=== PATIENT | female | born 1940 | race Caucasian/White ===

== ENCOUNTER 2016-03-03 12:25 | Emergency (ER) | payer MEDICARE, OTHER ==
--- NOTE | 2016-03-03 13:40 | ER Document Report ---
ED General - General Mode of Arrival: Medic Information source: Patient, Relative - TRAVEL OUTSIDE OF THE U.S. IN LAST 30 DAYS: No - HPI Onset: Other - see narrative Onset/Duration: Persistent Quality of pain: Achy Recently seen / treated by doctor: Yes - General Stated Complaint: GEN PAIN Notes: Patient is a 75-year-old female that presents to the emergency department today with complaints of pain over her tailbone. Patient has had a complicated medical history over the last few months, including having spinal surgery over for a meningioma removal at [facility]. Patient was in the hospital and [place] [facility] facilities for an extended period of time, she recently returned home approximately 1 week ago. According to the at bedside, the patient has been complaining of pain and feeling uncomfortable with her mattress/wheelchair for quite some time. states the patient is wheelchair/bed bound. Patient states that she went to her primary care physician 's office today for medication refills and for concerns about her tailbone pain and she was sent here. Patient states her physician never evaluated her today, he just sent her here. and patient both deny any recent fall or trauma. (VÍCTOR RODRIGUEZ) - Related Data Allergies/Adverse Reactions: No Known Allergies Allergy (Verified 11/15/13 14:00) Past Medical History - General Information source: Patient, [facility] Records - Social History Smoking Status: Former Smoker Cigarette use (# per day): No Frequency of alcohol use: None Drug Abuse: None Lives with: Spouse/Significant other Family History: None - Past Medical History Cardiac Medical History: Reports: Hx Hypertension - meds x 3 years Pulmonary Medical History: Renal/ Medical History: Reports: Hx Kidney Stones - ESWL x 7 ([id number]), Hx Ovarian Cysts Musculoskeltal Medical History: Reports Hx Arthritis Past Surgical History: Reports: Hx Appendectomy - incidental with CARRIE BSO, Hx Hysterectomy, Hx Tonsillectomy - as child, Other - Meningioma removal - Immunizations Hx Diphtheria, Pertussis, Tetanus Vaccination: No Hx Pneumococcal Vaccination: 09/06/13 Review of Systems - Review of Systems Constitutional: No symptoms reported EENT: No symptoms reported Cardiovascular: No symptoms reported Respiratory: No symptoms reported Gastrointestinal: No symptoms reported Genitourinary: No symptoms reported Female Genitourinary: No symptoms reported Musculoskeletal: See HPI, Other - "tailbone" pain, left knee pain Skin: No symptoms reported Hematologic/Lymphatic: No symptoms reported Neurological/Psychological: No symptoms reported -: Yes All other systems reviewed and negative Physical Exam - General General appearance: Alert - HEENT Head: Normocephalic, Atraumatic Eyes: Normal Conjunctiva: Normal Extraocular movements intact: Yes - Respiratory Respiratory status: No respiratory distress Chest status: Nontender Breath sounds: Normal - Cardiovascular Rhythm: Regular Heart sounds: Normal auscultation Murmur: No - Abdominal Inspection: Obese Distension: No distension Bowel sounds: Normal Tenderness: Nontender - Extremities General upper extremity: Normal inspection, Nontender, Normal ROM. No: Edema General lower extremity: Normal inspection, Nontender, Normal ROM. No: Edema - Neurological Neuro grossly intact: Yes Cognition: Normal Speech: Normal - Psychological Associated symptoms: Normal affect, Normal mood - Skin Skin Temperature: Warm Skin Moisture: Dry Skin Color: Normal - Vital signs Vitals: Temp Pulse Resp BP Pulse Ox 97.5 F 108 H 20 122/74 98 03/03/16 14:00 03/03/16 14:00 03/03/16 14:00 03/03/16 14:00 03/03/16 14:00 (LIVIA STEPHEN) - Skin Notes: No skin breakdown in sacral area, abscess, skin infection, ecchymosis, contusion , or sign of skin infection. (VÍCTOR RODRIGUEZ) Course - Re-evaluation Re-evalutation: 03/03/16 17:44 I personally performed the services described in the documentation, reviewed and edited the documentation which was dictated to my scribe in my presence, and it accurately records my words and actions. Patient seen and evaluated at the bedside with scribe in . states he is here patient states she is here for pain in her tailbone. 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 She has been seen and evaluated due The tumor removed he says she is now bedbound and wheelchair-bound. The wheelchair is a new thing for her. She was receiving her care and her medications from [facility] due to was told to see her primary care physician. He went to see a primary care physician today and she said she was crying with tailbone pain and the primary care physician did not see or evaluate her just told the nurse to send her to the emergency department. Patient and family said they any refills on her medications including probiotics but the states doctor was unwilling to do that and said it have that evaluated in the emergency department patient is in her regular state of health with the exception of complaining of tailbone pain. She has been laying on her back more than usual they said the mattress is not good and she's also been in a wheelchair which is new for her. He says he has a hospital bed at home but is not set up yet. He is here now requesting multiple things which included if her hospital bed physical therapy occupational therapy and resolve all her medications. I involved showcase maker the patient is no acute neurological deficits she is awake and alert no chest pain no shortness breath abdomen is soft left-sided paralysis on logroll she has tenderness over the coccyx region but there is not any skin breakdown whatsoever the skin is warm dry there is no cellulitis necrosis or crepitus no midline cervical thoracic or lumbar tenderness and the rest of her exam is essentially stable. X- ray of the coccyx is negative. systems analysis manager involved spoke with the primary care physician's nurse. She extensively worked with the at the bedside including giving him a program which they call for coronary insurance have a primary care physician come to their house patient has been continues to express wants and needs for numerous things including occupational therapy a different bed explained to him that that is not something we can order or have control over. We have given them all the resources to contact at home we have also notified the primary care physician that they need to see the patient in follow-up in 1-2 days. And discussed reasons for ED return sooner (LIVIA STEPHEN) - Vital Signs Vital signs: Temp Pulse Resp BP Pulse Ox 97.4 F 106 H 20 129/71 H 96 03/03/16 16:09 03/03/16 16:09 03/03/16 14:00 03/03/16 16:09 03/03/16 16:09 (LIVIA STEPHEN) Discharge - Discharge Clinical Impression: Coccyx pain Condition: Stable Disposition: HOME, SELF-CARE Additional Instructions: Low Back Pain/ tailbone pain Three out of every four people will have an episode of disabling back pain during their lifetime. Most commonly the pain is due to straining of the muscles and ligaments in the low back. Usual treatment includes: (1) Rest on a firm surface. Avoid lying on your stomach. (2) Ice pack the painful area. After a few days, gentle heat may be used intermittently to relax the area, or ice packs can be continued. (3) Medication may be needed -- muscle relaxers and antiinflammatory medicines are commonly used. (4) As the back improves, exercises are prescribed to strengthen the back and abdominal muscles. Your doctor will advise you on the proper care for your back at each stage in your recovery. You may be better in a few days -- or healing may take several weeks. If new symptoms of a "herniated disc" (radiation of pain, numbness, or tingling down the back of the leg or weakness in the leg) occur, you should be re-examined. Further testing may be necessary. Referrals: ELMA FERNÁNDEZ MD [Primary Care Provider] - Follow up tomorrow (in 1-2 days return to er sooner for increasing worsening or new symptoms) Scribe Documentation - Scribe Written by Bo:: Bo Bocanegra, 03/03/16 [id number] acting as scribe for :: Sabino
[2016-03-03 18:57] VITALS: BP 135/57
== END 2016-03-03 18:40 | disposition home or self-care (01) ==
LOC: ER 12:25
DX: M53.3 Sacrococcygeal disorders, not elsewhere classified (principal); M25.561 Pain in right knee; I10 Essential (primary) hypertension; G83.14 Monoplegia of lower limb affecting left nondominant side; Z99.3 Dependence on wheelchair; Z87.891 Personal history of nicotine dependence; Z98.890 Other specified postprocedural states
CPT/HCPCS: 72110; 99283

== ENCOUNTER 2016-03-21 14:37 | Emergency (ER) | payer MEDICARE ==
--- NOTE | 2016-03-21 15:37 | ER Document Report ---
ED General - General Chief Complaint: Constipation Stated Complaint: CONSTIPATION Mode of Arrival: Medic Information source: Patient, Relative - Notes: Patient presents to the emergency department with reports of constipation. Patient reports last bowel movement 3 days ago. She reports she is taking multiple stool softeners and suppository and this morning her gave her a fleets enema. She reports she started having liquid brown stool. She also presents with hard stool in a bag. She reports some abdominal pain and nausea. Denies fever vomiting. Reports history of some constipation. Also reports history of high blood pressure diabetes. reports patient immediately had a meningioma drained at [place]. He reports patient was taking metronidazole since then to help drain the meningioma. He reports is not draining anymore and is flat so he quit giving it to her 6 days ago because he read that it causes constipation. Patient has a hardy in. She reports shes had it ever since she went to [place]. She also reports shes been bed bound since before December. reports they can no longer go see their primary care provider. Apparently health and social care teacher is making arrangements for the primary care provider to come see them. TRAVEL OUTSIDE OF THE [place] IN LAST 30 DAYS: No - HPI Onset: Other - 3 days Onset/Duration: Persistent - Related Data Allergies/Adverse Reactions: No Known Allergies Allergy (Verified 11/15/13 14:00) Past Medical History - General Information source: Patient, Relative - - Social History Smoking Status: Unknown if Ever Smoked Cigarette use (# per day): No Frequency of alcohol use: None Drug Abuse: None Lives with: Family Family History: None - Past Medical History Cardiac Medical History: Reports: Hx Hypertension - meds x 3 years Denies: Hx Atrial Fibrillation, Hx Congestive Heart Failure, Hx Coronary Artery Disease, Hx Heart Attack, Hx Hypercholesterolemia, Hx Peripheral Vascular Disease, Hx Heart Murmur Pulmonary Medical History: Denies: Hx Asthma, Hx COPD, Hx Pneumonia Neurological Medical History: Denies: Hx Cerebrovascular Accident, Hx Seizures Endocrine Medical History: Denies: Hx Graves' Disease, Hx Hyperthyroidism, Hx Hypothyroidism Renal/ Medical History: Reports: Hx Kidney Stones - ESWL x 7 ([id number]), Hx Ovarian Cysts, Other - prolapsed bladder- hardy. Denies: Hx End Stage Renal Disease, Hx Peritoneal Dialysis, Hx Pelvic Inflammatory Disease Malignancy Medical History: Denies: Hx Breast Cancer, Hx Cervical Cancer, Hx Ovarian Cancer GI Medical History: Denies: Hx Crohn's Disease, Hx Gastroesophageal Reflux Disease, Hx Hiatal Hernia, Hx Irritable Bowel, Hx Liver Failure, Hx Ulcer Musculoskeltal Medical History: Reports Hx Arthritis, Denies Hx Fibromyalgia, Denies Hx Multiple Sclerosis, Denies Hx Muscular Dystrophy Psychiatric Medical History: Denies: Hx Dementia Traumatic Medical History: Denies: Hx Fractures Past Surgical History: Reports: Hx Appendectomy - incidental with CARRIE BSO, Hx Hysterectomy, Hx Tonsillectomy - as child, Other - Meningioma removal. Denies: Hx Bowel Surgery, Hx Section, Hx Cholecystectomy, Hx Colostomy, Hx Coronary Artery Bypass Graft, Hx Gastric Bypass Surgery, Hx Herniorrhaphy, Hx Mastectomy, Hx Pacemaker, Hx Tubal Ligation - Immunizations Hx Diphtheria, Pertussis, Tetanus Vaccination: No Hx Pneumococcal Vaccination: 09/06/13 Review of Systems - Review of Systems Notes: Review HPI for review of systems., All other systems negative Physical Exam - Vital signs Vitals: Temp Pulse Resp BP Pulse Ox 97.4 F 88 18 127/72 H 100 03/21/16 14:37 03/21/16 14:37 03/21/16 14:37 03/21/16 14:37 03/21/16 14:37 - Notes Notes: PHYSICAL EXAMINATION: GENERAL: nontoxic looking HEAD: Atraumatic, normocephalic. EYES: Pupils equal round , extraocular movements intact, sclera anicteric, conjunctiva are normal. ENT: nares patent, Moist mucous membranes. NECK: Normal range of motion, supple without lymphadenopathy LUNGS: CTAB and equal. No wheezes rales or rhonchi. HEART: tachy ABDOMEN: Soft, obese no tenderness with palpation. No guarding, no rebound EXTREMITIES: Normal range of motion, no pitting edema. No cyanosis. NEUROLOGICAL: Cranial nerves grossly intact. Normal sensory/motor PSYCH: Normal mood, normal affect. SKIN: Warm, Dry, normal turgor, no rashes or lesions noted or open sores noted Course - Re-evaluation Re-evalutation: 03/21/16 16:43 I have consulted the attending provider dr shea per [facility] guidelines Attempted to disimpact no stool obtained. 03/21/16 18:17 Enema completed large brown stool obtained. Patient instructed on UTI antibiotics. Patient was taking Macrobid until one week ago. Patient will be placed on Septra. She was instructed on Septra signs and symptoms of allergic reaction. She was also instructed on Tylenol avoid narcotics. Patient reports her home health nurse will be out on this week. She reports she has 5 people that come see her every week. Patient reports she is too weak to sit up. She reports she has been able to sit up since December. She reports she's been bedbound since that time. They are asking for from the transport back home. 03/21/16 18:25 Transport requested the community outreach coordinator. - Vital Signs Vital signs: Temp Pulse Resp BP Pulse Ox 97.4 F 88 18 127/72 H 100 03/21/16 14:37 03/21/16 14:37 03/21/16 14:37 03/21/16 14:37 03/21/16 14:37 - Laboratory Result Diagrams: 03/21/16 15:41 03/21/16 15:41 Laboratory results interpreted by me: 03/21/16 03/21/16 03/21/16 15:41 15:41 15:41 WBC 10.8 H RDW 16.3 H Potassium 3.1 L Chloride 108 H BUN 23 H Total Protein 6.1 L Albumin 2.9 L Urine Protein 30 H Urine Blood LARGE H Urine Nitrite POSITIVE H Ur Leukocyte Esterase LARGE H - Diagnostic Test Radiology reviewed: Image reviewed, Reports reviewed Discharge - Discharge Clinical Impression: Elevated blood pressure reading Constipation Qualifiers: Constipation type: unspecified constipation type Qualified Code(s): K59.00 - Constipation, unspecified UTI (urinary tract infection) Qualifiers: Urinary tract infection type: catheter-associated UTI Indwelling urinary catheter type: indwelling urethral catheter Encounter type: initial encounter Qualified Code(s): T83.511A - Infection and inflammatory reaction due to indwelling urethral catheter, initial encounter Condition: Stable Disposition: HOME, SELF-CARE Instructions: Urinary Tract Infection ([facility]), Trimethoprim-Sulfa ([facility]), Constipation ([facility]), Stool Softener ([facility]) Additional Instructions: *You have been evaluated for abdominal pain, constipation, urinary tract infection *Take medication as prescribed *Follow up with your primary care provider within one week *Return to ED for worsening condition, changes, needs *Return to ED if not better in 24 hours Prescriptions: Sulfamethoxazole/Trimethoprim [Bactrim Ds Tablet] 1 each PO BID #10 tablet Forms: Return to Work, Elevated Blood Pressure
[2016-03-21 16:15] LABS: ABSOLUTE BASOPHILS # (AUTO) 0.1 10^3/uL (0.0-0.2); ABSOLUTE EOSINOPHILS # (AUTO) 0.3 10^3/uL (0.0-0.6); ABSOLUTE LYMPHOCYTES (AUTO) 2.6 10^3/uL (0.5-4.7); ABSOLUTE MONOCYTES (AUTO) 1.1 10^3/uL (0.1-1.4); ABSOLUTE NEUT (AUTO) 6.7 10^3/uL (1.7-8.2); BASOPHILS % (AUTO) 0.9 % (0-2); EOSINOPHILS % (AUTO) 2.4 % (0-6); HEMATOCRIT 39.5 % (36.0-47.0); HEMOGLOBIN 13.1 g/dL (12.0-15.5); HGB HCT DIFFERENCE -0.2; LYMPHOCYTES % (AUTO) 24.4 % (13-45); MEAN CORPUSCULAR HGB CONC 33.1 g/dL (32.0-36.0); MEAN CORPUSCULAR VOLUME 85 fl (80-97); MONOCYTES % (AUTO) 10.2 % (3-13); RED BLOOD COUNT 4.67 10^6/uL (3.72-5.28); RED CELL DISTRIBUTION WIDTH 16.3 % (11.5-14.0); SEGMENTED NEUTROPHILS % (AUTO) 62.1 % (42-78); WHITE BLOOD COUNT 10.8 10^3/uL (4.0-10.5)
[2016-03-21 16:36] LABS: APPEARANCE,URINE CLOUDY; BILIRUBIN,URINE NEGATIVE (NEGATIVE); GLUCOSE, URINE NEGATIVE (NEGATIVE); KETONES,URINE NEGATIVE (NEGATIVE); LEUKOCYTE ESTERASE,URINE LARGE (NEGATIVE); NITRITE,URINE POSITIVE (NEGATIVE); PROTEIN,URINE 30 mg/dL (NEGATIVE); URINE SPECIFIC GRAVITY 1.019; UROBILINOGEN,URINE NEGATIVE mg/dL (<2.0)
[2016-03-21] MEDS ORDERED: MINERAL OIL ENEMA 133 ML PR ONE (16:37)
[2016-03-21 16:41] LABS: ALANINE AMINOTRANSFERASE 44 U/L (9-52); ALBUMIN 2.9 g/dL (3.5-5.0); ALKALINE PHOSPHATASE 83 U/L (38-126); ANION GAP 10 (5-19); ASPARTATE AMINO TRANSFERASE 29 U/L (14-36); BILIRUBIN,TOTAL 0.4 mg/dL (0.2-1.3); BLOOD UREA NITROGEN 23 mg/dL (7-20); CALCIUM 10.1 mg/dL (8.4-10.2); CARBON DIOXIDE 26 mmol/L (22-30); CHLORIDE 108 mmol/L (98-107); CREATININE RESULT 0.89 mg/dL (0.52-1.25); GLUCOSE 103 mg/dL (75-110); POTASSIUM 3.1 mmol/L (3.6-5.0); SODIUM 143.8 mmol/L (137-145); TOTAL PROTEIN 6.1 g/dL (6.3-8.2)
[2016-03-21] MEDS ORDERED: ACETAMINOPHEN 325 MG TABLET PO ONE (18:15)
[2016-03-21] MEDS ORDERED: SULFAMETHOXAZOLE/TRIMETHOPRIM 800-160 MG TABLET PO ONE (18:15)
[2016-03-21 19:24] VITALS: BP 138/87
== END 2016-03-21 19:25 | disposition home or self-care (01) ==
LOC: ER 14:37
DX: R03.0 Elevated blood-pressure reading, without diagnosis of hypertension (principal); K59.00 Constipation, unspecified; T83.511A Infection and inflammatory reaction due to indwelling urethral catheter, initial encounter; N39.0 Urinary tract infection, site not specified; E66.9 Obesity, unspecified; Z87.442 Personal history of urinary calculi; Z90.710 Acquired absence of both cervix and uterus
CPT/HCPCS: 99284; 36415; 87086; 85025; 87088; 80053; 81001; 87186; 74000; J3490; A9270

== ENCOUNTER 2016-03-30 17:17 | Inpatient (IN) | payer MEDICARE, OTHER ==
[2016-03-30] MEDS ORDERED: LIDOCAINE 2% VISCOUS SOLN 20 ML UDCUP PO ONE (17:26)
[2016-03-30] MEDS ORDERED: MAG HYDROX/AL HYDROX/SIMETH SUSP 30 ML UDCUP PO ONE (17:26)
[2016-03-30] MEDS ORDERED: METOCLOPRAMIDE HCL ORAL SOLN 10 MG/10 ML UDCUP PO ONE (17:26)
[2016-03-30] MEDS ORDERED: ASPIRIN 81 MG TABLET, CHEWABLE PO ONE (17:28)
--- NOTE | 2016-03-30 17:46 | ER Document Report ---
ED Medical Screen (RME) - General Chief Complaint: Epigastric Pain Stated Complaint: ABDOMINAL PAIN/CONGESTION Mode of Arrival: Medic Information source: Patient Notes: 75 y/o F presents to ED c/o epigastric/substernal burning type pain since yesterday. Denies fever or sob. I have greeted and performed a rapid initial assessment of this patient. A comprehensive ED assessment and evaluation of the patient, analysis of test results and completion of the medical decision making process will be conducted by additional ED providers. TRAVEL OUTSIDE OF THE [place] IN LAST 30 DAYS: No - Related Data Allergies/Adverse Reactions: No Known Allergies Allergy (Verified 03/30/16 17:28) Past Medical History - Social History Chew tobacco use (# tins/day): No Frequency of alcohol use: None Drug Abuse: None - Past Medical History Cardiac Medical History: Reports: Hx Hypertension - meds x 3 years Denies: Hx Atrial Fibrillation, Hx Congestive Heart Failure, Hx Coronary Artery Disease, Hx Heart Attack, Hx Hypercholesterolemia, Hx Peripheral Vascular Disease, Hx Heart Murmur Pulmonary Medical History: Denies: Hx Asthma, Hx COPD, Hx Pneumonia Neurological Medical History: Denies: Hx Cerebrovascular Accident, Hx Seizures Endocrine Medical History: Denies: Hx Graves' Disease, Hx Hyperthyroidism, Hx Hypothyroidism Renal/ Medical History: Reports: Hx Kidney Stones - ESWL x 7 ([phone]), Hx Ovarian Cysts. Denies: Hx End Stage Renal Disease, Hx Peritoneal Dialysis, Hx Pelvic Inflammatory Disease Malignancy Medical History: Denies: Hx Breast Cancer, Hx Cervical Cancer, Hx Ovarian Cancer GI Medical History: Denies: Hx Crohn's Disease, Hx Gastroesophageal Reflux Disease, Hx Hiatal Hernia, Hx Irritable Bowel, Hx Liver Failure, Hx Ulcer Musculoskeltal Medical History: Reports Hx Arthritis, Denies Hx Fibromyalgia, Denies Hx Multiple Sclerosis, Denies Hx Muscular Dystrophy Psychiatric Medical History: Denies: Hx Dementia Traumatic Medical History: Denies: Hx Fractures Past Surgical History: Reports: Hx Appendectomy - incidental with CARRIE BSO, Hx Hysterectomy, Hx Tonsillectomy - as child, Other - Meningioma removal. Denies: Hx Bowel Surgery, Hx Section, Hx Cholecystectomy, Hx Colostomy, Hx Coronary Artery Bypass Graft, Hx Gastric Bypass Surgery, Hx Herniorrhaphy, Hx Mastectomy, Hx Pacemaker, Hx Tubal Ligation - Immunizations Hx Diphtheria, Pertussis, Tetanus Vaccination: No Physical Exam - General General appearance: Appears well, Alert In distress: None - Respiratory Respiratory status: No respiratory distress Breath sounds: Normal
[2016-03-30 18:25] LABS: ABSOLUTE BASOPHILS # (AUTO) 0.2 10^3/uL (0.0-0.2); ABSOLUTE EOSINOPHILS # (AUTO) 0.4 10^3/uL (0.0-0.6); ABSOLUTE LYMPHOCYTES (AUTO) 5.4 10^3/uL (0.5-4.7); ABSOLUTE MONOCYTES (AUTO) 1.8 10^3/uL (0.1-1.4); ABSOLUTE NEUT (AUTO) 7.8 10^3/uL (1.7-8.2); BASOPHILS % (AUTO) 1.2 % (0-2); EOSINOPHILS % (AUTO) 2.4 % (0-6); HEMATOCRIT 40.7 % (36.0-47.0); HGB HCT DIFFERENCE -1.7; LYMPHOCYTES % (AUTO) 34.5 % (13-45); MEAN CORPUSCULAR HEMOGLOBIN 27.1 pg (27.0-33.4); MEAN CORPUSCULAR HGB CONC 31.9 g/dL (32.0-36.0); MEAN CORPUSCULAR VOLUME 85 fl (80-97); MONOCYTES % (AUTO) 11.5 % (3-13); RED BLOOD COUNT 4.79 10^6/uL (3.72-5.28); RED CELL DISTRIBUTION WIDTH 15.6 % (11.5-14.0); SEGMENTED NEUTROPHILS % (AUTO) 50.4 % (42-78); WHITE BLOOD COUNT 15.5 10^3/uL (4.0-10.5)
[2016-03-30 18:44] LABS: ALANINE AMINOTRANSFERASE 109 U/L (9-52); ALBUMIN 3.5 g/dL (3.5-5.0); ALKALINE PHOSPHATASE 80 U/L (38-126); ANION GAP 14 (5-19); ASPARTATE AMINO TRANSFERASE 91 U/L (14-36); BILIRUBIN,TOTAL 0.6 mg/dL (0.2-1.3); BLOOD UREA NITROGEN 15 mg/dL (7-20); CALCIUM 10.7 mg/dL (8.4-10.2); CARBON DIOXIDE 18 mmol/L (22-30); CHLORIDE 106 mmol/L (98-107); CREATINE KINASE 23 U/L (30-135); CREATININE RESULT 0.91 mg/dL (0.52-1.25); GLUCOSE 189 mg/dL (75-110); LIPASE 530.8 U/L (23-300); POTASSIUM 3.8 mmol/L (3.6-5.0); TOTAL PROTEIN 6.5 g/dL (6.3-8.2)
[2016-03-30 18:59] LABS: CREATINE KINASE MB 0.94 ng/mL (<4.55)
[2016-03-30 19:01] LABS: TROPONIN I 0.047 ng/mL
[2016-03-30] MEDS ORDERED: NORMAL SALINE 1000 ML 1,000 ML IV ONE (20:04)
--- NOTE | 2016-03-30 20:08 | EKG REPORT ---
SEVERITY:- ABNORMAL ECG - SINUS RHYTHM LAD, CONSIDER LEFT ANTERIOR FASCICULAR BLOCK : Confirmed by: Rob Mistry 30-Mar-2016 20:07:03
--- NOTE | 2016-03-30 20:08 | ER Document Report ---
ED General - General Chief Complaint: Epigastric Pain Stated Complaint: ABDOMINAL PAIN/CONGESTION Mode of Arrival: Medic Notes: Patient is a 75-year-old female with a history of hypertension and hyperlipidemia, chronic urinary incontinence secondary to uterine prolapse who presents with 2 days of epigastric abdominal pain radiating into her chest. Pain is described as a pressure, burning sensation. Nothing improves or worsens the pain. Denies a history of similar symptoms in the past. She has not seen her primary care doctor regarding today's concerns. States that she is also having leakage of urine around her catheter and that there is a significant burning associated with that urine leakage. She is not had any vomiting, diaphoresis, shortness of breath, hemoptysis. She denies any prior history of pulmonary embolus or DVT. No use of estrogen. TRAVEL OUTSIDE OF THE [place] IN LAST 30 DAYS: No - Related Data Allergies/Adverse Reactions: No Known Allergies Allergy (Verified 03/30/16 17:28) Past Medical History - General Information source: Patient - Social History Smoking Status: Never Smoker Chew tobacco use (# tins/day): No Frequency of alcohol use: None Drug Abuse: None Lives with: Family Family History: Reviewed & Not Pertinent Patient has suicidal ideation: No Patient has homicidal ideation: No - Past Medical History Cardiac Medical History: Reports: Hx Hypertension - meds x 3 years Denies: Hx Atrial Fibrillation, Hx Congestive Heart Failure, Hx Coronary Artery Disease, Hx Heart Attack, Hx Hypercholesterolemia, Hx Peripheral Vascular Disease, Hx Heart Murmur Pulmonary Medical History: Denies: Hx Asthma, Hx COPD, Hx Pneumonia Neurological Medical History: Denies: Hx Cerebrovascular Accident, Hx Seizures Endocrine Medical History: Denies: Hx Graves' Disease, Hx Hyperthyroidism, Hx Hypothyroidism Renal/ Medical History: Reports: Hx Kidney Stones - ESWL x 7 [phone]), Hx Ovarian Cysts. Denies: Hx End Stage Renal Disease, Hx Peritoneal Dialysis, Hx Pelvic Inflammatory Disease Malignancy Medical History: Denies: Hx Breast Cancer, Hx Cervical Cancer, Hx Ovarian Cancer GI Medical History: Denies: Hx Crohn's Disease, Hx Gastroesophageal Reflux Disease, Hx Hiatal Hernia, Hx Irritable Bowel, Hx Liver Failure, Hx Ulcer Musculoskeltal Medical History: Reports Hx Arthritis, Denies Hx Fibromyalgia, Denies Hx Multiple Sclerosis, Denies Hx Muscular Dystrophy Psychiatric Medical History: Denies: Hx Dementia Traumatic Medical History: Denies: Hx Fractures Past Surgical History: Reports: Hx Appendectomy - incidental with CARRIE BSO, Hx Hysterectomy, Hx Tonsillectomy - as child, Other - Meningioma removal. Denies: Hx Bowel Surgery, Hx Section, Hx Cholecystectomy, Hx Colostomy, Hx Coronary Artery Bypass Graft, Hx Gastric Bypass Surgery, Hx Herniorrhaphy, Hx Mastectomy, Hx Pacemaker, Hx Tubal Ligation - Immunizations Hx Diphtheria, Pertussis, Tetanus Vaccination: No Hx Pneumococcal Vaccination: 09/06/13 Review of Systems - Review of Systems Notes: Constitutional: Negative for fever. HENT: Negative for sore throat. Eyes: Negative for visual changes. Cardiovascular: Positive for chest pain. Respiratory: Negative for shortness of breath. Gastrointestinal: Negative for abdominal pain, vomiting or diarrhea. Genitourinary: Positive for suprapubic discomfort Musculoskeletal: Negative for back pain. Skin: Negative for rash. Neurological: Negative for headaches, weakness or numbness. 10 point ROS negative except as marked above and in HPI. Physical Exam - Vital signs Vitals: Temp Pulse Resp BP Pulse Ox 97.4 F 115 H 20 87/59 L 98 03/30/16 17:34 03/30/16 17:34 03/30/16 17:34 03/30/16 17:34 03/30/16 17:34 Interpretation: Hypotensive, Tachycardic Notes: PHYSICAL EXAMINATION: GENERAL: Anxious, appears to be in pain but no significant distress HEAD: Atraumatic, normocephalic. EYES: Pupils equal round and reactive to light, extraocular movements intact, sclera anicteric, conjunctiva are normal. ENT: nares patent, oropharynx clear without exudates. Moderately dry mucous membranes. NECK: Normal range of motion, supple without lymphadenopathy LUNGS: Breath sounds clear to auscultation bilaterally and equal. No wheezes rales or rhonchi. HEART: Regular rate and rhythm without murmurs ABDOMEN: Soft, nontender, normoactive bowel sounds. No guarding, no rebound. No masses appreciated. EXTREMITIES: Normal range of motion, no pitting or edema. No cyanosis. NEUROLOGICAL: No focal neurological deficits. Moves all extremities spontaneously and on command. PSYCH: anxious SKIN: Warm, Dry, normal turgor, no rashes or lesions noted. Course - Re-evaluation Re-evalutation: 02/20/17 20:05 Patient presents with epigastric abdominal pain radiating to the chest concerning for possible gastritis versus pericarditis versus possible ACS. Primary concern is for cardiac etiology given patient's moderately elevated troponin as well as EKG changes showing T-wave inversions in V2 through 4 and T- wave flattening in the lateral leads which was not present on EKG from 2015. Patient is pain-free at the time of my assessment. Denies any chest pain, shortness of breath, or pleuritic pain to suggest acute pulmonary embolus. Patient's initial vitals from EMS were within normal limits but her triage vitals showed hypotension. A recycling of his blood pressure at the time of my assessment shows a blood pressure at 102 on 76. I suspect the first reading may have been an incorrect reading although will continue to monitor the patient closely and provide a small fluid bolus. She will require admission. 2300-urinalysis shows findings consistent with pyelonephritis in the serum was collected after a clean catheterization and placement of new Lou. Her second troponin has down trended. Her pain is improved. She has been started on ceftriaxone and admitted to the hospitalist Dr. Elder. - Vital Signs Vital signs: Temp Pulse Resp BP Pulse Ox 97.4 F 94 20 135/71 H 99 03/30/16 17:34 03/30/16 22:00 03/31/16 01:00 03/31/16 00:01 03/31/16 01:00 - Laboratory Result Diagrams: 03/30/16 18:06 03/30/16 18:06 Laboratory results interpreted by me: 03/30/16 03/30/16 03/30/16 18:06 18:06 22:00 WBC 15.5 H MCHC 31.9 L RDW 15.6 H Plt Count 458 H Absolute Lymphocytes 5.4 H Absolute Monocytes 1.8 H Carbon Dioxide 18 L Glucose 189 H Calcium 10.7 H AST 91 H ALT 109 H Creatine Kinase 23 L Lipase 530.8 H Urine Protein 100 H Urine Ketones TRACE H Urine Blood LARGE H Ur Leukocyte Esterase SMALL H - Diagnostic Test Radiology reviewed: Image reviewed, Reports reviewed Radiology results interpreted by me: 03/30/16 20:07 Chest x-ray: No acute infiltrate - EKG Interpretation by Me Additional EKG results interpreted by me: 03/30/16 20:07 Sinus rhythm. Rate 92. Patient has T-wave inversions in V2 through 4. T-wave flattening in V5 and 6. This is changed from an EKG in 2014. QTC is 466. Discharge - Discharge Clinical Impression: Pyelonephritis Chest pain Qualifiers: Chest pain type: unspecified Qualified Code(s): R07.9 - Chest pain, unspecified Condition: Fair Disposition: ADMITTED INPATIENT Admitting Provider: Hospitalist Unit Admitted: Telemetry
[2016-03-30 22:49] LABS: APPEARANCE,URINE CLOUDY; BILIRUBIN,URINE NEGATIVE (NEGATIVE); GLUCOSE, URINE NEGATIVE (NEGATIVE); KETONES,URINE TRACE mg/dL (NEGATIVE); LEUKOCYTE ESTERASE,URINE SMALL (NEGATIVE); NITRITE,URINE NEGATIVE (NEGATIVE); PROTEIN,URINE 100 mg/dL (NEGATIVE); URINE SPECIFIC GRAVITY 1.021; UROBILINOGEN,URINE NEGATIVE mg/dL (<2.0)
[2016-03-30] MEDS ORDERED: CEFTRIAXONE 1 GM/D5W RTU 50 ML IV ONE (23:04)
[2016-03-30] MEDS ORDERED: ACETAMINOPHEN 325 MG TABLET PO PRN (23:14)
[2016-03-30] MEDS ORDERED: IPRATROPIUM/ALBUTEROL 0.5-2.5 MG/3 ML AMPUL NEB PRN (23:14)
[2016-03-30] MEDS ORDERED: LACTULOSE SYRUP 20 GM/30 ML UDCUP PO ONE (23:14)
[2016-03-30] MEDS ORDERED: NORMAL SALINE 1000 ML 1,000 ML IV SCH (23:15)
[2016-03-30] MEDS ORDERED: INSULIN LISPRO 100 UNIT/ML 3 ML VIAL SUBCUT PRN (23:17)
[2016-03-30] MEDS ORDERED: DEXTROSE 40% GEL 15 GM TUBE PO PRN ×2 (23:17)
[2016-03-30] MEDS ORDERED: DEXTROSE 50%-WATER 25 GM/50 ML DISP.SYRIN IV PRN ×2 (23:17)
[2016-03-30] MEDS ORDERED: GLUCAGON,HUMAN RECOMB 1 MG INJ IM PRN (23:17)
[2016-03-31] MEDS: LEVOFLOXACIN 750 MG/D5W RTU 750 MG/150 ML RTUPB IV SCH ×3 (03:00→21:12)
[2016-03-31] MEDS ORDERED: INFLUENZA ADLT QUAD (36MOS+) 2016-17 VAC 0.5 ML SYR IM PRN (04:09)
--- NOTE | 2016-03-31 04:29 | PDOC H&P ---
History of Present Illness Admission Date/PCP: 03/30/16 23:14 Patient complains of: Abdominal pain History of Present Illness: YI TAN is a 75 year old female with a past medical history of diabetes, hypertension, dyslipidemia morbid obesity, uterine prolapse, recurrent urinary tract infection and gait disorder following surgery for meningioma. She been her usual state of health until approximately 2 days ago noting leakage around her Lou site and abdominal pain prompting her to call EMS who initially refused transport to hospital until patient complained of chest pain. In the emergency room she's found to have leukocytosis, back pain and pyuria suggestive of pyelonephritis, ultrasound negative for hydronephrosis or obstruction. Patient denying chest pain shortness of breath but complains of nausea with constipation. She started on empiric antibiotics referred to the hospitalist for admission Past Medical History Cardiac Medical History: Reports: Hypertension - meds x 3 years Denies: Atrial Fibrillation, Congestive Heart Failure, Coronary Artery Disease, Myocardial Infarction, Hyperlipidema, Peripheral Vascular Disease, Heart Murmur Pulmonary Medical History: Denies: Asthma, Chronic Obstructive Pulmonary Disease (COPD), Pneumonia Neurological Medical History: Denies: Seizures Endocrine Medical History: Denies: Hyperthyroidism, Hypothyroidism Renal/ Medical History: Denies: End Stage Renal Disease Malignancy Medical History: Denies: Breast Cancer, Cervical Cancer, Ovarian Cancer GI Medical History: Denies: Crohn's Disease, Gastroesophageal Reflux Disease, Hiatal Hernia Musculoskeltal Medical History: Reports: Arthritis Denies: Fibromyalgia Psychiatric Medical History: Denies: Dementia Hematology: Denies: Anemia Past Surgical History Past Surgical History: Reports: Appendectomy - incidental with CARRIE BSO, Hysterectomy, Tonsillectomy - as child, Other - Meningioma removal Denies: Amputation, Section, Cholecystectomy, Colostomy, Coronary Artery Bypass Graft, Gastric Bypass Surgery, Herniorrhaphy, Mastectomy, Pacemaker, Tubal Ligation Social History Information Source: Patient Lives with: Family Smoking Status: Never Smoker Frequency of Alcohol Use: None Hx Recreational Drug Use: No Drugs: None Hx Prescription Drug Abuse: No - Advance Directive Resuscitation Status: Full Code Family History Family History: DM, Hypertension Parental Family History Reviewed: Yes Children Family History Reviewed: Yes Sibling(s) Family History Reviewed.: Yes Medication/Allergy Home Medications: Glipizide [Glocotrol 5 Mg Tablet] 5 mg PO QAM 08/23/13 Losartan Potassium [Cozaar 50 mg Tablet] 50 mg PO QAM 08/23/13 Naproxen Sodium [Aleve] 220 mg PO PRN 11/16/13 Eldorado-3/Dha/Epa/Tuna Oil [Kids Eldorado-3 With Dha Gummies] 1 each PO DAILY Oxycodone HCl/Acetaminophen [Percocet 5-325 mg Tablet] 1 - 2 tab PO ASDIR PRN # 15 tablet 08/04/15 Prednisone [Deltasone 10 mg Tablet] 10 mg PO ASDIR PRN #21 tablet 08/04/15 Walker [Folding Walker] 1 each MC ASDIR PRN #1 each 08/04/15 Nitrofurantoin/Nitrofuran Mac [Macrobid 100 mg Capsule] 100 mg PO BID #20 capsule 10/15/15 Sulfamethoxazole/Trimethoprim [Bactrim Ds Tablet] 1 each PO BID #10 tablet 03/21 Allergies/Adverse Reactions: No Known Allergies Allergy (Verified 03/30/16 17:28) Review of Systems Constitutional: PRESENT: as per HPI, anorexia, chills, fatigue, fever(s). ABSENT: headache(s), night sweats, weakness Eyes: ABSENT: visual disturbances Ears: ABSENT: hearing changes Cardiovascular: ABSENT: chest pain, dyspnea on exertion, edema, orthropnea, palpitations Respiratory: ABSENT: cough, hemoptysis Gastrointestinal: PRESENT: abdominal pain, bloating, constipation, heartburn, nausea. ABSENT: coffee ground emesis, diarrhea, vomiting Genitourinary: PRESENT: as per HPI. ABSENT: dysuria, hematuria Musculoskeletal: ABSENT: joint swelling Integumentary: ABSENT: rash, wounds Neurological: ABSENT: abnormal gait, abnormal speech, confusion, dizziness, focal weakness, syncope Psychiatric: ABSENT: anxiety, depression, homidical ideation, suicidal ideation Endocrine: ABSENT: cold intolerance, heat intolerance, polydipsia, polyuria Hematologic/Lymphatic: ABSENT: easy bleeding, easy bruising Physical Exam Vital Signs: Temp Pulse Resp BP Pulse Ox 97.4 F 92 20 135/71 H 99 03/30/16 17:34 03/31/16 03:13 03/31/16 01:00 03/31/16 00:01 03/31/16 01:00 General appearance: PRESENT: no acute distress, cooperative, obese Head exam: PRESENT: atraumatic, normocephalic Eye exam: PRESENT: conjunctiva pink, EOMI, PERRLA. ABSENT: scleral icterus Ear exam: PRESENT: normal external ear exam Mouth exam: PRESENT: moist, tongue midline Teeth exam: ABSENT: dental tenderness Neck exam: ABSENT: carotid bruit, JVD, lymphadenopathy, thyromegaly Respiratory exam: PRESENT: clear to auscultation patria. ABSENT: rales, rhonchi, wheezes Cardiovascular exam: PRESENT: RRR. ABSENT: diastolic murmur, rubs, systolic murmur Pulses: PRESENT: normal dorsalis pedis pul Vascular exam: PRESENT: normal capillary refill GI/Abdominal exam: PRESENT: hypoactive bowel sounds, normal bowel sounds, soft. ABSENT: ascites, distended, guarding, mass, organolmegaly, rebound, tenderness Rectal exam: PRESENT: deferred Extremities exam: PRESENT: +1 edema Neurological exam: PRESENT: alert, awake, oriented to person, oriented to place , oriented to time, oriented to situation, CN II-XII grossly intact. ABSENT: motor sensory deficit Psychiatric exam: PRESENT: appropriate affect, normal mood. ABSENT: homicidal ideation, suicidal ideation Skin exam: PRESENT: dry, intact, warm. ABSENT: cyanosis, rash Results Impressions: Renal Ultrasound 03/30/16 00:00 IMPRESSION: NORMAL RENAL ULTRASOUND. Chest X-Ray 03/30/16 17:28 IMPRESSION: NO ACUTE RADIOGRAPHIC FINDING IN THE CHEST. NO SIGNIFICANT CHANGE FROM PRIOR STUDY. Assessment & Plan - Diagnosis (1) Atypical chest pain Is this a current diagnosis for this admission?: YesPlan: After further evaluation patient's pain is abdominal that said it is also reproducible and likely secondary to constipation, I will obtain serial cardiac enzymes given her history of diabetes, symptomatic management and lactulose with reevaluation (2) Diabetes 1.5, managed as type 2 Is this a current diagnosis for this admission?: YesPlan: Evaluate A1c, initiate sliding scale insulin (3) Pyelonephritis Is this a current diagnosis for this admission?: YesPlan: No evidence of hydro-nephrosis on ultrasound the patient is just completed a 5 day course of ciprofloxacin evaluation of recent microbiology revealed E faecalis and Pseudomonas in the urine greater than 100,000 colony count. Repeat urine culture pending CBC and IV Levaquin - Time Time Spent: 50 to 70 Minutes
[2016-03-31] MEDS: HEPARIN SOD (PORCINE) 5,000 UNIT/ML 1 ML SYRINGE SUBCUT SCH ×3 (06:08→21:10)
[2016-03-31 06:40] LABS: ABSOLUTE BASOPHILS # (AUTO) 0.1 10^3/uL (0.0-0.2); ABSOLUTE EOSINOPHILS # (AUTO) 0.1 10^3/uL (0.0-0.6); ABSOLUTE LYMPHOCYTES (AUTO) 2.6 10^3/uL (0.5-4.7); ABSOLUTE MONOCYTES (AUTO) 1.2 10^3/uL (0.1-1.4); ABSOLUTE NEUT (AUTO) 7.1 10^3/uL (1.7-8.2); BASOPHILS % (AUTO) 0.6 % (0-2); EOSINOPHILS % (AUTO) 1.1 % (0-6); HEMATOCRIT 33.5 % (36.0-47.0); HGB HCT DIFFERENCE -0.5; LYMPHOCYTES % (AUTO) 23.7 % (13-45); MEAN CORPUSCULAR HEMOGLOBIN 27.6 pg (27.0-33.4); MEAN CORPUSCULAR HGB CONC 32.7 g/dL (32.0-36.0); MEAN CORPUSCULAR VOLUME 85 fl (80-97); MONOCYTES % (AUTO) 10.7 % (3-13); RED BLOOD COUNT 3.96 10^6/uL (3.72-5.28); RED CELL DISTRIBUTION WIDTH 15.8 % (11.5-14.0); SEGMENTED NEUTROPHILS % (AUTO) 63.9 % (42-78); WHITE BLOOD COUNT 11.1 10^3/uL (4.0-10.5)
[2016-03-31 07:02] LABS: ANION GAP 10 (5-19); BLOOD UREA NITROGEN 15 mg/dL (7-20); CALCIUM 9.5 mg/dL (8.4-10.2); CARBON DIOXIDE 20 mmol/L (22-30); CHLORIDE 109 mmol/L (98-107); CREATINE KINASE 23 U/L (30-135); CREATININE RESULT 0.87 mg/dL (0.52-1.25); GLUCOSE 89 mg/dL (75-110); POTASSIUM 3.4 mmol/L (3.6-5.0); SODIUM 138.6 mmol/L (137-145)
[2016-03-31 07:27] LABS: CREATINE KINASE MB 1.07 ng/mL (<4.55); TROPONIN I 0.048 ng/mL
[2016-03-31] MEDS ORDERED: GLIPIZIDE 5 MG TABLET PO SCH (08:00)
[2016-03-31] MEDS ORDERED: LOSARTAN POTASSIUM 50 MG TABLET PO SCH (08:00)
[2016-03-31] MEDS: DOCUSATE SODIUM 100 MG CAPSULE PO SCH ×2 (10:11→17:08)
[2016-03-31] MEDS ORDERED: KETOROLAC TROMETHAMINE INJ/PF 30 MG/1 ML SDV IV PRN ×2 (10:29→11:24)
[2016-03-31] MEDS: KETOROLAC TROMETHAMINE INJ/PF 30 MG/1 ML SDV IV PRN ×2 (11:52→19:49)
--- NOTE | 2016-03-31 16:38 | PDOC PROGRESS REPORT ---
Subjective Progress Note for:: 03/31/16 Subjective:: The patient was seen earlier today on rounds. Most of my visit consumed time with help and the patient with the phone, positioning, repositioning, fixing the patient's garments, repositioning the telemetry box ordering lunch. I explained to the patient that I was there to evaluate and assess the patient however she persisted with wanting to get comfortable before proceeding with an encounter. The patient states she's much improved in comparison to admission. The patient denies any nausea vomiting diarrhea shortness breath dizziness chest pain fevers chills. Physical Exam Vital Signs: Temp Pulse Resp BP Pulse Ox 97.1 F 94 24 H 124/66 100 03/31/16 15:19 03/31/16 15:19 03/31/16 15:19 03/31/16 15:19 03/31/16 15:19 Intake & Output 03/29/16 03/30/16 03/31/16 23:59 23:59 23:59 Intake Total 560 Output Total 450 Balance 110 Weight 91.9 kg General appearance: PRESENT: cooperative, disheveled, obese, well-developed Head exam: PRESENT: atraumatic, normocephalic Eye exam: PRESENT: conjunctiva pink, EOMI, PERRLA. ABSENT: scleral icterus Ear exam: PRESENT: normal external ear exam Mouth exam: PRESENT: moist, tongue midline Neck exam: ABSENT: carotid bruit, JVD, lymphadenopathy, thyromegaly Respiratory exam: PRESENT: clear to auscultation patria. ABSENT: rales, rhonchi, wheezes Cardiovascular exam: PRESENT: RRR. ABSENT: diastolic murmur, rubs, systolic murmur Pulses: PRESENT: normal dorsalis pedis pul Vascular exam: PRESENT: normal capillary refill GI/Abdominal exam: PRESENT: normal bowel sounds, soft. ABSENT: distended, guarding, mass, organolmegaly, rebound, tenderness Rectal exam: PRESENT: deferred Extremities exam: PRESENT: full ROM. ABSENT: calf tenderness, clubbing, pedal edema Neurological exam: PRESENT: alert, awake, oriented to person, oriented to place , oriented to time, oriented to situation, CN II-XII grossly intact. ABSENT: motor sensory deficit Psychiatric exam: PRESENT: normal mood, unusual affect. ABSENT: homicidal ideation, suicidal ideation Skin exam: PRESENT: dry, intact, warm. ABSENT: cyanosis, rash Results Laboratory Results: 03/31/16 06:01 03/31/16 06:01 03/31/16 03/31/16 06:01 06:01 WBC 11.1 H RBC 3.96 Hgb 11.0 L Hct 33.5 L MCV 85 MCH 27.6 MCHC 32.7 RDW 15.8 H Plt Count 337 Seg Neutrophils % 63.9 Lymphocytes % 23.7 Monocytes % 10.7 Eosinophils % 1.1 Basophils % 0.6 Absolute Neutrophils 7.1 Absolute Lymphocytes 2.6 Absolute Monocytes 1.2 Absolute Eosinophils 0.1 Absolute Basophils 0.1 Sodium 138.6 Potassium 3.4 L Chloride 109 H Carbon Dioxide 20 L Anion Gap 10 BUN 15 Creatinine 0.87 Est GFR ( Amer) > 60 Est GFR (Non-Af Amer) > 60 Glucose 89 Calcium 9.5 03/31/16 03/31/16 06:01 06:01 Creatine Kinase 23 L CK-MB (CK-2) 1.07 Troponin I 0.048 Impressions: Renal Ultrasound 03/30/16 00:00 IMPRESSION: NORMAL RENAL ULTRASOUND. Chest X-Ray 03/30/16 17:28 IMPRESSION: NO ACUTE RADIOGRAPHIC FINDING IN THE CHEST. NO SIGNIFICANT CHANGE FROM PRIOR STUDY. Assessment & Plan - Diagnosis (1) Urinary tract infection associated with indwelling urethral catheter Qualifiers: Encounter type: initial encounter Qualified Code(s): T83.511A - Infection and inflammatory reaction due to indwelling urethral catheter, initial encounter; N39.0 - Urinary tract infection, site not specified Is this a current diagnosis for this admission?: YesPlan: Will continue broad-spectrum antibiotic coverage given the patient's persistent and recurring UTIs and await culture and sensitivity. (2) Atypical chest pain Is this a current diagnosis for this admission?: YesPlan: The patient has had resolution in symptoms. (3) Hypertension Qualifiers: Hypertension type: essential hypertension Qualified Code(s): I10 - Essential (primary) hypertension Is this a current diagnosis for this admission?: YesPlan: Will continue home medications. (4) Diabetes mellitus type 2 in obese Is this a current diagnosis for this admission?: YesPlan: The patient's A1c is in excellent range at 5.5 this is mainly diet controlled. - Time Time Spent with patient: 35 or more minutes Medications reviewed and adjusted accordingly: Yes Anticipated discharge: Home Within: within 48 hours
[2016-03-31] MEDS: ACETAZOLAMIDE 250 MG TABLET PO SCH (21:10)
[2016-03-31] MEDS: ONDANSETRON HCL INJ/PF 4 MG/2 ML SDV IV PRN (21:12)
[2016-04-01] MEDS: KETOROLAC TROMETHAMINE INJ/PF 30 MG/1 ML SDV IV PRN ×3 (06:06→18:37)
[2016-04-01] MEDS: HEPARIN SOD (PORCINE) 5,000 UNIT/ML 1 ML SYRINGE SUBCUT SCH ×3 (06:06→22:59)
[2016-04-01 06:08] LABS: ABSOLUTE BASOPHILS # (AUTO) 0.1 10^3/uL (0.0-0.2); ABSOLUTE EOSINOPHILS # (AUTO) 0.2 10^3/uL (0.0-0.6); ABSOLUTE LYMPHOCYTES (AUTO) 1.9 10^3/uL (0.5-4.7); ABSOLUTE MONOCYTES (AUTO) 1.1 10^3/uL (0.1-1.4); ABSOLUTE NEUT (AUTO) 5.9 10^3/uL (1.7-8.2); HEMATOCRIT 34.1 % (36.0-47.0); HEMOGLOBIN 11.3 g/dL (12.0-15.5); HGB HCT DIFFERENCE -0.2; MEAN CORPUSCULAR HEMOGLOBIN 28.1 pg (27.0-33.4); MEAN CORPUSCULAR HGB CONC 33.2 g/dL (32.0-36.0); MEAN CORPUSCULAR VOLUME 85 fl (80-97); MONOCYTES % (AUTO) 11.6 % (3-13); RED BLOOD COUNT 4.03 10^6/uL (3.72-5.28); RED CELL DISTRIBUTION WIDTH 15.6 % (11.5-14.0); SEGMENTED NEUTROPHILS % (AUTO) 64.4 % (42-78); WHITE BLOOD COUNT 9.2 10^3/uL (4.0-10.5)
[2016-04-01] MEDS: ONDANSETRON HCL INJ/PF 4 MG/2 ML SDV IV PRN (06:25)
[2016-04-01 06:27] LABS: ANION GAP 9 (5-19); BLOOD UREA NITROGEN 13 mg/dL (7-20); CALCIUM 9.1 mg/dL (8.4-10.2); CARBON DIOXIDE 20 mmol/L (22-30); CHLORIDE 110 mmol/L (98-107); CREATININE RESULT 0.93 mg/dL (0.52-1.25); GLUCOSE 80 mg/dL (75-110); POTASSIUM 3.6 mmol/L (3.6-5.0); SODIUM 138.9 mmol/L (137-145)
[2016-04-01] MEDS ORDERED: (PENDING PHARMACY ID) (Losartan/Hydrochlorothiazide [Hyzaar 100-25 Tablet] 1 EACH) PO SCH (10:00)
[2016-04-01] MEDS: LOSARTAN POTASSIUM 50 MG TABLET PO SCH (10:24)
[2016-04-01] MEDS: DOCUSATE SODIUM 100 MG CAPSULE PO SCH ×2 (10:25→17:11)
[2016-04-01] MEDS: HYDROCHLOROTHIAZIDE 25 MG TABLET PO SCH (10:25)
[2016-04-01] MEDS: GLIPIZIDE XL 5 MG TAB.ER.24 PO SCH (10:25)
[2016-04-01] MEDS: ACETAZOLAMIDE 250 MG TABLET PO SCH ×2 (10:25→22:59)
--- NOTE | 2016-04-01 15:40 | PDOC PROGRESS REPORT ---
Subjective Progress Note for:: 04/01/16 Subjective:: The patient was seen earlier today on rounds. Most of my visit consumed time with help and the patient with the phone, positioning, repositioning, fixing the patient's garments, repositioning the telemetry box ordering lunch. The patient states she's having pain in her lower abdomen. But when I asked the patient to further elaborate upon the pain she took the opportunity to tell a story about [facility]. The patient denies any nausea vomiting diarrhea shortness breath dizziness chest pain fevers chills. Physical Exam Vital Signs: Temp Pulse Resp BP Pulse Ox 98.0 F 88 20 113/62 100 04/01/16 11:42 04/01/16 11:42 04/01/16 11:42 04/01/16 11:42 04/01/16 11:42 Intake & Output 03/30/16 03/31/16 04/01/16 23:59 23:59 23:59 Intake Total 2300 895 Output Total 750 870 Balance 1550 25 Weight 91.9 kg 92.3 kg General appearance: PRESENT: cooperative, disheveled, obese, well-developed Head exam: PRESENT: atraumatic, normocephalic Eye exam: PRESENT: conjunctiva pink, EOMI, PERRLA. ABSENT: scleral icterus Ear exam: PRESENT: normal external ear exam Mouth exam: PRESENT: moist, tongue midline Neck exam: ABSENT: carotid bruit, JVD, lymphadenopathy, thyromegaly Respiratory exam: PRESENT: clear to auscultation patria. ABSENT: rales, rhonchi, wheezes Cardiovascular exam: PRESENT: RRR. ABSENT: diastolic murmur, rubs, systolic murmur Pulses: PRESENT: normal dorsalis pedis pul Vascular exam: PRESENT: normal capillary refill GI/Abdominal exam: PRESENT: normal bowel sounds, soft. ABSENT: distended, guarding, mass, organolmegaly, rebound, tenderness Rectal exam: PRESENT: deferred Extremities exam: PRESENT: full ROM. ABSENT: calf tenderness, clubbing, pedal edema Neurological exam: PRESENT: alert, awake, oriented to person, oriented to place , oriented to time, oriented to situation, CN II-XII grossly intact. ABSENT: motor sensory deficit Psychiatric exam: PRESENT: normal mood, unusual affect. ABSENT: homicidal ideation, suicidal ideation Skin exam: PRESENT: dry, intact, warm. ABSENT: cyanosis, rash Results Laboratory Results: 04/01/16 05:31 04/01/16 05:31 04/01/16 04/01/16 05:31 05:31 WBC 9.2 RBC 4.03 Hgb 11.3 L Hct 34.1 L MCV 85 MCH 28.1 MCHC 33.2 RDW 15.6 H Plt Count 341 Seg Neutrophils % 64.4 Lymphocytes % 21.0 Monocytes % 11.6 Eosinophils % 2.0 Basophils % 1.0 Absolute Neutrophils 5.9 Absolute Lymphocytes 1.9 Absolute Monocytes 1.1 Absolute Eosinophils 0.2 Absolute Basophils 0.1 Sodium 138.9 Potassium 3.6 Chloride 110 H Carbon Dioxide 20 L Anion Gap 9 BUN 13 Creatinine 0.93 Est GFR ( Amer) > 60 Est GFR (Non-Af Amer) 59 L Glucose 80 Calcium 9.1 03/31/16 03/31/16 06:01 06:01 Creatine Kinase 23 L CK-MB (CK-2) 1.07 Troponin I 0.048 Impressions: Renal Ultrasound 03/30/16 00:00 IMPRESSION: NORMAL RENAL ULTRASOUND. Chest X-Ray 03/30/16 17:28 IMPRESSION: NO ACUTE RADIOGRAPHIC FINDING IN THE CHEST. NO SIGNIFICANT CHANGE FROM PRIOR STUDY. Assessment & Plan - Diagnosis (1) Urinary tract infection associated with indwelling urethral catheter Qualifiers: Encounter type: initial encounter Qualified Code(s): T83.511A - Infection and inflammatory reaction due to indwelling urethral catheter, initial encounter; N39.0 - Urinary tract infection, site not specified Is this a current diagnosis for this admission?: YesPlan: Continue current antibiotic therapy awaiting for culture finalization. (2) Hypertension Qualifiers: Hypertension type: essential hypertension Qualified Code(s): I10 - Essential (primary) hypertension Is this a current diagnosis for this admission?: YesPlan: Will continue home medications. (3) Diabetes mellitus type 2 in obese Is this a current diagnosis for this admission?: YesPlan: The patient's A1c is in excellent range at 5.5 this is mainly diet controlled. (4) Atypical chest pain Is this a current diagnosis for this admission?: YesPlan: The patient has had resolution in symptoms. (5) Physical deconditioning Is this a current diagnosis for this admission?: YesPlan: Will consult therapies ramp. - Time Time Spent with patient: 25-34 minutes Medications reviewed and adjusted accordingly: Yes Disposition: The patient is a full code. Pending patient's symptomatology and diagnostic findings will reevaluate in the a.m.
[2016-04-01] MEDS ORDERED: LEVOFLOXACIN 750 MG/D5W RTU 750 MG/150 ML RTUPB IV SCH (22:00)
[2016-04-01] MEDS: LACTOBACILLUS ACIDOPHILUS 250 MG TAB PO SCH (22:57)
[2016-04-02] MEDS: KETOROLAC TROMETHAMINE INJ/PF 30 MG/1 ML SDV IV PRN ×2 (01:37→09:48)
[2016-04-02 05:54] LABS: ABSOLUTE BASOPHILS # (AUTO) 0.1 10^3/uL (0.0-0.2); ABSOLUTE EOSINOPHILS # (AUTO) 0.3 10^3/uL (0.0-0.6); ABSOLUTE LYMPHOCYTES (AUTO) 2.2 10^3/uL (0.5-4.7); ABSOLUTE NEUT (AUTO) 6.1 10^3/uL (1.7-8.2); BASOPHILS % (AUTO) 0.8 % (0-2); EOSINOPHILS % (AUTO) 2.9 % (0-6); HEMATOCRIT 31.9 % (36.0-47.0); HEMOGLOBIN 10.7 g/dL (12.0-15.5); HGB HCT DIFFERENCE 0.2; LYMPHOCYTES % (AUTO) 22.6 % (13-45); MEAN CORPUSCULAR HEMOGLOBIN 28.5 pg (27.0-33.4); MEAN CORPUSCULAR HGB CONC 33.5 g/dL (32.0-36.0); MEAN CORPUSCULAR VOLUME 85 fl (80-97); MONOCYTES % (AUTO) 10.8 % (3-13); RED BLOOD COUNT 3.75 10^6/uL (3.72-5.28); SEGMENTED NEUTROPHILS % (AUTO) 62.9 % (42-78); WHITE BLOOD COUNT 9.7 10^3/uL (4.0-10.5)
[2016-04-02 06:12] LABS: ANION GAP 10 (5-19); BLOOD UREA NITROGEN 13 mg/dL (7-20); CALCIUM 9.1 mg/dL (8.4-10.2); CARBON DIOXIDE 19 mmol/L (22-30); CHLORIDE 110 mmol/L (98-107); CREATININE RESULT 1.15 mg/dL (0.52-1.25); GLUCOSE 80 mg/dL (75-110); POTASSIUM 3.3 mmol/L (3.6-5.0); SODIUM 138.9 mmol/L (137-145)
[2016-04-02] MEDS: HEPARIN SOD (PORCINE) 5,000 UNIT/ML 1 ML SYRINGE SUBCUT SCH ×2 (06:51→14:33)
[2016-04-02] MEDS: LACTOBACILLUS ACIDOPHILUS 250 MG TAB PO SCH (09:47)
[2016-04-02] MEDS: ACETAZOLAMIDE 250 MG TABLET PO SCH (09:47)
[2016-04-02] MEDS: DOCUSATE SODIUM 100 MG CAPSULE PO SCH ×2 (09:48→17:05)
[2016-04-02] MEDS: LOSARTAN POTASSIUM 50 MG TABLET PO SCH (09:48)
[2016-04-02] MEDS: GLIPIZIDE XL 5 MG TAB.ER.24 PO SCH (09:48)
[2016-04-02] MEDS: HYDROCHLOROTHIAZIDE 25 MG TABLET PO SCH (09:48)
[2016-04-02] MEDS ORDERED: POTASSIUM CHLORIDE 10 MEQ TABLET.SA PO SCH (10:00)
[2016-04-02 20:55] VITALS: BP 121/72
--- NOTE | 2016-04-03 12:39 | PDOC DISCHARGE SUMMARY ---
General - Admit/Disc Date/PCP Admission Date/Primary Care Provider: 03/30/16 23:14 Dr. Victoria Discharge Date: 04/02/16 - Discharge Diagnosis (1) Urinary tract infection associated with indwelling urethral catheter Is this a current diagnosis for this admission?: Yes (2) Hypertension Is this a current diagnosis for this admission?: Yes (3) Diabetes mellitus type 2 in obese Is this a current diagnosis for this admission?: Yes (4) Physical deconditioning Is this a current diagnosis for this admission?: Yes - Additional Information Resuscitation Status: Full Code Discharge Diet: As Tolerated, Regular Discharge Activity: Activity As Tolerated, Balance Activity w/Rest Home Medications: Acetazolamide [Diamox 250 mg Tab] 250 mg PO Q12 03/31/16 Glipizide [Glipizide Xl] 5 mg PO DAILY 03/31/16 Losartan/Hydrochlorothiazide [Hyzaar 100-25 Tablet] 1 each PO DAILY 03/31/16 Bifidobacterium Infantis [Align 4 mg Capsule] 1 cap PO DAILY PRN #1 bottle 04/02 Levofloxacin [Levaquin 500 mg Tablet] 500 mg PO DAILY #2 tablet 04/02/16 History of Present Illness Patient complains of: Abdominal pain History of Present Illness: YI TAN is a 75 year old female with a past medical history of diabetes, hypertension, dyslipidemia morbid obesity, uterine prolapse, recurrent urinary tract infection and gait disorder following surgery for meningioma. She been her usual state of health until approximately 2 days ago noting leakage around her Lou site and abdominal pain prompting her to call EMS who initially refused transport to hospital until patient complained of chest pain. In the emergency room she's found to have leukocytosis, back pain and pyuria suggestive of pyelonephritis, ultrasound negative for hydronephrosis or obstruction. Patient denying chest pain shortness of breath but complains of nausea with constipation. She started on empiric antibiotics referred to the hospitalist for admission Hospital Course Hospital Course: The patient was admitted to continuous telemetry. Urine analysis and culture was obtained. Culture revealed no growth but given the patient's symptoms she still received antibiotic coverage. The patient's Lou was exchanged. The patient's symptoms completely resolved. Physical Exam Vital Signs: Temp Pulse Resp BP Pulse Ox 97.8 F 90 20 137/63 H 100 04/02/16 12:30 04/02/16 14:00 04/02/16 12:30 04/02/16 12:30 04/02/16 12:30 Intake & Output 03/31/16 04/01/16 04/02/16 23:59 23:59 23:59 Intake Total 2300 1305 950 Output Total 750 1120 200 Balance 1550 185 750 Weight 91.9 kg 92.3 kg 99.9 kg General appearance: PRESENT: cooperative, disheveled, obese, well-developed Head exam: PRESENT: atraumatic, normocephalic Eye exam: PRESENT: conjunctiva pink, EOMI, PERRLA. ABSENT: scleral icterus Ear exam: PRESENT: normal external ear exam Mouth exam: PRESENT: moist, tongue midline Neck exam: ABSENT: carotid bruit, JVD, lymphadenopathy, thyromegaly Respiratory exam: PRESENT: clear to auscultation patria. ABSENT: rales, rhonchi, wheezes Cardiovascular exam: PRESENT: RRR. ABSENT: diastolic murmur, rubs, systolic murmur Pulses: PRESENT: normal dorsalis pedis pul Vascular exam: PRESENT: normal capillary refill GI/Abdominal exam: PRESENT: normal bowel sounds, soft. ABSENT: distended, guarding, mass, organolmegaly, rebound, tenderness Rectal exam: PRESENT: deferred Extremities exam: PRESENT: full ROM. ABSENT: calf tenderness, clubbing, pedal edema Neurological exam: PRESENT: alert, awake, oriented to person, oriented to place , oriented to time, oriented to situation, CN II-XII grossly intact. ABSENT: motor sensory deficit Psychiatric exam: PRESENT: normal mood, unusual affect. ABSENT: homicidal ideation, suicidal ideation Skin exam: PRESENT: dry, intact, warm. ABSENT: cyanosis, rash Results Laboratory Results: Labs- Last Values WBC 9.7 10^3/uL (4.0-10.5) 04/02/16 05:08 RBC 3.75 10^6/uL (3.72-5.28) 04/02/16 05:08 Hgb 10.7 g/dL (12.0-15.5) L 04/02/16 05:08 Hct 31.9 % (36.0-47.0) L 04/02/16 05:08 MCV 85 fl (80-97) 04/02/16 05:08 MCH 28.5 pg (27.0-33.4) 04/02/16 05:08 MCHC 33.5 g/dL (32.0-36.0) 04/02/16 05:08 RDW 16.0 % (11.5-14.0) H 04/02/16 05:08 Plt Count 333 10^3/uL (150-450) 04/02/16 05:08 Seg Neutrophils % 62.9 % (42-78) 04/02/16 05:08 Lymphocytes % 22.6 % (13-45) 04/02/16 05:08 Monocytes % 10.8 % (3-13) 04/02/16 05:08 Eosinophils % 2.9 % (0-6) 04/02/16 05:08 Basophils % 0.8 % (0-2) 04/02/16 05:08 Absolute Neutrophils 6.1 10^3/uL (1.7-8.2) 04/02/16 05:08 Absolute Lymphocytes 2.2 10^3/uL (0.5-4.7) 04/02/16 05:08 Absolute Monocytes 1.0 10^3/uL (0.1-1.4) 04/02/16 05:08 Absolute Eosinophils 0.3 10^3/uL (0.0-0.6) 04/02/16 05:08 Absolute Basophils 0.1 10^3/uL (0.0-0.2) 04/02/16 05:08 Sodium 138.9 mmol/L (137-145) 04/02/16 05:08 Potassium 3.3 mmol/L (3.6-5.0) L 04/02/16 05:08 Chloride 110 mmol/L (98-107) H 04/02/16 05:08 Carbon Dioxide 19 mmol/L (22-30) L 04/02/16 05:08 Anion Gap 10 (5-19) 04/02/16 05:08 BUN 13 mg/dL (7-20) 04/02/16 05:08 Creatinine 1.15 mg/dL (0.52-1.25) 04/02/16 05:08 Est GFR ( Amer) 56 (>60) L 04/02/16 05:08 Est GFR (Non-Af Amer) 46 (>60) L 04/02/16 05:08 Glucose 80 mg/dL (75-110) 04/02/16 05:08 POC Glucose 80 mg/dL (70-110) 03/31/16 16:22 Hemoglobin A1c % 5.5 % (4.7-6.0) 03/31/16 06:01 Calcium 9.1 mg/dL (8.4-10.2) 04/02/16 05:08 Total Bilirubin 0.6 mg/dL (0.2-1.3) 03/30/16 18:06 Direct Bilirubin 0.0 mg/dL (0.0-0.3) 03/30/16 18:06 AST 91 U/L (14-36) H 03/30/16 18:06 ALT 109 U/L (9-52) H 03/30/16 18:06 Alkaline Phosphatase 80 U/L (38-126) 03/30/16 18:06 Creatine Kinase 23 U/L (30-135) L 03/31/16 06:01 CK-MB (CK-2) 1.07 ng/mL (<4.55) 03/31/16 06:01 Troponin I 0.048 ng/mL 03/31/16 06:01 Total Protein 6.5 g/dL (6.3-8.2) 03/30/16 18:06 Albumin 3.5 g/dL (3.5-5.0) 03/30/16 18:06 Lipase 530.8 U/L (23-300) H 03/30/16 18:06 Urine Color YELLOW 03/30/16 22:00 Urine Appearance CLOUDY 03/30/16 22:00 Urine pH 5.0 (5.0-9.0) 03/30/16 22:00 Ur Specific [place] 1.021 03/30/16 22:00 Urine Protein 100 mg/dL (NEGATIVE) H 03/30/16 22:00 Urine Glucose (UA) NEGATIVE mg/dL (NEGATIVE) 03/30/16 22:00 Urine Ketones TRACE mg/dL (NEGATIVE) H 03/30/16 22:00 Urine Blood LARGE (NEGATIVE) H 03/30/16 22:00 Urine Nitrite NEGATIVE (NEGATIVE) 03/30/16 22:00 Urine Bilirubin NEGATIVE (NEGATIVE) 03/30/16 22:00 Urine Urobilinogen NEGATIVE mg/dL (<2.0) 03/30/16 22:00 Ur Leukocyte Esterase SMALL (NEGATIVE) H 03/30/16 22:00 Urine WBC (Auto) 94 /HPF 03/30/16 22:00 Urine RBC (Auto) 85 /HPF 03/30/16 22:00 U Hyaline Cast (Auto) 3 /LPF 03/30/16 22:00 Urine WBC Clumps MANY /HPF 03/30/16 22:00 Squamous Epi Cells Auto 1 /HPF 03/30/16 22:00 Urine Mucus (Auto) FEW /LPF 03/30/16 22:00 Urine Ascorbic Acid NEGATIVE (NEGATIVE) 03/30/16 22:00 Impressions: Renal Ultrasound 03/30/16 00:00 IMPRESSION: NORMAL RENAL ULTRASOUND. Chest X-Ray 03/30/16 17:28 IMPRESSION: NO ACUTE RADIOGRAPHIC FINDING IN THE CHEST. NO SIGNIFICANT CHANGE FROM PRIOR STUDY. Qualifiers PATEINT BEING DISCHARGED WITH ANY OF THE FOLLOWING DIAGNOSIS?: No
[2016-04-03] MEDS ORDERED: LEVOFLOXACIN 750 MG TABLET PO SCH (22:00)
== END 2016-04-02 20:35 | disposition home health service (06) | DRG 699 ==
LOC: ER 17:17 → EH 23:14 → 4N 03-31 03:09
PROVIDERS: ADMIT Internal Medicine; ATTEND Internal Medicine
DX: T83.511A Infection and inflammatory reaction due to indwelling urethral catheter, initial encounter (principal); Z68.41 Body mass index [BMI] 40.0-44.9, adult; N39.0 Urinary tract infection, site not specified; Y84.6 Urinary catheterization as the cause of abnormal reaction of the patient, or of later complication, without mention of misadventure at the time of the procedure; E11.9 Type 2 diabetes mellitus without complications; I10 Essential (primary) hypertension; E78.5 Hyperlipidemia, unspecified; R07.89 Other chest pain; E66.01 Morbid (severe) obesity due to excess calories; R26.9 Unspecified abnormalities of gait and mobility; R32 Unspecified urinary incontinence; K59.00 Constipation, unspecified; Z90.49 Acquired absence of other specified parts of digestive tract; Z87.440 Personal history of urinary (tract) infections; Z90.710 Acquired absence of both cervix and uterus; Z83.3 Family history of diabetes mellitus; Z82.49 Family history of ischemic heart disease and other diseases of the circulatory system; N81.4 Uterovaginal prolapse, unspecified
CPT/HCPCS: 36415; 71010; 76770; 80048; 80053; 81001; 82550; 82553; 82962; 83036; 83690; 84484; 85025; 87040; 87086; 93005; 93010; 96360; 99285; G8978-GP; G8979-GP; J0696; J1644; J1885; J1956; J2405; J3490; J7030

== ENCOUNTER 2016-04-10 15:14 | Emergency (ER) | payer MEDICARE, OTHER ==
--- NOTE | 2016-04-10 15:28 | ER Document Report ---
ED GI/ - General Chief Complaint: Urinary Retention Stated Complaint: URINARY PROBLEM Notes: The patient is a 75-year-old female, past medical history urinary retention from prolapse, presents with 15 hours of no urine from her Lou. She said that she was noticing sediment in her Lou prior to the retention started. She said a 14-gauge Lou was placed about 2 weeks ago and that 14-gauges usually become clogged. She denies abdominal pain, fevers, flank pain, nausea, vomiting, diarrhea, constipation or back pain. TRAVEL OUTSIDE OF THE [place] IN LAST 30 DAYS: No - Related Data Allergies/Adverse Reactions: No Known Allergies Allergy (Verified 03/30/16 17:28) Past Medical History - General Information source: Patient - Social History Smoking Status: Unknown if Ever Smoked Family History: DM, Hypertension - Past Medical History Cardiac Medical History: Reports: Hx Hypertension - meds x 3 years Denies: Hx Atrial Fibrillation, Hx Congestive Heart Failure, Hx Coronary Artery Disease, Hx Heart Attack, Hx Hypercholesterolemia, Hx Peripheral Vascular Disease, Hx Heart Murmur Pulmonary Medical History: Denies: Hx Asthma, Hx COPD, Hx Pneumonia Neurological Medical History: Denies: Hx Cerebrovascular Accident, Hx Seizures Endocrine Medical History: Denies: Hx Graves' Disease, Hx Hyperthyroidism, Hx Hypothyroidism Renal/ Medical History: Reports: Hx Kidney Stones - ESWL x 7 ([id number]), Hx Ovarian Cysts. Denies: Hx End Stage Renal Disease, Hx Peritoneal Dialysis, Hx Pelvic Inflammatory Disease Malignancy Medical History: Denies: Hx Breast Cancer, Hx Cervical Cancer, Hx Ovarian Cancer GI Medical History: Denies: Hx Crohn's Disease, Hx Gastroesophageal Reflux Disease, Hx Hiatal Hernia, Hx Irritable Bowel, Hx Liver Failure, Hx Ulcer Musculoskeltal Medical History: Reports Hx Arthritis, Denies Hx Fibromyalgia, Denies Hx Multiple Sclerosis, Denies Hx Muscular Dystrophy Psychiatric Medical History: Denies: Hx Dementia Traumatic Medical History: Denies: Hx Fractures Past Surgical History: Reports: Hx Appendectomy - incidental with CARRIE BSO, Hx Hysterectomy, Hx Tonsillectomy - as child, Other - Meningioma removal. Denies: Hx Bowel Surgery, Hx Section, Hx Cholecystectomy, Hx Colostomy, Hx Coronary Artery Bypass Graft, Hx Gastric Bypass Surgery, Hx Herniorrhaphy, Hx Mastectomy, Hx Pacemaker, Hx Tubal Ligation - Immunizations Hx Diphtheria, Pertussis, Tetanus Vaccination: No Hx Pneumococcal Vaccination: 09/06/13 Review of Systems - Review of Systems Notes: REVIEW OF SYSTEMS: CONSTITUTIONAL: -fevers, -chills EENT: -eye pain, -difficulty swallowing, -nasal congestion CARDIOVASCULAR:-chest pain, -syncope. RESPIRATORY: -cough, -SOB GASTROINTESTINAL: -abdominal pain, - nausea, -vomiting, -diarrhea GENITOURINARY: +urinary retention, -dysuria, -hematuria MUSCULOSKELETAL: -back pain, -neck pain SKIN: -rash or skin lesions. HEMATOLOGIC: -easy bruising or bleeding. LYMPHATIC: -swollen, enlarged glands. NEUROLOGICAL: -altered mental status or loss of consciousness, -headache, - neurologic symptoms PSYCHIATRIC: -anxiety, -depression. ALL OTHER SYSTEMS REVIEWED AND NEGATIVE. Physical Exam - Notes Notes: PHYSICAL EXAMINATION: GENERAL: Well-appearing, well-nourished and in no acute distress. HEAD: Atraumatic, normocephalic. EYES: Pupils equal round and reactive to light, extraocular movements intact, sclera anicteric, conjunctiva are normal. ENT: nares patent, oropharynx clear without exudates. Moist mucous membranes. NECK: Normal range of motion, supple without lymphadenopathy LUNGS: Breath sounds clear to auscultation bilaterally and equal. No wheezes rales or rhonchi. HEART: Regular rate and rhythm without murmurs ABDOMEN: Soft, nontender, normoactive bowel sounds. No guarding, no rebound. No masses appreciated. Lou in place without urine in bag. EXTREMITIES: Normal range of motion, no pitting or edema. No cyanosis. NEUROLOGICAL: Cranial nerves grossly intact. Normal speech, normal gait. Normal sensory, motor, and reflex exams. PSYCH: Normal mood, normal affect. SKIN: Warm, Dry, normal turgor, no rashes or lesions noted. Course - Re-evaluation Re-evalutation: Offered to irrigate Lou, but patient is requesting change to a larger Lou. Will place a 16-gauge Lou and have her follow-up with Urology. No signs of cystitis or pyelonephritis at this time. Discharge - Discharge Clinical Impression: Lou catheter problem Qualifiers: Encounter type: initial encounter Qualified Code(s): T83.9XXA - Unspecified complication of genitourinary prosthetic device, implant and graft, initial encounter Condition: Good Disposition: HOME, SELF-CARE Additional Instructions: Lou Catheter Care Tube Position: Keep the catheter connected to the drainage tubing at all times. Avoid pulling on the catheter. Keep the drainage tube taped to the mid- thigh, on top of your leg (not underneath it). Be sure there are no kinks or loops in the tube. Keep the drainage bag below the bladder. When in bed, the drainage bag should hang below the abdomen but should not lie on the floor. The drainage bag has hooks at the top so it can be hung on a chair or bed. Daily Cleaning: Wash your hands with soap and water before and after caring for your catheter. Twice a day, clean yourself where the catheter goes into the urethra. Use a warm, soapy wash cloth to clean around the urethral opening and the first few inches of the catheter. Females should wash from front to back to decrease the risk of infection from fecal material. After washing with soap, rinse the area with water. Do not put powder around the catheter. Apply ointment only if instructed by your doctor or nurse. Follow up if you develop fever or chills, flank or abdominal pain, blood in the urine, or if urine is not draining into the catheter. Referrals: INES MACKAY MD [[facility]] - Follow up as needed
[2016-04-10 17:52] VITALS: BP 129/74
== END 2016-04-10 17:53 | disposition home or self-care (01) ==
LOC: ER 15:14
DX: T83.9XXA Unspecified complication of genitourinary prosthetic device, implant and graft, initial encounter (principal); R33.9 Retention of urine, unspecified
CPT/HCPCS: 51702; 99284

== ENCOUNTER 2016-09-02 08:55 | Day surgery (SDC) | payer MEDICARE, OTHER ==
--- NOTE | 2016-09-01 12:43 | HISTORY AND PHYSICAL E ---
History and Physical NAME: YI TAN : 1940 AGE: 76Y ADMITTED: 09/02/2016 ROOM: CHIEF COMPLAINT: Rectal bleeding, hemorrhoid. Patient for flexible sig. HISTORY: The patient presents with rectal bleeding, constipation, hemorrhoids. Patient presented regarding flexible sig. I saw the patient in 2013, when she did have a flexible sig showing multiple polyps of rectum, hemorrhoids, and skin tags. She did have biopsies and the polyps were hyperplastic benign polyps. The patient did have a flexible sig. The patient did have complete colonoscopy in 2006; diverticulosis of sigmoid and descending colon, rectosigmoid polyps, hyperplastic polyps. CT scan shows a cystic stricture in the left upper quadrant. The patient did have diffuse mild enlargement of left adrenal, cystic structure in the left upper quadrant. PHYSICAL EXAMINATION: GENERAL: Pleasant, alert, oriented, in no acute distress. The patient is 73. She did have a flexible sig in the past showing hemorrhoids. CONCLUSION: Rectal bleeding, hemorrhoids. PLAN: Flexible sig, scheduled for 09/02/2016. DICTATING PHYSICIAN: MAREK CLANCY M.D. [id number] PHY#: [id number] ID: [id number] JOB#: [id number] ACCT: [id number] cc:MAREK CLANCY M.D. >
--- NOTE | 2016-09-01 12:44 | HISTORY AND PHYSICAL E ---
History and Physical NAME: YI TAN : 1940 AGE: 76Y ADMITTED: 09/02/2016 ROOM: CHIEF COMPLAINT: Rectal bleeding, history of polyps. Patient admitted for flexible sig. Colonoscopy in 2004 shows sigmoid diverticulosis, rectal polyps, severe diverticulosis. At this time patient is for flexible sig. PHYSICAL EXAMINATION: VITAL SIGNS: Blood pressure 120/80, pulse 80, respirations 18, temp 98. HEENT: Normal. ABDOMEN: Soft. HISTORY: Patient has rectal bleeding and rectal pain. She did have skin tags, multiple polyps in the rectoanal verge and sigmoid diverticulosis. Multiple polyps in the rectum and the anus. Plan is for colonoscopy/flexible sig. The flexible colon on 11/16/2013 had hyperplastic polyps, negative for cancer. Now she is for flexible sig. MEDICATIONS: 1. Norvasc. 2. Oxycodone. 3. Losartan. 4. Aleve. 5. MiraLax. 6. Percocet. CONCLUSIONS: Flexible sig. PLAN: Flexible sig. on 09/02/2016. DICTATING PHYSICIAN: MAREK CLANCY M.D. [id number] PHY#: [id number] ID: [id number] JOB#: [id number] ACCT: [id number] cc:MAREK CLANCY M.D. >
[2016-09-02] MEDS ORDERED: LIDOCAINE 2% JELLY 30 ML TUBE ONE (09:44)
[2016-09-02] MEDS ORDERED: ONDANSETRON HCL INJ/PF 4 MG/2 ML SDV ONE (09:44)
[2016-09-02] MEDS ORDERED: GLYCOPYRROLATE INJ 0.4 MG/2 ML VIAL ONE (09:45)
[2016-09-02] MEDS ORDERED: MIDAZOLAM 2 MG/2 ML INJ ONE ×2 (09:45)
[2016-09-02] MEDS ORDERED: NALOXONE HCL INJ/PF 0.4 MG/1 ML SDV ONE (09:45)
[2016-09-02] MEDS ORDERED: FENTANYL CITRATE INJ/PF 100 MCG/2 ML AMPUL ONE (09:46)
[2016-09-02] MEDS ORDERED: GLUCAGON,HUMAN RECOMB 1 MG INJ ONE (09:46)
[2016-09-02] MEDS ORDERED: FLUMAZENIL INJ 0.5 MG/5 ML VIAL IV ONE (09:46)
[2016-09-02] MEDS ORDERED: EPINEPHRINE INJ 1 MG/10 ML DISP.SYRIN ONE (09:46)
--- NOTE | 2016-09-02 11:18 | OPERATIVE REPORT E ---
Operative Report NAME: YI TAN : 1940 AGE: 76Y DATE OF SURGERY: 09/02/2106 ROOM: PREOPERATIVE DIAGNOSIS: Rectal bleeding. POSTOPERATIVE DIAGNOSES: 1. External hemorrhoids most likely the cause of the bleeding. 2. Sigmoid and descending colon diverticulosis. PROCEDURE: Flexible sig. SURGEON: MAREK CLANCY M.D. ANESTHESIA: Versed 2 and fentanyl 50. TISSUE REMOVED OR ALTERED: None. PROCEDURE: Rectal exam: External hemorrhoids. Rectum: Diminutive polyps. Sigmoid diverticulosis. Descending colon diverticulosis. Tissue removed or altered none. Patient tolerated the procedure well. The rectal bleeding most likely external hemorrhoids. PLAN: CBC and iron. DICTATING PHYSICIAN: MAREK CLANCY M.D. [id number] PHY#: [id number] ID: [id number] JOB#: [id number] ACCT: [id number] cc:MAREK CLANCY M.D. >
--- NOTE | 2016-09-02 11:23 | DISCHARGE SUMMARY E ---
Discharge Summary NAME: YI TAN : 1940 AGE: 76Y ADMITTED: 09/02/2016 DISCHARGED: 09/02/2016 PROCEDURE: Flexible sig. FINAL DIAGNOSES: 1. External hemorrhoids. 2. Diminutive rectal polyps. 3. Sigmoid diverticulosis. HISTORY: This 76-year-old female with rectal bleeding. Flexible sig shows no active bleeding, external hemorrhoids, diminutive polyps in rectum, sigmoid and descending colon diverticulosis. DISCHARGE PLAN: 1. Awaiting lab studies. 2. Consideration for surgical consult for hemorrhoid surgery. The patient did have hemorrhoid surgery before. 3. Stool softeners. 4. Follow-up office visit in the next few days. DICTATING PHYSICIAN: MAREK CLANCY M.D. [id number] [id number] PHY#: [id number] ID: [id number] JOB#: [id number] ACCT: [id number] cc:MAREK CLANCY M.D. >
[2016-09-02 11:40] LABS: ABSOLUTE BASOPHILS # (AUTO) 0.1 10^3/uL (0.0-0.2); ABSOLUTE EOSINOPHILS # (AUTO) 0.1 10^3/uL (0.0-0.6); ABSOLUTE LYMPHOCYTES (AUTO) 1.5 10^3/uL (0.5-4.7); ABSOLUTE MONOCYTES (AUTO) 0.7 10^3/uL (0.1-1.4); ABSOLUTE NEUT (AUTO) 5.3 10^3/uL (1.7-8.2); BASOPHILS % (AUTO) 0.7 % (0-2); EOSINOPHILS % (AUTO) 1.3 % (0-6); HEMOGLOBIN 13.3 g/dL (12.0-15.5); HGB HCT DIFFERENCE -0.1; LYMPHOCYTES % (AUTO) 20.2 % (13-45); MEAN CORPUSCULAR HEMOGLOBIN 28.4 pg (27.0-33.4); MEAN CORPUSCULAR HGB CONC 33.3 g/dL (32.0-36.0); MEAN CORPUSCULAR VOLUME 85 fl (80-97); MONOCYTES % (AUTO) 8.6 % (3-13); RED BLOOD COUNT 4.68 10^6/uL (3.72-5.28); RED CELL DISTRIBUTION WIDTH 12.9 % (11.5-14.0); SEGMENTED NEUTROPHILS % (AUTO) 69.2 % (42-78); WHITE BLOOD COUNT 7.6 10^3/uL (4.0-10.5)
[2016-09-02 11:43] LABS: IRON 60.3 ug/dL (37-170)
[2016-09-02 12:05] VITALS: BP 143/77
[2016-09-02 12:19] LABS: FERRITIN 62.3 ng/mL (11.1-264.0)
== END 2016-09-02 13:45 | disposition home or self-care (01) ==
LOC: END 08:55
PROVIDERS: ATTEND Specialist
PROC: 0DJD8ZZ Inspection of Lower Intestinal Tract, Via Natural or Artificial Opening Endoscopic (ICD-10-PCS; principal; 2016-09-02 10:00)
DX: K57.30 Diverticulosis of large intestine without perforation or abscess without bleeding (principal); K64.4 Residual hemorrhoidal skin tags; K59.00 Constipation, unspecified; D50.9 Iron deficiency anemia, unspecified; Z79.899 Other long term (current) drug therapy
CPT/HCPCS: 45330; 36415; 82962; 82607; 82728; 83540; 85025; J2250; J3010; J1610; J2405; J0171; J2310; J3490

== ENCOUNTER → 2016-09-28 | Outpatient (CLI) | payer MEDICARE, OTHER ==
[2016-09-28 10:32] LABS: ABSOLUTE BASOPHILS # (AUTO) 0.1 10^3/uL (0.0-0.2); ABSOLUTE EOSINOPHILS # (AUTO) 0.2 10^3/uL (0.0-0.6); ABSOLUTE LYMPHOCYTES (AUTO) 1.8 10^3/uL (0.5-4.7); ABSOLUTE MONOCYTES (AUTO) 0.8 10^3/uL (0.1-1.4); EOSINOPHILS % (AUTO) 1.4 % (0-6); HEMATOCRIT 43.4 % (36.0-47.0); HEMOGLOBIN 14.5 g/dL (12.0-15.5); HGB HCT DIFFERENCE 0.1; LYMPHOCYTES % (AUTO) 16.5 % (13-45); MEAN CORPUSCULAR HEMOGLOBIN 28.7 pg (27.0-33.4); MEAN CORPUSCULAR HGB CONC 33.4 g/dL (32.0-36.0); MEAN CORPUSCULAR VOLUME 86 fl (80-97); MONOCYTES % (AUTO) 7.2 % (3-13); RED BLOOD COUNT 5.05 10^6/uL (3.72-5.28); RED CELL DISTRIBUTION WIDTH 13.8 % (11.5-14.0); SEGMENTED NEUTROPHILS % (AUTO) 73.9 % (42-78); WHITE BLOOD COUNT 10.8 10^3/uL (4.0-10.5)
[2016-09-28 10:47] LABS: APPEARANCE,URINE CLOUDY; BILIRUBIN,URINE NEGATIVE (NEGATIVE); GLUCOSE, URINE NEGATIVE (NEGATIVE); KETONES,URINE NEGATIVE (NEGATIVE); LEUKOCYTE ESTERASE,URINE MODERATE (NEGATIVE); NITRITE,URINE POSITIVE (NEGATIVE); PROTEIN,URINE NEGATIVE (NEGATIVE); URINE SPECIFIC GRAVITY 1.016; UROBILINOGEN,URINE NEGATIVE mg/dL (<2.0)
--- NOTE | 2016-09-28 10:57 | RADIOLOGY REPORT (SQ) ---
EXAM DESCRIPTION: CHEST PA/LATERAL COMPLETED DATE/TIME: 09/28/2016 10:19 am REASON FOR STUDY: PRE-OP COMPARISON: None. TECHNIQUE: Frontal and lateral radiographic views of the chest acquired. NUMBER OF VIEWS: Two view. LIMITATIONS: None. FINDINGS: LUNGS AND PLEURA: No opacities, masses or pneumothorax. No pleural effusion. MEDIASTINUM AND HILAR STRUCTURES: No masses or contour abnormalities. HEART AND VASCULAR STRUCTURES: Heart normal size. No evidence for failure. BONES: No acute findings. HARDWARE: None in the chest. OTHER: No other significant finding. IMPRESSION: NO SIGNIFICANT RADIOGRAPHIC FINDING IN THE CHEST. TECHNICAL DOCUMENTATION: JOB ID: [id number] [employer] [facility] [place]- All Rights Reserved
--- NOTE | 2016-09-28 20:14 | EKG REPORT ---
SEVERITY:- ABNORMAL ECG - SINUS RHYTHM VENTRICULAR PREMATURE COMPLEX LAD, CONSIDER LEFT ANTERIOR FASCICULAR BLOCK : Confirmed by: Rob Mistry 28-Sep-2016 20:12:34
[2016-09-30 10:25] LABS: ANION GAP 9 (5-19); BLOOD UREA NITROGEN 27 mg/dL (7-20); CALCIUM 10.2 mg/dL (8.4-10.2); CARBON DIOXIDE 26 mmol/L (22-30); CHLORIDE 105 mmol/L (98-107); CREATININE RESULT 0.89 mg/dL (0.52-1.25); GLUCOSE 144 mg/dL (75-110); POTASSIUM 4.3 mmol/L (3.6-5.0); SODIUM 140.3 mmol/L (137-145)
== END ==
LOC: OD 09:12
PROVIDERS: ATTEND Orthopaedic Surgery
DX: Z01.818 Encounter for other preprocedural examination (principal)
CPT/HCPCS: 36415; 71020; 80048; 81001; 83036; 85025; 93005; 93010

== ENCOUNTER 2016-10-26 06:00 | Inpatient (IN) | payer MEDICARE, OTHER ==
[~2016-10-26 06:00] MED LIST: BUPIVACAINE INJ/PF LIPOSOME/PF 266 MG/20 ML SDV INJ PRN; CEFAZOLIN INJ 1 GM VIAL IV PRN; IBUPROFEN 800 MG in NORMAL SALINE 250 ML IV PRN; LACTATED RINGERS 1000 ML IV PRN; LANSOPRAZOLE 15 MG TAB.RAP.DR PO PRN; OXYCODONE HCL SR 10 MG TABLET PO PRN; VANCOMYCIN HCL 1,000 MG in DEXTROSE 5%-WATER 250 ML IV PRN
[2016-10-26] MEDS ORDERED: THROMBIN (BOVINE) TOPICAL 20000 UNIT VIAL ONE (07:29)
[2016-10-26] MEDS ORDERED: BUPIVACAINE INJ/PF LIPOSOME/PF 266 MG/20 ML SDV ONE (07:29)
[2016-10-26] MEDS ORDERED: THROMBIN (BOVINE) 5000 UNIT EPITAXIS KIT ONE (07:29)
[2016-10-26 08:52] LABS: APPEARANCE,URINE CLEAR; BILIRUBIN,URINE NEGATIVE (NEGATIVE); GLUCOSE, URINE NEGATIVE (NEGATIVE); KETONES,URINE NEGATIVE (NEGATIVE); LEUKOCYTE ESTERASE,URINE TRACE (NEGATIVE); NITRITE,URINE NEGATIVE (NEGATIVE); PROTEIN,URINE NEGATIVE (NEGATIVE); URINE SPECIFIC GRAVITY 1.016; UROBILINOGEN,URINE NEGATIVE mg/dL (<2.0)
[2016-10-26] MEDS ORDERED: FENTANYL CITRATE INJ/PF 100 MCG/2 ML AMPUL ONE (09:36)
[2016-10-26 09:37] LABS: POTASSIUM 4.2 mmol/L (3.6-5.0)
[2016-10-26] MEDS ORDERED: MIDAZOLAM 2 MG/2 ML INJ ONE (09:37)
[2016-10-26] MEDS ORDERED: TRANEXAMIC ACID INJ/PF 1,000 MG/10 ML SDV IV ONE (09:37)
[2016-10-26] MEDS ORDERED: PROPOFOL INJ 200 MG/20 ML VIAL IV ONE (09:37)
[2016-10-26] MEDS ORDERED: FENTANYL CITRATE INJ/PF 100 MCG/2 ML AMPUL IV PRN ×3 (10:43)
[2016-10-26] MEDS ORDERED: OXYCODONE-ACETAMINOPHEN 5-325 MG TABLET PO PRN ×2 (10:43)
[2016-10-26] MEDS ORDERED: DIPHENHYDRAMINE HCL 50 MG/ML VIAL IV PRN ×2 (10:43→11:34)
[2016-10-26] MEDS ORDERED: MORPHINE SULFATE 10 MG/ML INJ IV PRN ×3 (10:43→11:34)
[2016-10-26] MEDS ORDERED: PROMETHAZINE HCL INJ 25 MG/1 ML VIAL IV PRN ×2 (10:43)
[2016-10-26] MEDS ORDERED: MEPERIDINE HCL/PF INJ 25 MG/1 ML DISP.SYRIN IV PRN (10:43)
--- NOTE | 2016-10-26 11:10 | Operative Report ---
Operative Report DATE OF SURGERY: 10/26/16 PREOPERATIVE DIAGNOSIS: Left knee arthritis OPERATION: Left knee arthroplasty SURGEON: NOMI FRANKLIN [employer] SUPERVISOR: KHADRA VERA ANESTHESIA: Spinal TISSUE REMOVED OR ALTERED: Bone to pathology ESTIMATED BLOOD LOSS: 100 PROCEDURE: Implants used: Femur: Zita triathlon #5 PS femur Tibia: #5 tibia Tibial liner: 13 mm PS insert Patella: 32 mm oval patella Procedure with the patient supine on the operating table the left the limb is prepped and draped in a sterile fashion. The limb was elevated for exsanguination and the tourniquet inflated to 280 torr. A standard midline median parapatellar approach the knee is taken. Access is gained to the femoral canal through the intercondylar notch. Intramedullary alignment instrumentation used to resect 10 mm of distal femur in 5 of valgus. Sizing guide indicated a size 5 femur. Appropriate cutting jig is then used to fashion anterior posterior and chamfer cuts. A trial reduction femurs performed and this is judged to be adequate. Attention was next turned to the tibia. Using an extra medullary alignment system 11 millimeters was resected off the lateral tibial plateau. This is sized to a size 5 tibia. A trial reduction was now performed with a 5 femur and a 5 tibia using a 13 millimeters spacer. It is full extension and central patellofemoral tracking. The articular surface the patella was next resected using an oscillating saw. All trial implants were removed. Polymethylmethacrylate is mixed and used to cement the above implants in place. On adequate curing the cement excess cement was removed the tourniquet was deflated hemostasis obtained the wound is then closed in layers using interrupted Vicryl followed by alvarez. A sterile compressive dressing was applied and the patient returned to recovery room in satisfactory condition.
[2016-10-26] MEDS ORDERED: ONDANSETRON HCL INJ/PF 4 MG/2 ML SDV ONE ×2 (11:32→12:57)
[2016-10-26] MEDS ORDERED: MAG HYDROX/AL HYDROX/SIMETH SUSP 30 ML UDCUP PO PRN ×2 (11:34→12:30)
[2016-10-26] MEDS ORDERED: MORPHINE SULFATE 10 MG/ML INJ IM PRN (11:34)
[2016-10-26] MEDS ORDERED: ONDANSETRON HCL INJ/PF 4 MG/2 ML SDV IV PRN ×2 (11:34→12:30)
[2016-10-26] MEDS ORDERED: ONDANSETRON 4 MG TAB.RAPDIS PO PRN ×2 (11:34→12:30)
[2016-10-26] MEDS ORDERED: ACETAMINOPHEN 325 MG TABLET PO PRN (11:34)
[2016-10-26] MEDS ORDERED: PROMETHAZINE HCL INJ 25 MG/1 ML VIAL ONE (11:56)
[2016-10-26] MEDS ORDERED: GLUCAGON,HUMAN RECOMB 1 MG INJ IM PRN (12:14)
[2016-10-26] MEDS ORDERED: DEXTROSE 40% GEL 15 GM TUBE X 2 PO PRN (12:14)
[2016-10-26] MEDS ORDERED: DEXTROSE 50%-WATER SYRINGE 25 GM/50 ML DOSE IV PRN (12:14)
[2016-10-26] MEDS ORDERED: DEXTROSE 40% GEL 15 GM TUBE PO PRN (12:14)
[2016-10-26] MEDS ORDERED: DEXTROSE 50%-WATER SYRINGE 12.5 GM/25 ML DOSE IV PRN (12:14)
[2016-10-26] MEDS ORDERED: GLYCOPYRROLATE INJ 0.4 MG/2 ML VIAL ONE (12:57)
[2016-10-26] MEDS ORDERED: DEXAMETHASONE SOD PHOSPHATE INJ 4 MG/1 ML VIAL ONE (12:57)
--- NOTE | 2016-10-26 13:05 | RADIOLOGY REPORT (SQ) ---
EXAM DESCRIPTION: KNEE LEFT 2 VIEWS COMPLETED DATE/TIME: 10/26/2016 12:40 pm REASON FOR STUDY: Post OP -Long Cassette in PACU M17.12 UNILATERAL PRIMARY OSTEOARTHRITIS, LEFT KNE E COMPARISON: None. NUMBER OF VIEWS: Two views. TECHNIQUE: AP and lateral radiographic images acquired of the left knee. LIMITATIONS: None. FINDINGS: IMAGES DEMONSTRATE A LEFT KNEE ARTHROPLASTY GOOD POSITION. IMPRESSION: LEFT KNEE ARTHROPLASTY. TECHNICAL DOCUMENTATION: JOB ID: [id number] [employer]- All Rights Reserved
[2016-10-26] MEDS ORDERED: TRANEXAMIC ACID INJ/PF 1,000 MG/10 ML SDV IV PRN (13:30)
[2016-10-26] MEDS: MORPHINE SULFATE 10 MG/ML INJ IV PRN ×3 (15:27→19:43)
[2016-10-26] MEDS: INSULIN LISPRO 100 UNIT/ML 3 ML VIAL SUBCUT PRN (16:55)
[2016-10-26] MEDS ORDERED: ACETAMINOPHEN 100 ML IV ONE (17:35)
[2016-10-26] MEDS: IBUPROFEN 800 MG in NORMAL SALINE 250 ML IV SCH ×2 (17:41→21:41)
[2016-10-26] MEDS: PREGABALIN 75 MG CAPSULE PO SCH (17:43)
[2016-10-26] MEDS: OXYCODONE HCL IR 5 MG TABLET PO PRN (19:43)
[2016-10-26] MEDS: OXYCODONE HCL SR 10 MG TABLET PO SCH (21:48)
[2016-10-26] MEDS: RIVAROXABAN 10 MG TABLET PO SCH (21:48)
[2016-10-26] MEDS ORDERED: VANCOMYCIN HCL 1,000 MG in DEXTROSE 5%-WATER 250 ML IV ONE (23:35)
[2016-10-27 05:28] LABS: ANION GAP 7 (5-19); BLOOD UREA NITROGEN 39 mg/dL (7-20); CALCIUM 9.6 mg/dL (8.4-10.2); CARBON DIOXIDE 29 mmol/L (22-30); CHLORIDE 102 mmol/L (98-107); CREATININE RESULT 1.33 mg/dL (0.52-1.25); GLUCOSE 148 mg/dL (75-110); HEMATOCRIT 37.9 % (36.0-47.0); HEMOGLOBIN 12.8 g/dL (12.0-15.5); HGB HCT DIFFERENCE 0.5; MEAN CORPUSCULAR HEMOGLOBIN 28.7 pg (27.0-33.4); MEAN CORPUSCULAR HGB CONC 33.8 g/dL (32.0-36.0); MEAN CORPUSCULAR VOLUME 85 fl (80-97); RED BLOOD COUNT 4.45 10^6/uL (3.72-5.28); RED CELL DISTRIBUTION WIDTH 13.5 % (11.5-14.0); SODIUM 137.9 mmol/L (137-145); WHITE BLOOD COUNT 14.5 10^3/uL (4.0-10.5)
[2016-10-27 05:40] LABS: POTASSIUM 5.6 mmol/L (3.6-5.0)
[2016-10-27] MEDS: LANSOPRAZOLE 30 MG TAB.RAP.DR PO SCH (06:22)
[2016-10-27] MEDS: OXYCODONE HCL IR 5 MG TABLET PO PRN (06:22)
--- NOTE | 2016-10-27 06:43 | PDOC PROGRESS REPORT ---
Subjective Progress Note for:: 10/27/16 Subjective:: 67-year-old white female one day status post total left knee arthroplasty. Patient is lying in bed comfortably with postop compression dressing in place on left lower extremity. Patient reports that she is comfortable yet is experiencing some constipation and desires something to help relieve it. Patient was advised to talk to nursing staff as there are constipation aids on order. Patient is also interested in being discharged to a longterm facility in a few days time. Physical Exam Vital Signs: Temp Pulse Resp BP Pulse Ox 36.7 C 94 20 125/73 98 10/27/16 03:26 10/27/16 03:26 10/27/16 03:26 10/27/16 03:26 10/27/16 03:26 Intake & Output 10/25/16 10/26/16 10/27/16 06:59 06:59 06:59 Intake Total 3640 Output Total 2240 Balance 1400 General appearance: PRESENT: no acute distress, well-developed, well-nourished Head exam: PRESENT: atraumatic, normocephalic Pulses: PRESENT: normal dorsalis pedis pul, +2 pedal pulses bilateral Vascular exam: PRESENT: normal capillary refill Additional comments: Left lower extremity is in postoperative compression dressing, there is brisk capillary refill, and appropriate range of passive and active motion. Her sensory and motor function are intact. She has not worked with physical therapy as of yet but we will work towards independent ambulation and increased strength and range of motion today with physical therapy. Musculoskeletal exam: PRESENT: tenderness - About the knee on the left lower extremity. Neurological exam: PRESENT: alert, awake, oriented to person, oriented to place , oriented to time, oriented to situation, CN II-XII grossly intact. ABSENT: motor sensory deficit Psychiatric exam: PRESENT: appropriate affect, normal mood. ABSENT: homicidal ideation, suicidal ideation Skin exam: PRESENT: dry, intact, warm. ABSENT: cyanosis, rash Results Laboratory Results: 10/27/16 04:43 10/27/16 04:43 10/26/16 10/26/16 10/27/16 07:19 08:30 04:43 WBC 14.5 H RBC 4.45 Hgb 12.8 Hct 37.9 MCV 85 MCH 28.7 MCHC 33.8 RDW 13.5 Plt Count 307 Sodium Potassium 4.2 Chloride Carbon Dioxide Anion Gap BUN Creatinine Est GFR ( Amer) Est GFR (Non-Af Amer) Glucose 170 H Calcium Urine Color YELLOW Urine Appearance CLEAR Urine pH 5.0 Ur Specific [place] 1.016 Urine Protein NEGATIVE Urine Glucose (UA) NEGATIVE Urine Ketones NEGATIVE Urine Blood NEGATIVE Urine Nitrite NEGATIVE Ur Leukocyte Esterase TRACE H Urine WBC (Auto) 9 Urine RBC (Auto) 1 10/27/16 04:43 WBC RBC Hgb Hct MCV MCH MCHC RDW Plt Count Sodium 137.9 Potassium 5.6 H D Chloride 102 Carbon Dioxide 29 Anion Gap 7 BUN 39 H Creatinine 1.33 H Est GFR ( Amer) 47 L Est GFR (Non-Af Amer) 39 L Glucose 148 H Calcium 9.6 Urine Color Urine Appearance Urine pH Ur Specific [place] Urine Protein Urine Glucose (UA) Urine Ketones Urine Blood Urine Nitrite Ur Leukocyte Esterase Urine WBC (Auto) Urine RBC (Auto) Impressions: Knee X-Ray 10/26/16 11:39 IMPRESSION: LEFT KNEE ARTHROPLASTY. Assessment & Plan - Diagnosis (1) Arthritis of left knee Is this a current diagnosis for this admission?: Yes - Plan Summary Plan Summary: 76-year-old white female one day status post total left knee arthroplasty. Patient is doing well in terms of pain control yet she noted that she was constipated. She has not yet been seen by physical therapy but we will work towards independent ambulation and increase strength and range of motion today with these services. Upon discharge patient desires to be sent to a rehab facility for a few days and then return home. This will likely occur on postop day 3. She will then return 2 weeks postoperatively to [facility] for surgery for follow-up and staple removal.
[2016-10-27] MEDS: OXYCODONE HCL SR 10 MG TABLET PO SCH ×2 (09:12→21:49)
[2016-10-27] MEDS: LOSARTAN POTASSIUM 50 MG TABLET PO SCH (09:15)
[2016-10-27] MEDS: HYDROCHLOROTHIAZIDE 25 MG TABLET PO SCH (09:15)
[2016-10-27] MEDS: IBUPROFEN 800 MG in NORMAL SALINE 250 ML IV SCH (09:15)
[2016-10-27] MEDS: PREGABALIN 75 MG CAPSULE PO SCH ×2 (09:15→17:02)
[2016-10-27] MEDS ORDERED: (PENDING PHARMACY ID) (Losartan/Hydrochlorothiazide [Hyzaar 100-25 Tablet] 1 EACH) PO SCH (10:00)
[2016-10-27] MEDS: INSULIN LISPRO 100 UNIT/ML 3 ML VIAL SUBCUT PRN ×2 (11:27→16:38)
[2016-10-27] MEDS: RIVAROXABAN 10 MG TABLET PO SCH (21:33)
[2016-10-28] MEDS: LANSOPRAZOLE 30 MG TAB.RAP.DR PO SCH (03:37)
[2016-10-28 05:13] LABS: HEMATOCRIT 36.8 % (36.0-47.0); HEMOGLOBIN 12.3 g/dL (12.0-15.5); HGB HCT DIFFERENCE 0.1; MEAN CORPUSCULAR HEMOGLOBIN 28.9 pg (27.0-33.4); MEAN CORPUSCULAR HGB CONC 33.4 g/dL (32.0-36.0); MEAN CORPUSCULAR VOLUME 87 fl (80-97); RED BLOOD COUNT 4.26 10^6/uL (3.72-5.28); RED CELL DISTRIBUTION WIDTH 13.6 % (11.5-14.0); WHITE BLOOD COUNT 15.3 10^3/uL (4.0-10.5)
--- NOTE | 2016-10-28 07:11 | PDOC PROGRESS REPORT ---
Subjective Progress Note for:: 10/28/16 Subjective:: 76-year-old white female 2 days status post total left knee arthroplasty. Patient sitting upright in bed this morning and reports that she is comfortable yet has some discomfort in her catheter. Per patient and nursing staff the catheter is clogged with some sedimentation and they are requesting a saline flush. Patient's postoperative compression dressing is in place clean dry and intact and she continues to make progress with physical therapy. Physical Exam Vital Signs: Temp Pulse Resp BP Pulse Ox 36.7 C 108 H 20 117/54 L 95 10/28/16 00:10 10/28/16 00:10 10/28/16 00:10 10/28/16 00:10 10/28/16 00:10 Intake & Output 10/27/16 10/28/16 10/29/16 06:59 06:59 06:59 Intake Total 3690 370 Output Total 2740 05862 Balance 950 -34682 Weight 120.4 kg General appearance: PRESENT: no acute distress, well-developed, well-nourished Head exam: PRESENT: atraumatic, normocephalic Pulses: PRESENT: normal dorsalis pedis pul, +2 pedal pulses bilateral Vascular exam: PRESENT: normal capillary refill Additional comments: Urinary catheter in place. Nursing staff was authorized to flush urinary catheter with normal saline to clear sedimentation blockage. Additional comments: Left lower extremity is in postoperative compression dressing which is clean dry and intact. There is brisk capillary refill of the left lower extremity, and passive and active range of motion are appropriate for this stage in healing process. Patient has made slow progress with physical therapy and we will work towards independent ambulation today. Her sensory and motor functions are intact. Her postoperative compression dressing was removed and her OpSite dressing was changed and placed over the left knee. Additional comments: Patient has made slow progress with physical therapy with some lateral sidesteps. Patient will work towards independent ambulation with physical therapy today. She will also work towards increasing strength and range of motion of the left lower extremity. Neurological exam: PRESENT: alert, awake, oriented to person, oriented to place , oriented to time, oriented to situation, CN II-XII grossly intact. ABSENT: motor sensory deficit Psychiatric exam: PRESENT: appropriate affect, normal mood. ABSENT: homicidal ideation, suicidal ideation Skin exam: PRESENT: intact, warm. ABSENT: cyanosis, rash Additional comments: Skin on patient's face appeared moist with sweat. Upon questioning of patient' s comfort she reports that she does not feel warm or feverish. Results Laboratory Results: 10/28/16 04:38 10/27/16 04:43 10/28/16 04:38 WBC 15.3 H RBC 4.26 Hgb 12.3 Hct 36.8 MCV 87 MCH 28.9 MCHC 33.4 RDW 13.6 Plt Count 316 Impressions: Knee X-Ray 10/26/16 11:39 IMPRESSION: LEFT KNEE ARTHROPLASTY. Assessment & Plan - Diagnosis (1) Arthritis of left knee Is this a current diagnosis for this admission?: Yes - Plan Summary Plan Summary: 76-year-old white female 2 days status post total left knee arthroplasty whose pain is well controlled. Her only issues as far have been sedimentation in her urinary catheter this morning which was flushed with saline by nursing staff. She is making slow progress with physical therapy but we will work towards independent ambulation today. She will likely be discharged to a residential facility on postop day 3 and then will follow up with [facility] for surgery 2 weeks postoperatively for staple removal.
[2016-10-28] MEDS: LOSARTAN POTASSIUM 50 MG TABLET PO SCH (11:58)
[2016-10-28] MEDS: PREGABALIN 75 MG CAPSULE PO SCH ×2 (12:02→17:59)
[2016-10-28] MEDS: HYDROCHLOROTHIAZIDE 25 MG TABLET PO SCH (12:02)
[2016-10-28] MEDS: OXYCODONE HCL IR 5 MG TABLET PO PRN ×2 (13:24→21:19)
[2016-10-28] MEDS: RIVAROXABAN 10 MG TABLET PO SCH (21:19)
[2016-10-28] MEDS: OXYCODONE HCL SR 10 MG TABLET PO SCH (21:19)
[2016-10-29] MEDS: LANSOPRAZOLE 30 MG TAB.RAP.DR PO SCH (04:26)
[2016-10-29 06:38] LABS: HEMATOCRIT 32.6 % (36.0-47.0); HGB HCT DIFFERENCE 0.4; MEAN CORPUSCULAR HEMOGLOBIN 28.8 pg (27.0-33.4); MEAN CORPUSCULAR HGB CONC 33.7 g/dL (32.0-36.0); MEAN CORPUSCULAR VOLUME 86 fl (80-97); RED BLOOD COUNT 3.81 10^6/uL (3.72-5.28); RED CELL DISTRIBUTION WIDTH 13.8 % (11.5-14.0); WHITE BLOOD COUNT 13.7 10^3/uL (4.0-10.5)
--- NOTE | 2016-10-29 06:56 | PDOC DISCHARGE SUMMARY ---
General - Admit/Disc Date/PCP Admission Date/Primary Care Provider: 10/26/16 06:00 RONEN GARRIDO MD Discharge Date: 10/29/16 - Discharge Diagnosis (1) Arthritis of left knee Is this a current diagnosis for this admission?: Yes - Additional Information Resuscitation Status: Full Code Discharge Diet: As Tolerated, Regular Discharge Activity: Activity As Tolerated, No Driving, No tub bath, Walk Frequently Home Medications: Glipizide [Glipizide Xl] 5 mg PO DAILY 03/31/16 Losartan/Hydrochlorothiazide [Hyzaar 100-25 Tablet] 1 tab PO DAILY 03/31/16 History of Present Illness History of Present Illness: YI TAN is a 76 year old female with left knee arthritis admitted for total left knee arthroplasty. Hospital Course Hospital Course: 76-year-old white female admitted through the OR who underwent a total left knee arthroplasty. She returned to the floor and was seen by physical therapy and made progress towards independent ambulation and weightbearing as tolerated. She continues to make progress towards ambulation and will be discharged to a custodial facility with assistance of nursing, physical therapy, wheeled walker, bedside commode. Physical Exam Vital Signs: Temp Pulse Resp BP Pulse Ox 36.6 C 102 H 16 105/48 L 100 10/29/16 00:00 10/29/16 00:00 10/29/16 00:00 10/29/16 00:00 10/29/16 00:00 Intake & Output 10/27/16 10/28/16 10/29/16 06:59 06:59 06:59 Intake Total 3690 590 990 Output Total 2740 600 450 Balance 950 -10 540 Weight 120.4 kg General appearance: PRESENT: no acute distress, well-developed, well-nourished Head exam: PRESENT: atraumatic, normocephalic Pulses: PRESENT: normal dorsalis pedis pul, +2 pedal pulses bilateral Vascular exam: PRESENT: normal capillary refill Gentrourinary exam: PRESENT: indwelling catheter Additional comments: Urinary catheter in place with output of 250 overnight. Extremities exam: PRESENT: tenderness Additional comments: Left lower extremity is in full extension with OpSite wound dressing in place. The dressing is clean dry and intact. There is brisk capillary refill and patient is still exhibiting limited passive and active range of motion but is working with physical therapy to increase range of motion. She is still apparently tender to palpation about the left knee and her sensory motor function is intact. Musculoskeletal exam: PRESENT: ambulatory Additional comments: Patient continues to make progress with physical therapy but has not yet ambulated independently aside from sidesteps bilaterally. She will continue with physical therapy observation at the custodial facility. Neurological exam: PRESENT: alert, awake, oriented to person, oriented to place , oriented to time, oriented to situation, CN II-XII grossly intact. ABSENT: motor sensory deficit Psychiatric exam: PRESENT: appropriate affect, normal mood. ABSENT: homicidal ideation, suicidal ideation Skin exam: PRESENT: dry, intact, warm. ABSENT: cyanosis, rash Results Laboratory Results: 10/29/16 05:45 10/27/16 04:43 10/29/16 05:45 WBC 13.7 H RBC 3.81 Hgb 11.0 L Hct 32.6 L MCV 86 MCH 28.8 MCHC 33.7 RDW 13.8 Plt Count 274 Impressions: Knee X-Ray 10/26/16 11:39 IMPRESSION: LEFT KNEE ARTHROPLASTY. Plan Discharge Plan: 76-year-old white female 3 days status post total left knee arthroplasty. Patient's pain was well-controlled throughout her inpatient stay and she continues to make progress with physical therapy towards independent ambulation however has had slow progress up to this point. She has not yet ambulated independently aside from a few side steps however she will continue with physical therapy observation at the custodial facility to which she will be discharged. She will be discharged today to a custodial facility with assistance of nursing, bedside commode, wheeled walker in physical therapy. She will follow-up with [facility] for surgery 2 weeks postoperatively for staple removal and reevaluation by Dr. Read.
[2016-10-29] MEDS ORDERED: BISACODYL 10 MG SUPP.RECT PR ONE (11:30)
[2016-10-29] MEDS: PREGABALIN 75 MG CAPSULE PO SCH ×2 (12:15→18:50)
[2016-10-29] MEDS: HYDROCHLOROTHIAZIDE 25 MG TABLET PO SCH (12:15)
[2016-10-29] MEDS: LOSARTAN POTASSIUM 50 MG TABLET PO SCH (12:15)
[2016-10-29] MEDS: OXYCODONE HCL SR 10 MG TABLET PO SCH ×2 (12:26→22:32)
[2016-10-29] MEDS: OXYCODONE HCL IR 5 MG TABLET PO PRN (15:21)
[2016-10-29] MEDS: LACTOBACILLUS ACIDOPHILUS 250 MG TAB PO SCH (18:49)
[2016-10-29] MEDS: RIVAROXABAN 10 MG TABLET PO SCH (22:33)
[2016-10-30] MEDS: LANSOPRAZOLE 30 MG TAB.RAP.DR PO SCH (06:23)
--- NOTE | 2016-10-30 07:02 | PDOC PROGRESS REPORT ---
Subjective Progress Note for:: 10/30/16 Subjective:: Patient has no new complaints. Patient reports that she was not able to be transferred to the alf facility yesterday as planned because her did not agree with the plan. Physical Exam Vital Signs: Temp Pulse Resp BP Pulse Ox 36.6 C 86 16 113/56 L 91 L 10/30/16 06:23 10/30/16 06:23 10/30/16 00:00 10/30/16 06:23 10/30/16 06:23 Intake & Output 10/28/16 10/29/16 10/30/16 06:59 06:59 06:59 Intake Total 590 990 330 Output Total 600 450 800 Balance -10 540 -470 Physical Exam: No new changes on physical exam. Results Laboratory Results: 10/29/16 05:45 10/27/16 04:43 Impressions: Knee X-Ray 10/26/16 11:39 IMPRESSION: LEFT KNEE ARTHROPLASTY. Assessment & Plan - Diagnosis (1) Arthritis of left knee Is this a current diagnosis for this admission?: Yes - Plan Summary Plan Summary: 76-year-old white female 4 days status post total left knee arthroplasty whose pain is well managed and is making very slow progress with physical therapy. The original plan was to discharge her to a alf facility yesterday however her had concerns with this plan and did not agree. Patient will continue to work with physical therapy today and work towards independent ambulation and we will plan for discharge to her alf facility today. There is other opinion that she will may group progress with the physical therapy and nursing staff at this facility towards independent ambulation and surgical wound healing. She will follow up with [facility] for surgery [address] Read for staple removal.
[2016-10-30] MEDS: LOSARTAN POTASSIUM 50 MG TABLET PO SCH (10:28)
[2016-10-30] MEDS: HYDROCHLOROTHIAZIDE 25 MG TABLET PO SCH (10:29)
[2016-10-30] MEDS: OXYCODONE HCL SR 10 MG TABLET PO SCH (10:29)
[2016-10-30] MEDS: LACTOBACILLUS ACIDOPHILUS 250 MG TAB PO SCH (10:45)
[2016-10-30] MEDS: PREGABALIN 75 MG CAPSULE PO SCH (10:45)
[2016-10-30 14:13] VITALS: BP 101/61
== END 2016-10-30 15:48 | DRG 470 ==
LOC: INOR 06:00 → 4S 13:17
PROVIDERS: ADMIT Orthopaedic Surgery; ATTEND Orthopaedic Surgery
PROC: 0SRD0J9 Replacement of Left Knee Joint with Synthetic Substitute, Cemented, Open Approach (ICD-10-PCS; principal; 2016-10-26 10:00)
DX: M17.12 Unilateral primary osteoarthritis, left knee (principal); I10 Essential (primary) hypertension; E11.9 Type 2 diabetes mellitus without complications; Z90.710 Acquired absence of both cervix and uterus; Z90.49 Acquired absence of other specified parts of digestive tract; Z79.84 Long term (current) use of oral hypoglycemic drugs; Z87.891 Personal history of nicotine dependence; K59.00 Constipation, unspecified
CPT/HCPCS: 01402; 36415; 80048; 81001; 82947; 82962; 84132; 85027; 88305; 88311; 94799; C9290; G8978-GP; G8979-GP; J0131; J0690; J1100; J1741; J1815; J2250; J2270; J2405; J2550; J2704; J3010; J3370; J3490; J7050; J7060

== ENCOUNTER → 2016-11-25 | Outpatient (CLI) | payer MEDICARE, OTHER ==
[2016-11-25 15:14] LABS: ABSOLUTE BASOPHILS # (AUTO) 0.1 10^3/uL (0.0-0.2); ABSOLUTE EOSINOPHILS # (AUTO) 0.2 10^3/uL (0.0-0.6); ABSOLUTE LYMPHOCYTES (AUTO) 1.8 10^3/uL (0.5-4.7); ABSOLUTE MONOCYTES (AUTO) 0.8 10^3/uL (0.1-1.4); ABSOLUTE NEUT (AUTO) 6.8 10^3/uL (1.7-8.2); EOSINOPHILS % (AUTO) 1.7 % (0-6); HEMATOCRIT 39.4 % (36.0-47.0); HEMOGLOBIN 13.5 g/dL (12.0-15.5); HGB HCT DIFFERENCE 1.1; LYMPHOCYTES % (AUTO) 18.4 % (13-45); MEAN CORPUSCULAR HEMOGLOBIN 28.9 pg (27.0-33.4); MEAN CORPUSCULAR HGB CONC 34.4 g/dL (32.0-36.0); MEAN CORPUSCULAR VOLUME 84 fl (80-97); MONOCYTES % (AUTO) 7.9 % (3-13); RED BLOOD COUNT 4.69 10^6/uL (3.72-5.28); RED CELL DISTRIBUTION WIDTH 13.4 % (11.5-14.0); WHITE BLOOD COUNT 9.5 10^3/uL (4.0-10.5)
[2016-11-25 15:29] LABS: ALANINE AMINOTRANSFERASE 44 U/L (9-52); ALBUMIN 4.1 g/dL (3.5-5.0); ALKALINE PHOSPHATASE 154 U/L (38-126); AMYLASE 101 U/L (30-110); ANION GAP 13 (5-19); ASPARTATE AMINO TRANSFERASE 28 U/L (14-36); BILIRUBIN,DIRECT 0.4 mg/dL (0.0-0.4); BILIRUBIN,TOTAL 0.4 mg/dL (0.2-1.3); BLOOD UREA NITROGEN 27 mg/dL (7-20); CALCIUM 10.1 mg/dL (8.4-10.2); CARBON DIOXIDE 27 mmol/L (22-30); CHLORIDE 103 mmol/L (98-107); CREATININE RESULT 1.26 mg/dL (0.52-1.25); GLUCOSE 134 mg/dL (75-110); LIPASE 226.4 U/L (23-300); POTASSIUM 4.4 mmol/L (3.6-5.0); SODIUM 143.2 mmol/L (137-145); TOTAL PROTEIN 7.5 g/dL (6.3-8.2)
--- NOTE | 2016-11-25 16:23 | RADIOLOGY REPORT (SQ) ---
EXAM DESCRIPTION: KUB COMPLETED DATE/TIME: 11/25/2016 4:08 pm REASON FOR STUDY: UNSPECIFIED ABDOMINAL PAIN COMPARISON: None. NUMBER OF VIEWS: One view. TECHNIQUE: Supine radiographic image of the abdomen acquired. LIMITATIONS: None. FINDINGS: BOWEL GAS PATTERN: Large amount a gas in the expected location of the gastroduodenal junct ion/proximal duodenum. Gastric fundus is not distended. CALCIFICATIONS: No suspicious calcifications. SOFT TISSUES: No gross mass or suggestion of organomegaly. HARDWARE: Clips left upper quadrant. BONES: No bone lesions or fracture. OTHER: No other significant finding. IMPRESSION: Ileus versus early proximal small bowel obstruction.
[2016-11-25 16:53] LABS: APPEARANCE,URINE SLIGHTLY-CLOUDY; BILIRUBIN,URINE NEGATIVE (NEGATIVE); GLUCOSE, URINE NEGATIVE (NEGATIVE); KETONES,URINE NEGATIVE (NEGATIVE); LEUKOCYTE ESTERASE,URINE MODERATE (NEGATIVE); NITRITE,URINE POSITIVE (NEGATIVE); PROTEIN,URINE 30 mg/dL (NEGATIVE); URINE SPECIFIC GRAVITY 1.023; UROBILINOGEN,URINE NEGATIVE mg/dL (<2.0)
== END ==
LOC: OD 13:59
PROVIDERS: ATTEND Specialist
DX: R10.9 Unspecified abdominal pain (principal)
CPT/HCPCS: 36415; 74000; 80053; 81001; 82150; 83690; 85025; 87086; 87088; 87186

== ENCOUNTER → 2016-12-07 | Outpatient (CLI) | payer MEDICARE, OTHER ==
--- NOTE | 2016-12-07 14:55 | RADIOLOGY REPORT (SQ) ---
EXAM DESCRIPTION: U/S ABDOMEN LIMITED W/O DOP COMPLETED DATE/TIME: 12/07/2016 11:48 am REASON FOR STUDY: ABD PAIN (R10.9) R10.9 UNSPECIFIED ABDOMINAL PAIN COMPARISON: None. TECHNIQUE: Dynamic and static grayscale images acquired of the abdomen and recorded on PACS. Additio nal selected color Doppler and spectral images recorded. LIMITATIONS: None. FINDINGS: PANCREAS: No masses. Visualized pancreatic duct normal caliber. LIVER: No masses. Echotexture normal. LIVER VASCULATURE: Normal directional flow of the main portal vein and hepatic veins. GALLBLADDER: No stones. Normal wall thickness. No pericholecystic fluid. ULTRASOUND-DETECTED OLMEDO'S SIGN: Negative. INTRAHEPATIC DUCTS AND COMMON DUCT: CBD and intrahepatic ducts normal caliber. No filling defects. INFERIOR VENA CAVA: Normal flow. AORTA: No aneurysm. RIGHT KIDNEY: Normal size. Normal echogenicity. No solid or suspicious masses. No hydronephrosis. No calcifications. PERITONEAL AND RIGHT PLEURAL SPACE: Small right pleural effusion. OTHER: No other significant findings. IMPRESSION: No acute findings in the right upper quadrant. TECHNICAL DOCUMENTATION: JOB ID: [id number] [employer]- All Rights Reserved
== END ==
LOC: RAD 10:52
PROVIDERS: ATTEND Specialist
DX: R10.9 Unspecified abdominal pain (principal)
CPT/HCPCS: 76705

== ENCOUNTER → 2016-12-21 | Outpatient (CLI) | payer MEDICARE, OTHER | LOC: RAD 08:58 | PROVIDERS: ATTEND Specialist | DX: R10.9 Unspecified abdominal pain (principal) | CPT/HCPCS: 74249 ==

== ENCOUNTER → 2017-09-03 | Outpatient (CLI) | payer MEDICARE, OTHER ==
--- NOTE | 2017-09-06 12:29 | RADIOLOGY REPORT (SQ) ---
EXAM DESCRIPTION: CT SOFT TISSUE NECK WITH COMPLETED DATE/TIME: 09/03/2017 1:09 pm REASON FOR STUDY: NECK FULLNESS (R22.1) R22.1 LOCALIZED SWELLING, MASS AND LUMP, NECK COMPARISON: None. TECHNIQUE: Post IV contrasted scanning from skull base through lung apices with review of bone, soft tissue and lung windows. Reconstructed coronal and sagittal MPR images reviewed. All images stored on PACS. All CT scanners at this facility use dose modulation, iterative reconstruction, and/or weight based d osing when appropriate to reduce radiation dose to as low as reasonably achievable (ALARA). [facility]: Dose Right [facility]: CareDose [facility]: Dose Right [facility]: Teradose 4D [facility]: [employer] CONTRAST TYPE AND DOSE: contrast/concentration: Isovue 370.00 mg/ml; Total Contrast Delivered: 75.0 ml; Total Saline Delivered: 55.0 ml RENAL FUNCTION: Creatinine 1.1. RADIATION DOSE: . LIMITATIONS: None. FINDINGS: SKULL BASE: Intact. MAJOR SALIVARY GLANDS: No solid or cystic masses. No inflammatory changes. LYMPHADENOPATHY: No adenopathy. MUCOSAL MASSES OR ASYMMETRY: Fairly symmetric bilateral enlargement of the pharyngeal tonsils. Homog eneous appearance with no focal lesion or unusual enhancement. Several calcifications in the left to nsil. No other mucosal masses or asymmetry. LARYNX/CORDS: No abnormal findings. VASCULAR STRUCTURES: The major vessels are patent. LUNG APICES: Clear. BONES: Intact. Degenerative changes in the lower cervical spine. THYROID: Normal size. No masses. PARANASAL SINUSES: Clear. OTHER: No other significant finding. IMPRESSION: NONSPECIFIC HOMOGENEOUS SYMMETRIC BILATERAL ENLARGEMENT OF THE PHARYNGEAL TONSILS. NO F OCAL LESIONS OR UNUSUAL ENHANCEMENT. NO OTHER SIGNIFICANT FINDING IN THE SOFT TISSUES OF THE NECK. TECHNICAL DOCUMENTATION: JOB ID: [id number] Quality ID # [id number]: Final reports with documentation of one or more dose reduction techniques (e.g., Au tomated exposure control, adjustment of the mA and/or kV according to patient size, use of iterative reconstruction technique) 2010 [employer]- All Rights Reserved Reading location - IP/workstation name: [email or web address]
== END ==
LOC: RAD 12:24
PROVIDERS: ATTEND Otolaryngology
DX: R22.1 Localized swelling, mass and lump, neck (principal)
CPT/HCPCS: 70491; 82565

== ENCOUNTER → 2018-02-07 | Outpatient (CLI) | payer MEDICARE, OTHER ==
--- NOTE | 2018-02-07 13:00 | RADIOLOGY REPORT (SQ) ---
EXAM DESCRIPTION: CT CHEST WITHOUT COMPLETED DATE/TIME: 02/07/2018 12:40 pm REASON FOR STUDY: R10.2 PELVIC AND PERINEAL PAIN R06.02 SHORTNESS OF BREATH D89.0 POLYCLONAL R06.02 SHORTNESS OF BREATH D89.0 POLYCLONAL HYPERGAMMAGLOBULINEMIA R10.2 PELVIC AND PERINEAL PAIN COMPARISON: None. TECHNIQUE: CT scan performed of the chest without intravenous contrast. Images reviewed with lung, soft tissue and bone windows. Reconstructed coronal and sagittal MPR images reviewed. All images st ored on PACS. All CT scanners at this facility use dose modulation, iterative reconstruction, and/or weight based d osing when appropriate to reduce radiation dose to as low as reasonably achievable (ALARA). [facility]: Dose Right [facility]: CareDose [facility]: Dose Right [facility]: Teradose 4D [facility]: [employer] RADIATION DOSE: mGy. LIMITATIONS: No technical limitations. FINDINGS: LUNGS AND PLEURA: No masses, infiltrates, or pneumothorax. No pleural effusions or pleura l calcifications. HILAR AND MEDIASTINAL STRUCTURES: No identified masses or abnormal nodes. No obvious aneurysm. HEART AND VASCULAR STRUCTURES: No aneurysm. No pericardial effusion. UPPER ABDOMEN: See separate report of the CT of the abdomen. THYROID AND OTHER SOFT TISSUES: No masses. No adenopathy. BONES: No significant finding. HARDWARE: None in the chest. OTHER: No other significant findings. IMPRESSION: NO SIGNIFICANT FINDING ON NON-CONTRASTED CHEST CT. TECHNICAL DOCUMENTATION: JOB ID: [id number] Quality ID # [id number]: Final reports with documentation of one or more dose reduction techniques (e.g., Au tomated exposure control, adjustment of the mA and/or kV according to patient size, use of iterative reconstruction technique) 2010 [employer]- All Rights Reserved Reading location - IP/workstation name: [email or web address]
--- NOTE | 2018-02-07 13:26 | RADIOLOGY REPORT (SQ) ---
EXAM DESCRIPTION: CT ABD/PELVIS ORAL ONLY COMPLETED DATE/TIME: 02/07/2018 12:40 pm REASON FOR STUDY: R10.2 PELVIC AND PERINEAL PAIN R06.02 SHORTNESS OF BREATH D89.0 POLYCLONAL R06.02 SHORTNESS OF BREATH D89.0 POLYCLONAL HYPERGAMMAGLOBULINEMIA R10.2 PELVIC AND PERINEAL PAIN COMPARISON: 07/12/2015. TECHNIQUE: CT scan of the abdomen and pelvis performed with oral contrast and no intravenous contras t. Images reviewed with lung, soft tissue, and bone windows. Reconstructed coronal and sagittal MPR i mages reviewed. All images stored on PACS. All CT scanners at this facility use dose modulation, iterative reconstruction, and/or weight based d osing when appropriate to reduce radiation dose to as low as reasonably achievable (ALARA). [facility]: Dose Right [facility]: CareDose [facility]: Dose Right [facility]: Teradose 4D [facility]: [employer] RADIATION DOSE: CT Rad equipment meets quality standard of care and radiation dose reduction techniq ues were employed. CTDIvol: 22.5 - 30.9 mGy. DLP: 4053 mGy-cm.mGy. LIMITATIONS: None. FINDINGS: LOWER CHEST: No significant findings. No nodules or infiltrates. NON-CONTRASTED LIVER, SPLEEN, ADRENALS: Evaluation limited by lack of IV contrast. Stable low-attenu ation nodules in the left adrenal gland. No other identified significant masses. PANCREAS: No masses. No peripancreatic inflammatory changes. GALLBLADDER: No identified stones by CT criteria. No inflammatory changes to suggest cholecystitis. RIGHT KIDNEY AND URETER: No solid masses. No significant calcification. No hydronephrosis or hydroure ter. LEFT KIDNEY AND URETER: No solid masses. No significant calcification. No hydronephrosis or hydrouret er. AORTA AND RETROPERITONEUM: No aneurysm. No retroperitoneal masses or adenopathy. BOWEL AND PERITONEAL CAVITY: No obvious masses or inflammatory changes. No free fluid. APPENDIX: Not visualized. PELVIS, BLADDER, AND ABDOMINAL WALL: No abnormal pelvic masses. There is an abdominal wall hernia lo cated just to the right of the umbilicus. The cecum is located adjacent to this hernia and there is a small focal segment of bowel versus the appendix within the hernia itself. Bladder unremarkable. BONES: No significant findings. OTHER: No other significant finding. IMPRESSION: 1. SMALL ABDOMINAL HERNIA LOCATED JUST TO THE RIGHT OF THE UMBILICUS. THE CECUM IS ADJACENT TO THE H ERNIA. THERE IS A SMALL CONTRAST FILLED SEGMENT OF BOWEL WHICH PROTRUDES THROUGH THE HERNIA INTO THE ABDOMINAL WALL. THIS MAY BE A SMALL SEGMENT OF BOWEL OR POSSIBLY THE APPENDIX. 2. STABLE LOW-ATTENUATION NODULES IN THE LEFT ADRENAL GLAND. 3. NO OTHER SIGNIFICANT OR ACUTE ABDOMINAL PROCESS. TECHNICAL DOCUMENTATION: JOB ID: [id number] Quality ID # [id number]: Final reports with documentation of one or more dose reduction techniques (e.g., Au tomated exposure control, adjustment of the mA and/or kV according to patient size, use of iterative reconstruction technique) 2010 [employer]- All Rights Reserved Reading location - IP/workstation name: [email or web address]
== END ==
LOC: RAD 13:38
PROVIDERS: ATTEND Internal Medicine Hematology & Oncology
DX: R10.2 Pelvic and perineal pain (principal); R06.02 Shortness of breath; E89.0 Postprocedural hypothyroidism; Z87.891 Personal history of nicotine dependence; K46.9 Unspecified abdominal hernia without obstruction or gangrene
CPT/HCPCS: 71250; 74176

== ENCOUNTER 2019-01-08 11:45 | Emergency (ER) | payer MEDICARE ==
--- NOTE | 2019-01-08 12:14 | ER Document Report ---
ED General - General Chief Complaint: Abdominal Pain Stated Complaint: POSSIBLE INGESTION OF GLASS Time Seen by Provider: 01/08/19 12:09 Primary Care Provider: ARIEL FINE MD [Primary Care Provider] - Follow up as needed Notes: 78 year old female arrives with with question of glass ingestion. She reports a herbalife shake recently - this am - and her noted the pitcher they used has a piece of glass missing he found. She has no symptoms at this time. She has a baseline h/o htn and dm and diverticulosis. Last pcp visit was 2 weeks. Nothing abnormal noted at that time. TRAVEL OUTSIDE OF THE [place] IN LAST 30 DAYS: No - HPI Onset: This morning - Related Data Allergies/Adverse Reactions: No Known Allergies Allergy (Verified 10/09/16 10:59) Past Medical History - Social History Smoking Status: Unknown if Ever Smoked Family History: DM, Hypertension - Past Medical History Cardiac Medical History: Reports: Hx Hypertension Denies: Hx Atrial Fibrillation, Hx Congestive Heart Failure, Hx Coronary Artery Disease, Hx Heart Attack, Hx Hypercholesterolemia, Hx Peripheral Vascular Disease, Hx Heart Murmur Pulmonary Medical History: Denies: Hx Asthma, Hx Bronchitis, Hx COPD, Hx Pneumonia Neurological Medical History: Denies: Hx Cerebrovascular Accident, Hx Seizures, Hx Parkinson's Disease Endocrine Medical History: Denies: Hx Graves' Disease, Hx Hyperthyroidism, Hx Hypothyroidism Renal/ Medical History: Reports: Hx Kidney Stones - ESWL x 7 ([id number]), Hx Ovarian Cysts. Denies: Hx End Stage Renal Disease, Hx Peritoneal Dialysis, Hx Pelvic Inflammatory Disease Malignancy Medical History: Denies: Hx Breast Cancer, Hx Cervical Cancer, Hx Ovarian Cancer GI Medical History: Denies: Hx Crohn's Disease, Hx Gastroesophageal Reflux Disease, Hx Hiatal Hernia, Hx Irritable Bowel, Hx Liver Failure, Hx Pancreatitis, Hx Ulcer Musculoskeletal Medical History: Reports Hx Arthritis, Denies Hx Fibromyalgia, Denies Hx Multiple Sclerosis, Denies Hx Muscular Dystrophy, Denies Hx Systemic Lupus Erythematosus Psychiatric Medical History: Denies: Hx Dementia Traumatic Medical History: Denies: Hx Fractures Past Surgical History: Reports: Hx Appendectomy - incidental with CARRIE BSO, Hx Hysterectomy, Hx Tonsillectomy - as child, Other - Meningioma removal. Denies: Hx Bowel Surgery, Hx Section, Hx Cholecystectomy, Hx Colostomy, Hx Coronary Artery Bypass Graft, Hx Gastric Bypass Surgery, Hx Herniorrhaphy, Hx Mastectomy, Hx Pacemaker, Hx Tubal Ligation - Immunizations Hx Diphtheria, Pertussis, Tetanus Vaccination: No Hx Pneumococcal Vaccination: 09/06/13 Review of Systems - Review of Systems Constitutional: No symptoms reported EENT: No symptoms reported Cardiovascular: No symptoms reported Respiratory: No symptoms reported Gastrointestinal: No symptoms reported Genitourinary: No symptoms reported Female Genitourinary: No symptoms reported Musculoskeletal: No symptoms reported Skin: No symptoms reported Hematologic/Lymphatic: No symptoms reported Neurological/Psychological: No symptoms reported Physical Exam - Vital signs Vitals: Temp Pulse Resp BP Pulse Ox 97.9 F 102 H 20 166/96 H 94 01/08/19 11:53 01/08/19 11:53 01/08/19 11:53 01/08/19 11:53 01/08/19 11:53 Interpretation: Normal - General General appearance: Appears well, Alert - HEENT Head: Normocephalic, Atraumatic Eyes: Normal Pupils: PERRL - Respiratory Respiratory status: No respiratory distress Chest status: Nontender Breath sounds: Normal Chest palpation: Normal - Cardiovascular Rhythm: Regular Heart sounds: Normal auscultation Murmur: No - Abdominal Inspection: Normal Distension: No distension Bowel sounds: Normal Tenderness: Nontender Organomegaly: No organomegaly - Back Back: Normal, Nontender - Extremities General upper extremity: Normal inspection, Nontender, Normal color, Normal ROM, Normal temperature General lower extremity: Normal inspection, Nontender, Normal color, Normal ROM, Normal temperature, Normal weight bearing. No: Andrea's sign - Neurological Neuro grossly intact: Yes Cognition: Normal Orientation: AAOx4 [place] Coma Scale Eye Opening: Spontaneous [place] Coma Scale Verbal: Oriented Bianca Coma Scale Motor: Obeys Commands Bianca Coma Scale Total: 15 Speech: Normal Motor strength normal: LUE, RUE, LLE, RLE Sensory: Normal - Psychological Associated symptoms: Normal affect, Normal mood - Skin Skin Temperature: Warm Skin Moisture: Dry Skin Color: Normal Course - Re-evaluation Re-evalutation: 01/08/19 13:52 MDM 78 year old female is concerned she may have glass shards inside her. No symptoms. I have discussed with her she may consume regular diet and may follow up here should any problems occur otherwise see her primary doctor. I have discussed with [facility] and Dr. Bustos has graciously accepted the pt in transfer to [facility]. I have discussed with the family and pt and they expressed understanding. - Vital Signs Vital signs: Temp Pulse Resp BP Pulse Ox 97.8 F 94 16 164/97 H 94 01/08/19 14:33 01/08/19 14:33 01/08/19 14:33 01/08/19 14:33 01/08/19 14:33 - Diagnostic Test Radiology reviewed: Reports reviewed Discharge - Discharge Clinical Impression: Anxiety about health Condition: Good Disposition: HOME, SELF-CARE Instructions: Abdominal Pain ([facility]) Additional Instructions: See your doctor in follow up. Rest. Take your medicine as directed. Please return here for any problems or any concerns. Referrals: ARIEL FINE MD [Primary Care Provider] - Follow up as needed
[2019-01-08 12:44] LABS: APPEARANCE,URINE CLEAR; BILIRUBIN,URINE NEGATIVE (NEGATIVE); COLOR,URINE YELLOW; GLUCOSE, URINE NEGATIVE (NEGATIVE); KETONES,URINE NEGATIVE (NEGATIVE); LEUKOCYTE ESTERASE,URINE NEGATIVE (NEGATIVE); NITRITE,URINE NEGATIVE (NEGATIVE); PROTEIN,URINE NEGATIVE (NEGATIVE); URINE SPECIFIC GRAVITY 1.015; UROBILINOGEN,URINE NEGATIVE mg/dL (<2.0)
--- NOTE | 2019-01-08 13:16 | RADIOLOGY REPORT (SQ) ---
EXAM DESCRIPTION: ACUTE ABDOMEN SERIES COMPLETED DATE/TIME: 01/08/2019 12:58 pm REASON FOR STUDY: ? glass ingestion COMPARISON: Abdominal films 03/21/2016, 02/11/2012 CT abdomen pelvis 02/07/2018 NUMBER OF VIEWS: Three views. TECHNIQUE: Frontal chest, supine abdomen and upright abdomen radiographic images acquired. LIMITATIONS: Large patient, portable technique FINDINGS: CHEST: Minimal left basilar scarring or atelectasis. Lungs are otherwise clear. No pleur al effusion or pneumothorax. Stable borderline cardiomegaly. FREE AIR: None. No abnormal gas collections. BOWEL GAS PATTERN: Nonobstructive pattern. No dilated loops or air fluid levels. CALCIFICATIONS: No suspicious calcifications. HARDWARE: Left upper quadrant surgical clips SOFT TISSUES: No gross mass or suggestion of organomegaly. BONES: Bulky facet arthropathy lower lumbar spine. SI joint arthropathy OTHER: No other significant finding. IMPRESSION: NO RADIOGRAPHIC EVIDENCE FOR ACUTE ABDOMINAL DISEASE. TECHNICAL DOCUMENTATION: JOB ID: [id number] [employer]- All Rights Reserved Reading location - IP/workstation name: [email or web address]
[2019-01-08 14:34] VITALS: BP 164/97
== END 2019-01-08 14:37 | disposition home or self-care (01) ==
LOC: ER 11:45
DX: F41.9 Anxiety disorder, unspecified (principal); I10 Essential (primary) hypertension
CPT/HCPCS: 74022; 81001; 99284

== ENCOUNTER → 2019-10-02 | Outpatient (CLI) | payer MEDICARE ==
--- NOTE | 2019-10-02 13:32 | RADIOLOGY REPORT (SQ) ---
EXAM DESCRIPTION: CT HEAD WITHOUT IMAGES COMPLETED DATE/TIME: 10/02/2019 1:20 pm REASON FOR STUDY: R51 HEADACHE D33.0 BENIGN NEOPLASM OF BRAIN, SUPRATENTORIAL R51 HEADACHE D33.0 B ENIGN NEOPLASM OF BRAIN, SUPRATENTORIAL COMPARISON: 09/03/2017 CT neck TECHNIQUE: Axial images acquired through the brain without intravenous contrast. Images reviewed wi th bone, brain and subdural windows. Additional sagittal and coronal reconstructions were generated. Images stored on PACS. All CT scanners at this facility use dose modulation, iterative reconstruction, and/or weight based d osing when appropriate to reduce radiation dose to as low as reasonably achievable (ALARA). [facility]: Dose Right [facility]: CareDose [facility]: Dose Right [facility]: Teradose 4D [facility]: Smart indeni RADIATION DOSE: CT Rad equipment meets quality standard of care and radiation dose reduction techniq ues were employed. CTDIvol: 53.2 mGy. DLP: 991 mGy-cm. mGy. LIMITATIONS: None. FINDINGS: VENTRICLES: Normal size and contour. CEREBRUM: No masses. No hemorrhage. No midline shift. No evidence for acute infarction. Normal gra y/white matter differentiation. No areas of low density in the white matter. CEREBELLUM: Postsurgical changes from left temporal occipital craniotomy. Unchanged CSF attenuation cystic area within the left lateral cerebellar hemisphere, likely surgically related. No other diana s identified. No hemorrhage. EXTRAAXIAL SPACES: CSF attenuation cystic area within the left lateral cerebellar hemisphere, likely postsurgical related. Otherwise unremarkable extra-axial spaces. No hemorrhage. ORBITS AND GLOBE: No intra- or extraconal masses. Normal contour of globe without masses. CALVARIUM: No fracture. PARANASAL SINUSES: No fluid or mucosal thickening. SOFT TISSUES: No mass or hematoma. OTHER: No other significant finding. IMPRESSION: 1. No evidence of acute intracranial process. 2. Postsurgical changes from prior left occipital craniotomy with unchanged encephalomalacia and cys tic area within the left lateral cerebellar hemisphere, likely postsurgical related. EVIDENCE OF ACUTE STROKE: NO. COMMENT: Quality ID # 436: Final reports with documentation of one or more dose reduction techniques (e.g., Automated exposure control, adjustment of the mA and/or kV according to patient size, use of iterative reconstruction technique) TECHNICAL DOCUMENTATION: JOB ID: [id number] 2010 [employer]- All Rights Reserved Reading location - IP/workstation name: [email or web address]
== END ==
LOC: RAD 13:03
PROVIDERS: ATTEND Internal Medicine Hematology & Oncology
DX: R51 Headache (principal); D33.0 Benign neoplasm of brain, supratentorial
CPT/HCPCS: 70450

== ENCOUNTER 2019-10-09 14:56 | Inpatient (IN) | payer MEDICARE ==
[2019-10-09 15:38] LABS: HEMATOCRIT 44.8 % (36.0-47.0); HEMOGLOBIN 14.6 g/dL (12.0-15.5); MEAN CORPUSCULAR HGB CONC 32.7 g/dL (32.0-36.0); MEAN CORPUSCULAR VOLUME 82 fl (80-97); PLATELET COUNT 449 10^3/uL (150-450); RED BLOOD COUNT 5.43 10^6/uL (3.72-5.28); RED CELL DISTRIBUTION WIDTH 15.8 % (11.5-14.0); WHITE BLOOD COUNT 22.5 10^3/uL (4.0-10.5)
[2019-10-09 15:45] LABS: ALBUMIN 3.6 g/dL (3.5-5.0); ALKALINE PHOSPHATASE 120 U/L (38-126); ANION GAP 17 (5-19); ASPARTATE AMINO TRANSFERASE 40 U/L (14-36); BILIRUBIN,DIRECT 0.7 mg/dL (0.0-0.4); BILIRUBIN,TOTAL 1.1 mg/dL (0.2-1.3); BLOOD UREA NITROGEN 14 mg/dL (7-20); CALCIUM 9.3 mg/dL (8.4-10.2); CARBON DIOXIDE 26 mmol/L (22-30); CHLORIDE 96 mmol/L (98-107); GLUCOSE 221 mg/dL (75-110); POTASSIUM 3.3 mmol/L (3.6-5.0); TOTAL PROTEIN 7.7 g/dL (6.3-8.2)
[2019-10-09 15:47] LABS: ALCOHOL < 10 mg/dL (NONE DETECTED)
[2019-10-09 15:56] LABS: ABSOLUTE LYMPHOCYTES# (MANUAL) 3.6 10^3/uL (0.5-4.7); ABSOLUTE MONOCYTES # (MANUAL) 1.4 10^3/uL (0.1-1.4); BAND NEUTROPHILS % (MANUAL) 1 % (3-5); BASOPHILS % (MANUAL) 0 % (0-2); EOSINOPHILS % (MANUAL) 0 % (0-6); LYMPHOCYTES % (MANUAL) 16 % (13-45); MONOCYTES % (MANUAL) 6 % (3-13); SEGMENTED NEUTROPHILS % (MAN) 77 % (42-78); TOTAL CELLS COUNTED 100
[2019-10-09 15:58] LABS: ANISOCYTOSIS 1+; PLATELET COMMENT ADEQUATE
[2019-10-09 16:00] LABS: POIKILOCYTOSIS 1+; TARGET CELLS 1+
--- NOTE | 2019-10-09 16:07 | RADIOLOGY REPORT (SQ) ---
EXAM DESCRIPTION: CT HEAD WITHOUT IMAGES COMPLETED DATE/TIME: 10/09/2019 3:50 pm REASON FOR STUDY: ams COMPARISON: 10/02/2019 TECHNIQUE: Axial images acquired through the brain without intravenous contrast. Images reviewed wi th bone, brain and subdural windows. Additional sagittal and coronal reconstructions were generated. Images stored on PACS. All CT scanners at this facility use dose modulation, iterative reconstruction, and/or weight based d osing when appropriate to reduce radiation dose to as low as reasonably achievable (ALARA). [facility]: Dose Right [facility]: CareDose [facility]: Dose Right [facility]: Teradose 4D [facility]: Smart Technologies RADIATION DOSE: CT Rad equipment meets quality standard of care and radiation dose reduction techniq ues were employed. CTDIvol: 20.5 mGy. DLP: 442 mGy-cm.mGy. LIMITATIONS: None. FINDINGS: VENTRICLES: Age appropriate. CEREBRUM: No masses. No hemorrhage. No midline shift. Areas of low density in the white matter mos t likely due to chronic micro-vascular ischemic change. No evidence for acute infarction. CEREBELLUM: Postsurgical changes from the left occipital craniotomy with unchanged encephalomalacia h ypoattenuation within the left lateral cerebellar hemisphere. EXTRAAXIAL SPACES: Age-related involutional change. No fluid collections. No masses. ORBITS AND GLOBE: No intra- or extraconal masses. Normal contour of globe without masses. CALVARIUM: No acute fracture. Postsurgical changes from the left occipital craniotomy. PARANASAL SINUSES: No fluid or mucosal thickening. SOFT TISSUES: Unchanged fullness of the bilateral parapharyngeal tonsils with multiple scattered calc ifications on the left. Findings similar from prior exams. OTHER: No other significant finding. IMPRESSION: 1. No evidence of acute intracranial process. 2. Stable chronic changes from prior left occipital craniotomy with encephalomalacia within the left lateral cerebellar hemisphere. 3. Unchanged fullness of the bilateral parapharyngeal tonsils with multiple scattered calcifications on the left. Consider direct visualization for further characterization. EVIDENCE OF ACUTE STROKE: NO. TECHNICAL DOCUMENTATION: JOB ID: [id number] Quality ID # [id number]: Final reports with documentation of one or more dose reduction techniques (e.g., Au tomated exposure control, adjustment of the mA and/or kV according to patient size, use of iterative reconstruction technique) 2010 [employer]- All Rights Reserved Reading location - IP/workstation name: [email or web address]
--- NOTE | 2019-10-09 16:21 | RADIOLOGY REPORT (SQ) ---
EXAM DESCRIPTION: CT ABD/PELVIS NO ORAL OR IV IMAGES COMPLETED DATE/TIME: 10/09/2019 3:50 pm REASON FOR STUDY: rlq pain COMPARISON: 02/07/2018 TECHNIQUE: CT scan of the abdomen and pelvis performed without intravenous or oral contrast. Images reviewed with lung, soft tissue, and bone windows. Reconstructed coronal and sagittal MPR images revi ewed. All images stored on PACS. All CT scanners at this facility use dose modulation, iterative reconstruction, and/or weight based d osing when appropriate to reduce radiation dose to as low as reasonably achievable (ALARA). [facility]: Dose Right [facility]: CareDose [facility]: Dose Right [facility]: Teradose 4D [facility]: Smart [employer] RADIATION DOSE: CT Rad equipment meets quality standard of care and radiation dose reduction techniq ues were employed. CTDIvol: 14.4 mGy. DLP: 759 mGy-cm.mGy. LIMITATIONS: None. FINDINGS: LOWER CHEST: No significant findings. No nodules or infiltrates. NON-CONTRASTED LIVER, SPLEEN, ADRENALS: Evaluation limited by lack of IV contrast. Unchanged low-den sity 2.8 x 2.0 cm left adrenal adenoma. No other identified significant masses. PANCREAS: No masses. No peripancreatic inflammatory changes. GALLBLADDER: No identified stones by CT criteria. No inflammatory changes to suggest cholecystitis. RIGHT KIDNEY AND URETER: No suspicious masses. Assessment limited by lack of IV contrast. No signif icant calcifications. No hydronephrosis or hydroureter. LEFT KIDNEY AND URETER: No suspicious masses. Assessment limited by lack of IV contrast. No signifi cant calcifications. No hydronephrosis or hydroureter. AORTA AND RETROPERITONEUM: Scattered aortoiliac atherosclerosis without aneurysm. No retroperitoneal masses or adenopathy. BOWEL AND PERITONEAL CAVITY: No focal bowel wall thickening. No evidence of intestinal obstruction. Scattered colonic diverticula. Unchanged small umbilical and right paraumbilical hernia. The cecum is adjacent to the right periumbilical hernia. No evidence of bowel within the hernia sac. APPENDIX: Not identified. PELVIS, BLADDER, AND ABDOMINAL WALL:Decompressed urinary bladder. No pelvic free fluid, adenopathy o r mass. Hernia as above. BONES: No acute bony abnormality. Lower lumbar spondylosis and facet arthropathy. OTHER: Obesity. IMPRESSION: 1. No evidence of acute intra-abdominal/pelvic process. 2. Stable umbilical right paraumbilical fat containing hernia. 3. Stable left adrenal adenoma. 4. Diverticulosis. COMMENT: Quality ID # 436: Final reports with documentation of one or more dose reduction techniques (e.g., Automated exposure control, adjustment of the mA and/or kV according to patient size, use of iterative reconstruction technique) TECHNICAL DOCUMENTATION: JOB ID: [id number] 2010 [employer]- All Rights Reserved Reading location - IP/workstation name: [email or web address]
[2019-10-09] MEDS ORDERED: NORMAL SALINE 1000 ML 1,000 ML IV ONE (17:39)
[2019-10-09] MEDS: MAGNESIUM SULFATE/D5W 1 GM/100 ML RTUPB IV SCH ×2 (17:47→18:09)
[2019-10-09] MEDS ORDERED: ACETAMINOPHEN 650 MG SUPP.RECT PR PRN (17:48)
--- NOTE | 2019-10-09 17:52 | ER Document Report ---
ED General - General Chief Complaint: Seizure Stated Complaint: SEIZURE Time Seen by Provider: 10/09/19 15:16 Primary Care Provider: ARIEL FINE MD [Primary Care Provider] - Follow up as needed Mode of Arrival: Medic Information source: Patient, Emergency Med Personnel TRAVEL OUTSIDE OF THE [place] IN LAST 30 DAYS: No - HPI Notes: Patient is brought from gastroenterology office secondary to a syncopal episode with possible seizure-like activity. Patient has chronic abdominal pain and had recently had an endoscopy by the skein straightener. She was at the office today as a follow-up appointment to discuss the findings. states that the findings did not show any acute pathology. However while patient was waiting at the office she became unresponsive for 20 to 30 seconds and had some drooling. He states that her eyes rolled back but she did not have any shaking of the limbs. She then had another episode for EMS that was very similar. No previous history of seizure-like activity. No recent vomiting or diarrhea however patient has had a significantly decreased appetite and oral intake for 1 to 2 weeks per . He states patient will not eat and complains that she is chronically nauseous. Patient denies having abdominal pain however states she complains of abdominal pain at home quite often. Patient's ability to give a history is somewhat suspect that she seems to wax and wane in her orientation and clarity. - Related Data Allergies/Adverse Reactions: No Known Allergies Allergy (Verified 10/09/16 10:59) Past Medical History - General Information source: Patient, Relative - Social History Smoking Status: Former Smoker Frequency of alcohol use: None Drug Abuse: None Family History: Reviewed & Not Pertinent, DM, Hypertension Patient has homicidal ideation: No - Past Medical History Cardiac Medical History: Reports: Hx Hypertension Denies: Hx Atrial Fibrillation, Hx Congestive Heart Failure, Hx Coronary Artery Disease, Hx Heart Attack, Hx Hypercholesterolemia, Hx Peripheral Vascular Disease, Hx Heart Murmur Pulmonary Medical History: Denies: Hx Asthma, Hx Bronchitis, Hx COPD, Hx Pneumonia Neurological Medical History: Denies: Hx Cerebrovascular Accident, Hx Seizures, Hx Parkinson's Disease Endocrine Medical History: Denies: Hx Graves' Disease, Hx Hyperthyroidism, Hx Hypothyroidism Renal/ Medical History: Reports: Hx Kidney Stones - ESWL x 7 ([phone]), Hx Ovarian Cysts. Denies: Hx End Stage Renal Disease, Hx Peritoneal Dialysis, Hx Pelvic Inflammatory Disease Malignancy Medical History: Denies: Hx Breast Cancer, Hx Cervical Cancer, Hx Ovarian Cancer GI Medical History: Denies: Hx Crohn's Disease, Hx Gastroesophageal Reflux Disease, Hx Hiatal Hernia, Hx Irritable Bowel, Hx Liver Failure, Hx Pancreatitis, Hx Ulcer Musculoskeletal Medical History: Reports Hx Arthritis, Denies Hx Fibromyalgia, Denies Hx Multiple Sclerosis, Denies Hx Muscular Dystrophy, Denies Hx Systemic Lupus Erythematosus Psychiatric Medical History: Denies: Hx Dementia Traumatic Medical History: Denies: Hx Fractures Past Surgical History: Reports: Hx Appendectomy - incidental with CARRIE BSO, Hx Hysterectomy, Hx Tonsillectomy - as child, Other - Meningioma removal. Denies: Hx Bowel Surgery, Hx Section, Hx Cholecystectomy, Hx Colostomy, Hx Coronary Artery Bypass Graft, Hx Gastric Bypass Surgery, Hx Herniorrhaphy, Hx Mastectomy, Hx Pacemaker, Hx Tubal Ligation - Immunizations Hx Diphtheria, Pertussis, Tetanus Vaccination: No Hx Pneumococcal Vaccination: 09/06/13 Review of Systems - Review of Systems Constitutional: Weakness. denies: Chills, Fever Cardiovascular: denies: Chest pain, Palpitations Respiratory: denies: Cough, Short of breath -: Yes All other systems reviewed and negative Physical Exam - Vital signs Vitals: Pulse Ox 90 L 10/09/19 15:02 Interpretation: Normal - General General appearance: Alert In distress: None - HEENT Head: Normocephalic, Atraumatic Eyes: Normal Pupils: PERRL - Respiratory Respiratory status: No respiratory distress Chest status: Nontender Breath sounds: Decreased air movement Chest palpation: Normal - Cardiovascular Rhythm: Regular Heart sounds: Normal auscultation Murmur: No - Abdominal Inspection: Morbidly Obese Distension: No distension Bowel sounds: Normal Tenderness: Tender - Mild bilateral lower quadrant without rebound or guarding - Back Back: Normal, Nontender - Extremities General upper extremity: Normal inspection, Nontender, Normal color, Normal temperature General lower extremity: Nontender, Edema - 2+ bilaterally, Normal temperature. No: Andrea's sign - Neurological Neuro grossly intact: Yes Cognition: Normal Orientation: AAOx4 [place] Coma Scale Eye Opening: Spontaneous [place] Coma Scale Verbal: Oriented [place] Coma Scale Motor: Obeys Commands Bianca Coma Scale Total: 15 Speech: Expressive aphasia - Patient would wax and wane in the room from speaking clearly and coherently to having intermittent expressive aphasia where she could not find the appropriate words and would often talk with a "word salad". Sensory: Normal - Psychological Associated symptoms: Normal affect, Normal mood - Skin Skin Temperature: Warm Skin Moisture: Dry Skin Color: Normal Course - Re-evaluation Re-evalutation: 10/09/19 17:51 Patient presents with history of some syncopal-like episodes. She has unremarkable CT of the head. Although she is intermittently here having some expressive aphasia. No other focal deficits appreciated. Exact cause of why she is having intermittent expressive aphasia is unclear. Patient also has history per of persistent nausea abdominal pain with decreased appetite. This is portrayed in the labs as patient's creatinine is elevated and her magnesium is very low. This will be treated with IV magnesium and fluids. CT of the abdomen shows no acute process. Patient also has an increased elevated white blood cell count but is not febrile here. At this time a urine and chest x-ray are pending as possible source of infection and these will be treated with antibiotics if necessary. I have discussed the case with the hospitalist to admit the patient will also follow-up on urinalysis and chest x-ray. - Vital Signs Vital signs: Temp Pulse Resp BP Pulse Ox 98.7 F 85 18 163/116 H 96 10/09/19 15:19 10/09/19 15:19 10/09/19 15:19 10/09/19 17:31 10/09/19 17:31 - Laboratory Result Diagrams: 10/09/19 15:08 10/09/19 15:08 Laboratory results interpreted by me: 10/09/19 10/09/19 15:08 15:08 WBC 22.5 H RBC 5.43 H RDW 15.8 H Band Neutrophils % 1 L Abs Neuts (Manual) 17.6 H Potassium 3.3 L Chloride 96 L Creatinine 1.84 H Est GFR ( Amer) 32 L Est GFR (MDRD) Non-Af 26 L Glucose 221 H Magnesium 0.9 L* Direct Bilirubin 0.7 H AST 40 H ALT 37 H - Diagnostic Test Radiology reviewed: Image reviewed, Reports reviewed - EKG Interpretation by Me EKG shows normal: Sinus rhythm Rate: Normal - 83 Rhythm: NSR [place]/QRS: RBBB Discharge - Discharge Clinical Impression: Expressive aphasia, Acute renal injury, Dehydration, Hypomagnesemia, Hyperglycemia, Physical deconditioning Syncope Qualifiers: Syncope type: unspecified Qualified Code(s): R55 - Syncope and collapse Hypertension Qualifiers: Hypertension type: unspecified Qualified Code(s): I10 - Essential (primary) hypertension Disposition: ADMITTED INPATIENT Admitting Provider: Urvashi (Hospitalist) Unit Admitted: IMCU Referrals: ARIEL FINE MD [Primary Care Provider] - Follow up as needed
[2019-10-09 17:54] LABS: AMORPHOUS SEDIMENT,URINE TRACE /HPF; APPEARANCE,URINE CLOUDY; BILIRUBIN,URINE SMALL (NEGATIVE); COLOR,URINE AMBER; GLUCOSE, URINE 50 mg/dL (NEGATIVE); KETONES,URINE 20 mg/dL (NEGATIVE); LEUKOCYTE ESTERASE,URINE TRACE (NEGATIVE); NITRITE,URINE NEGATIVE (NEGATIVE); PROTEIN,URINE 100 mg/dL (NEGATIVE); URINE SPECIFIC GRAVITY 1.017
[2019-10-09] MEDS ORDERED: DEXTROSE 40% GEL 15 GM TUBE PO PRN ×2 (17:55)
[2019-10-09] MEDS ORDERED: GLUCAGON,HUMAN RECOMB 1 MG INJ IM PRN (17:55)
[2019-10-09] MEDS ORDERED: DEXTROSE 50%-WATER 25 GM/50 ML DISP.SYRIN IV PRN ×2 (17:55)
[2019-10-09] MEDS ORDERED: LORAZEPAM INJ 2 MG/1 ML VIAL IV PRN (17:57)
--- NOTE | 2019-10-09 18:18 | EKG REPORT ---
SEVERITY:- ABNORMAL ECG - SINUS RHYTHM INCOMPLETE RBBB AND LAFB CONSIDER RIGHT VENTRICULAR HYPERTROPHY LEFT VENTRICULAR HYPERTROPHY : Confirmed by: Stephen Potts MD 09-Oct-2019 18:17:31
--- NOTE | 2019-10-09 18:20 | RADIOLOGY REPORT (SQ) ---
EXAM DESCRIPTION: 8 chest radiograph, single view IMAGES COMPLETED DATE/TIME: 10/09/2019 4:57 pm REASON FOR STUDY: ams COMPARISON: 09/28/2016 EXAM PARAMETERS: NUMBER OF VIEWS: One view. TECHNIQUE: Single frontal radiographic view of the chest acquired. RADIATION DOSE: NA LIMITATIONS: None. FINDINGS: LUNGS AND PLEURA: No opacities, masses or pneumothorax. No pleural effusion. MEDIASTINUM AND HILAR STRUCTURES: No masses. Contour normal. HEART AND VASCULAR STRUCTURES: Heart normal in size. Normal vasculature. BONES: No acute findings. HARDWARE: None in the chest. OTHER: No other significant finding. IMPRESSION: NO ACUTE RADIOGRAPHIC FINDING IN THE CHEST. TECHNICAL DOCUMENTATION: JOB ID: [id number] 2010 [employer] All Rights Reserved Reading location - IP/workstation name: [email or web address]
--- NOTE | 2019-10-09 18:28 | PDOC H&P ---
History of Present Illness Admission Date/PCP: ARIEL FINE MD Patient complains of: Came with nausea and poor appetite for the last 5 weeks. History of Present Illness: YI TAN is a 79 year old female with history of hypertension, diabetes mellitus, obesity came to the emergency room with complaints of nausea and poor appetite for the last 5 weeks. Went to see her metabolic specialist while she was in the office complaining of severe nausea and passed out. She was brought to the emergency room for further evaluation. Work-up in the ER shows CT head is negative for acute pathology CT abdomen pelvis is negative for acute pathology but in the CBC WC BC count is 22,500. Also potassium is 3.3 magnesium is 0.9. Urine analysis urine testing is pending. Also found to have LETICIA. Medical consult was called for admission. Past Medical History Cardiac Medical History: Reports: Hypertension Denies: Atrial Fibrillation, Congestive Heart Failure, Coronary Artery Disease, Myocardial Infarction, Hyperlipidema, Peripheral Vascular Disease, Heart Murmur Pulmonary Medical History: Denies: Asthma, Bronchitis, Chronic Obstructive Pulmonary Disease (COPD), Pneumonia Neurological Medical History: Denies: Seizures Endocrine Medical History: Denies: Hyperthyroidism, Hypothyroidism Renal/ Medical History: Denies: End Stage Renal Disease Malignancy Medical History: Denies: Breast Cancer, Cervical Cancer, Ovarian Cancer GI Medical History: Denies: Crohn's Disease, Gastroesophageal Reflux Disease, Hiatal Hernia Musculoskeltal Medical History: Reports: Arthritis Denies: Fibromyalgia Psychiatric Medical History: Denies: Dementia Hematology: Denies: Anemia Past Surgical History Past Surgical History: Reports: Appendectomy - incidental with CARRIE BSO, Hysterectomy, Tonsillectomy - as child, Other - Meningioma removal Denies: Amputation, Section, Cholecystectomy, Colostomy, Coronary Artery Bypass Graft, Gastric Bypass Surgery, Herniorrhaphy, Mastectomy, Pacemaker, Tubal Ligation Social History Smoking Status: Former Smoker Frequency of Alcohol Use: None Hx Recreational Drug Use: No Drugs: None Hx Prescription Drug Abuse: No - Advance Directive Resuscitation Status: Full Code Family History Family History: Reviewed & Not Pertinent, DM, Hypertension Parental Family History Reviewed: Yes - Hypertension and diabetes. Children Family History Reviewed: Yes Sibling(s) Family History Reviewed.: Yes Medication/Allergy Home Medications: Glipizide [Glipizide Xl] 5 mg PO DAILY 03/31/16 Losartan/Hydrochlorothiazide [Hyzaar 100-25 Tablet] 1 tab PO DAILY 03/31/16 Meclizine HCl [Antivert 25 mg Tablet] 25 mg PO TID PRN #30 tablet 09/22/19 Metoclopramide HCl [Reglan 10 mg Tablet] 10 mg PO QID PRN #40 tablet 09/22/19 Allergies/Adverse Reactions: No Known Allergies Allergy (Verified 10/09/16 10:59) Review of Systems Constitutional: PRESENT: headache(s), night sweats, weakness. ABSENT: fever(s) Eyes: ABSENT: visual disturbances Ears: ABSENT: hearing changes Nose, Mouth, and Throat: ABSENT: mouth pain Cardiovascular: ABSENT: dyspnea on exertion, edema, orthropnea, palpitations Respiratory: ABSENT: dyspnea, hemoptysis Gastrointestinal: PRESENT: nausea, other - Complaining of poor appetite unable to eat or drink for 5 weeks. Integumentary: ABSENT: rash, wounds Neurological: ABSENT: abnormal gait, abnormal speech, confusion, dizziness, focal weakness, syncope Psychiatric: ABSENT: anxiety, depression, homidical ideation, suicidal ideation Physical Exam Vital Signs: Temp Pulse Resp BP Pulse Ox 98.7 F 85 18 163/116 H 96 10/09/19 15:19 10/09/19 15:19 10/09/19 15:19 10/09/19 17:31 10/09/19 17:31 Intake & Output 10/08/19 10/09/19 10/10/19 06:59 06:59 06:59 Intake Total 100 Balance 100 Weight 117.027 kg General appearance: PRESENT: no acute distress, morbidly obese Head exam: PRESENT: atraumatic Eye exam: PRESENT: conjunctiva pink, PERRLA Ear exam: PRESENT: normal external ear exam Mouth exam: PRESENT: neck supple Teeth exam: PRESENT: poor dentation Neck exam: ABSENT: carotid bruit, JVD, lymphadenopathy, thyromegaly Respiratory exam: PRESENT: decreased breath sounds Cardiovascular exam: PRESENT: RRR. ABSENT: diastolic murmur, rubs, systolic murmur GI/Abdominal exam: PRESENT: normal bowel sounds, soft. ABSENT: distended, guarding, mass, organolmegaly, rebound, tenderness Rectal exam: PRESENT: deferred Extremities exam: PRESENT: full ROM. ABSENT: calf tenderness, clubbing, pedal edema Neurological exam: PRESENT: alert, awake, oriented to person, oriented to place, oriented to time, oriented to situation, CN II-XII grossly intact. ABSENT: motor sensory deficit Psychiatric exam: PRESENT: appropriate affect, normal mood. ABSENT: homicidal ideation, suicidal ideation Results Laboratory Results: 10/09/19 15:08 10/09/19 15:08 10/09/19 10/09/19 10/09/19 15:08 15:08 17:30 WBC 22.5 H RBC 5.43 H Hgb 14.6 Hct 44.8 MCV 82 MCH 27.0 MCHC 32.7 RDW 15.8 H Plt Count 449 Seg Neutrophils % Not Reportable Sodium 139.4 Potassium 3.3 L Chloride 96 L Carbon Dioxide 26 Anion Gap 17 BUN 14 Creatinine 1.84 H Est GFR ( Amer) 32 L Glucose 221 H Calcium 9.3 Magnesium 0.9 L* Total Bilirubin 1.1 AST 40 H Alkaline Phosphatase 120 Total Protein 7.7 Albumin 3.6 Urine Color ANDRE Urine Appearance CLOUDY Urine pH 5.0 Ur Specific [place] 1.017 Urine Protein 100 H Urine Glucose (UA) 50 H Urine Ketones 20 H Urine Blood SMALL H Urine Nitrite NEGATIVE Ur Leukocyte Esterase TRACE H Urine WBC (Auto) 15 Urine RBC (Auto) 12 Impressions: Head CT 10/09/19 15:26 IMPRESSION: 1. No evidence of acute intracranial process. 2. Stable chronic changes from prior left occipital craniotomy with encephalomalacia within the left lateral cerebellar hemisphere. 3. Unchanged fullness of the bilateral parapharyngeal tonsils with multiple scattered calcifications on the left. Consider direct visualization for further characterization. EVIDENCE OF ACUTE STROKE: NO. Abdomen/Pelvis CT 10/09/19 15:27 IMPRESSION: 1. No evidence of acute intra-abdominal/pelvic process. 2. Stable umbilical right paraumbilical fat containing hernia. 3. Stable left adrenal adenoma. 4. Diverticulosis. Assessment and Plan - Diagnosis (1) Syncope Qualifiers: Syncope type: unspecified Qualified Code(s): R55 - Syncope and collapse Is this a current diagnosis for this admission?: Yes Plan: 10/09/2019-patient is going to be admitted to [facility] for syncope versus altered mental status. At the time of my examination alert awake oriented. CT head is negative. Plan is to do the carotid Doppler and MRI of the brain without contrast. Fall , aspiration, seizure precautions are requested. GI prophylaxis DVT prophylaxis initiated. (2) Hypertension Qualifiers: Hypertension type: unspecified Qualified Code(s): I10 - Essential (primary) hypertension Is this a current diagnosis for this admission?: No Plan: 10/09/2019-patient has history of chronic essential hypertension blood pressure in the emergency room is 163/116. To start her on IV hydralazine 10 mg every 4 hours as needed for systolic blood pressure more than 170. (3) Hypomagnesemia Is this a current diagnosis for this admission?: Yes Plan: 10/09/2019-serum magnesium is 0.9 in the emergency room to give 1 g of IV magnesium. Patient already received 1 g of IV magnesium in the ER. (4) Hypokalemia Is this a current diagnosis for this admission?: Yes Plan: 10/09/2019-serum potassium is 3.3 to give 40 mEq of IV potassium and to repeat the labs tomorrow. (5) LETICIA (acute kidney injury) Is this a current diagnosis for this admission?: Yes Plan: 10/09/2019-serum creatinine is 1.84 acute on chronic kidney injury most likely secondary to poor oral intake. Started on IV fluids. To recheck the labs tomorrow. Urine analysis is pending at this time. (6) Obesity (BMI 30.0-34.9) Is this a current diagnosis for this admission?: No Plan: 10/09/2019-patient BMI is more than 44 most likely secondary to high calorie intake diet exercise weight loss lifestyle modifications discussed with the patient. (7) Diabetes Qualifiers: Diabetes mellitus type: type 2 Is this a current diagnosis for this admission?: No Plan: 10/09/2019-patient has history of type 2 diabetes mellitus on glipizide at home. Plan is to continue with insulin sliding scale before meals and at bedtime. To check for hemoglobin A1c. To hold glipizide at this time. (8) Nausea Is this a current diagnosis for this admission?: Yes Plan: 10/09/2019-patient admitted with severe nausea poor appetite for the last 5 weeks. Patient has a EGD done 2 weeks ago indicating mild gastritis. Started on IV Zofran 4 mg every 6 as needed. GI prophylaxis initiated. - Time Anticipated Discharge Disposition: Home, Self Care Anticipated Discharge Timeframe: within 72 hours
[2019-10-09 18:35] LABS: URINE AMPHETAMINES SCREEN NEGATIVE; URINE BARBITURATES SCREEN NEGATIVE; URINE BENZODIAZEPINES SCREEN NEGATIVE; URINE COCAINE SCREEN NEGATIVE; URINE MARIJUANA (THC) SCREEN NEGATIVE; URINE METHADONE SCREEN NEGATIVE; URINE PHENCYCLIDINE SCREEN NEGATIVE
[2019-10-09] MEDS: CEFEPIME 1 GM/D5W RTU 1 GM/50 ML RTUPB IV SCH (18:59)
[2019-10-09] MEDS: POTASSI CL 20 MEQ/50 ML RIDER 20 MEQ/50 ML RTUPB IV SCH ×2 (18:59→22:12)
[2019-10-09] MEDS ORDERED: MAGNESIUM CITRATE 296 ML BOTTLE PO ONE (19:00)
--- NOTE | 2019-10-09 21:21 | RADIOLOGY REPORT (SQ) ---
EXAM DESCRIPTION: MR BRAIN WITHOUT IV CONTRAST COMPLETED DATE/TME: 10/09/2019 00:00 CLINICAL HISTORY: 79 years, Female, altered mental status. Headache, reported focal seizure COMPARISON: Head CT from earlier today TECHNIQUE: Noncontrast multiplanar multiecho MR imaging of the brain was performed. Images stored on PACS. LIMITATIONS: None. FINDINGS: There is no diffusion restriction. There is encephalomalacia again identified within the inferior left cerebellar hemisphere deep to a left occipital craniotomy. There is mild increased T2/FLAIR signal within the deep white matter, likely on the basis of chronic small vessel ischemic disease. There is no major vascular supratentorial infarct identified. There is no hydrocephalus. There is no abnormal mass effect. Midline structures are within normal limits. Left supraclinoid ICA and M1 segment of flow voids are asymmetrically increased in signal, which could be due to volume averaging or significant stenosis. Additional evaluation with angiography should be considered. The orbits and paranasal sinuses are grossly unremarkable. IMPRESSION: 1. No acute intracranial abnormality. Postoperative changes and encephalomalacia are identified about the left cerebellum. Presumed chronic small vessel ischemic changes are also noted within the supratentorial white matter. 2. Asymmetric appearance about the flow voids within the left ICA and M1 segments, with significant stenosis not excluded. Additional evaluation with angiography would be of benefit. copyright 2011 [employer]- All Rights Reserved
[2019-10-09] MEDS: NORMAL SALINE 1000 ML 1,000 ML IV PRN (21:25)
[2019-10-09] MEDS: HEPARIN SOD (PORCINE) 5,000 UNIT/ML 1 ML VIAL SUBCUT SCH (22:15)
[2019-10-09] MEDS: INSULIN LISPRO 100 UNIT/ML 3 ML VIAL SUBCUT SCH (22:15)
[2019-10-10] MEDS: HEPARIN SOD (PORCINE) 5,000 UNIT/ML 1 ML VIAL SUBCUT SCH ×3 (05:53→21:44)
[2019-10-10] MEDS: PANTOPRAZOLE SODIUM 40 MG TABLET.DR PO SCH ×2 (05:53→17:08)
[2019-10-10] MEDS: ONDANSETRON HCL INJ/PF 4 MG/2 ML SDV IV PRN (05:54)
[2019-10-10] MEDS: CEFEPIME 1 GM/D5W RTU 1 GM/50 ML RTUPB IV SCH ×2 (05:54→17:08)
[2019-10-10] MEDS: NORMAL SALINE 1000 ML 1,000 ML IV PRN ×2 (05:59→13:59)
[2019-10-10 06:45] LABS: ABSOLUTE LYMPHOCYTES (AUTO) 1.7 10^3/uL (0.5-4.7); ABSOLUTE MONOCYTES (AUTO) 1.6 10^3/uL (0.1-1.4); BASOPHILS % (AUTO) 0.3 % (0-2); EOSINOPHILS % (AUTO) 0.1 % (0-6); HEMATOCRIT 39.1 % (36.0-47.0); HEMOGLOBIN 12.9 g/dL (12.0-15.5); LYMPHOCYTES % (AUTO) 10.3 % (13-45); MEAN CORPUSCULAR HEMOGLOBIN 26.8 pg (27.0-33.4); MEAN CORPUSCULAR HGB CONC 32.9 g/dL (32.0-36.0); MEAN CORPUSCULAR VOLUME 81 fl (80-97); MONOCYTES % (AUTO) 10.1 % (3-13); PLATELET COUNT 345 10^3/uL (150-450); RED BLOOD COUNT 4.81 10^6/uL (3.72-5.28); RED CELL DISTRIBUTION WIDTH 15.7 % (11.5-14.0); SEGMENTED NEUTROPHILS % (AUTO) 79.2 % (42-78); TOTAL CELLS COUNTED % (AUTO) 100 %; WHITE BLOOD COUNT 16.4 10^3/uL (4.0-10.5)
[2019-10-10 06:49] LABS: INTERNATIONAL RATION (INR) 1.02; PROTHROMBIN TIME 13.6 SEC (11.4-15.4)
[2019-10-10 07:05] LABS: ALBUMIN 2.9 g/dL (3.5-5.0); ALKALINE PHOSPHATASE 94 U/L (38-126); ANION GAP 11 (5-19); ASPARTATE AMINO TRANSFERASE 35 U/L (14-36); BILIRUBIN,DIRECT 0.6 mg/dL (0.0-0.4); BILIRUBIN,TOTAL 0.7 mg/dL (0.2-1.3); BLOOD UREA NITROGEN 16 mg/dL (7-20); CALCIUM 8.4 mg/dL (8.4-10.2); CARBON DIOXIDE 23 mmol/L (22-30); CHLORIDE 106 mmol/L (98-107); CHOLESTEROL 146.11 mg/dL (0-200); GLUCOSE 135 mg/dL (75-110); POTASSIUM 3.6 mmol/L (3.6-5.0); TOTAL PROTEIN 6.7 g/dL (6.3-8.2); TRIGLYCERIDES 116 mg/dL (<150)
[2019-10-10 07:15] LABS: DIRECT LDL 73 mg/dL (<100)
[2019-10-10] MEDS: INSULIN LISPRO 100 UNIT/ML 3 ML VIAL SUBCUT SCH ×4 (08:08→23:01)
--- NOTE | 2019-10-10 08:21 | RADIOLOGY REPORT (SQ) ---
EXAM DESCRIPTION: CAROTID DOPPLER IMAGES COMPLETED DATE/TIME: 10/09/2019 7:55 pm REASON FOR STUDY: r/o stroke COMPARISON: None. TECHNIQUE: Grayscale ultrasound, Doppler velocity and spectra, and color Doppler images acquired of the extra-cranial carotid and vertebral arteries. Images stored on PACS. LIMITATIONS: None. FINDINGS: RIGHT CAROTID CCA Velocities: Within normal limits. ICA Velocities Peak systolic 0.82 m/s. End diastolic 0.12 m/s. Proximal ICA/CCA peak systolic ratio 0.9. Plaque in the proximal internal carotid artery. LEFT CAROTID CCA Velocities: Within normal limits. ICA Velocities Peak systolic 2.77 m/s. End diastolic 0.47 m/s. Proximal ICA/CCA peak systolic ratio 4.7. Plaque in the proximal internal carotid artery. VERTEBRAL ARTERIES: Not adequately visualized. SUBCLAVIAN ARTERIES: No finding. OTHER: No other significant finding. IMPRESSION: BILATERAL PLAQUE. GREATER THAN 70% STENOSIS OF THE LEFT INTERNAL CAROTID ARTERY. COMMENT: Quality ID #[id number]: Velocity criteria are extrapolated from the diameter data as defined by t he Society of Radiologists in Ultrasound Consensus Conference. Radiology 2003: 229; 340-346. TECHNICAL DOCUMENTATION: JOB ID: [id number] 2010 [employer]- All Rights Reserved Reading location - IP/workstation name: [email or web address]
[2019-10-10] MEDS ORDERED: MORPHINE SULFATE 10 MG/ML INJ IV ONE (09:30)
[2019-10-10] MEDS ORDERED: METOCLOPRAMIDE HCL 10 MG TABLET PO PRN (09:52)
[2019-10-10] MEDS ORDERED: KETOROLAC TROMETHAMINE INJ/PF 30 MG/1 ML SDV IV ONE (09:54)
--- NOTE | 2019-10-10 10:09 | PDOC PROGRESS REPORT ---
Subjective Progress Note for:: 10/10/19 Subjective:: Patient appears to be in quite a significant amount of pain. She continues to moan out while. She does point out that her right thumb is the focus of her pain. She has had gout in the past and feels that this is the same presentation. Last time it was in her hallux. She does report that her nausea and vomiting has subsided. Reason For Visit: ALTERED MENTAL STATUS Physical Exam Vital Signs: Temp Pulse Resp BP Pulse Ox 98.5 F 89 16 197/86 H 95 10/10/19 07:53 10/10/19 07:53 10/10/19 07:53 10/10/19 07:53 10/10/19 07:53 Intake & Output 10/09/19 10/10/19 10/11/19 06:59 06:59 06:59 Intake Total 2560 50 Output Total 25 Balance 2535 50 Weight 117.6 kg General appearance: PRESENT: cooperative, mild distress - Mild to moderate distress, morbidly obese, well-developed, well-nourished Head exam: PRESENT: atraumatic, normocephalic Ear exam: PRESENT: normal external ear exam. ABSENT: bleeding, drainage Mouth exam: PRESENT: moist, tongue midline Respiratory exam: PRESENT: clear to auscultation patria, symmetrical, unlabored. ABSENT: rales, rhonchi, tachypnea, wheezes Cardiovascular exam: PRESENT: RRR, +S1, +S2. ABSENT: bradycardia, diastolic murmur, irregular rhythm, systolic murmur, tachycardia GI/Abdominal exam: PRESENT: hypoactive bowel sounds, soft, other - Protuberant abdomen. ABSENT: guarding, tenderness Rectal exam: PRESENT: deferred Gentrourinary exam: PRESENT: indwelling catheter Extremities exam: PRESENT: pedal edema Neurological exam: PRESENT: alert, awake, oriented to person, oriented to place, oriented to time, oriented to situation, CN II-XII grossly intact. ABSENT: altered Psychiatric exam: PRESENT: appropriate affect - Affect reflects her current pain. ABSENT: agitated, anxious Focused psych exam: ABSENT: delusional, paranoid, restlessness Skin exam: PRESENT: erythema - Mild erythema at the right thumb carpal metacarpal joint. This is very tender. Results Laboratory Results: 10/10/19 06:19 10/10/19 06:19 10/09/19 10/09/19 10/09/19 15:08 15:08 17:30 WBC 22.5 H RBC 5.43 H Hgb 14.6 Hct 44.8 MCV 82 MCH 27.0 MCHC 32.7 RDW 15.8 H Plt Count 449 Seg Neutrophils % Not Reportable Sodium 139.4 Potassium 3.3 L Chloride 96 L Carbon Dioxide 26 Anion Gap 17 BUN 14 Creatinine 1.84 H Est GFR ( Amer) 32 L Glucose 221 H Lactic Acid Calcium 9.3 Magnesium 0.9 L* Total Bilirubin 1.1 AST 40 H Alkaline Phosphatase 120 Ammonia Total Protein 7.7 Albumin 3.6 Triglycerides Cholesterol LDL Cholesterol Direct VLDL Cholesterol HDL Cholesterol TSH Urine Color ANDRE Urine Appearance CLOUDY Urine pH 5.0 Ur Specific [place] 1.017 Urine Protein 100 H Urine Glucose (UA) 50 H Urine Ketones 20 H Urine Blood SMALL H Urine Nitrite NEGATIVE Ur Leukocyte Esterase TRACE H Urine WBC (Auto) 15 Urine RBC (Auto) 12 10/09/19 10/10/19 10/10/19 18:22 06:19 06:19 WBC 16.4 H RBC 4.81 Hgb 12.9 Hct 39.1 MCV 81 MCH 26.8 L MCHC 32.9 RDW 15.7 H Plt Count 345 Seg Neutrophils % 79.2 H Sodium 140.3 Potassium 3.6 Chloride 106 Carbon Dioxide 23 Anion Gap 11 BUN 16 Creatinine 1.85 H Est GFR ( Amer) 32 L Glucose 135 H Lactic Acid 0.8 Calcium 8.4 Magnesium 1.6 Total Bilirubin 0.7 AST 35 Alkaline Phosphatase 94 Ammonia Total Protein 6.7 Albumin 2.9 L Triglycerides 116 Cholesterol 146.11 LDL Cholesterol Direct 73 VLDL Cholesterol 23.0 HDL Cholesterol 48 TSH Urine Color Urine Appearance Urine pH Ur Specific [place] Urine Protein Urine Glucose (UA) Urine Ketones Urine Blood Urine Nitrite Ur Leukocyte Esterase Urine WBC (Auto) Urine RBC (Auto) 10/10/19 10/10/19 06:19 06:19 WBC RBC Hgb Hct MCV MCH MCHC RDW Plt Count Seg Neutrophils % Sodium Potassium Chloride Carbon Dioxide Anion Gap BUN Creatinine Est GFR ( Amer) Glucose Lactic Acid Calcium Magnesium Total Bilirubin AST Alkaline Phosphatase Ammonia < 8.7 L Total Protein Albumin Triglycerides Cholesterol LDL Cholesterol Direct VLDL Cholesterol HDL Cholesterol TSH 1.71 Urine Color Urine Appearance Urine pH Ur Specific [place] Urine Protein Urine Glucose (UA) Urine Ketones Urine Blood Urine Nitrite Ur Leukocyte Esterase Urine WBC (Auto) Urine RBC (Auto) 10/09/19 10/09/19 10/09/19 15:08 15:08 18:51 Creatine Kinase 33 CK-MB (CK-2) 0.95 Troponin I 0.029 NT-Pro-B Natriuret Pep 10/10/19 06:19 Creatine Kinase CK-MB (CK-2) Troponin I NT-Pro-B Natriuret Pep 2620 H Impressions: Carotid Doppler Study 10/09/19 00:00 IMPRESSION: BILATERAL PLAQUE. GREATER THAN 70% STENOSIS OF THE LEFT INTERNAL CAROTID ARTERY. Head MRI 10/09/19 00:00 IMPRESSION: 1. No acute intracranial abnormality. Postoperative changes and encephalomalacia are identified about the left cerebellum. Presumed chronic small vessel ischemic changes are also noted within the supratentorial white matter. 2. Asymmetric appearance about the flow voids within the left ICA and M1 segments, with significant stenosis not excluded. Additional evaluation with angiography would be of benefit. copyright 2010 [employer]- All Rights Reserved Head CT 10/09/19 15:26 IMPRESSION: 1. No evidence of acute intracranial process. 2. Stable chronic changes from prior left occipital craniotomy with encephalomalacia within the left lateral cerebellar hemisphere. 3. Unchanged fullness of the bilateral parapharyngeal tonsils with multiple scattered calcifications on the left. Consider direct visualization for further characterization. EVIDENCE OF ACUTE STROKE: NO. Abdomen/Pelvis CT 10/09/19 15:27 IMPRESSION: 1. No evidence of acute intra-abdominal/pelvic process. 2. Stable umbilical right paraumbilical fat containing hernia. 3. Stable left adrenal adenoma. 4. Diverticulosis. Chest X-Ray 10/09/19 17:45 IMPRESSION: NO ACUTE RADIOGRAPHIC FINDING IN THE CHEST. Assessment and Plan - Diagnosis (1) Syncope Qualifiers: Syncope type: unspecified Qualified Code(s): R55 - Syncope and collapse Is this a current diagnosis for this admission?: Yes Plan: The patient has been in sinus rhythm by telemetry. Blood pressure has actually been elevated. She does have encephalomalacia a left occipital craniotomy removed a meningioma. This is in the left inferior cerebellum. Etiology of syncope is unknown however there is a greater than 70% stenosis in the left internal carotid and possible filling voids in the cerebral circulation. This could be a potential etiology for her syncope. We will continue to monitor on telemetry. (2) Carotid artery stenosis Qualifiers: Laterality: left Qualified Code(s): I65.22 - Occlusion and stenosis of left carotid artery Is this a current diagnosis for this admission?: Yes Plan: Greater than 70% stenosis. MRI suggest possible filling voids in the left cerebral circulation. Unfortunately MRA is not possible with her current renal function. I did initiate aspirin therapy as well as 40 mg of atorvastatin at this time. She will need to see a vascular surgeon as an outpatient. 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 She now complains of gout in the right metacarpal phalangeal joint and the right thumb. I will start colchicine. Will monitor closely. I have asked for a uric acid level as well. (4) Hyperglycemia due to type 2 diabetes mellitus Qualifiers: Diabetes mellitus group home insulin use: without group home use Qualified Code(s): E11.65 - Type 2 diabetes mellitus with hyperglycemia Is this a current diagnosis for this admission?: Yes Plan: Hemoglobin A1c was elevated at 7.0. May need to initiate oral medication. (5) Acute renal injury Is this a current diagnosis for this admission?: Yes Plan: GFR was 54 in September 21. It is now 26. The patient is getting IV fluids. Will monitor closely. Etiology of acute kidney injury unknown at this time. (6) Hypertension Qualifiers: Hypertension type: unspecified Qualified Code(s): I10 - Essential (primary) hypertension Is this a current diagnosis for this admission?: No Plan: The patient has been in a positive fluid balance. Blood pressures have been high and there is no record of antihypertensive medication on her medicine reconciliation. I am going to initiate furosemide 20 mg daily as well as losar coates 50 mg daily. For this evening I will give her 25 g of losartan. She has PRN hydralazine available if needed for elevated systolic blood pressure. (7) Hypokalemia Is this a current diagnosis for this admission?: Yes Plan: Serum potassium was 3.3 initially. It is currently 3.6. Will initiate oral potassium chloride supplement and monitor potassium levels. (8) Hypomagnesemia Is this a current diagnosis for this admission?: Yes Plan: Magnesium was 0.9 on admission. Currently 1.6. We will start magnesium oxide 40 mg twice daily and continue to monitor magnesium levels. (9) Morbid obesity with BMI of 40.0-44.9, adult Is this a current diagnosis for this admission?: Yes Plan: Most feasible approach would be aggressive diet management. The patient would not be able to reasonably exercise at her current weight. (10) Gastritis Qualifiers: Chronicity: unspecified Gastritis bleeding: without bleeding Is this a current diagnosis for this admission?: Yes Plan: Recent EGD revealed mild gastritis. Continue pantoprazole 40 mg twice daily. - Time Time Spent with patient: 15-24 minutes Medications reviewed and adjusted accordingly: Yes Anticipated Discharge Disposition: Home with Home Health Anticipated Discharge Timeframe: within 72 hours
[2019-10-10] MEDS: POTASSIUM CHLORIDE 10 MEQ TABLET.ER PO SCH (10:16)
[2019-10-10] MEDS: COLCHICINE 0.6 MG TABLET PO SCH ×2 (10:16→21:43)
[2019-10-10] MEDS: MAGNESIUM OXIDE 400 MG TABLET PO SCH ×2 (10:16→17:08)
[2019-10-10] MEDS ORDERED: LOSARTAN POTASSIUM 25 MG TABLET PO ONE (20:30)
[2019-10-10] MEDS: ASPIRIN 81 MG TABLET, ENT COATED PO SCH (21:43)
[2019-10-10] MEDS: ATORVASTATIN CALCIUM 40 MG TABLET PO SCH (21:43)
[2019-10-11] MEDS: CEFEPIME 1 GM/D5W RTU 1 GM/50 ML RTUPB IV SCH ×2 (06:03→17:16)
[2019-10-11] MEDS: HEPARIN SOD (PORCINE) 5,000 UNIT/ML 1 ML VIAL SUBCUT SCH ×3 (06:04→22:11)
[2019-10-11] MEDS: PANTOPRAZOLE SODIUM 40 MG TABLET.DR PO SCH ×2 (06:04→17:16)
[2019-10-11 06:10] LABS: ABSOLUTE BASOPHILS # (AUTO) 0.1 10^3/uL (0.0-0.2); ABSOLUTE EOSINOPHILS # (AUTO) 0.1 10^3/uL (0.0-0.6); ABSOLUTE LYMPHOCYTES (AUTO) 1.5 10^3/uL (0.5-4.7); ABSOLUTE MONOCYTES (AUTO) 1.1 10^3/uL (0.1-1.4); ABSOLUTE NEUT (AUTO) 6.3 10^3/uL (1.7-8.2); BASOPHILS % (AUTO) 0.8 % (0-2); EOSINOPHILS % (AUTO) 1.3 % (0-6); HEMOGLOBIN 12.4 g/dL (12.0-15.5); LYMPHOCYTES % (AUTO) 16.7 % (13-45); MEAN CORPUSCULAR HEMOGLOBIN 26.9 pg (27.0-33.4); MEAN CORPUSCULAR HGB CONC 32.6 g/dL (32.0-36.0); MEAN CORPUSCULAR VOLUME 83 fl (80-97); MONOCYTES % (AUTO) 11.9 % (3-13); PLATELET COUNT 338 10^3/uL (150-450); RED BLOOD COUNT 4.61 10^6/uL (3.72-5.28); RED CELL DISTRIBUTION WIDTH 16.1 % (11.5-14.0); SEGMENTED NEUTROPHILS % (AUTO) 69.3 % (42-78); TOTAL CELLS COUNTED % (AUTO) 100 %; WHITE BLOOD COUNT 9.1 10^3/uL (4.0-10.5)
[2019-10-11 06:42] LABS: ALBUMIN 2.7 g/dL (3.5-5.0); ANION GAP 9 (5-19); BLOOD UREA NITROGEN 18 mg/dL (7-20); CALCIUM 8.1 mg/dL (8.4-10.2); CARBON DIOXIDE 23 mmol/L (22-30); CHLORIDE 108 mmol/L (98-107); GLUCOSE 116 mg/dL (75-110); PHOSPHORUS 3.5 mg/dL (2.5-4.5); POTASSIUM 3.7 mmol/L (3.6-5.0)
[2019-10-11] MEDS: INSULIN LISPRO 100 UNIT/ML 3 ML VIAL SUBCUT SCH ×4 (10:33→22:12)
[2019-10-11] MEDS: POTASSIUM CHLORIDE 10 MEQ TABLET.ER PO SCH (10:35)
[2019-10-11] MEDS: COLCHICINE 0.6 MG TABLET PO SCH ×2 (10:36→22:12)
[2019-10-11] MEDS: LOSARTAN POTASSIUM 50 MG TABLET PO SCH (10:36)
[2019-10-11] MEDS: MAGNESIUM OXIDE 400 MG TABLET PO SCH (10:36)
[2019-10-11] MEDS: FUROSEMIDE 20 MG TABLET PO SCH (10:36)
[2019-10-11] MEDS ORDERED: PANTOPRAZOLE SODIUM 20 MG TABLET.DR PO SCH (11:00)
[2019-10-11] MEDS ORDERED: SIMETHICONE 80 MG TAB.CHEW PO PRN (17:36)
[2019-10-11] MEDS ORDERED: BISACODYL 10 MG SUPP.RECT PR ONE (17:39)
--- NOTE | 2019-10-11 17:39 | PDOC PROGRESS REPORT ---
Subjective Progress Note for:: 10/11/19 Subjective:: Multiple complaints. She states she is having increased burping. She states that it is very difficult to eat and food feels like it sticking. She states that even trying to swallow her pills is difficult. She reports that she really has not had much to eat in 6 weeks. She also complains of constipation. Reason For Visit: ALTERED MENTAL STATUS Physical Exam Vital Signs: Temp Pulse Resp BP Pulse Ox 97.5 F 85 20 148/89 H 99 10/11/19 15:59 10/11/19 15:59 10/11/19 15:59 10/11/19 15:59 10/11/19 15:59 Intake & Output 10/10/19 10/11/19 10/12/19 06:59 06:59 06:59 Intake Total 2560 1471 Output Total 25 450 Balance 2535 1021 Weight 117.6 kg 121 kg General appearance: PRESENT: cooperative, mild distress, morbidly obese, well- developed Head exam: PRESENT: atraumatic, normocephalic Ear exam: PRESENT: normal external ear exam. ABSENT: bleeding, drainage Respiratory exam: PRESENT: clear to auscultation patria - Anteriorly, symmetrical, unlabored. ABSENT: rales, rhonchi, tachypnea, wheezes Cardiovascular exam: PRESENT: RRR, +S1, +S2. ABSENT: bradycardia, diastolic murmur, irregular rhythm, systolic murmur, tachycardia GI/Abdominal exam: PRESENT: hypoactive bowel sounds, soft, other - Pendulous abdomen. ABSENT: tenderness Rectal exam: PRESENT: deferred Extremities exam: PRESENT: pedal edema Neurological exam: PRESENT: alert, awake, oriented to person, oriented to place, oriented to situation, CN II-XII grossly intact Psychiatric exam: PRESENT: appropriate affect. ABSENT: agitated, anxious Focused psych exam: ABSENT: delusional, paranoid, restlessness Results Laboratory Results: 10/11/19 05:14 10/11/19 05:14 10/11/19 10/11/19 05:14 05:14 WBC 9.1 RBC 4.61 Hgb 12.4 Hct 38.0 MCV 83 MCH 26.9 L MCHC 32.6 RDW 16.1 H Plt Count 338 Seg Neutrophils % 69.3 Sodium 140.3 Potassium 3.7 Chloride 108 H Carbon Dioxide 23 Anion Gap 9 BUN 18 Creatinine 1.77 H Est GFR ( Amer) 33 L Glucose 116 H Calcium 8.1 L Phosphorus 3.5 Magnesium 1.5 L Albumin 2.7 L 10/09/19 10/09/19 10/09/19 15:08 15:08 18:51 Creatine Kinase 33 CK-MB (CK-2) 0.95 Troponin I 0.029 NT-Pro-B Natriuret Pep 10/10/19 06:19 Creatine Kinase CK-MB (CK-2) Troponin I NT-Pro-B Natriuret Pep 2620 H Impressions: Carotid Doppler Study 10/09/19 00:00 IMPRESSION: BILATERAL PLAQUE. GREATER THAN 70% STENOSIS OF THE LEFT INTERNAL CAROTID ARTERY. Head MRI 10/09/19 00:00 IMPRESSION: 1. No acute intracranial abnormality. Postoperative changes and encephalomalacia are identified about the left cerebellum. Presumed chronic small vessel ischemic changes are also noted within the supratentorial white matter. 2. Asymmetric appearance about the flow voids within the left ICA and M1 segments, with significant stenosis not excluded. Additional evaluation with angiography would be of benefit. copyright 2011 [employer]- All Rights Reserved Head CT 10/09/19 15:26 IMPRESSION: 1. No evidence of acute intracranial process. 2. Stable chronic changes from prior left occipital craniotomy with encephalomalacia within the left lateral cerebellar hemisphere. 3. Unchanged fullness of the bilateral parapharyngeal tonsils with multiple scattered calcifications on the left. Consider direct visualization for further characterization. EVIDENCE OF ACUTE STROKE: NO. Abdomen/Pelvis CT 10/09/19 15:27 IMPRESSION: 1. No evidence of acute intra-abdominal/pelvic process. 2. Stable umbilical right paraumbilical fat containing hernia. 3. Stable left adrenal adenoma. 4. Diverticulosis. Chest X-Ray 10/09/19 17:45 IMPRESSION: NO ACUTE RADIOGRAPHIC FINDING IN THE CHEST. Assessment and Plan - Diagnosis (1) Dysphagia Qualifiers: Dysphagia type: esophageal phase Qualified Code(s): R13.10 - Dysphagia, unspecified Is this a current diagnosis for this admission?: Yes Plan: There is a narrowing the distal esophagus. Recent endoscopy did not suggest mass or a true stricture. I will change diet and as many medications as possible to a liquid form. The patient will need to follow-up with GI for further investigation. (2) Gastritis Qualifiers: Chronicity: unspecified Gastritis bleeding: without bleeding Is this a current diagnosis for this admission?: Yes Plan: Barium swallow shows narrowing at the distal esophagus. I discussed the case with surgery. Dr. Johnston was kind enough to research and find that the patient had an endoscopy with a local seeing eye dog teacher within the month. The report revealed gastritis with esophagitis. The patient will need to be referred back to GI for follow-up. For the time being I have changed her Protonix to IV and will consider sachets. I have changed her potassium chloride to powder. I have her scheduled for Maalox every 6 hours. I also change her diet to full liquids. (3) Carotid artery stenosis Qualifiers: Laterality: left Qualified Code(s): I65.22 - Occlusion and stenosis of left carotid artery Is this a current diagnosis for this admission?: Yes Plan: Continue aspirin and statin therapy. 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 Will likely change to allopurinol in the next few days. (5) Acute renal injury Is this a current diagnosis for this admission?: Yes Plan: Renal function was slowly improving. Recheck chemistries tomorrow (6) Hypertension Qualifiers: Hypertension type: unspecified Qualified Code(s): I10 - Essential (primary) hypertension Is this a current diagnosis for this admission?: No Plan: Patient has had difficulty swallowing her pills. I will change to IV medications for now. We will use scheduled IV enalapril and hydralazine as available if needed. (7) Hyperglycemia due to type 2 diabetes mellitus Qualifiers: Diabetes mellitus intermediate card tender insulin use: without intermediate card tender use Qualified Code(s): E11.65 - Type 2 diabetes mellitus with hyperglycemia Is this a current diagnosis for this admission?: Yes Plan: Accu-Cheks consistently under 200 and mostly under 150. Continue current regimen (8) Hypokalemia Is this a current diagnosis for this admission?: Yes Plan: Continue potassium supplement. Will change to powder to mix with liquid. (9) Hypomagnesemia Is this a current diagnosis for this admission?: Yes Plan: Recheck magnesium tomorrow. Magnesium was slightly low. Patient may not be taking her magnesium oxide due to the size of the tablet. (10) Morbid obesity with BMI of 40.0-44.9, adult Is this a current diagnosis for this admission?: Yes Plan: Most feasible approach would be aggressive diet management. The patient would not be able to reasonably exercise at her current weight. (11) Constipation Qualifiers: Constipation type: unspecified constipation type Qualified Code(s): K59.00 - Constipation, unspecified Is this a current diagnosis for this admission?: Yes Plan: The patient had a bowel movement today. She will remain with medications on an as-needed basis. (12) Syncope Qualifiers: Syncope type: unspecified Qualified Code(s): R55 - Syncope and collapse Is this a current diagnosis for this admission?: Yes Plan: No syncopal episodes. We did review the carotid stenosis. Her biggest complaint is dysphasia. - Time Time Spent with patient: 15-24 minutes Medications reviewed and adjusted accordingly: Yes Anticipated Discharge Disposition: Home with Home Health Anticipated Discharge Timeframe: within 72 hours
[2019-10-11] MEDS ORDERED: MAGNESIUM SULFATE/D5W 1 GM/100 ML RTUPB IV ONE (18:00)
[2019-10-11] MEDS: ONDANSETRON HCL INJ/PF 4 MG/2 ML SDV IV PRN (19:21)
[2019-10-11] MEDS: NORMAL SALINE 1000 ML 1,000 ML IV PRN (19:23)
[2019-10-11] MEDS: ATORVASTATIN CALCIUM 40 MG TABLET PO SCH (22:12)
[2019-10-11] MEDS: ASPIRIN 81 MG TABLET, ENT COATED PO SCH (22:12)
[2019-10-12] MEDS: CEFEPIME 1 GM/D5W RTU 1 GM/50 ML RTUPB IV SCH ×2 (05:34→18:50)
[2019-10-12] MEDS: NORMAL SALINE 1000 ML 1,000 ML IV PRN ×2 (05:35→19:48)
[2019-10-12] MEDS: PANTOPRAZOLE SODIUM 40 MG TABLET.DR PO SCH ×2 (06:17→18:49)
[2019-10-12] MEDS: HEPARIN SOD (PORCINE) 5,000 UNIT/ML 1 ML VIAL SUBCUT SCH ×3 (06:18→21:22)
[2019-10-12] MEDS: INSULIN LISPRO 100 UNIT/ML 3 ML VIAL SUBCUT SCH ×4 (08:39→21:22)
[2019-10-12] MEDS: ONDANSETRON HCL INJ/PF 4 MG/2 ML SDV IV PRN ×2 (08:41→18:50)
[2019-10-12] MEDS: HYDRALAZINE HCL INJ/PF 20 MG/1 ML SDV IV PRN ×2 (08:54→21:25)
[2019-10-12] MEDS ORDERED: METOPROLOL TARTRATE PF/INJ 5 MG/5 ML SDV IV ONE (11:45)
[2019-10-12] MEDS: GLYCERIN (ADULT) SUPP.RECT PR PRN (12:17)
[2019-10-12] MEDS: MAGNESIUM OXIDE 400 MG TABLET PO SCH ×3 (12:24→18:49)
[2019-10-12] MEDS: LOSARTAN POTASSIUM 50 MG TABLET PO SCH (12:24)
[2019-10-12] MEDS: POTASSIUM CHLORIDE 10 MEQ TABLET.ER PO SCH (12:24)
[2019-10-12] MEDS: COLCHICINE 0.6 MG TABLET PO SCH (12:24)
[2019-10-12] MEDS: FUROSEMIDE 20 MG TABLET PO SCH (12:24)
--- NOTE | 2019-10-12 13:04 | RADIOLOGY REPORT (SQ) ---
EXAM DESCRIPTION: BARIUM SWALLOW ESOPHAGUS IMAGES COMPLETED DATE/TIME: 10/12/2019 10:36 am REASON FOR STUDY: Food sticks when swallowing. COMPARISON: None. TECHNIQUE: Under fluoroscopic guidance, patient ingested thin barium. Fluoroscopic spot images and r outine radiographic images acquired and stored on PACS. 12 MM BARIUM TABLET GIVEN: Yes. Pill lodged in the distal esophagus just proximal to the GE junction throughout the procedure. LIMITATIONS: Patient was unable or unwilling to drink a large amount of barium FLUOROSCOPY TIME: 3.3 minutes of fluoroscopy was used. 16 images saved to PACS. FINDINGS: NEUROMUSCULAR COORDINATION OF SWALLOW: Laryngeal penetration. No aspiration. Mild cricop haryngeal hypertrophy. ESOPHAGEAL MOTILITY: Slow primary peristalsis. Stasis of barium within the esophagus. No esophageal spasm. ESOPHAGEAL MUCOSA: Normal mucosa without masses or ulceration. GASTRO-ESOPHAGEAL JUNCTION: Small sliding hiatal hernia. Mild reflux is seen. 12 mm barium tablet l odged just proximal to the GE junction throughout the procedure. Retention of the pill in the distal esophagus may be related to poor motility although distal esophageal stricture cannot be entirely ru led out due to the small amount of contrast ingested by the patient. NON-GI TRACT STRUCTURES: No significant finding. OTHER: No other significant finding. IMPRESSION: LIMITED BARIUM SWALLOW DUE TO PATIENT'S IMMOBILITY AND SMALL AMOUNT OF INGESTED BARIUM. FINDINGS DO INDICATE ESOPHAGEAL DYSMOTILITY WITH STASIS OF BARIUM WITHIN THE ESOPHAGUS. THERE IS A SMALL SLIDING HIATAL HERNIA WITH MILD GASTROESOPHAGEAL REFLUX. 12 MM BARIUM TABLET REMAINED AT THE G E JUNCTION THROUGHOUT THE PROCEDURE WHICH MAY INDICATE DISTAL ESOPHAGEAL NARROWING ALTHOUGH DUE TO TH E SMALL AMOUNT OF INGESTED BARIUM, THE RETENTION THE TABLET MAY BE RELATED TO ESOPHAGEAL MOTILITY. COMMENT: Recommend endoscopy for further evaluation Quality ID [id number]: Final reports for procedures using fluoroscopy that document radiation exposure rosana juliann, or exposure time and number of fluorographic images (if radiation exposure indices are not avail able) TECHNICAL DOCUMENTATION: JOB ID: [id number] 2010 [employer]- All Rights Reserved Reading location - IP/workstation name: [email or web address]
--- NOTE | 2019-10-12 15:02 | PDOC PROGRESS REPORT ---
Subjective Progress Note for:: 10/12/19 Subjective:: Still with difficulty swallowing. Very concerned about possible cancer. She did have an endoscopy within the month and there was no indication that there was malignancy. Reason For Visit: ALTERED MENTAL STATUS Physical Exam Vital Signs: Temp Pulse Resp BP Pulse Ox 97.6 F 77 20 151/73 H 93 10/12/19 11:02 10/12/19 14:00 10/12/19 11:02 10/12/19 13:34 10/12/19 11:02 Intake & Output 10/11/19 10/12/19 10/13/19 06:59 06:59 06:59 Intake Total 1471 1420 Output Total 450 1800 Balance 1021 -380 Weight 121 kg 120.2 kg General appearance: PRESENT: cooperative, mild distress - Mild to moderate distress, morbidly obese, well-developed Head exam: PRESENT: atraumatic, normocephalic Ear exam: PRESENT: normal external ear exam. ABSENT: bleeding, drainage Respiratory exam: PRESENT: clear to auscultation patria - Anteriorly, symmetrical, unlabored. ABSENT: rales, rhonchi, tachypnea, wheezes Cardiovascular exam: PRESENT: RRR, +S1, +S2 GI/Abdominal exam: PRESENT: soft. ABSENT: diminished bowel sounds, tenderness Rectal exam: PRESENT: deferred Extremities exam: PRESENT: pedal edema Musculoskeletal exam: ABSENT: deformity, dislocation Neurological exam: PRESENT: alert, awake, oriented to person, oriented to place, oriented to time, oriented to situation Psychiatric exam: PRESENT: anxious, other - Very tearful. Worried about cancer causing the narrowing of the esophagus.. ABSENT: agitated Focused psych exam: ABSENT: delusional, paranoid, restlessness Skin exam: PRESENT: dry, normal color, warm Results Laboratory Results: 10/11/19 05:14 10/11/19 05:14 10/10/19 10:22 Catheterized Urine Urine Culture - Final NO GROWTH 2 DAYS 10/09/19 10/09/19 10/09/19 15:08 15:08 18:51 Creatine Kinase 33 CK-MB (CK-2) 0.95 Troponin I 0.029 NT-Pro-B Natriuret Pep 10/10/19 06:19 Creatine Kinase CK-MB (CK-2) Troponin I NT-Pro-B Natriuret Pep 2620 H Impressions: Carotid Doppler Study 10/09/19 00:00 IMPRESSION: BILATERAL PLAQUE. GREATER THAN 70% STENOSIS OF THE LEFT INTERNAL CAROTID ARTERY. Head MRI 10/09/19 00:00 IMPRESSION: 1. No acute intracranial abnormality. Postoperative changes and encephalomalacia are identified about the left cerebellum. Presumed chronic small vessel ischemic changes are also noted within the supratentorial white matter. 2. Asymmetric appearance about the flow voids within the left ICA and M1 segments, with significant stenosis not excluded. Additional evaluation with angiography would be of benefit. copyright 2011 [employer]- All Rights Reserved Head CT 10/09/19 15:26 IMPRESSION: 1. No evidence of acute intracranial process. 2. Stable chronic changes from prior left occipital craniotomy with encephalomalacia within the left lateral cerebellar hemisphere. 3. Unchanged fullness of the bilateral parapharyngeal tonsils with multiple scattered calcifications on the left. Consider direct visualization for further characterization. EVIDENCE OF ACUTE STROKE: NO. Abdomen/Pelvis CT 10/09/19 15:27 IMPRESSION: 1. No evidence of acute intra-abdominal/pelvic process. 2. Stable umbilical right paraumbilical fat containing hernia. 3. Stable left adrenal adenoma. 4. Diverticulosis. Chest X-Ray 10/09/19 17:45 IMPRESSION: NO ACUTE RADIOGRAPHIC FINDING IN THE CHEST. Esophagus X-Ray 10/12/19 00:00 IMPRESSION: LIMITED BARIUM SWALLOW DUE TO PATIENT'S IMMOBILITY AND SMALL AMOUNT OF INGESTED BARIUM. FINDINGS DO INDICATE ESOPHAGEAL DYSMOTILITY WITH STASIS OF BARIUM WITHIN THE ESOPHAGUS. THERE IS A SMALL SLIDING HIATAL HERNIA WITH MILD GASTROESOPHAGEAL REFLUX. 12 MM BARIUM TABLET REMAINED AT THE GE JUNCTION THROUGHOUT THE PROCEDURE WHICH MAY INDICATE DISTAL ESOPHAGEAL NARROWING ALTHOUGH DUE TO THE SMALL AMOUNT OF INGESTED BARIUM, THE RETENTION THE TABLET MAY BE RELATED TO ESOPHAGEAL MOTILITY. Assessment and Plan - Diagnosis (1) Gastritis Qualifiers: Chronicity: unspecified Gastritis bleeding: without bleeding Is this a current diagnosis for this admission?: Yes Plan: Recent diascopy revealed gastritis with esophagitis. This is likely causing the narrowing at the distal esophagus. As noted before multiple changes to convert things to liquid if possible. The patient will need to follow-up with gastroenterology after discharge. (2) Dysphagia Qualifiers: Dysphagia type: esophageal phase Qualified Code(s): R13.10 - Dysphagia, unspecified Is this a current diagnosis for this admission?: Yes Plan: As noted above we will try and make as many things liquid as possible. I change it to a full liquid diet and asked her to drink Ensure 3 times a day. (3) Carotid artery stenosis Qualifiers: Laterality: left Qualified Code(s): I65.22 - Occlusion and stenosis of left carotid artery Is this a current diagnosis for this admission?: Yes Plan: Vascular surgery referral after discharge. Continue aspirin and statin therapy. 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 Decrease colchicine to once daily. (5) Hyperglycemia due to type 2 diabetes mellitus Qualifiers: Diabetes mellitus lobsterman insulin use: without lobsterman use Qualified Code(s): E11.65 - Type 2 diabetes mellitus with hyperglycemia Is this a current diagnosis for this admission?: Yes Plan: Good glucose control. Continue current treatment plan (6) Acute renal injury Is this a current diagnosis for this admission?: Yes Plan: Slowly improving. Continue to monitor. (7) Hypertension Qualifiers: Hypertension type: unspecified Qualified Code(s): I10 - Essential (primary) hypertension Is this a current diagnosis for this admission?: No Plan: Difficult to take medications. We will utilize IV medications for time being. (8) Hypokalemia Is this a current diagnosis for this admission?: Yes Plan: Potassium chloride changed to liquid. Repeat laboratory studies tomorrow. (9) Hypomagnesemia Is this a current diagnosis for this admission?: Yes Plan: Check magnesium tomorrow. Mag oxide pills are large. We may need to provide intravenous supplementation. (10) Constipation Qualifiers: Constipation type: unspecified constipation type Qualified Code(s): K59.00 - Constipation, unspecified Is this a current diagnosis for this admission?: Yes Plan: Continue as needed medications. (11) Syncope Qualifiers: Syncope type: unspecified Qualified Code(s): R55 - Syncope and collapse Is this a current diagnosis for this admission?: Yes Plan: No further episodes of syncope. (12) Morbid obesity with BMI of 40.0-44.9, adult Is this a current diagnosis for this admission?: Yes Plan: Most feasible approach would be aggressive diet management. The patient would not be able to reasonably exercise at her current weight. - Time Time Spent with patient: 15-24 minutes Medications reviewed and adjusted accordingly: Yes Anticipated Discharge Disposition: Home with Home Health Anticipated Discharge Timeframe: within 72 hours
[2019-10-12] MEDS: PANTOPRAZOLE SODIUM 40 MG VIAL IV SCH (21:21)
[2019-10-12] MEDS: MAG HYDROX/AL HYDROX/SIMETH SUSP 30 ML UDCUP PO SCH ×2 (21:21→21:35)
[2019-10-12] MEDS: ATORVASTATIN CALCIUM 40 MG TABLET PO SCH ×2 (21:22→21:32)
[2019-10-12] MEDS: ASPIRIN 81 MG TABLET, ENT COATED PO SCH ×2 (21:22→21:33)
[2019-10-13] MEDS: ENALAPRILAT DIHYDRATE INJ/PF 1.25 MG/1 ML SDV IV SCH ×4 (00:25→17:32)
[2019-10-13] MEDS: ONDANSETRON HCL INJ/PF 4 MG/2 ML SDV IV PRN (02:30)
[2019-10-13] MEDS: HYDRALAZINE HCL INJ/PF 20 MG/1 ML SDV IV PRN (03:30)
[2019-10-13] MEDS: HEPARIN SOD (PORCINE) 5,000 UNIT/ML 1 ML VIAL SUBCUT SCH ×3 (05:51→22:21)
[2019-10-13] MEDS: CEFEPIME 1 GM/D5W RTU 1 GM/50 ML RTUPB IV SCH ×2 (05:52→17:32)
[2019-10-13 08:13] LABS: HEMATOCRIT 38.3 % (36.0-47.0); HEMOGLOBIN 12.7 g/dL (12.0-15.5); MEAN CORPUSCULAR HGB CONC 33.3 g/dL (32.0-36.0); MEAN CORPUSCULAR VOLUME 81 fl (80-97); PLATELET COUNT 377 10^3/uL (150-450); RED BLOOD COUNT 4.71 10^6/uL (3.72-5.28); RED CELL DISTRIBUTION WIDTH 15.8 % (11.5-14.0); WHITE BLOOD COUNT 8.8 10^3/uL (4.0-10.5)
[2019-10-13] MEDS: INSULIN LISPRO 100 UNIT/ML 3 ML VIAL SUBCUT SCH ×4 (08:36→22:43)
[2019-10-13] MEDS: MAGNESIUM OXIDE 400 MG TABLET PO SCH ×3 (08:36→17:33)
[2019-10-13 08:44] LABS: ANION GAP 11 (5-19); BLOOD UREA NITROGEN 13 mg/dL (7-20); CALCIUM 8.2 mg/dL (8.4-10.2); CARBON DIOXIDE 25 mmol/L (22-30); CHLORIDE 104 mmol/L (98-107); GLUCOSE 117 mg/dL (75-110); POTASSIUM 3.5 mmol/L (3.6-5.0)
[2019-10-13] MEDS ORDERED: CLONIDINE 0.1 MG/24 HR PATCH.TDWK TD SCH (10:00)
--- NOTE | 2019-10-13 10:35 | PDOC PROGRESS REPORT ---
Subjective Progress Note for:: 10/13/19 Subjective:: Patient is very upset. Very tearful. She complains of nausea and reports that anything she eats or drinks comes right back up. She was very anxious and emotionally labile. Reason For Visit: ALTERED MENTAL STATUS Physical Exam Vital Signs: Temp Pulse Resp BP Pulse Ox 97.2 F 95 20 168/109 H 93 10/13/19 07:46 10/13/19 07:46 10/13/19 07:46 10/13/19 07:46 10/13/19 07:46 Intake & Output 10/12/19 10/13/19 10/14/19 06:59 06:59 06:59 Intake Total 1420 1230 Output Total 1800 2024 Balance -380 -795 Weight 120.2 kg 118 kg General appearance: PRESENT: cooperative, mild distress - Mild to moderate distress, morbidly obese Head exam: PRESENT: atraumatic, normocephalic Ear exam: PRESENT: normal external ear exam. ABSENT: bleeding, drainage Respiratory exam: PRESENT: decreased breath sounds - Due to body habitus, symmetrical, unlabored. ABSENT: rales, rhonchi, tachypnea, wheezes Cardiovascular exam: PRESENT: RRR, +S1, +S2. ABSENT: bradycardia, diastolic murmur, irregular rhythm, systolic murmur, tachycardia GI/Abdominal exam: PRESENT: soft, other - Pendulous abdomen. ABSENT: guarding, tenderness Rectal exam: PRESENT: deferred Extremities exam: PRESENT: pedal edema Neurological exam: PRESENT: alert, awake, oriented to person, oriented to place, oriented to time, oriented to situation Psychiatric exam: PRESENT: anxious, depressed, other - Emotionally labile Results Laboratory Results: 10/13/19 07:32 10/13/19 07:32 10/13/19 10/13/19 07:32 07:32 WBC 8.8 RBC 4.71 Hgb 12.7 Hct 38.3 MCV 81 MCH 27.0 MCHC 33.3 RDW 15.8 H Plt Count 377 Sodium 140.2 Potassium 3.5 L Chloride 104 Carbon Dioxide 25 Anion Gap 11 BUN 13 Creatinine 1.01 Est GFR ( Amer) > 60 Glucose 117 H Calcium 8.2 L Magnesium 1.2 L* 10/09/19 10/09/19 10/09/19 15:08 15:08 18:51 Creatine Kinase 33 CK-MB (CK-2) 0.95 Troponin I 0.029 NT-Pro-B Natriuret Pep 10/10/19 06:19 Creatine Kinase CK-MB (CK-2) Troponin I NT-Pro-B Natriuret Pep 2620 H Impressions: Carotid Doppler Study 10/09/19 00:00 IMPRESSION: BILATERAL PLAQUE. GREATER THAN 70% STENOSIS OF THE LEFT INTERNAL CAROTID ARTERY. Head MRI 10/09/19 00:00 IMPRESSION: 1. No acute intracranial abnormality. Postoperative changes and encephalomalacia are identified about the left cerebellum. Presumed chronic small vessel ischemic changes are also noted within the supratentorial white matter. 2. Asymmetric appearance about the flow voids within the left ICA and M1 segments, with significant stenosis not excluded. Additional evaluation with angiography would be of benefit. copyright 2010 [employer]- All Rights Reserved Head CT 10/09/19 15:26 IMPRESSION: 1. No evidence of acute intracranial process. 2. Stable chronic changes from prior left occipital craniotomy with encephalomalacia within the left lateral cerebellar hemisphere. 3. Unchanged fullness of the bilateral parapharyngeal tonsils with multiple sca ttered calcifications on the left. Consider direct visualization for further characterization. EVIDENCE OF ACUTE STROKE: NO. Abdomen/Pelvis CT 10/09/19 15:27 IMPRESSION: 1. No evidence of acute intra-abdominal/pelvic process. 2. Stable umbilical right paraumbilical fat containing hernia. 3. Stable left adrenal adenoma. 4. Diverticulosis. Chest X-Ray 10/09/19 17:45 IMPRESSION: NO ACUTE RADIOGRAPHIC FINDING IN THE CHEST. Esophagus X-Ray 10/12/19 00:00 IMPRESSION: LIMITED BARIUM SWALLOW DUE TO PATIENT'S IMMOBILITY AND SMALL AMOUNT OF INGESTED BARIUM. FINDINGS DO INDICATE ESOPHAGEAL DYSMOTILITY WITH STASIS OF BARIUM WITHIN THE ESOPHAGUS. THERE IS A SMALL SLIDING HIATAL HERNIA WITH MILD GASTROESOPHAGEAL REFLUX. 12 MM BARIUM TABLET REMAINED AT THE GE JUNCTION THROUGHOUT THE PROCEDURE WHICH MAY INDICATE DISTAL ESOPHAGEAL NARROWING ALTHOUGH DUE TO THE SMALL AMOUNT OF INGESTED BARIUM, THE RETENTION THE TABLET MAY BE RELATED TO ESOPHAGEAL MOTILITY. Assessment and Plan - Diagnosis (1) Gastritis Qualifiers: Chronicity: unspecified Gastritis bleeding: without bleeding Is this a current diagnosis for this admission?: Yes Plan: Try to maximize antacid therapy with proton pump inhibitors and scheduled doses of liquid antacids as patient is having difficulty with pills. (2) Dysphagia Qualifiers: Dysphagia type: esophageal phase Qualified Code(s): R13.10 - Dysphagia, unspecified Is this a current diagnosis for this admission?: Yes Plan: Distal narrowing of the esophagus noted. She does have a endoscopy within the month. Diagnosed with esophagitis. (3) Carotid artery stenosis Qualifiers: Laterality: left Qualified Code(s): I65.22 - Occlusion and stenosis of left carotid artery Is this a current diagnosis for this admission?: Yes Plan: Currently stable. 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 (5) Hyperglycemia due to type 2 diabetes mellitus Qualifiers: Diabetes mellitus detention insulin use: without terminal manager use Qualified Code(s): E11.65 - Type 2 diabetes mellitus with hyperglycemia Is this a current diagnosis for this admission?: Yes Plan: Accu-Cheks and sliding scale (6) Acute renal injury Is this a current diagnosis for this admission?: Yes Plan: Continue IV fluids. Monitor renal function. (7) Hypertension Qualifiers: Hypertension type: unspecified Qualified Code(s): I10 - Essential (primary) hypertension Is this a current diagnosis for this admission?: No Plan: Continue to monitor blood pressure. Adjust medications accordingly. (8) Hypokalemia Is this a current diagnosis for this admission?: Yes Plan: Continue potassium supplement. Using liquid to facilitate swallow (9) Hypomagnesemia Is this a current diagnosis for this admission?: Yes Plan: Magnesium level is normal. Continue to monitor. (10) Constipation Qualifiers: Constipation type: unspecified constipation type Qualified Code(s): K59.00 - Constipation, unspecified Is this a current diagnosis for this admission?: Yes Plan: Has had a bowel movement. We will try and encourage regular bowel movements (11) Syncope Qualifiers: Syncope type: unspecified Qualified Code(s): R55 - Syncope and collapse Is this a current diagnosis for this admission?: Yes Plan: No further syncopal episodes (12) Morbid obesity with BMI of 40.0-44.9, adult Is this a current diagnosis for this admission?: Yes Plan: Encourage diet and exercise (13) Depression with anxiety Is this a current diagnosis for this admission?: Yes Plan: Appreciate psychiatry input. BuSpar and Depakote liquid started - Time Time Spent with patient: 25-34 minutes Medications reviewed and adjusted accordingly: Yes Anticipated Discharge Disposition: [facility] Anticipated Discharge Timeframe: within 72 hours
[2019-10-13] MEDS ORDERED: FLUOXETINE HCL 20 MG/5 ML UDCUP PO SCH (11:00)
[2019-10-13] MEDS: PROMETHAZINE HCL INJ 25 MG/1 ML VIAL IV PRN ×2 (11:49→19:46)
[2019-10-13] MEDS: PANTOPRAZOLE SODIUM 40 MG VIAL IV SCH ×2 (11:51→22:22)
[2019-10-13] MEDS: COLCHICINE 0.6 MG TABLET PO SCH (11:57)
[2019-10-13] MEDS: MAG HYDROX/AL HYDROX/SIMETH SUSP 30 ML UDCUP PO SCH ×4 (11:57→22:46)
[2019-10-13] MEDS: POTASSIUM CHLORIDE 20 MEQ PACKET PO SCH (11:58)
[2019-10-13] MEDS: MAGNESIUM SULFATE/D5W 1 GM/100 ML RTUPB IV SCH ×3 (12:01→15:25)
[2019-10-13] MEDS: VALPROATE SODIUM SYRUP 250 MG/5 ML UDCUP PO SCH ×2 (14:04→22:26)
[2019-10-13] MEDS ORDERED: ESCITALOPRAM OXALATE 10 MG TABLET PO SCH (22:00)
[2019-10-13] MEDS: ASPIRIN 81 MG TABLET, ENT COATED PO SCH ×2 (22:25→22:47)
[2019-10-13] MEDS: ATORVASTATIN CALCIUM 40 MG TABLET PO SCH ×2 (22:25→22:48)
[2019-10-13] MEDS: BUSPIRONE HCL 10 MG TABLET PO SCH ×2 (22:25→22:45)
[2019-10-13] MEDS: NORMAL SALINE 1000 ML 1,000 ML IV PRN (22:47)
[2019-10-14] MEDS: ENALAPRILAT DIHYDRATE INJ/PF 1.25 MG/1 ML SDV IV SCH ×4 (00:30→17:02)
[2019-10-14] MEDS: PROMETHAZINE HCL INJ 25 MG/1 ML VIAL IV PRN ×5 (00:52→21:57)
[2019-10-14] MEDS: CEFEPIME 1 GM/D5W RTU 1 GM/50 ML RTUPB IV SCH ×2 (05:43→17:10)
[2019-10-14] MEDS: HEPARIN SOD (PORCINE) 5,000 UNIT/ML 1 ML VIAL SUBCUT SCH ×3 (05:43→21:57)
[2019-10-14] MEDS: FUROSEMIDE 20 MG TABLET PO SCH (05:44)
[2019-10-14 06:13] LABS: ANION GAP 8 (5-19); BLOOD UREA NITROGEN 11 mg/dL (7-20); CALCIUM 7.9 mg/dL (8.4-10.2); CARBON DIOXIDE 28 mmol/L (22-30); CHLORIDE 104 mmol/L (98-107); GLUCOSE 136 mg/dL (75-110)
[2019-10-14 06:15] LABS: POTASSIUM 2.8 mmol/L (3.6-5.0)
[2019-10-14] MEDS: POTASSIUM CHLORIDE 20 MEQ/50 ML RTU IV SCH ×4 (06:56→16:30)
[2019-10-14] MEDS: INSULIN LISPRO 100 UNIT/ML 3 ML VIAL SUBCUT SCH ×4 (08:11→21:58)
[2019-10-14] MEDS: HYDRALAZINE HCL INJ/PF 20 MG/1 ML SDV IV PRN ×2 (08:18→21:56)
[2019-10-14] MEDS: MAGNESIUM OXIDE 400 MG TABLET PO SCH ×3 (09:14→16:01)
[2019-10-14] MEDS: BUSPIRONE HCL 10 MG TABLET PO SCH ×2 (09:18→21:58)
[2019-10-14] MEDS: POTASSIUM CHLORIDE 20 MEQ PACKET PO SCH (09:19)
[2019-10-14] MEDS: VALPROATE SODIUM SYRUP 250 MG/5 ML UDCUP PO SCH ×2 (09:19→21:58)
[2019-10-14] MEDS: MAG HYDROX/AL HYDROX/SIMETH SUSP 30 ML UDCUP PO SCH ×5 (09:19→21:57)
[2019-10-14] MEDS: COLCHICINE 0.6 MG TABLET PO SCH (09:19)
[2019-10-14] MEDS: PANTOPRAZOLE SODIUM 40 MG VIAL IV SCH ×2 (09:19→21:56)
--- NOTE | 2019-10-14 12:41 | PDOC PROGRESS REPORT ---
Subjective Progress Note for:: 10/14/19 Subjective:: Patient actually looks the best that she is looks since admission. She is clearly in better spirits. Reason For Visit: ALTERED MENTAL STATUS Physical Exam Vital Signs: Temp Pulse Resp BP Pulse Ox 97.2 F 85 18 159/82 H 96 10/14/19 12:27 10/14/19 12:27 10/14/19 12:27 10/14/19 12:27 10/14/19 12:27 Intake & Output 10/13/19 10/14/19 10/15/19 06:59 06:59 06:59 Intake Total 1230 0 60 Output Total 2024 1400 Balance -795 650 60 Weight 118 kg 118 kg General appearance: PRESENT: no acute distress, morbidly obese Respiratory exam: PRESENT: clear to auscultation patria - Anteriorly, symmetrical, unlabored. ABSENT: rales, rhonchi, tachypnea, wheezes Cardiovascular exam: PRESENT: RRR, +S1, +S2. ABSENT: bradycardia, diastolic murmur, irregular rhythm, systolic murmur, tachycardia GI/Abdominal exam: PRESENT: normal bowel sounds, soft. ABSENT: tenderness Extremities exam: ABSENT: pedal edema, +1 edema Musculoskeletal exam: PRESENT: normal inspection. ABSENT: deformity, dislocat ion Neurological exam: PRESENT: alert, awake, oriented to person, oriented to place, oriented to time, oriented to situation. ABSENT: altered Psychiatric exam: PRESENT: other - Much more appropriate countenance. Certainly less anxious and slightly less depressed than yesterday. ABSENT: agitated, anxious Focused psych exam: ABSENT: delusional, paranoid, restlessness Results Laboratory Results: 10/13/19 07:32 10/14/19 05:33 10/14/19 05:33 Sodium 139.7 Potassium 2.8 L* Chloride 104 Carbon Dioxide 28 Anion Gap 8 BUN 11 Creatinine 0.86 Est GFR ( Amer) > 60 Glucose 136 H Calcium 7.9 L Magnesium 1.6 10/09/19 10/09/19 10/09/19 15:08 15:08 18:51 Creatine Kinase 33 CK-MB (CK-2) 0.95 Troponin I 0.029 NT-Pro-B Natriuret Pep 10/10/19 06:19 Creatine Kinase CK-MB (CK-2) Troponin I NT-Pro-B Natriuret Pep 2620 H Impressions: Carotid Doppler Study 10/09/19 00:00 IMPRESSION: BILATERAL PLAQUE. GREATER THAN 70% STENOSIS OF THE LEFT INTERNAL CAROTID ARTERY. Head MRI 10/09/19 00:00 IMPRESSION: 1. No acute intracranial abnormality. Postoperative changes and encephalomalacia are identified about the left cerebellum. Presumed chronic small vessel ischemic changes are also noted within the supratentorial white matter. 2. Asymmetric appearance about the flow voids within the left ICA and M1 segments, with significant stenosis not excluded. Additional evaluation with angiography would be of benefit. copyright 2011 [employer]- All Rights Reserved Head CT 10/09/19 15:26 IMPRESSION: 1. No evidence of acute intracranial process. 2. Stable chronic changes from prior left occipital craniotomy with encephalomalacia within the left lateral cerebellar hemisphere. 3. Unchanged fullness of the bilateral parapharyngeal tonsils with multiple scattered calcifications on the left. Consider direct visualization for further characterization. EVIDENCE OF ACUTE STROKE: NO. Chest X-Ray 10/09/19 17:45 IMPRESSION: NO ACUTE RADIOGRAPHIC FINDING IN THE CHEST. Esophagus X-Ray 10/12/19 00:00 IMPRESSION: LIMITED BARIUM SWALLOW DUE TO PATIENT'S IMMOBILITY AND SMALL AMOUNT OF INGESTED BARIUM. FINDINGS DO INDICATE ESOPHAGEAL DYSMOTILITY WITH STASIS OF BARIUM WITHIN THE ESOPHAGUS. THERE IS A SMALL SLIDING HIATAL HERNIA WITH MILD GASTROESOPHAGEAL REFLUX. 12 MM BARIUM TABLET REMAINED AT THE GE JUNCTION THROUGHOUT THE PROCEDURE WHICH MAY INDICATE DISTAL ESOPHAGEAL NARROWING ALTHOUGH DUE TO THE SMALL AMOUNT OF INGESTED BARIUM, THE RETENTION THE TABLET MAY BE RELATED TO ESOPHAGEAL MOTILITY. Assessment and Plan - Diagnosis (1) Depression with anxiety Is this a current diagnosis for this admission?: Yes Plan: Currently the patient's worst enemy is herself. She had extremely heightened anxiety and is severely depressed. Depakene and BuSpar were initiated. The patient states that she feels better today. It is likely the antianxiety effect of the BuSpar. Hopefully if she continues to avoid serious anxiety and depression she will be able to advance her diet as we treat the esophagitis/gastritis (2) Gastritis Qualifiers: Chronicity: unspecified Gastritis bleeding: without bleeding Is this a current diagnosis for this admission?: Yes Plan: The patient reports that she has not been getting the liquid antacid on a scheduled basis. I spoke to the nurse and we will institute this trial. (3) Dysphagia Qualifiers: Dysphagia type: esophageal phase Qualified Code(s): R13.10 - Dysphagia, unspecified Is this a current diagnosis for this admission?: Yes Plan: Continue current regimen. We discussed consideration of pured diet. (4) Carotid artery stenosis Qualifiers: Laterality: left Qualified Code(s): I65.22 - Occlusion and stenosis of left carotid artery Is this a current diagnosis for this admission?: Yes Plan: Currently stable. 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 (6) Hyperglycemia due to type 2 diabetes mellitus Qualifiers: Diabetes mellitus group home insulin use: without group home use Qualified Code(s): E11.65 - Type 2 diabetes mellitus with hyperglycemia Is this a current diagnosis for this admission?: Yes Plan: Accu-Cheks and sliding scale (7) Acute renal injury Is this a current diagnosis for this admission?: Yes Plan: Resolved (8) Hypertension Qualifiers: Hypertension type: unspecified Qualified Code(s): I10 - Essential (primary) hypertension Is this a current diagnosis for this admission?: No Plan: Reasonable blood pressure control. No changes at this time. (9) Hypokalemia Is this a current diagnosis for this admission?: Yes Plan: Potassium dropped below 3. The patient is not likely taking her potassium supplement. IV potassium administered this morning. I will increase the oral dose. It is a powder that is mixed in liquid. (10) Hypomagnesemia Is this a current diagnosis for this admission?: Yes Plan: Magnesium normal today. Recheck tomorrow (11) Constipation Qualifiers: Constipation type: unspecified constipation type Qualified Code(s): K59.00 - Constipation, unspecified Is this a current diagnosis for this admission?: Yes Plan: Resolved (12) Syncope Qualifiers: Syncope type: unspecified Qualified Code(s): R55 - Syncope and collapse Is this a current diagnosis for this admission?: Yes Plan: No further syncopal episodes (13) Morbid obesity with BMI of 40.0-44.9, adult Is this a current diagnosis for this admission?: Yes Plan: Encourage diet and exercise - Time Time Spent with patient: Less than 15 minutes Medications reviewed and adjusted accordingly: Yes Anticipated Discharge Disposition: Snf Facility Anticipated Discharge Timeframe: within 72 hours
[2019-10-14] MEDS: PANTOT AC/MIN OIL/PET HY-PHL OINT 50 GM TOP SCH (17:02)
[2019-10-14] MEDS: ASPIRIN 81 MG TABLET, ENT COATED PO SCH (21:58)
[2019-10-14] MEDS: ATORVASTATIN CALCIUM 40 MG TABLET PO SCH (21:59)
[2019-10-15] MEDS: ENALAPRILAT DIHYDRATE INJ/PF 1.25 MG/1 ML SDV IV SCH ×5 (00:29→23:53)
[2019-10-15] MEDS: PROMETHAZINE HCL INJ 25 MG/1 ML VIAL IV PRN ×2 (03:21→07:50)
[2019-10-15] MEDS: HYDRALAZINE HCL INJ/PF 20 MG/1 ML SDV IV PRN (04:03)
[2019-10-15] MEDS: HEPARIN SOD (PORCINE) 5,000 UNIT/ML 1 ML VIAL SUBCUT SCH ×3 (05:13→21:48)
[2019-10-15] MEDS: CEFEPIME 1 GM/D5W RTU 1 GM/50 ML RTUPB IV SCH ×2 (05:14→17:25)
[2019-10-15] MEDS: NORMAL SALINE 1000 ML 1,000 ML IV PRN (05:57)
[2019-10-15 06:01] LABS: ALBUMIN 2.8 g/dL (3.5-5.0); ALKALINE PHOSPHATASE 91 U/L (38-126); ANION GAP 7 (5-19); ASPARTATE AMINO TRANSFERASE 37 U/L (14-36); BILIRUBIN,DIRECT 0.4 mg/dL (0.0-0.4); BILIRUBIN,TOTAL 0.7 mg/dL (0.2-1.3); BLOOD UREA NITROGEN 8 mg/dL (7-20); CALCIUM 8.2 mg/dL (8.4-10.2); CARBON DIOXIDE 28 mmol/L (22-30); CHLORIDE 106 mmol/L (98-107); GLUCOSE 122 mg/dL (75-110); POTASSIUM 3.7 mmol/L (3.6-5.0); TOTAL PROTEIN 6.4 g/dL (6.3-8.2)
[2019-10-15 06:13] LABS: PREALBUMIN 12.9 mg/dL (17.6-36.0)
[2019-10-15] MEDS: MAGNESIUM OXIDE 400 MG TABLET PO SCH ×3 (08:08→17:04)
[2019-10-15] MEDS: INSULIN LISPRO 100 UNIT/ML 3 ML VIAL SUBCUT SCH ×4 (08:08→21:48)
[2019-10-15] MEDS: PANTOPRAZOLE SODIUM 40 MG VIAL IV SCH (10:03)
[2019-10-15] MEDS: MAGNESIUM SULFATE/D5W 1 GM/100 ML RTUPB IV SCH ×4 (10:06→13:36)
[2019-10-15] MEDS: BUSPIRONE HCL 10 MG TABLET PO SCH ×2 (10:12→21:36)
[2019-10-15] MEDS: COLCHICINE 0.6 MG TABLET PO SCH (10:12)
[2019-10-15] MEDS: MAG HYDROX/AL HYDROX/SIMETH SUSP 30 ML UDCUP PO SCH ×4 (10:13→21:47)
[2019-10-15] MEDS: PANTOT AC/MIN OIL/PET HY-PHL OINT 50 GM TOP SCH ×2 (10:13→17:04)
[2019-10-15] MEDS: POTASSIUM CHLORIDE 20 MEQ PACKET PO SCH ×3 (10:14→17:24)
[2019-10-15] MEDS: VALPROATE SODIUM SYRUP 250 MG/5 ML UDCUP PO SCH ×2 (10:16→21:47)
--- NOTE | 2019-10-15 10:50 | PDOC PROGRESS REPORT ---
Subjective Progress Note for:: 10/15/19 Subjective:: Patient feels more nauseated today. Still having difficulty swallowing. She does tend to slide down in the bed which is not a good position for reflux. Reason For Visit: ALTERED MENTAL STATUS Physical Exam Vital Signs: Temp Pulse Resp BP Pulse Ox 97.9 F 84 24 H 151/73 H 96 10/15/19 07:00 10/15/19 07:00 10/15/19 07:00 10/15/19 07:00 10/15/19 07:00 Intake & Output 10/14/19 10/15/19 10/16/19 06:59 06:59 06:59 Intake Total 2050 2994 60 Output Total 1400 1605 Balance 650 1389 60 Weight 118 kg 120.4 kg General appearance: PRESENT: cooperative, mild distress, morbidly obese, well- developed Head exam: PRESENT: atraumatic, normocephalic Ear exam: PRESENT: normal external ear exam. ABSENT: bleeding, drainage Mouth exam: PRESENT: moist, tongue midline Respiratory exam: PRESENT: clear to auscultation patria - Anteriorly, decreased breath sounds - Due to body habitus, symmetrical, unlabored. ABSENT: rales, rhonchi, tachypnea, wheezes Cardiovascular exam: PRESENT: RRR, +S1, +S2. ABSENT: bradycardia, diastolic murmur, irregular rhythm, systolic murmur, tachycardia GI/Abdominal exam: PRESENT: normal bowel sounds, soft, other - Pendulous abdomen. ABSENT: tenderness Rectal exam: PRESENT: deferred Gentrourinary exam: PRESENT: indwelling catheter Extremities exam: ABSENT: pedal edema Musculoskeletal exam: PRESENT: normal inspection Neurological exam: PRESENT: alert, awake, oriented to person, oriented to place, oriented to time, oriented to situation, CN II-XII grossly intact. ABSENT: altered Psychiatric exam: PRESENT: anxious, depressed. ABSENT: agitated Focused psych exam: ABSENT: delusional, paranoid, restlessness Skin exam: PRESENT: other - Very dry skin Results Laboratory Results: 10/13/19 07:32 10/15/19 05:02 10/15/19 05:02 Sodium 140.9 Potassium 3.7 Chloride 106 Carbon Dioxide 28 Anion Gap 7 BUN 8 Creatinine 0.76 Est GFR ( Amer) > 60 Glucose 122 H Calcium 8.2 L Magnesium 1.3 L Total Bilirubin 0.7 AST 37 H Alkaline Phosphatase 91 Total Protein 6.4 Albumin 2.8 L Prealbumin 12.9 L 10/09/19 18:22 Blood Blood Culture - Final NO GROWTH IN 5 DAYS 10/09/19 10/09/19 10/09/19 15:08 15:08 18:51 Creatine Kinase 33 CK-MB (CK-2) 0.95 Troponin I 0.029 NT-Pro-B Natriuret Pep 10/10/19 06:19 Creatine Kinase CK-MB (CK-2) Troponin I NT-Pro-B Natriuret Pep 2620 H Impressions: Carotid Doppler Study 10/09/19 00:00 IMPRESSION: BILATERAL PLAQUE. GREATER THAN 70% STENOSIS OF THE LEFT INTERNAL CAROTID ARTERY. Head MRI 10/09/19 00:00 IMPRESSION: 1. No acute intracranial abnormality. Postoperative changes and encephalomalacia are identified about the left cerebellum. Presumed chronic small vessel ischemic changes are also noted within the supratentorial white matter. 2. Asymmetric appearance about the flow voids within the left ICA and M1 segments, with significant stenosis not excluded. Additional evaluation with angiography would be of benefit. copyright 2011 [id number]- All Rights Reserved Head CT 10/09/19 15:26 IMPRESSION: 1. No evidence of acute intracranial process. 2. Stable chronic changes from prior left occipital craniotomy with encephalomalacia within the left lateral cerebellar hemisphere. 3. Unchanged fullness of the bilateral parapharyngeal tonsils with multiple scattered calcifications on the left. Consider direct visualization for further characterization. EVIDENCE OF ACUTE STROKE: NO. Chest X-Ray 10/09/19 17:45 IMPRESSION: NO ACUTE RADIOGRAPHIC FINDING IN THE CHEST. Esophagus X-Ray 10/12/19 00:00 IMPRESSION: LIMITED BARIUM SWALLOW DUE TO PATIENT'S IMMOBILITY AND SMALL AMOUNT OF INGESTED BARIUM. FINDINGS DO INDICATE ESOPHAGEAL DYSMOTILITY WITH STASIS OF BARIUM WITHIN THE ESOPHAGUS. THERE IS A SMALL SLIDING HIATAL HERNIA WITH MILD GASTROESOPHAGEAL REFLUX. 12 MM BARIUM TABLET REMAINED AT THE GE JUNCTION THROUGHOUT THE PROCEDURE WHICH MAY INDICATE DISTAL ESOPHAGEAL NARROWING ALTHOUGH DUE TO THE SMALL AMOUNT OF INGESTED BARIUM, THE RETENTION THE TABLET MAY BE RELATED TO ESOPHAGEAL MOTILITY. Assessment and Plan - Diagnosis (1) Esophagitis Is this a current diagnosis for this admission?: Yes Plan: Narrowing of the esophagus with abnormal swallow. Obtain CT of the abdomen. Will obtain CT of the chest and ask surgery to evaluate the patient. (2) Depression with anxiety Is this a current diagnosis for this admission?: Yes Plan: Continue BuSpar and Depakene (3) Gastritis Qualifiers: Chronicity: unspecified Gastritis bleeding: without bleeding Is this a current diagnosis for this admission?: Yes Plan: Continue maximum acid suppression (4) Dysphagia Qualifiers: Dysphagia type: esophageal phase Qualified Code(s): R13.10 - Dysphagia, unspecified Is this a current diagnosis for this admission?: Yes Plan: Continue to encourage liquids (5) Carotid artery stenosis Qualifiers: Laterality: left Qualified Code(s): I65.22 - Occlusion and stenosis of left carotid artery Is this a current diagnosis for this admission?: Yes Plan: Currently stable. 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 (7) Hyperglycemia due to type 2 diabetes mellitus Qualifiers: Diabetes mellitus rn long term care insulin use: without rn long term care use Qualified Code(s): E11.65 - Type 2 diabetes mellitus with hyperglycemia Is this a current diagnosis for this admission?: Yes Plan: Accu-Cheks and sliding scale (8) Acute renal injury Is this a current diagnosis for this admission?: Yes Plan: Resolved (9) Hypertension Qualifiers: Hypertension type: unspecified Qualified Code(s): I10 - Essential (primary) hypertension Is this a current diagnosis for this admission?: No Plan: Blood pressure still slightly higher than desired. Difficult to address as patient is not taking oral medications. Consider adjusting clonidine patch versus IV medications. (10) Hypokalemia Is this a current diagnosis for this admission?: Yes Plan: Potassium is normal. Continue to monitor. (11) Hypomagnesemia Is this a current diagnosis for this admission?: Yes Plan: Magnesium is low again. Supplement with IV magnesium. (12) Constipation Qualifiers: Constipation type: unspecified constipation type Qualified Code(s): K59.00 - Constipation, unspecified Is this a current diagnosis for this admission?: Yes Plan: Resolved. Continue to have stool softeners available. (13) Syncope Qualifiers: Syncope type: unspecified Qualified Code(s): R55 - Syncope and collapse Is this a current diagnosis for this admission?: Yes Plan: No further syncopal episodes (14) Morbid obesity with BMI of 40.0-44.9, adult Is this a current diagnosis for this admission?: Yes Plan: Encourage diet and exercise - Time Time Spent with patient: 15-24 minutes Medications reviewed and adjusted accordingly: Yes Anticipated Discharge Disposition: Unknown Anticipated Discharge Timeframe: Unknown
[2019-10-15] MEDS: ONDANSETRON HCL INJ/PF 4 MG/2 ML SDV IV PRN ×2 (11:57→19:02)
[2019-10-15] MEDS: METOCLOPRAMIDE HCL INJ/PF 10 MG/2 ML SDV IV SCH ×3 (12:00→21:48)
[2019-10-15] MEDS: GLYCERIN (ADULT) SUPP.RECT PR PRN (13:33)
[2019-10-15] MEDS: ASPIRIN 81 MG TABLET, ENT COATED PO SCH (21:36)
[2019-10-15] MEDS: ATORVASTATIN CALCIUM 40 MG TABLET PO SCH (21:37)
--- NOTE | 2019-10-16 01:20 | RADIOLOGY REPORT (SQ) ---
COMPARISON: None available CT CHEST WITH INTRAVENOUS CONTRAST: 10/16/2019 12:14 AM CDT HISTORY: 79-year old patient with concern for abnormality of the esophagus. TECHNIQUE: Postcontrast CT through the chest was performed. Sagittal and coronal reconstructed images were also obtained and examined. This exam was performed according to our departmental dose-optimization program, which includes automated exposure control, adjustment of the mA and/or KV according to the patient's size and/or use of iterative reconstruction technique. COMPARISON: Recent swallow study from 10/12/2019 FINDINGS: The heart size is normal in size. No pericardial effusion is seen. No significant mediastinal, supraclavicular, or axillary lymphadenopathy is seen. The thoracic aorta is within normal limits of size. The main pulmonary artery is at the upper limits of normal in size There is no evidence of a focal consolidative airspace opacity. The visualized esophagus is mildly patulous. No discrete pleural effusion is seen. There is no evidence of a pneumothorax. There is low-attenuation within the liver suggesting hepatic steatosis. There is elevation of the right hemidiaphragm. There is nodularity of the left adrenal gland again noted. This may represent an adenoma. The bones demonstrate no suspicious lytic or blastic lesion. Multilevel degenerative changes are seen within the thoracic spine. IMPRESSION: No acute consolidative airspace opacity is seen. No gross esophageal abnormality is seen. If there is persistent concern, endoscopy should be considered.
[2019-10-16] MEDS: ONDANSETRON HCL INJ/PF 4 MG/2 ML SDV IV PRN ×3 (01:22→13:58)
[2019-10-16 05:58] LABS: ABSOLUTE BASOPHILS # (AUTO) 0.1 10^3/uL (0.0-0.2); ABSOLUTE EOSINOPHILS # (AUTO) 0.2 10^3/uL (0.0-0.6); ABSOLUTE LYMPHOCYTES (AUTO) 1.9 10^3/uL (0.5-4.7); ABSOLUTE MONOCYTES (AUTO) 1.1 10^3/uL (0.1-1.4); ABSOLUTE NEUT (AUTO) 4.6 10^3/uL (1.7-8.2); BASOPHILS % (AUTO) 1.2 % (0-2); EOSINOPHILS % (AUTO) 2.5 % (0-6); HEMATOCRIT 37.6 % (36.0-47.0); HEMOGLOBIN 12.6 g/dL (12.0-15.5); LYMPHOCYTES % (AUTO) 24.7 % (13-45); MEAN CORPUSCULAR HEMOGLOBIN 27.3 pg (27.0-33.4); MEAN CORPUSCULAR HGB CONC 33.5 g/dL (32.0-36.0); MEAN CORPUSCULAR VOLUME 81 fl (80-97); MONOCYTES % (AUTO) 14.1 % (3-13); PLATELET COUNT 307 10^3/uL (150-450); RED BLOOD COUNT 4.62 10^6/uL (3.72-5.28); RED CELL DISTRIBUTION WIDTH 16.2 % (11.5-14.0); SEGMENTED NEUTROPHILS % (AUTO) 57.5 % (42-78); TOTAL CELLS COUNTED % (AUTO) 100 %; WHITE BLOOD COUNT 7.9 10^3/uL (4.0-10.5)
[2019-10-16] MEDS: CEFEPIME 1 GM/D5W RTU 1 GM/50 ML RTUPB IV SCH ×2 (06:13→17:27)
[2019-10-16] MEDS: ENALAPRILAT DIHYDRATE INJ/PF 1.25 MG/1 ML SDV IV SCH ×3 (06:14→17:26)
[2019-10-16] MEDS: HEPARIN SOD (PORCINE) 5,000 UNIT/ML 1 ML VIAL SUBCUT SCH ×3 (06:14→22:44)
[2019-10-16 06:16] LABS: ANION GAP 6 (5-19); BLOOD UREA NITROGEN 7 mg/dL (7-20); CALCIUM 8.1 mg/dL (8.4-10.2); CARBON DIOXIDE 29 mmol/L (22-30); CHLORIDE 105 mmol/L (98-107); GLUCOSE 107 mg/dL (75-110)
[2019-10-16] MEDS: NORMAL SALINE 1000 ML 1,000 ML IV PRN (06:17)
[2019-10-16] MEDS: MAGNESIUM OXIDE 400 MG TABLET PO SCH ×3 (07:59→17:30)
[2019-10-16] MEDS: METOCLOPRAMIDE HCL INJ/PF 10 MG/2 ML SDV IV SCH ×4 (08:04→22:45)
[2019-10-16] MEDS: INSULIN LISPRO 100 UNIT/ML 3 ML VIAL SUBCUT SCH ×4 (11:19→22:45)
[2019-10-16] MEDS: COLCHICINE 0.6 MG TABLET PO SCH (12:24)
[2019-10-16] MEDS: PANTOT AC/MIN OIL/PET HY-PHL OINT 50 GM TOP SCH ×2 (12:24→17:30)
[2019-10-16] MEDS: BUSPIRONE HCL 10 MG TABLET PO SCH ×2 (12:24→22:44)
[2019-10-16] MEDS: MAG HYDROX/AL HYDROX/SIMETH SUSP 30 ML UDCUP PO SCH ×4 (12:30→22:43)
[2019-10-16] MEDS: VALPROATE SODIUM SYRUP 250 MG/5 ML UDCUP PO SCH ×2 (12:30→22:44)
[2019-10-16] MEDS: POTASSIUM CHLORIDE 20 MEQ PACKET PO SCH ×3 (12:31→17:24)
--- NOTE | 2019-10-16 13:10 | PDOC PROGRESS REPORT ---
Subjective Progress Note for:: 10/16/19 Subjective:: Patient still uncomfortable swallowing anything. CT scan of the chest obtained. Reason For Visit: ALTERED MENTAL STATUS Physical Exam Vital Signs: Temp Pulse Resp BP Pulse Ox 97.7 F 81 21 H 154/74 H 96 10/16/19 11:59 10/16/19 11:59 10/16/19 11:59 10/16/19 11:59 10/16/19 11:59 Intake & Output 10/15/19 10/16/19 10/17/19 06:59 06:59 06:59 Intake Total 2994 1970 500 Output Total 1605 850 Balance 1389 1120 500 Weight 120.4 kg 120.8 kg General appearance: PRESENT: no acute distress, morbidly obese Head exam: PRESENT: atraumatic, normocephalic Ear exam: PRESENT: normal external ear exam. ABSENT: bleeding, drainage Mouth exam: PRESENT: moist, tongue midline Respiratory exam: PRESENT: clear to auscultation patria, symmetrical, unlabored. ABSENT: rales, rhonchi, tachypnea, wheezes Cardiovascular exam: PRESENT: RRR, +S1, +S2. ABSENT: bradycardia, irregular rhythm, systolic murmur, tachycardia GI/Abdominal exam: PRESENT: normal bowel sounds, soft. ABSENT: tenderness Neurological exam: PRESENT: alert, awake, oriented to person, oriented to place, oriented to time, oriented to situation, CN II-XII grossly intact Psychiatric exam: PRESENT: flat affect. ABSENT: agitated, anxious Focused psych exam: ABSENT: delusional, paranoid, restlessness Results Laboratory Results: 10/16/19 05:25 10/16/19 05:25 10/16/19 10/16/19 05:25 05:25 WBC 7.9 RBC 4.62 Hgb 12.6 Hct 37.6 MCV 81 MCH 27.3 MCHC 33.5 RDW 16.2 H Plt Count 307 Seg Neutrophils % 57.5 Sodium 139.6 Potassium 4.0 Chloride 105 Carbon Dioxide 29 Anion Gap 6 BUN 7 Creatinine 0.77 Est GFR ( Amer) > 60 Glucose 107 Calcium 8.1 L Magnesium 2.0 10/09/19 10/09/19 10/09/19 15:08 15:08 18:51 Creatine Kinase 33 CK-MB (CK-2) 0.95 Troponin I 0.029 NT-Pro-B Natriuret Pep 10/10/19 06:19 Creatine Kinase CK-MB (CK-2) Troponin I NT-Pro-B Natriuret Pep 2620 H Impressions: Carotid Doppler Study 10/09/19 00:00 IMPRESSION: BILATERAL PLAQUE. GREATER THAN 70% STENOSIS OF THE LEFT INTERNAL CAROTID ARTERY. Head MRI 10/09/19 00:00 IMPRESSION: 1. No acute intracranial abnormality. Postoperative changes and encephalomalacia are identified about the left cerebellum. Presumed chronic small vessel ischemic changes are also noted within the supratentorial white matter. 2. Asymmetric appearance about the flow voids within the left ICA and M1 segments, with significant stenosis not excluded. Additional evaluation with angiography would be of benefit. copyright 2011 [employer]- All Rights Reserved Head CT 10/09/19 15:26 IMPRESSION: 1. No evidence of acute intracranial process. 2. Stable chronic changes from prior left occipital craniotomy with encephalomalacia within the left lateral cerebellar hemisphere. 3. Unchanged fullness of the bilateral parapharyngeal tonsils with multiple scattered calcifications on the left. Consider direct visualization for further characterization. EVIDENCE OF ACUTE STROKE: NO. Chest X-Ray 10/09/19 17:45 IMPRESSION: NO ACUTE RADIOGRAPHIC FINDING IN THE CHEST. Esophagus X-Ray 10/12/19 00:00 IMPRESSION: LIMITED BARIUM SWALLOW DUE TO PATIENT'S IMMOBILITY AND SMALL AMOUNT OF INGESTED BARIUM. FINDINGS DO INDICATE ESOPHAGEAL DYSMOTILITY WITH STASIS OF BARIUM WITHIN THE ESOPHAGUS. THERE IS A SMALL SLIDING HIATAL HERNIA WITH MILD GASTROESOPHAGEAL REFLUX. 12 MM BARIUM TABLET REMAINED AT THE GE JUNCTION THROUGHOUT THE PROCEDURE WHICH MAY INDICATE DISTAL ESOPHAGEAL NARROWING ALTHOUGH DUE TO THE SMALL AMOUNT OF INGESTED BARIUM, THE RETENTION THE TABLET MAY BE RELATED TO ESOPHAGEAL MOTILITY. Chest CT 10/15/19 00:00 IMPRESSION: No acute consolidative airspace opacity is seen. No gross esophageal abnormality is seen. If there is persistent concern, endoscopy should be considered. Assessment and Plan - Diagnosis (1) Esophagitis Is this a current diagnosis for this admission?: Yes Plan: Continue max antacid therapy. May need repeat endoscopy (2) Depression with anxiety Is this a current diagnosis for this admission?: Yes Plan: continue depakene and buspar (3) Gastritis Qualifiers: Chronicity: unspecified Gastritis bleeding: without bleeding Is this a current diagnosis for this admission?: Yes Plan: as above (4) Dysphagia Qualifiers: Dysphagia type: esophageal phase Qualified Code(s): R13.10 - Dysphagia, unspecified Is this a current diagnosis for this admission?: Yes Plan: obtain CT chest. Possible esophageal spasm. Start trial of nifedipine (5) Carotid artery stenosis Qualifiers: Laterality: left Qualified Code(s): I65.22 - Occlusion and stenosis of left carotid artery Is this a current diagnosis for this admission?: Yes Plan: Currently stable. 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, right hand Is this a current diagnosis for this admission?: Yes Plan: consider d/c colchrys and start allopurinol (7) Hyperglycemia due to type 2 diabetes mellitus Qualifiers: Diabetes mellitus termite control servicer insulin use: without termite control servicer use Qualified Code(s): E11.65 - Type 2 diabetes mellitus with hyperglycemia Is this a current diagnosis for this admission?: Yes Plan: cont current regimen (8) Acute renal injury Is this a current diagnosis for this admission?: Yes Plan: resolved (9) Hypertension Qualifiers: Hypertension type: unspecified Qualified Code(s): I10 - Essential (primary) hypertension Is this a current diagnosis for this admission?: No Plan: better. Monitor with addition of nifedipine (10) Hypokalemia Is this a current diagnosis for this admission?: Yes Plan: patient may not tolerate po KCl. Consider IV (11) Hypomagnesemia Is this a current diagnosis for this admission?: Yes Plan: Magnesium is low again. Supplement with IV magnesium. (12) Constipation Qualifiers: Constipation type: unspecified constipation type Qualified Code(s): K59.00 - Constipation, unspecified Is this a current diagnosis for this admission?: Yes Plan: Resolved. Continue to have stool softeners available. (13) Syncope Qualifiers: Syncope type: unspecified Qualified Code(s): R55 - Syncope and collapse Is this a current diagnosis for this admission?: Yes Plan: No further syncopal episodes (14) Morbid obesity with BMI of 40.0-44.9, adult Is this a current diagnosis for this admission?: Yes Plan: Encourage diet and exercise - Time Time Spent with patient: 15-24 minutes Medications reviewed and adjusted accordingly: Yes Anticipated Discharge Disposition: Assisted Facility Anticipated Discharge Timeframe: within 72 hours
[2019-10-16] MEDS: NIFEDIPINE 10 MG CAPSULE PO SCH ×2 (17:25→17:31)
[2019-10-16] MEDS: ASPIRIN 81 MG TABLET, ENT COATED PO SCH (22:44)
[2019-10-16] MEDS: ATORVASTATIN CALCIUM 40 MG TABLET PO SCH (22:45)
[2019-10-17] MEDS: ENALAPRILAT DIHYDRATE INJ/PF 1.25 MG/1 ML SDV IV SCH ×4 (00:48→19:59)
[2019-10-17] MEDS: NIFEDIPINE 10 MG CAPSULE PO SCH ×4 (00:49→20:00)
[2019-10-17] MEDS: HEPARIN SOD (PORCINE) 5,000 UNIT/ML 1 ML VIAL SUBCUT SCH ×3 (06:45→23:07)
[2019-10-17] MEDS: NORMAL SALINE 1000 ML 1,000 ML IV PRN (07:52)
[2019-10-17] MEDS: INSULIN LISPRO 100 UNIT/ML 3 ML VIAL SUBCUT SCH ×4 (08:45→23:00)
[2019-10-17] MEDS: MAGNESIUM OXIDE 400 MG TABLET PO SCH ×3 (08:48→16:17)
[2019-10-17] MEDS: METOCLOPRAMIDE HCL INJ/PF 10 MG/2 ML SDV IV SCH ×4 (08:49→23:02)
[2019-10-17] MEDS: MAG HYDROX/AL HYDROX/SIMETH SUSP 30 ML UDCUP PO SCH ×4 (11:59→23:01)
[2019-10-17] MEDS: POTASSIUM CHLORIDE 20 MEQ PACKET PO SCH ×3 (12:00→20:00)
[2019-10-17] MEDS: VALPROATE SODIUM SYRUP 250 MG/5 ML UDCUP PO SCH ×2 (12:00→22:58)
[2019-10-17] MEDS: PANTOT AC/MIN OIL/PET HY-PHL OINT 50 GM TOP SCH ×2 (12:05→19:59)
[2019-10-17] MEDS: BUSPIRONE HCL 10 MG TABLET PO SCH ×2 (12:06→22:58)
[2019-10-17] MEDS: COLCHICINE 0.6 MG TABLET PO SCH (12:06)
--- NOTE | 2019-10-17 16:08 | PDOC PROGRESS REPORT ---
Subjective Progress Note for:: 10/17/19 Subjective:: Continues to state that she can not eat. Yesterday, per the EMR, she ate 100% of all 3 meals. Today, she has yet to take a bite of food. Reason For Visit: ALTERED MENTAL STATUS Physical Exam Vital Signs: Temp Pulse Resp BP Pulse Ox 97.7 F 98 16 142/68 H 95 10/17/19 11:36 10/17/19 11:36 10/17/19 11:36 10/17/19 11:36 10/17/19 11:36 Intake & Output 10/16/19 10/17/19 10/18/19 06:59 06:59 06:59 Intake Total 1970 3000 460 Output Total 850 1200 400 Balance 1120 1800 60 Weight 120.8 kg 122.4 kg General appearance: PRESENT: no acute distress Eye exam: ABSENT: scleral icterus Mouth exam: PRESENT: moist Neck exam: ABSENT: JVD Respiratory exam: PRESENT: clear to auscultation patria Cardiovascular exam: PRESENT: RRR GI/Abdominal exam: PRESENT: normal bowel sounds, soft. ABSENT: distended, firm, guarding, rebound, rigid, tenderness Neurological exam: PRESENT: alert, oriented to person, oriented to place, oriented to situation Psychiatric exam: PRESENT: flat affect Skin exam: PRESENT: dry Results Laboratory Results: 10/16/19 05:25 10/16/19 05:25 10/09/19 10/09/19 10/09/19 15:08 15:08 18:51 Creatine Kinase 33 CK-MB (CK-2) 0.95 Troponin I 0.029 NT-Pro-B Natriuret Pep 10/10/19 06:19 Creatine Kinase CK-MB (CK-2) Troponin I NT-Pro-B Natriuret Pep 2620 H Impressions: Carotid Doppler Study 10/09/19 00:00 IMPRESSION: BILATERAL PLAQUE. GREATER THAN 70% STENOSIS OF THE LEFT INTERNAL CAROTID ARTERY. Head MRI 10/09/19 00:00 IMPRESSION: 1. No acute intracranial abnormality. Postoperative changes and encephalomalacia are identified about the left cerebellum. Presumed chronic small vessel ischemic changes are also noted within the supratentorial white matter. 2. Asymmetric appearance about the flow voids within the left ICA and M1 segments, with significant stenosis not excluded. Additional evaluation with angiography would be of benefit. copyright 2011 [employer]- All Rights Reserved Head CT 10/09/19 15:26 IMPRESSION: 1. No evidence of acute intracranial process. 2. Stable chronic changes from prior left occipital craniotomy with encephalomalacia within the left lateral cerebellar hemisphere. 3. Unchanged fullness of the bilateral parapharyngeal tonsils with multiple scattered calcifications on the left. Consider direct visualization for further characterization. EVIDENCE OF ACUTE STROKE: NO. Chest X-Ray 10/09/19 17:45 IMPRESSION: NO ACUTE RADIOGRAPHIC FINDING IN THE CHEST. Esophagus X-Ray 10/12/19 00:00 IMPRESSION: LIMITED BARIUM SWALLOW DUE TO PATIENT'S IMMOBILITY AND SMALL AMOUNT OF INGESTED BARIUM. FINDINGS DO INDICATE ESOPHAGEAL DYSMOTILITY WITH STASIS OF BARIUM WITHIN THE ESOPHAGUS. THERE IS A SMALL SLIDING HIATAL HERNIA WITH MILD GASTROESOPHAGEAL REFLUX. 12 MM BARIUM TABLET REMAINED AT THE GE JUNCTION THROUGHOUT THE PROCEDURE WHICH MAY INDICATE DISTAL ESOPHAGEAL NARROWING ALTHOUGH DUE TO THE SMALL AMOUNT OF INGESTED BARIUM, THE RETENTION THE TABLET MAY BE RELATED TO ESOPHAGEAL MOTILITY. Chest CT 10/15/19 00:00 IMPRESSION: No acute consolidative airspace opacity is seen. No gross esophageal abnormality is seen. If there is persistent concern, endoscopy should be considered. Assessment and Plan - Plan Summary Summary: Dysphagia: unclear etiology, ongoing for months. No evidence of acute stroke on brain MRI this admission. - CT chest showed no obvious esophageal dilation or other etiologies - Possible esophageal spasm? Started trial of nifedipine. She will likely need some sort of esophageal mobility study as outpatient. - discussed with Dr. Nielson (Surgery) today, will plan for EGD on - calorie count to quantify oral intake >70% Occlusion and stenosis of left carotid artery - stable on aspirin and statin therapy - outpatient vascular surgery follow up Gout attack: acute, due to renal impairment, right hand - resolved with colchicine - start allopurinol as outpatient DM2 complicated by hyperglycemia - well controlled on current regimen Pre-Renal LETICIA Dehydration - resolved with IVF hydration essential Hypertension - controlled with addition of Nifedipine Hypokalemia - resolved with repletion Hypomagnesemia - resolved with IV repletion Constipation - Resolved with bowel regimen Syncope: resolved - due to dehydration and resulting orthostatic hypotension Morbid obesity with BMI of 40.0-44.9, adult - Encourage diet and exercise DVT ppx: heparin - Time Time Spent with patient: 35 or more minutes Anticipated Discharge Disposition: Home, Self Care Anticipated Discharge Timeframe: within 72 hours
[2019-10-17 18:17] LABS: HEMATOCRIT 39.4 % (36.0-47.0); HEMOGLOBIN 12.8 g/dL (12.0-15.5); MEAN CORPUSCULAR HEMOGLOBIN 27.3 pg (27.0-33.4); MEAN CORPUSCULAR HGB CONC 32.4 g/dL (32.0-36.0); MEAN CORPUSCULAR VOLUME 84 fl (80-97); PLATELET COUNT 125 10^3/uL (150-450); RED BLOOD COUNT 4.67 10^6/uL (3.72-5.28); RED CELL DISTRIBUTION WIDTH 16.4 % (11.5-14.0); WHITE BLOOD COUNT 7.8 10^3/uL (4.0-10.5)
[2019-10-17 18:33] LABS: ANION GAP 7 (5-19); BLOOD UREA NITROGEN 7 mg/dL (7-20); CALCIUM 8.4 mg/dL (8.4-10.2); CARBON DIOXIDE 26 mmol/L (22-30); CHLORIDE 105 mmol/L (98-107); GLUCOSE 112 mg/dL (75-110); POTASSIUM 4.8 mmol/L (3.6-5.0)
[2019-10-17] MEDS: ASPIRIN 81 MG TABLET, ENT COATED PO SCH (22:58)
[2019-10-17] MEDS: ATORVASTATIN CALCIUM 40 MG TABLET PO SCH (22:59)
[2019-10-18] MEDS: NIFEDIPINE 10 MG CAPSULE PO SCH ×4 (00:14→18:00)
[2019-10-18] MEDS: ENALAPRILAT DIHYDRATE INJ/PF 1.25 MG/1 ML SDV IV SCH ×4 (00:14→17:58)
[2019-10-18] MEDS: HEPARIN SOD (PORCINE) 5,000 UNIT/ML 1 ML VIAL SUBCUT SCH ×3 (05:46→23:07)
[2019-10-18] MEDS: NORMAL SALINE 1000 ML 1,000 ML IV PRN ×2 (05:48→18:05)
[2019-10-18] MEDS: METOCLOPRAMIDE HCL INJ/PF 10 MG/2 ML SDV IV SCH ×4 (07:50→23:01)
[2019-10-18] MEDS: BUSPIRONE HCL 10 MG TABLET PO SCH ×2 (10:28→23:06)
[2019-10-18] MEDS: MAGNESIUM OXIDE 400 MG TABLET PO SCH ×3 (10:28→17:59)
[2019-10-18] MEDS: VALPROATE SODIUM SYRUP 250 MG/5 ML UDCUP PO SCH ×2 (10:28→23:07)
[2019-10-18] MEDS: COLCHICINE 0.6 MG TABLET PO SCH (10:28)
[2019-10-18] MEDS: INSULIN LISPRO 100 UNIT/ML 3 ML VIAL SUBCUT SCH ×4 (10:28→23:08)
[2019-10-18] MEDS: MAG HYDROX/AL HYDROX/SIMETH SUSP 30 ML UDCUP PO SCH ×4 (10:29→23:01)
[2019-10-18] MEDS: POTASSIUM CHLORIDE 20 MEQ PACKET PO SCH ×3 (10:29→18:00)
[2019-10-18] MEDS: PANTOT AC/MIN OIL/PET HY-PHL OINT 50 GM TOP SCH ×2 (14:21→17:59)
[2019-10-18] MEDS: NYSTATIN TOPICAL POWDER 15 GM TP SCH (18:00)
[2019-10-18 18:04] LABS: HEMATOCRIT 39.2 % (36.0-47.0); HEMOGLOBIN 12.8 g/dL (12.0-15.5); MEAN CORPUSCULAR HEMOGLOBIN 26.7 pg (27.0-33.4); MEAN CORPUSCULAR HGB CONC 32.7 g/dL (32.0-36.0); MEAN CORPUSCULAR VOLUME 82 fl (80-97); RED BLOOD COUNT 4.81 10^6/uL (3.72-5.28); RED CELL DISTRIBUTION WIDTH 16.3 % (11.5-14.0); WHITE BLOOD COUNT 9.3 10^3/uL (4.0-10.5)
[2019-10-18 18:06] LABS: PLATELET COUNT 317 10^3/uL (150-450)
[2019-10-18 18:21] LABS: ANION GAP 8 (5-19); BLOOD UREA NITROGEN 7 mg/dL (7-20); CALCIUM 8.5 mg/dL (8.4-10.2); CARBON DIOXIDE 29 mmol/L (22-30); CHLORIDE 102 mmol/L (98-107); GLUCOSE 120 mg/dL (75-110); POTASSIUM 4.1 mmol/L (3.6-5.0)
--- NOTE | 2019-10-18 19:07 | PDOC PROGRESS REPORT ---
Subjective Progress Note for:: 10/18/19 Subjective:: She has no particular concerns today. Denies fevers/chills. Reason For Visit: ALTERED MENTAL STATUS Physical Exam Vital Signs: Temp Pulse Resp BP Pulse Ox 97.9 F 97 18 149/83 H 96 10/18/19 15:35 10/18/19 15:35 10/18/19 15:35 10/18/19 15:35 10/18/19 15:35 Intake & Output 10/17/19 10/18/19 10/19/19 06:59 06:59 06:59 Intake Total 3000 1956 968 Output Total 1200 1400 Balance 1800 556 968 Weight 122.4 kg 122 kg General appearance: PRESENT: no acute distress Head exam: PRESENT: atraumatic Eye exam: ABSENT: scleral icterus Mouth exam: PRESENT: moist Neck exam: ABSENT: JVD Respiratory exam: PRESENT: clear to auscultation patria, unlabored Cardiovascular exam: PRESENT: RRR GI/Abdominal exam: PRESENT: normal bowel sounds, soft. ABSENT: tenderness Neurological exam: PRESENT: alert, awake Psychiatric exam: PRESENT: flat affect Results Laboratory Results: 10/18/19 17:44 10/18/19 17:44 10/18/19 10/18/19 17:44 17:44 WBC 9.3 RBC 4.81 Hgb 12.8 Hct 39.2 MCV 82 MCH 26.7 L MCHC 32.7 RDW 16.3 H Plt Count 317 D Sodium 139.0 Potassium 4.1 Chloride 102 Carbon Dioxide 29 Anion Gap 8 BUN 7 Creatinine 0.66 Est GFR ( Amer) > 60 Glucose 120 H Calcium 8.5 Magnesium 1.5 L 10/09/19 16:12 Blood Blood Culture - Final Clostridium Sp.not Perfringens No Aerobic Organisms 10/09/19 10/09/19 10/09/19 15:08 15:08 18:51 Creatine Kinase 33 CK-MB (CK-2) 0.95 Troponin I 0.029 NT-Pro-B Natriuret Pep 10/10/19 06:19 Creatine Kinase CK-MB (CK-2) Troponin I NT-Pro-B Natriuret Pep 2620 H Impressions: Carotid Doppler Study 10/09/19 00:00 IMPRESSION: BILATERAL PLAQUE. GREATER THAN 70% STENOSIS OF THE LEFT INTERNAL CAROTID ARTERY. Head MRI 10/09/19 00:00 IMPRESSION: 1. No acute intracranial abnormality. Postoperative changes and encephalomalacia are identified about the left cerebellum. Presumed chronic small vessel ischemic changes are also noted within the supratentorial white matter. 2. Asymmetric appearance about the flow voids within the left ICA and M1 segments, with significant stenosis not excluded. Additional evaluation with angiography would be of benefit. copyright 2010 [employer]- All Rights Reserved Head CT 10/09/19 15:26 IMPRESSION: 1. No evidence of acute intracranial process. 2. Stable chronic changes from prior left occipital craniotomy with encephalomalacia within the left lateral cerebellar hemisphere. 3. Unchanged fullness of the bilateral parapharyngeal tonsils with multiple scattered calcifications on the left. Consider direct visualization for further characterization. EVIDENCE OF ACUTE STROKE: NO. Chest X-Ray 10/09/19 17:45 IMPRESSION: NO ACUTE RADIOGRAPHIC FINDING IN THE CHEST. Esophagus X-Ray 10/12/19 00:00 IMPRESSION: LIMITED BARIUM SWALLOW DUE TO PATIENT'S IMMOBILITY AND SMALL AMOUNT OF INGESTED BARIUM. FINDINGS DO INDICATE ESOPHAGEAL DYSMOTILITY WITH STASIS OF BARIUM WITHIN THE ESOPHAGUS. THERE IS A SMALL SLIDING HIATAL HERNIA WITH MILD GASTROESOPHAGEAL REFLUX. 12 MM BARIUM TABLET REMAINED AT THE GE JUNCTION THROUGHOUT THE PROCEDURE WHICH MAY INDICATE DISTAL ESOPHAGEAL NARROWING ALTHOUGH DUE TO THE SMALL AMOUNT OF INGESTED BARIUM, THE RETENTION THE TABLET MAY BE RELATED TO ESOPHAGEAL MOTILITY. Chest CT 10/15/19 00:00 IMPRESSION: No acute consolidative airspace opacity is seen. No gross esophageal abnormality is seen. If there is persistent concern, endoscopy should be considered. Assessment and Plan - Plan Summary Summary: Dysphagia: unclear etiology, ongoing for months. No evidence of acute stroke on brain MRI this admission. - CT chest showed no obvious esophageal dilation or other etiologies - Possible esophageal spasm? Started trial of nifedipine. She will likely need some sort of esophageal mobility study as outpatient. - discussed with Dr. Nielson (Surgery) today, will plan for EGD on (NPO after MN) 1/2 Positive BCx - most likely a contaminant, no need for antibiotic therapy, no evidence of infection during this admission >70% Occlusion and stenosis of left carotid artery - stable on aspirin and statin therapy - outpatient vascular surgery follow up Gout attack: acute, due to renal impairment, right hand - resolved with colchicine - start allopurinol as outpatient DM2 complicated by hyperglycemia - well controlled on current regimen Pre-Renal LETICIA Dehydration Hypokalemia Hypomagnesemia - resolved with IVF hydration and repletion essential Hypertension - controlled with addition of Nifedipine Constipation - Resolved with bowel regimen Syncope: resolved - due to dehydration and resulting orthostatic hypotension Morbid obesity with BMI of 40.0-44.9, adult - Encourage diet and exercise DVT ppx: heparin - Time Time Spent with patient: 25-34 minutes Anticipated Discharge Disposition: Home, Self Care Anticipated Discharge Timeframe: within 24 hours
[2019-10-18] MEDS ORDERED: MAGNESIUM SULFATE 4 GM/100 ML RTUPB IV ONE (20:00)
[2019-10-18] MEDS: ASPIRIN 81 MG TABLET, ENT COATED PO SCH (23:07)
[2019-10-18] MEDS: ATORVASTATIN CALCIUM 40 MG TABLET PO SCH (23:08)
[2019-10-19] MEDS: NIFEDIPINE 10 MG CAPSULE PO SCH ×4 (00:19→17:03)
[2019-10-19] MEDS: ENALAPRILAT DIHYDRATE INJ/PF 1.25 MG/1 ML SDV IV SCH ×3 (00:25→14:42)
[2019-10-19] MEDS: HEPARIN SOD (PORCINE) 5,000 UNIT/ML 1 ML VIAL SUBCUT SCH ×3 (05:47→22:44)
[2019-10-19] MEDS: HYDRALAZINE HCL INJ/PF 20 MG/1 ML SDV IV PRN (08:59)
[2019-10-19] MEDS: INSULIN LISPRO 100 UNIT/ML 3 ML VIAL SUBCUT SCH ×4 (09:06→22:44)
[2019-10-19] MEDS: PANTOT AC/MIN OIL/PET HY-PHL OINT 50 GM TOP SCH ×2 (09:07→17:03)
[2019-10-19] MEDS: COLCHICINE 0.6 MG TABLET PO SCH (09:07)
[2019-10-19] MEDS: MAG HYDROX/AL HYDROX/SIMETH SUSP 30 ML UDCUP PO SCH ×4 (09:09→22:46)
[2019-10-19] MEDS: NYSTATIN TOPICAL POWDER 15 GM TP SCH ×2 (09:17→18:29)
[2019-10-19] MEDS: METOCLOPRAMIDE HCL INJ/PF 10 MG/2 ML SDV IV SCH ×2 (09:18→14:34)
[2019-10-19] MEDS: MAGNESIUM OXIDE 400 MG TABLET PO SCH ×3 (09:20→17:02)
[2019-10-19] MEDS: BUSPIRONE HCL 10 MG TABLET PO SCH ×3 (09:22→22:39)
[2019-10-19] MEDS: VALPROATE SODIUM SYRUP 250 MG/5 ML UDCUP PO SCH ×3 (09:23→22:44)
[2019-10-19] MEDS: POTASSIUM CHLORIDE 20 MEQ PACKET PO SCH ×3 (09:23→17:04)
[2019-10-19] MEDS ORDERED: LIDOCAINE 2% INJ-PF (20 MG/ML) 10 ML AMPUL ONE (11:50)
[2019-10-19] MEDS ORDERED: PROPOFOL INJ 200 MG/20 ML VIAL IV ONE (11:51)
[2019-10-19] MEDS ORDERED: ONDANSETRON 4 MG TAB.RAPDIS PO PRN (12:36)
--- NOTE | 2019-10-19 12:44 | Operative Report ---
Nonrecallable Operative Report DATE OF SURGERY: 10/19/19 PREOPERATIVE DIAGNOSIS: nausea POSTOPERATIVE DIAGNOSIS: nausea OPERATION: esophagogastroduodenoscopy SURGEON: CAITLYN MIXON ANESTHESIA: Moderate Sedation TISSUE REMOVED OR ALTERED: none COMPLICATIONS: none ESTIMATED BLOOD LOSS: 0 INTRAOPERATIVE FINDINGS: see note PROCEDURE: Patient was brought to the operating awake alert stable condition placed on the operating table in supine position. After appropriate timeout site verification the procedure commenced. The patient was given IV sedation. The Olympus gastroscope was passed into the posterior pharynx and easily traversed the upper esophageal sphincters into the proximal esophagus. As we traversed the proximal esophagus into the mid esophageal body it appeared to be normal there was decreased esophageal contractions. We reached the GE junction and noted distal esophagitis. Mild to moderate there is no evidence of erosions. There is no evidence of any esophageal varices. We reached the stomach the antrum appeared to be normal on the pylorus was identified and we ab le to intubate the pylorus into the duodenum. The duodenum was examined there was no evidence of any ulcerations duodenitis or mass. Scope was then slowly withdrawn through the pylorus back into the duodenal bulb again no evidence of any ulcerations. We retroflexed the scope and identified the hiatus and noted a moderate hiatal hernia. Scope was then slowly withdrawn again back to the GE junction again there is no evidence of any stricture or obstruction of the GE junction again decreased esophageal contractions but no evidence of obvious obstruction at the GE junction. Scope was then slowly withdrawn. Impression 1. Distal esophagitis 2. Mildly decreased esophageal contractions 3. Moderate size hiatal hernia Recommendations we will start the patient on proton pump inhibitor as well as Carafate Consideration for Reglan should be made for hopefully improving the esophageal contractions but there is no evidence of any distal esophageal stricture at this time Consideration for esophageal motility study.
[2019-10-19] MEDS: SUCRALFATE 1 GM TABLET PO SCH ×2 (15:46→22:43)
[2019-10-19] MEDS: PANTOPRAZOLE SODIUM 40 MG TABLET.DR PO SCH (17:02)
--- NOTE | 2019-10-19 17:53 | PDOC PROGRESS REPORT ---
Subjective Progress Note for:: 10/19/19 Subjective:: She is feeling okay. She occasionally eats 50%+ of her meals, and then suddenly refuses meals/meds. She is able to take all medications by mouth crushed, but sometimes refuses (although she can be talked into taking them usually later). She is not vomiting. Reason For Visit: ALTERED MENTAL STATUS Physical Exam Vital Signs: Temp Pulse Resp BP Pulse Ox 97.2 F 85 16 153/77 H 96 10/19/19 16:20 10/19/19 16:20 10/19/19 16:20 10/19/19 16:20 10/19/19 16:20 Intake & Output 10/18/19 10/19/19 10/20/19 06:59 06:59 06:59 Intake Total 1956 1068 800 Output Total 1400 1150 Balance 556 -82 800 Weight 122 kg 122 kg General appearance: PRESENT: no acute distress Head exam: PRESENT: atraumatic Eye exam: ABSENT: scleral icterus Mouth exam: PRESENT: moist Throat exam: ABSENT: post pharyngeal erythema Neck exam: ABSENT: JVD Respiratory exam: PRESENT: clear to auscultation patria Cardiovascular exam: PRESENT: RRR GI/Abdominal exam: PRESENT: normal bowel sounds, soft. ABSENT: guarding, rebound, tenderness Rectal exam: PRESENT: deferred Extremities exam: PRESENT: pedal edema Neurological exam: PRESENT: alert, awake, oriented to person, oriented to place, oriented to time, oriented to situation Psychiatric exam: PRESENT: flat affect Results Laboratory Results: 10/18/19 17:44 10/18/19 17:44 10/18/19 10/18/19 17:44 17:44 WBC 9.3 RBC 4.81 Hgb 12.8 Hct 39.2 MCV 82 MCH 26.7 L MCHC 32.7 RDW 16.3 H Plt Count 317 D Sodium 139.0 Potassium 4.1 Chloride 102 Carbon Dioxide 29 Anion Gap 8 BUN 7 Creatinine 0.66 Est GFR ( Amer) > 60 Glucose 120 H Calcium 8.5 Magnesium 1.5 L 10/09/19 10/09/19 10/09/19 15:08 15:08 18:51 Creatine Kinase 33 CK-MB (CK-2) 0.95 Troponin I 0.029 NT-Pro-B Natriuret Pep 10/10/19 06:19 Creatine Kinase CK-MB (CK-2) Troponin I NT-Pro-B Ryder Pep 2620 H Impressions: Carotid Doppler Study 10/09/19 00:00 IMPRESSION: BILATERAL PLAQUE. GREATER THAN 70% STENOSIS OF THE LEFT INTERNAL CAROTID ARTERY. Head MRI 10/09/19 00:00 IMPRESSION: 1. No acute intracranial abnormality. Postoperative changes and encephalomalacia are identified about the left cerebellum. Presumed chronic small vessel ischemic changes are also noted within the supratentorial white matter. 2. Asymmetric appearance about the flow voids within the left ICA and M1 segments, with significant stenosis not excluded. Additional evaluation with angiography would be of benefit. copyright 2010 [employer]- All Rights Reserved Head CT 10/09/19 15:26 IMPRESSION: 1. No evidence of acute intracranial process. 2. Stable chronic changes from prior left occipital craniotomy with encephalomalacia within the left lateral cerebellar hemisphere. 3. Unchanged fullness of the bilateral parapharyngeal tonsils with multiple scattered calcifications on the left. Consider direct visualization for further characterization. EVIDENCE OF ACUTE STROKE: NO. Chest X-Ray 10/09/19 17:45 IMPRESSION: NO ACUTE RADIOGRAPHIC FINDING IN THE CHEST. Esophagus X-Ray 10/12/19 00:00 IMPRESSION: LIMITED BARIUM SWALLOW DUE TO PATIENT'S IMMOBILITY AND SMALL AMOUNT OF INGESTED BARIUM. FINDINGS DO INDICATE ESOPHAGEAL DYSMOTILITY WITH STASIS OF BARIUM WITHIN THE ESOPHAGUS. THERE IS A SMALL SLIDING HIATAL HERNIA WITH MILD GASTROESOPHAGEAL REFLUX. 12 MM BARIUM TABLET REMAINED AT THE GE JUNCTION THROUGHOUT THE PROCEDURE WHICH MAY INDICATE DISTAL ESOPHAGEAL NARROWING ALTHOUGH DUE TO THE SMALL AMOUNT OF INGESTED BARIUM, THE RETENTION THE TABLET MAY BE R ELATED TO ESOPHAGEAL MOTILITY. Chest CT 10/15/19 00:00 IMPRESSION: No acute consolidative airspace opacity is seen. No gross esophageal abnormality is seen. If there is persistent concern, endoscopy should be considered. Assessment and Plan - Plan Summary Summary: Poor oral intake: unclear etiology, ongoing for months. She does NOT have dysphagia as previously stated in multiple notes. She does not have evidence of acute stroke on brain MRI this admission. She described her discomfort as "nausea" which makes it uncomfortable to eat. Nausea is thought to be due to combination of gastritis/esophagitis due to acid reflux from hiatal hernia (as seen on inpatient EGD on 10/19/2019). CT chest showed no obvious esophageal dilation or other etiologies. She would benefit from some sort of esophageal mobility study as outpatient, although she is already on Nifedipine for treatment of potential esophageal spasms. 1/2 Positive BCx: most likely a contaminant, no need for antibiotic therapy, no evidence of infection during this admission >70% Occlusion and stenosis of left carotid artery: stable on aspirin and statin therapy (although she usually refuses to take one or both of these). Outpatient vascular surgery follow up. Gout attack: acute, due to renal impairment, right hand. Resolved with colchicine. Start allopurinol as outpatient. DM2 complicated by hyperglycemia: SSI with meals TID AC. Pre-Renal LETICIA Dehydration Hypokalemia Hypomagnesemia - due to poor oral intake and resolved with IVF hydration and repletion essential hypertension - increase Clonidine patch from 0.1 to 0.3 Constipation - Resolved with bowel regimen Orthostatic Syncope: resolved, was due to dehydration and resulting orthostatic hypotension Morbid obesity with BMI of 40.0-44.9, adult: Encourage diet and exercise. Concern for Neglect: I have been unable to get a hold of her for multiple days. The patient is resistant to discharge from the hospital. She has a very flat affect. Upon welfare check by local police today, the patient's reportedly refused to have the patient return to their home. DVT ppx: heparin - Time Time Spent with patient: 35 or more minutes Anticipated Discharge Disposition: [facility] Facility Anticipated Discharge Timeframe: within 48 hours
[2019-10-19] MEDS: ASPIRIN 81 MG TABLET, ENT COATED PO SCH (22:44)
[2019-10-20] MEDS: NIFEDIPINE 10 MG CAPSULE PO SCH ×3 (00:12→11:44)
[2019-10-20] MEDS: HEPARIN SOD (PORCINE) 5,000 UNIT/ML 1 ML VIAL SUBCUT SCH (06:05)
[2019-10-20] MEDS: PANTOPRAZOLE SODIUM 40 MG TABLET.DR PO SCH (08:06)
[2019-10-20] MEDS: PANTOT AC/MIN OIL/PET HY-PHL OINT 50 GM TOP SCH (09:36)
[2019-10-20] MEDS: VALPROATE SODIUM SYRUP 250 MG/5 ML UDCUP PO SCH (09:36)
[2019-10-20] MEDS: SUCRALFATE 1 GM TABLET PO SCH ×2 (09:38→10:43)
[2019-10-20] MEDS: MAGNESIUM OXIDE 400 MG TABLET PO SCH ×2 (09:39→11:44)
[2019-10-20] MEDS: POTASSIUM CHLORIDE 20 MEQ PACKET PO SCH (09:41)
[2019-10-20] MEDS: INSULIN LISPRO 100 UNIT/ML 3 ML VIAL SUBCUT SCH ×2 (09:52→11:36)
[2019-10-20] MEDS ORDERED: CLONIDINE 0.3 MG/24 HR PATCH.TDWK TD SCH (10:00)
[2019-10-20] MEDS: NYSTATIN TOPICAL POWDER 15 GM TP SCH (10:01)
[2019-10-20] MEDS ORDERED: METOCLOPRAMIDE HCL ORAL SOLN 10 MG/10 ML UDCUP PO SCH (11:00)
[2019-10-20 13:23] VITALS: BP 142/65
--- NOTE | 2019-10-20 20:22 | PDOC DISCHARGE SUMMARY ---
Impression - Admit/DC Date/PCP Admission Date/Primary Care Provider: 10/09/19 18:07 ARIEL FINE MD Discharge Date: 10/20/19 - Discharge Diagnosis (1) LETICIA (acute kidney injury) Is this a current diagnosis for this admission?: Yes (2) Dehydration Is this a current diagnosis for this admission?: Yes (3) Diabetes mellitus type 2 in obese Is this a current diagnosis for this admission?: Yes (4) Esophagitis Is this a current diagnosis for this admission?: Yes (5) Gastritis Is this a current diagnosis for this admission?: Yes (6) Gout attack Is this a current diagnosis for this admission?: Yes (7) Hypokalemia Is this a current diagnosis for this admission?: Yes (8) Hypomagnesemia Is this a current diagnosis for this admission?: Yes (9) Morbid obesity with BMI of 40.0-44.9, adult Is this a current diagnosis for this admission?: Yes (10) Physical deconditioning Is this a current diagnosis for this admission?: Yes - Assessment Summary: Poor oral intake: unclear etiology, ongoing for months. She does NOT have dysphagia, nor does she have any evidence of acute stroke on brain MRI this admission. She described her discomfort as "nausea" which makes it uncomfortable to eat. Nausea is thought to be due to combination of gastritis/esophagitis due to acid reflux from hiatal hernia (as seen on inpatient EGD on 10/19/2019). CT chest showed no obvious esophageal dilation or other etiologies. PPI therapy was increased to twice daily, she was continued on her home Reglan TID AC and she was started on Carafate with meals. She should follow up with her gastr oenterologist as outpatient. During this admission, she was able to eat 50-75% of her meals without issue. 1/2 Positive BCx: most likely a contaminant, no need for antibiotic therapy, no evidence of infection during this admission. Multiple subsequent blood cultures are negative. >70% Occlusion and stenosis of left carotid artery: stable on aspirin and statin therapy (although she usually refuses to take one or both of these). Outpatient vascular surgery follow up. Gout attack: acute, due to renal impairment, right hand. Resolved with colchicine. DM2 complicated by hyperglycemia: restart home metformin on discharge. Pre-Renal LETICIA Dehydration Hypokalemia Hypomagnesemia - due to poor oral intake and resolved with IVF hydration and repletion. She has been started on oral K, Mg repletion therapy. uncontrolled essential hypertension: increased her home Clonidine patch from 0.1 to 0.3. Orthostatic Syncope: resolved, was due to dehydration and resulting orthostatic hypotension Morbid obesity with BMI of 40.0-44.9, adult: Encourage diet and exercise. Physical Deconditioning: she refused to work with PT repeatedly and declined [facility] referral. She was referred to Home Health. She lives with her , who provides much support. - Additional Information Resuscitation Status: Full Code Discharge Diet: Cardiac, Diabetic Discharge Activity: Activity As Tolerated Referrals: ARIEL FINE MD [Primary Care Provider] - 11/08/19 10:30 am (Please go to the [facility]. You will have two appointments that day one at 10:30 a.m. and 11:30 a.m..) Prescriptions: Sucralfate [Carafate 1 gm Tablet] 1 gm PO ACHS #120 tablet Clonidine [Catapres-Tts 3 (0.3 mg/24 Hr) Transderm Patch] 1 each TD Fr@10 #12 patch.tdwk Atorvastatin Calcium [Lipitor] 80 mg PO DAILY #30 tablet Magnesium Oxide [Mag-Ox 400 mg Tablet] 400 mg PO MEALS #90 tablet Omeprazole 20 mg PO BID #60 Potassium Chloride [Potassium Chloride 20 Meq Packet] 20 meq PO BID #60 packet Ondansetron [Zofran Odt 4 mg Tablet] 8 mg PO Q6HP PRN #120 tab.rapdis PRN Reason: For Nausea/Vomiting Home Medications: Meclizine HCl [Antivert 25 mg Tablet] 25 mg PO TIDP PRN 10/09/19 Metformin HCl [Metformin HCl ER] 500 mg PO BID 10/09/19 Metoclopramide HCl [Reglan 10 mg Tablet] 10 mg PO QIDP PRN 10/09/19 Acetaminophen [Tylenol 650 mg Supp] 650 mg IA Q4HP PRN supp.rect 10/20/19 Aspirin [Ecotrin 81 mg EC Tablet] 81 mg PO QHS tabec 10/20/19 Atorvastatin Calcium [Lipitor] 80 mg PO DAILY #30 tablet 10/20/19 Clonidine [Catapres-Tts 3 (0.3 mg/24 Hr) Transderm Patch] 1 each TD Fr@10 #12 patch.tdwk 10/20/19 Magnesium Oxide [Mag-Ox 400 mg Tablet] 400 mg PO MEALS #90 tablet 10/20/19 Omeprazole 20 mg PO BID #60 10/20/19 Ondansetron [Zofran Odt 4 mg Tablet] 8 mg PO Q6HP PRN #120 tab.rapdis 10/20/19 Potassium Chloride [Potassium Chloride 20 Meq Packet] 20 meq PO BID #60 packet 10/20/19 Sucralfate [Carafate 1 gm Tablet] 1 gm PO ACHS #120 tablet 10/20/19 History of Present Illiness History of Present Illness: YI TAN is a 79 year old female Physical Exam Vital Signs: Temp Pulse Resp BP Pulse Ox 97.8 F 97 18 142/65 H 94 10/20/19 13:11 10/20/19 13:11 10/20/19 13:11 10/20/19 13:11 10/20/19 13:11 Intake & Output 10/19/19 10/20/19 10/21/19 06:59 06:59 06:59 Intake Total 1068 1021 200 Output Total 1150 800 350 Balance -82 221 -150 Weight 122 kg 124.9 kg Results Laboratory Results: WBC 9.3 10^3/uL (4.0-10.5) 10/18/19 17:44 RBC 4.81 10^6/uL (3.72-5.28) 10/18/19 17:44 Hgb 12.8 g/dL (12.0-15.5) 10/18/19 17:44 Hct 39.2 % (36.0-47.0) 10/18/19 17:44 MCV 82 fl (80-97) 10/18/19 17:44 MCH 26.7 pg (27.0-33.4) L 10/18/19 17:44 MCHC 32.7 g/dL (32.0-36.0) 10/18/19 17:44 RDW 16.3 % (11.5-14.0) H 10/18/19 17:44 Plt Count 317 10^3/uL (150-450) D 10/18/19 17:44 Lymph % (Auto) 24.7 % (13-45) 10/16/19 05:25 [place] % (Auto) 14.1 % (3-13) H 10/16/19 05:25 Eos % (Auto) 2.5 % (0-6) 10/16/19 05:25 Baso % (Auto) 1.2 % (0-2) 10/16/19 05:25 Absolute Neuts (auto) 4.6 10^3/uL (1.7-8.2) 10/16/19 05:25 Absolute Lymphs (auto) 1.9 10^3/uL (0.5-4.7) 10/16/19 05:25 Absolute Monos (auto) 1.1 10^3/uL (0.1-1.4) 10/16/19 05:25 Absolute Eos (auto) 0.2 10^3/uL (0.0-0.6) 10/16/19 05:25 Absolute Basos (auto) 0.1 10^3/uL (0.0-0.2) 10/16/19 05:25 Total Counted 100 10/09/19 15:08 Seg Neutrophils % 57.5 % (42-78) 10/16/19 05:25 Seg Neuts % (Manual) 77 % (42-78) 10/09/19 15:08 Band Neutrophils % 1 % (3-5) L 10/09/19 15:08 Lymphocytes % (Manual) 16 % (13-45) 10/09/19 15:08 Monocytes % (Manual) 6 % (3-13) 10/09/19 15:08 Eosinophils % (Manual) 0 % (0-6) 10/09/19 15:08 Basophils % (Manual) 0 % (0-2) 10/09/19 15:08 Abs Neuts (Manual) 17.6 10^3/uL (1.7-8.2) H 10/09/19 15:08 Abs Lymphs (Manual) 3.6 10^3/uL (0.5-4.7) 10/09/19 15:08 Abs Monocytes (Manual) 1.4 10^3/uL (0.1-1.4) 10/09/19 15:08 Absolute Eos (Manual) 0.0 10^3/uL (0.0-0.6) 10/09/19 15:08 Abs Basophils (Manual) 0.0 10^3/uL (0.0-0.2) 10/09/19 15:08 Platelet Comment ADEQUATE 10/09/19 15:08 Poikilocytosis 1+ 10/09/19 15:08 Anisocytosis 1+ 10/09/19 15:08 Target Cells 1+ 10/09/19 15:08 PT 13.6 SEC (11.4-15.4) 10/10/19 06:19 INR 1.02 10/10/19 06:19 Sodium 139.0 mmol/L (137-145) 10/18/19 17:44 Potassium 4.1 mmol/L (3.6-5.0) 10/18/19 17:44 Chloride 102 mmol/L (98-107) 10/18/19 17:44 Carbon Dioxide 29 mmol/L (22-30) 10/18/19 17:44 Anion Gap 8 (5-19) 10/18/19 17:44 BUN 7 mg/dL (7-20) 10/18/19 17:44 Creatinine 0.66 mg/dL (0.52-1.25) 10/18/19 17:44 Est GFR ( Amer) > 60 (>60) 10/18/19 17:44 Est GFR (MDRD) Non-Af > 60 (>60) 10/18/19 17:44 Glucose 120 mg/dL (75-110) H 10/18/19 17:44 POC Glucose 115 mg/dL (70-110) H 10/20/19 11:01 Hemoglobin A1c % 7.0 % (4.7-6.0) H 10/10/19 06:19 Lactic Acid 0.8 mmol/L (0.7-2.1) 10/09/19 18:22 Uric Acid 10.6 mg/dL (2.5-7.5) H 10/10/19 06:19 Calcium 8.5 mg/dL (8.4-10.2) 10/18/19 17:44 Phosphorus 3.5 mg/dL (2.5-4.5) 10/11/19 05:14 Magnesium 1.5 mg/dL (1.6-2.3) L 10/18/19 17:44 Total Bilirubin 0.7 mg/dL (0.2-1.3) 10/15/19 05:02 Direct Bilirubin 0.4 mg/dL (0.0-0.4) 10/15/19 05:02 Neonat Total Bilirubin Not Reportable 10/15/19 05:02 Neonat Direct Bilirubin Not Reportable 10/15/19 05:02 Neonat Indirect Bili Not Reportable 10/15/19 05:02 AST 37 U/L (14-36) H 10/15/19 05:02 ALT 28 U/L (<35) 10/15/19 05:02 Alkaline Phosphatase 91 U/L (38-126) 10/15/19 05:02 Ammonia < 8.7 umol/L (9-33) L 10/10/19 06:19 Creatine Kinase 33 U/L (30-135) 10/09/19 15:08 CK-MB (CK-2) 0.95 ng/mL (<4.55) 10/09/19 18:51 Troponin I 0.029 ng/mL 10/09/19 15:08 NT-Pro-B Natriuret Pep 2620 pg/mL (<450) H 10/10/19 06:19 Total Protein 6.4 g/dL (6.3-8.2) 10/15/19 05:02 Albumin 2.8 g/dL (3.5-5.0) L 10/15/19 05:02 Prealbumin 12.9 mg/dL (17.6-36.0) L 10/15/19 05:02 Triglycerides 116 mg/dL (<150) 10/10/19 06:19 Cholesterol 146.11 mg/dL (0-200) 10/10/19 06:19 LDL Cholesterol Direct 73 mg/dL (<100) 10/10/19 06:19 VLDL Cholesterol 23.0 mg/dL (10-31) 10/10/19 06:19 HDL Cholesterol 48 mg/dL (>40) 10/10/19 06:19 TSH 1.71 uIU/mL (0.47-4.68) 10/10/19 06:19 Urine Color ANDRE 10/09/19 17:30 Urine Appearance CLOUDY 10/09/19 17:30 Urine pH 5.0 (5.0-9.0) 10/09/19 17:30 Ur Specific [place] 1.017 10/09/19 17:30 Urine Protein 100 mg/dL (NEGATIVE) H 10/09/19 17:30 Urine Glucose (UA) 50 mg/dL (NEGATIVE) H 10/09/19 17:30 Urine Ketones 20 mg/dL (NEGATIVE) H 10/09/19 17:30 Urine Blood SMALL (NEGATIVE) H 10/09/19 17:30 Urine Nitrite NEGATIVE (NEGATIVE) 10/09/19 17:30 Urine Bilirubin SMALL (NEGATIVE) H 10/09/19 17:30 Urine Urobilinogen 4.0 mg/dL (<2.0) H 10/09/19 17:30 Ur Leukocyte Esterase TRACE (NEGATIVE) H 10/09/19 17:30 Urine WBC (Auto) 15 /HPF 10/09/19 17:30 Urine RBC (Auto) 12 /HPF 10/09/19 17:30 U Hyaline Cast (Auto) 20 /LPF 10/09/19 17:30 Urine Bacteria (Auto) 1+ /HPF 10/09/19 17:30 Squamous Epi Cells Auto 3 /HPF 10/09/19 17:30 Amorphous Sediment Auto TRACE /HPF 10/09/19 17:30 Urine Mucus (Auto) OCC /LPF 10/09/19 17:30 Urine Ascorbic Acid NEGATIVE (NEGATIVE) 10/09/19 17:30 Urine Opiates Screen NEGATIVE 10/09/19 17:30 Urine Methadone Screen NEGATIVE 10/09/19 17:30 Ur Barbiturates Screen NEGATIVE 10/09/19 17:30 Ur Phencyclidine Scrn NEGATIVE 10/09/19 17:30 Ur Amphetamines Screen NEGATIVE 10/09/19 17:30 U Benzodiazepines Scrn NEGATIVE 10/09/19 17:30 Urine Cocaine Screen NEGATIVE 10/09/19 17:30 U Marijuana (THC) Screen NEGATIVE 10/09/19 17:30 Serum Alcohol < 10 mg/dL (NONE DETECTED) 10/09/19 15:08 10/09/19 10/09/19 10/10/19 15:08 18:51 06:19 CK-MB (CK-2) 0.95 Troponin I 0.029 NT-Pro-B Natriuret Pep 2620 H Impressions: Carotid Doppler Study 10/09/19 00:00 IMPRESSION: BILATERAL PLAQUE. GREATER THAN 70% STENOSIS OF THE LEFT INTERNAL CAROTID ARTERY. Head MRI 10/09/19 00:00 IMPRESSION: 1. No acute intracranial abnormality. Postoperative changes and encephalomalacia are identified about the left cerebellum. Presumed chronic small vessel ischemic changes are also noted within the supratentorial white matter. 2. Asymmetric appearance about the flow voids within the left ICA and M1 segments, with significant stenosis not excluded. Additional evaluation with angiography would be of benefit. copyright 2010 [employer]- All Rights Reserved Head CT 10/09/19 15:26 IMPRESSION: 1. No evidence of acute intracranial process. 2. Stable chronic changes from prior left occipital craniotomy with encephalomalacia within the left lateral cerebellar hemisphere. 3. Unchanged fullness of the bilateral parapharyngeal tonsils with multiple scattered calcifications on the left. Consider direct visualization for further characterization. EVIDENCE OF ACUTE STROKE: NO. Abdomen/Pelvis CT 10/09/19 15:27 IMPRESSION: 1. No evidence of acute intra-abdominal/pelvic process. 2. Stable umbilical right paraumbilical fat containing hernia. 3. Stable left adrenal adenoma. 4. Diverticulosis. Chest X-Ray 10/09/19 17:45 IMPRESSION: NO ACUTE RADIOGRAPHIC FINDING IN THE CHEST. Esophagus X-Ray 10/12/19 00:00 IMPRESSION: LIMITED BARIUM SWALLOW DUE TO PATIENT'S IMMOBILITY AND SMALL AMOUNT OF INGESTED BARIUM. FINDINGS DO INDICATE ESOPHAGEAL DYSMOTILITY WITH STASIS OF BARIUM WITHIN THE ESOPHAGUS. THERE IS A SMALL SLIDING HIATAL HERNIA WITH MILD GASTROESOPHAGEAL REFLUX. 12 MM BARIUM TABLET REMAINED AT THE GE JUNCTION THROUGHOUT THE PROCEDURE WHICH MAY INDICATE DISTAL ESOPHAGEAL NARROWING ALTHOUGH DUE TO THE SMALL AMOUNT OF INGESTED BARIUM, THE RETENTION THE TABLET MAY BE RELATED TO ESOPHAGEAL MOTILITY. Chest CT 10/15/19 00:00 IMPRESSION: No acute consolidative airspace opacity is seen. No gross esophageal abnormality is seen. If there is persistent concern, endoscopy should be considered. Stroke Is this a Stroke Patient?: No Acute Heart Failure Is this a Heart Failure Patient?: No
== END 2019-10-20 14:16 | disposition home health service (06) | DRG 683 ==
LOC: ER 14:56 → EH 18:07 → 3W 23:39 → 5 10-12 15:49
PROVIDERS: ADMIT Internal Medicine; ATTEND Hospitalist
PROC: 0DJ08ZZ Inspection of Upper Intestinal Tract, Via Natural or Artificial Opening Endoscopic (ICD-10-PCS; principal; 2019-10-19 13:00)
DX: N17.9 Acute kidney failure, unspecified (principal); Z68.41 Body mass index [BMI] 40.0-44.9, adult; E11.65 Type 2 diabetes mellitus with hyperglycemia; E86.0 Dehydration; E66.01 Morbid (severe) obesity due to excess calories; K20.9 Esophagitis, unspecified; K29.70 Gastritis, unspecified, without bleeding; E83.42 Hypomagnesemia; E87.6 Hypokalemia; I10 Essential (primary) hypertension; I95.1 Orthostatic hypotension; R41.82 Altered mental status, unspecified; M19.90 Unspecified osteoarthritis, unspecified site; K44.9 Diaphragmatic hernia without obstruction or gangrene; I65.22 Occlusion and stenosis of left carotid artery; M10.341 Gout due to renal impairment, right hand; K59.00 Constipation, unspecified; F41.8 Other specified anxiety disorders; Z79.84 Long term (current) use of oral hypoglycemic drugs; Z79.82 Long term (current) use of aspirin; Z79.899 Other long term (current) drug therapy; Z87.891 Personal history of nicotine dependence; Z83.3 Family history of diabetes mellitus; Z82.49 Family history of ischemic heart disease and other diseases of the circulatory system
CPT/HCPCS: 00731; 36415; 43235; 70450; 70551; 71045; 71260; 74176; 74220; 80048; 80053; 80061; 80069; 80307; 81001; 82140; 82550; 82553; 82962; 83036; 83605; 83735; 83880; 84134; 84443; 84484; 84550; 85025; 85027; 85610; 87040; 87077; 87086; 93005; 93010; 93880; 96374; 99285; C9113; J0360; J0692; J1644; J1815; J1885; J2270; J2405; J2550; J2704; J2765; J3475; J3480; J3490; J7030

== ENCOUNTER 2019-11-01 19:44 | Emergency (ER) | payer MEDICARE ==
[2019-11-01] MEDS ORDERED: NORMAL SALINE 1000 ML 1,000 ML IV ONE (20:52)
--- NOTE | 2019-11-01 21:01 | ER Document Report ---
ED General - General Chief Complaint: Nausea/Vomiting Stated Complaint: NAUSEA/VOMITING Time Seen by Provider: 11/01/19 20:39 Primary Care Provider: ELMA FERNÁNDEZ MD [Primary Care Provider] - Follow up as needed Notes: Patient is a 79-year-old female that comes emergency department from home for chief complaint of nausea, vomiting, unable to eat well, generalized weakness, and a recent diagnosis of UTI by primary care but unable to take her antibiotic because of difficulty tolerating p.o. Patient denies abdominal pain, denies chest pain, shortness of breath, headache. She states she can only take her "tiny pills", she states she is taking her blood pressure medications but was unable to take her antibiotic or any other medications except her Reglan. She states she feels better after she takes Reglan but she is still unable to eat normally otherwise. She denies fever. She was recently hospitalized, discharged on 10/20/2019, she had an endoscopy during her admission and tells me that she had a hiatal hernia and esophagitis but no other concerning findings on this. Past medical history includes obesity, type 2 diabetes, hypertension, hyperlipidemia, kidney stones, and she is currently in a wheelchair and cannot ambulate because of deconditioning per patient. Surgical history includes appendectomy, hysterectomy. TRAVEL OUTSIDE OF THE [place] IN LAST 30 DAYS: No - Related Data Allergies/Adverse Reactions: No Known Allergies Allergy (Verified 10/09/16 10:59) Past Medical History - General Information source: Patient - Social History Smoking Status: Never Smoker Frequency of alcohol use: None Drug Abuse: None Lives with: Spouse/Significant other Family History: Reviewed & Not Pertinent, DM, Hypertension - Past Medical History Cardiac Medical History: Reports: Hx Hypertension Denies: Hx Atrial Fibrillation, Hx Congestive Heart Failure, Hx Coronary Artery Disease, Hx Heart Attack, Hx Hypercholesterolemia, Hx Peripheral Vascular Disease, Hx Heart Murmur Pulmonary Medical History: Denies: Hx Asthma, Hx Bronchitis, Hx COPD, Hx Pneumonia Neurological Medical History: Denies: Hx Cerebrovascular Accident, Hx Seizures, Hx Parkinson's Disease Endocrine Medical History: Denies: Hx Graves' Disease, Hx Hyperthyroidism, Hx Hypothyroidism Renal/ Medical History: Reports: Hx Kidney Stones - ESWL x 7 [id number]), Hx Ovarian Cysts. Denies: Hx End Stage Renal Disease, Hx Peritoneal Dialysis, Hx Pelvic Inflammatory Disease Malignancy Medical History: Denies: Hx Breast Cancer, Hx Cervical Cancer, Hx Ovarian Cancer GI Medical History: Denies: Hx Crohn's Disease, Hx Gastroesophageal Reflux Disease, Hx Hiatal Hernia, Hx Irritable Bowel, Hx Liver Failure, Hx Pancreatitis, Hx Ulcer Musculoskeletal Medical History: Reports Hx Arthritis, Denies Hx Fibromyalgia, Denies Hx Multiple Sclerosis, Denies Hx Muscular Dystrophy, Denies Hx Systemic Lupus Erythematosus Psychiatric Medical History: Denies: Hx Dementia, Hx Depression Traumatic Medical History: Denies: Hx Fractures Past Surgical History: Reports: Hx Appendectomy - incidental with CARRIE BSO, Hx Hysterectomy, Hx Tonsillectomy - as child, Other - Meningioma removal. Denies: Hx Bowel Surgery, Hx Section, Hx Cholecystectomy, Hx Colostomy, Hx Coronary Artery Bypass Graft, Hx Gastric Bypass Surgery, Hx Herniorrhaphy, Hx Mastectomy, Hx Pacemaker, Hx Tubal Ligation - Immunizations Hx Diphtheria, Pertussis, Tetanus Vaccination: Yes Hx Pneumococcal Vaccination: 09/06/13 Review of Systems - Review of Systems Constitutional: See HPI EENT: No symptoms reported Cardiovascular: No symptoms reported Respiratory: No symptoms reported Gastrointestinal: See HPI Genitourinary: See HPI Female Genitourinary: No symptoms reported Musculoskeletal: No symptoms reported Skin: No symptoms reported Hematologic/Lymphatic: No symptoms reported Neurological/Psychological: No symptoms reported Physical Exam - Vital signs Vitals: Temp Pulse Resp BP Pulse Ox 97.5 F 145 H 28 H 136/84 H 94 11/01/19 19:54 11/01/19 19:54 11/01/19 19:54 11/01/19 19:54 11/01/19 19:54 - Notes Notes: GENERAL: Alert, interacts well. No acute distress. HEAD: Normocephalic, atraumatic. EYES: Pupils equal, round, and reactive to light. Extraocular movements intact. ENT: Oral mucosa very dry, tongue midline. Oropharynx unremarkable. Airway patent. NECK: Full range of motion. Supple. Trachea midline. No lymphadenopathy. LUNGS: Clear to auscultation bilaterally, no wheezes, rales, or rhonchi. No respiratory distress. Non-tender chest wall. HEART: Regular rate and rhythm. No murmur ABDOMEN: Soft, non-tender. Non-distended. Bowel sounds present in all 4 quadrants. EXTREMITIES: Limited range of motion, no edema, normal distal neurovascular exam, no cyanosis. NEUROLOGICAL: Alert and oriented x3. Normal speech. Cranial nerves II through XII grossly intact. Strength 5/5 in all extremities. PSYCH: Normal affect, normal mood. SKIN: Warm, dry, normal turgor. No rashes or lesions noted. Course - Re-evaluation Re-evalutation: Patient intermittently borderline tachycardic on my exam, however after I examined her tachycardia resolved on the monitor. On auscultation there is no tachycardia. She is not hypotensive or febrile. She appears to be in no distress. She does have very dry mucous membranes. She is very conversational and alert. CBC shows leukocytosis at 15,000 with elevation of neutrophils but no bandemia. Nonspecific. Patient is not complaining of any pain, her abdomen is completely benign, we will check a catheterized urine, hemoglobin unremarkable. Chemistry shows slightly low potassium at 3.2, magnesium is low at 1.1 will be supplemented, EKG with unremarkable QTC and no U waves. Patient noted to previously have problems with hypomagnesemia as well. Acute abdominal series/chest x-ray without any acute findings. Troponin indeterminate, very consistent with prior. Urinalysis shows some ketones and elevated specific gravity but no overt infection. Patient has been given IV fluids. Reevaluation patient continues to be very well-appearing. I discussed her findings. is now at bedside. He states that patient only drinks "half a cup of water a day and a few teaspoons of food over the course of discharge ever since she was discharged from the hospital on 10/20/2019. He states she is "starving to ". Patient denies any current complaints. Patient has been given Reglan on request, we will give p.o. Pepcid and p.o. trial. became very irritated at this point, he states that "this is the same thing we had before, nothing is changed, she is not getting fixed, she is not getting better". He states that "food tastes like shit to her and there is something wrong with her taste buds". He states that he believes or something underlying that is wrong with her that we are not finding and if we fix that she will eat. He asked for the diagnosis of discharge was again, I discussed how she was diagnosed with gastritis, placed on Carafate, he states it is not helping. He also states that there is physical therapy coming to the house to try to get her back to ambulation and out of the wheelchair but it is not helping. then stated that he needed to go home, stated she cannot come home like this, stated she is "starving to ", and if we do not know what is causing her taste buds to be like this that we can transfer to [facility] so they can figure it out. then grabbed his belongings and left with patient calling out his name after him. We performed a p.o. trial after left, patient first took Pepcid, then drink fluids, then ate several crackers/smaller snack foods. She did this without any difficulty, she did not have any vomiting, she denied any symptoms. Now with patient tolerating p.o. I have a very low suspicion of acute abnormality. Patient does not have intractable vomiting either as an criteria for admission. I discussed with Dr. Graham. No additional work-up is recommended, she also feels patient does not meet criteria for admission, no additional test recommendations are given, recommendation is for rn case management consult instead. Patient will have this performed, she is medically cleared at this time. - Vital Signs Vital signs: Temp Pulse Resp BP Pulse Ox 97.9 F 145 H 20 136/63 H 98 11/02/19 02:00 11/01/19 19:54 11/02/19 03:00 11/02/19 03:00 11/02/19 03:00 - Laboratory Result Diagrams: 11/01/19 22:06 11/01/19 22:06 Laboratory results interpreted by me: 11/01/19 11/01/19 11/01/19 22:06 22:06 22:06 WBC 15.3 H RDW 17.1 H Plt Count 460 H Lymph % (Auto) 8.3 L Absolute Neuts (auto) 12.5 H Seg Neutrophils % 81.9 H Potassium 3.2 L Chloride 96 L Est GFR ( Amer) 59 L Est GFR (MDRD) Non-Af 48 L Glucose 136 H Magnesium 1.1 L* Direct Bilirubin 0.6 H Albumin 3.4 L Urine Protein Urine Ketones 11/01/19 23:18 WBC RDW Plt Count Lymph % (Auto) Absolute Neuts (auto) Seg Neutrophils % Potassium Chloride Est GFR ( Amer) Est GFR (MDRD) Non-Af Glucose Magnesium Direct Bilirubin Albumin Urine Protein 30 H Urine Ketones 20 H - EKG Interpretation by Me Additional EKG results interpreted by me: EKG shows sinus rhythm at a rate of 77, QTc of 49, LVH, incomplete right bundle branch block. No T wave inversions or ST segment changes in consecutive leads. Discharge - Discharge Clinical Impression: Decreased appetite, Nausea, Generalized weakness, Hypomagnesemia Condition: Stable Disposition: OTHER Referrals: ELMA FERNÁNDEZ MD [Primary Care Provider] - Follow up as needed
[2019-11-01 22:18] LABS: ABSOLUTE BASOPHILS # (AUTO) 0.1 10^3/uL (0.0-0.2); ABSOLUTE LYMPHOCYTES (AUTO) 1.3 10^3/uL (0.5-4.7); ABSOLUTE MONOCYTES (AUTO) 1.4 10^3/uL (0.1-1.4); ABSOLUTE NEUT (AUTO) 12.5 10^3/uL (1.7-8.2); BASOPHILS % (AUTO) 0.8 % (0-2); EOSINOPHILS % (AUTO) 0.1 % (0-6); HEMATOCRIT 41.6 % (36.0-47.0); HEMOGLOBIN 13.8 g/dL (12.0-15.5); LYMPHOCYTES % (AUTO) 8.3 % (13-45); MEAN CORPUSCULAR HEMOGLOBIN 27.2 pg (27.0-33.4); MEAN CORPUSCULAR HGB CONC 33.3 g/dL (32.0-36.0); MEAN CORPUSCULAR VOLUME 82 fl (80-97); MONOCYTES % (AUTO) 8.9 % (3-13); PLATELET COUNT 460 10^3/uL (150-450); RED BLOOD COUNT 5.09 10^6/uL (3.72-5.28); RED CELL DISTRIBUTION WIDTH 17.1 % (11.5-14.0); SEGMENTED NEUTROPHILS % (AUTO) 81.9 % (42-78); TOTAL CELLS COUNTED % (AUTO) 100 %; WHITE BLOOD COUNT 15.3 10^3/uL (4.0-10.5)
--- NOTE | 2019-11-01 22:34 | RADIOLOGY REPORT (SQ) ---
EXAM DESCRIPTION: [facility]: XR ABDOMEN SUPINE AND ERECT WITH CHEST (ABD ACUTE SERIES) Views: 3 CLINICAL HISTORY: 79 years Female; unable to eat, vomiting; COMPARISON: Chest 10/09/2019 FINDINGS: AP Chest: Lungs are clear without infiltrate, effusion, pneumothorax. Mediastinum is within normal limits for positioning. Chronic degenerative changes of the lumbar spine. No acute bone findings. Supine and erect AP abdomen: There is some scattered contrast material in what are likely colonic diverticula. No colonic distention or small bowel distention. No free air or fluid levels. Surgical clips are noted in the left upper quadrant. No suspicious calcifications. IMPRESSION: 1. No acute findings.
[2019-11-01 22:43] LABS: ALBUMIN 3.4 g/dL (3.5-5.0); ALKALINE PHOSPHATASE 112 U/L (38-126); ANION GAP 16 (5-19); ASPARTATE AMINO TRANSFERASE 30 U/L (14-36); BILIRUBIN,DIRECT 0.6 mg/dL (0.0-0.4); BILIRUBIN,TOTAL 0.9 mg/dL (0.2-1.3); BLOOD UREA NITROGEN 15 mg/dL (7-20); CALCIUM 9.5 mg/dL (8.4-10.2); CARBON DIOXIDE 27 mmol/L (22-30); CHLORIDE 96 mmol/L (98-107); GLUCOSE 136 mg/dL (75-110); POTASSIUM 3.2 mmol/L (3.6-5.0); TOTAL PROTEIN 7.3 g/dL (6.3-8.2)
[2019-11-01 23:51] LABS: APPEARANCE,URINE CLEAR; BILIRUBIN,URINE NEGATIVE (NEGATIVE); COLOR,URINE YELLOW; GLUCOSE, URINE NEGATIVE (NEGATIVE); KETONES,URINE 20 mg/dL (NEGATIVE); LEUKOCYTE ESTERASE,URINE NEGATIVE (NEGATIVE); NITRITE,URINE NEGATIVE (NEGATIVE); PROTEIN,URINE 30 mg/dL (NEGATIVE); URINE SPECIFIC GRAVITY 1.008; UROBILINOGEN,URINE NEGATIVE mg/dL (<2.0)
[2019-11-01] MEDS ORDERED: FAMOTIDINE 20 MG TABLET PO ONE (23:53)
[2019-11-02] MEDS ORDERED: METOCLOPRAMIDE HCL INJ/PF 10 MG/2 ML SDV IV ONE (00:33)
[2019-11-02] MEDS: MAGNESIUM SULFATE/D5W 1 GM/100 ML RTUPB IV SCH ×2 (00:41→01:47)
--- NOTE | 2019-11-02 08:31 | EKG REPORT ---
SEVERITY:- ABNORMAL ECG - SINUS RHYTHM INCOMPLETE RBBB AND LAFB LEFT VENTRICULAR HYPERTROPHY : Confirmed by: Donna Sigala MD 02-Nov-2019 08:30:35
--- NOTE | 2019-11-02 15:00 | ER Document Report ---
Doctor's Note Notes: 11/02/19 14:58 The hospital nurse social work case manager spoke with the patient's who does not want to take her home. He claims that she has a problem with her taste buds and will not eat and this is been going on for 5 years and he wants her fixed. I reviewed medical records here and found that she has not lost any weight in the past 5 weeks so she is obviously eating. The beef boner tells me that this is been a problem in the past where he refuses to answer phone calls from the hospital when he does not want to take her back to the house. She will be discharged home. They do have home health at home. Her magnesium level was quite low. Reviewing records I found she has been prescribed Mag-Ox 3 times daily in the past. She will receive a prescription for the Mag-Ox 400 mg 3 times daily and a prescription for Reglan as she states that does help her nauseousness. She will be encouraged to follow-up with her primary care provider early next week to check her magnesium levels.
[2019-11-02 17:58] VITALS: BP 154/79
== END 2019-11-02 17:58 | disposition other institution (70) ==
LOC: ER 19:44
DX: R11.2 Nausea with vomiting, unspecified (principal); R53.1 Weakness; E83.42 Hypomagnesemia; F50.89 Other specified eating disorder; E11.9 Type 2 diabetes mellitus without complications; I10 Essential (primary) hypertension; E78.5 Hyperlipidemia, unspecified
CPT/HCPCS: 93005; 99285; 96361; 96375; 96365; 96366; 36415; 82962; 83690; 83735; 85025; 80053; 81001; 84484; 74022; 93010; A9270; J2765; J3475; J7030

== ENCOUNTER 2019-11-10 15:46 | Inpatient (IN) | payer MEDICARE ==
[2019-11-10 16:40] LABS: HEMATOCRIT 40.6 % (36.0-47.0); HEMOGLOBIN 13.4 g/dL (12.0-15.5); MEAN CORPUSCULAR HEMOGLOBIN 26.9 pg (27.0-33.4); MEAN CORPUSCULAR HGB CONC 33.1 g/dL (32.0-36.0); MEAN CORPUSCULAR VOLUME 81 fl (80-97); PLATELET COUNT 505 10^3/uL (150-450); RED BLOOD COUNT 4.99 10^6/uL (3.72-5.28); WHITE BLOOD COUNT 18.2 10^3/uL (4.0-10.5)
[2019-11-10 16:42] LABS: ARTERIAL BLOOD BASE EXCESS 0.7 mmol/L; ARTERIAL BLOOD FIO2 ROOM AIR; ARTERIAL BLOOD HCO3 24.5 mmol/L (20-24); ARTERIAL BLOOD O2 SATURATION 95.9 % (94-98); ARTERIAL BLOOD PCO2 36.6 mmHg (35-45); ARTERIAL BLOOD PH 7.44 (7.35-7.45); ARTERIAL BLOOD PO2 77.2 mmHg (80-100); ARTERIAL BLOOD TOTAL CO2 25.6 mmol/L (21-25)
[2019-11-10] MEDS ORDERED: LORAZEPAM INJ 2 MG/1 ML VIAL IV ONE (16:42)
--- NOTE | 2019-11-10 16:44 | RADIOLOGY REPORT (SQ) ---
EXAM DESCRIPTION: CHEST SINGLE VIEW IMAGES COMPLETED DATE/TIME: 11/10/2019 4:31 pm REASON FOR STUDY: ams COMPARISON: 10/09/2019 EXAM PARAMETERS: NUMBER OF VIEWS: One view. TECHNIQUE: Single frontal radiographic view of the chest acquired. RADIATION DOSE: NA LIMITATIONS: None. FINDINGS: LUNGS AND PLEURA: Ill-defined left retrocardiac opacity with partial obscuration of the he midiaphragm. MEDIASTINUM AND HILAR STRUCTURES: No masses. Contour normal. HEART AND VASCULAR STRUCTURES: Heart normal in size. Vascular calcifications. BONES: No acute findings. HARDWARE: None in the chest. OTHER: No other significant finding. IMPRESSION: Questionable left basilar retrocardiac opacity possibly atelectasis or airspace disease. Two view radiograph could be considered for confirmation. TECHNICAL DOCUMENTATION: JOB ID: [id number] 2010 [employer]- All Rights Reserved Reading location - IP/workstation name: [email or web address]
[2019-11-10 16:48] LABS: ALBUMIN 3.4 g/dL (3.5-5.0); ALKALINE PHOSPHATASE 127 U/L (38-126); ANION GAP 19 (5-19); ASPARTATE AMINO TRANSFERASE 43 U/L (14-36); BILIRUBIN,DIRECT 0.7 mg/dL (0.0-0.4); BILIRUBIN,TOTAL 1.2 mg/dL (0.2-1.3); BLOOD UREA NITROGEN 20 mg/dL (7-20); CALCIUM 9.4 mg/dL (8.4-10.2); CARBON DIOXIDE 25 mmol/L (22-30); CHLORIDE 96 mmol/L (98-107); CREATINE KINASE 30 U/L (30-135); GLUCOSE 168 mg/dL (75-110); TOTAL PROTEIN 7.2 g/dL (6.3-8.2)
[2019-11-10] MEDS ORDERED: POTASSI CL 20 MEQ/50 ML RIDER 20 MEQ/50 ML RTUPB IV ONE (16:52)
--- NOTE | 2019-11-10 16:57 | RADIOLOGY REPORT (SQ) ---
EXAM DESCRIPTION: CT HEAD WITHOUT IMAGES COMPLETED DATE/TIME: 11/10/2019 4:32 pm REASON FOR STUDY: ams COMPARISON: 10/09/2019 TECHNIQUE: Axial images acquired through the brain without intravenous contrast. Images reviewed wi th bone, brain and subdural windows. Additional sagittal and coronal reconstructions were generated. Images stored on PACS. All CT scanners at this facility use dose modulation, iterative reconstruction, and/or weight based d osing when appropriate to reduce radiation dose to as low as reasonably achievable (ALARA). [facility]: Dose Right [facility]: CareDose [facility]: Dose Right [facility]: Teradose 4D [facility]: NextPage RADIATION DOSE: CT Rad equipment meets quality standard of care and radiation dose reduction techniq ues were employed. CTDIvol: 53.2 mGy. DLP: 991 mGy-cm. mGy. LIMITATIONS: Limited exam secondary to patient motion. FINDINGS: VENTRICLES: Age appropriate. CEREBRUM: No masses. No hemorrhage. No midline shift. No evidence for acute infarction. Few scatte red areas of low density in the white matter most likely chronic small vessel ischemic changes. CEREBELLUM: Evidence of left occipital craniotomy with encephalomalacia within the left cerebellar he misphere, stable. No masses. No hemorrhage. No alteration of density. No evidence for acute infar ction. EXTRAAXIAL SPACES: No fluid collections. No masses. ORBITS AND GLOBE: No intra- or extraconal masses. Normal contour of globe without masses. CALVARIUM: No fracture. Evidence of left occipital craniotomy. PARANASAL SINUSES: No fluid or mucosal thickening. SOFT TISSUES: No mass or hematoma. OTHER: No other significant finding. IMPRESSION: Limited exam secondary to motion artifact. Chronic age related changes and postsurgical sequelae from prior left occipital craniotomy. No evide nce of acute intracranial process. EVIDENCE OF ACUTE STROKE: NO. COMMENT: Quality ID # [id number]: Final reports with documentation of one or more dose reduction techniques (e.g., Automated exposure control, adjustment of the mA and/or kV according to patient size, use of iterative reconstruction technique) TECHNICAL DOCUMENTATION: JOB ID: [id number] 2010 [email or web address]- All Rights Reserved Reading location - IP/workstation name: [email or web address]
[2019-11-10 16:59] LABS: CREATINE KINASE MB 1.14 ng/mL (<4.55)
[2019-11-10 17:00] LABS: ABSOLUTE LYMPHOCYTES# (MANUAL) 2.2 10^3/uL (0.5-4.7); ABSOLUTE MONOCYTES # (MANUAL) 2.7 10^3/uL (0.1-1.4); BASOPHILS % (MANUAL) 0 % (0-2); EOSINOPHILS % (MANUAL) 0 % (0-6); LYMPHOCYTES % (MANUAL) 11 % (13-45); MONOCYTES % (MANUAL) 15 % (3-13); SEGMENTED NEUTROPHILS % (MAN) 73 % (42-78); TOTAL CELLS COUNTED 100
[2019-11-10 17:02] LABS: POLYCHROMASIA SLIGHT
[2019-11-10 17:03] LABS: ANISOCYTOSIS SLIGHT; OVALOCYTES SLIGHT; PLATELET COMMENT INCREASED; POIKILOCYTOSIS SLIGHT; TROPONIN I 0.05 ng/mL
--- NOTE | 2019-11-10 17:46 | ER Document Report ---
ED General - General Chief Complaint: Altered Mental Status Stated Complaint: FAILURE TO THRIVE Mode of Arrival: Medic Information source: Patient, Emergency Med Personnel Cannot obtain history due to: Altered mental status Notes: Patient is a 79-year-old female brought into the emergency department by EMS chief complaint of altered mental status and syncope. They state that the patient had a syncopal episode while going to the bathroom she has had a recent history of decreased oral intake and generalized weakness. At time of presentation patient is obviously altered is moaning continuously does not answer questions does respond to painful and noxious stimuli. Remainder of HPI and review of systems is questionable secondary to limited information from EMS and patient's altered mental status. TRAVEL OUTSIDE OF THE [place] IN LAST 30 DAYS: No - Related Data Allergies/Adverse Reactions: No Known Allergies Allergy (Verified 10/09/16 10:59) Home Medications: note in HPI Past Medical History - General Information source: Emergency Med Personnel, [facility] Records - Social History Smoking Status: Unknown if Ever Smoked Chew tobacco use (# tins/day): No Frequency of alcohol use: None Drug Abuse: None Lives with: Family Family History: Reviewed & Not Pertinent, DM, Hypertension Patient has suicidal ideation: No Patient has homicidal ideation: No - Past Medical History Cardiac Medical History: Reports: Hx Hypertension Denies: Hx Atrial Fibrillation, Hx Congestive Heart Failure, Hx Coronary Artery Disease, Hx Heart Attack, Hx Hypercholesterolemia, Hx Peripheral Vascular Disease, Hx Heart Murmur Pulmonary Medical History: Denies: Hx Asthma, Hx Bronchitis, Hx COPD, Hx Pneumonia Neurological Medical History: Denies: Hx Cerebrovascular Accident, Hx Seizures, Hx Parkinson's Disease Endocrine Medical History: Denies: Hx Graves' Disease, Hx Hyperthyroidism, Hx Hypothyroidism Renal/ Medical History: Reports: Hx Kidney Stones - ESWL x 7 [phone]), Hx Ovarian Cysts. Denies: Hx End Stage Renal Disease, Hx Peritoneal Dialysis, Hx Pelvic Inflammatory Disease Malignancy Medical History: Denies: Hx Breast Cancer, Hx Cervical Cancer, Hx Ova to Cancer GI Medical History: Denies: Hx Crohn's Disease, Hx Gastroesophageal Reflux Disease, Hx Hiatal Hernia, Hx Irritable Bowel, Hx Liver Failure, Hx Pancreatitis, Hx Ulcer Musculoskeletal Medical History: Reports Hx Arthritis, Denies Hx Fibromyalgia, Denies Hx Multiple Sclerosis, Denies Hx Muscular Dystrophy, Denies Hx Systemic Lupus Erythematosus Psychiatric Medical History: Denies: Hx Dementia, Hx Depression Traumatic Medical History: Denies: Hx Fractures Past Surgical History: Reports: Hx Appendectomy - incidental with [facility] BSO, Hx Hysterectomy, Hx Tonsillectomy - as child, Other - Meningioma removal. Denies: Hx Bowel Surgery, Hx Section, Hx Cholecystectomy, Hx Colostomy, Hx Coronary Artery Bypass Graft, Hx Gastric Bypass Surgery, Hx Herniorrhaphy, Hx Mastectomy, Hx Pacemaker, Hx Tubal Ligation - Immunizations Hx Diphtheria, Pertussis, Tetanus Vaccination: Yes Hx Pneumococcal Vaccination: 09/06/13 Review of Systems - Review of Systems -: Yes ROS unobtainable due to patient's medical condition Physical Exam - Vital signs Vitals: Temp 96.1 F L 11/10/19 15:47 Course - Re-evaluation Re-evalutation: 11/10/19 20:38 Patient has been reevaluated multiple times while in emergency department. The patient did receive 1 dose of Ativan 0.5 mg IV in attempt to help calm the patient this was not successful. Patient has been found to have had elevated white blood cell count and questionable infiltrate on chest x-ray so she was started on 1 g of Rocephin IV and azithromycin 500 mg IV. Patient was also given 50 mcg of fentanyl for pain and sedation management. I did speak with the patient multiple times and basically was not able to get the patient to engage in a conversation. At one point the patient's son did present to the emergency department and was able to fill in some of the missing information. He states that his mother is had failure to thrive over the past couple of months worsening the past 3 weeks or so she has been bedridden and has not been able to care for herself he states that she has been seen several times both at this facility and at her primary care office and has been treated for urinary tract infection. He states that his mother does not want to be placed in a detention but also feels that at this time her condition is worsened to the point that her is not going to be able to care for her. I have spoken with th e son in regards to admission he is agreeable I have spoken with the hospitalist who is agreeable with admitting the patient. - Vital Signs Vital signs: Temp Pulse Resp BP Pulse Ox 97.6 F 23 H 162/85 H 94 11/10/19 18:05 11/10/19 18:05 11/10/19 18:05 11/10/19 18:05 - Laboratory Result Diagrams: 11/10/19 15:50 11/10/19 15:50 Laboratory results interpreted by me: 11/10/19 11/10/19 11/10/19 15:50 15:50 15:50 WBC 18.2 H MCH 26.9 L RDW 18.0 H Plt Count 505 H Lymphocytes % (Manual) 11 L Monocytes % (Manual) 15 H Abs Neuts (Manual) 13.3 H Abs Monocytes (Manual) 2.7 H ABG pO2 ABG HCO3 ABG Total CO2 Potassium 3.0 L* Chloride 96 L Est GFR (MDRD) Non-Af 50 L Glucose 168 H Hemoglobin A1c % Lactic Acid Magnesium Direct Bilirubin 0.7 H AST 43 H Alkaline Phosphatase 127 H Ammonia NT-Pro-B Natriuret Pep 2380 H Albumin 3.4 L Urine Protein Urine Glucose (UA) Urine Ketones Urine Blood Urine Urobilinogen Ur Leukocyte Esterase 11/10/19 11/10/19 11/10/19 15:50 15:50 15:50 WBC MCH RDW Plt Count Lymphocytes % (Manual) Monocytes % (Manual) Abs Neuts (Manual) Abs Monocytes (Manual) ABG pO2 ABG HCO3 ABG Total CO2 Potassium Chloride Est GFR (MDRD) Non-Af Glucose Hemoglobin A1c % 6.5 H Lactic Acid Magnesium 1.0 L* Direct Bilirubin AST Alkaline Phosphatase Ammonia < 8.7 L NT-Pro-B Natriuret Pep Albumin Urine Protein Urine Glucose (UA) Urine Ketones Urine Blood Urine Urobilinogen Ur Leukocyte Esterase 11/10/19 11/10/19 11/10/19 15:50 16:15 18:00 WBC MCH RDW Plt Count Lymphocytes % (Manual) Monocytes % (Manual) Abs Neuts (Manual) Abs Monocytes (Manual) ABG pO2 77.2 L ABG HCO3 24.5 H ABG Total CO2 25.6 H Potassium Chloride Est GFR (MDRD) Non-Af Glucose Hemoglobin A1c % Lactic Acid 2.8 H Magnesium Direct Bilirubin AST Alkaline Phosphatase Ammonia NT-Pro-B Natriuret Pep Albumin Urine Protein 100 H Urine Glucose (UA) 50 H Urine Ketones 20 H Urine Blood LARGE H Urine Urobilinogen 4.0 H Ur Leukocyte Esterase TRACE H - Diagnostic Test Radiology reviewed: Reports reviewed - EKG Interpretation by Me EKG shows normal: Sinus rhythm [place]/QRS: RBBB, LBBB Voltage: Consistent with LVH When compared to previous EKG there are: Previous EKG unavailable Discharge - Discharge Clinical Impression: Diabetes mellitus type 2 in obese, Nausea, FTT (failure to thrive) in adult Syncope Qualifiers: Syncope type: unspecified Qualified Code(s): R55 - Syncope and collapse AMS (altered mental status) Qualifiers: Altered mental status type: unspecified Qualified Code(s): R41.82 - Altered mental status, unspecified Condition: Fair Disposition: ADMITTED OBSERVATION Admitting Provider: Jose (Hospitalist) Unit Admitted: Medical Floor
[2019-11-10] MEDS ORDERED: FAMOTIDINE INJ/PF 20 MG/2 ML SDV IV ONE (17:55)
[2019-11-10] MEDS ORDERED: FENTANYL CITRATE INJ/PF 100 MCG/2 ML AMPUL IV ONE (18:13)
[2019-11-10 18:15] LABS: APPEARANCE,URINE CLOUDY; BILIRUBIN,URINE NEGATIVE (NEGATIVE); COLOR,URINE DARK YELLOW; GLUCOSE, URINE 50 mg/dL (NEGATIVE); KETONES,URINE 20 mg/dL (NEGATIVE); LEUKOCYTE ESTERASE,URINE TRACE (NEGATIVE); NITRITE,URINE NEGATIVE (NEGATIVE); PROTEIN,URINE 100 mg/dL (NEGATIVE); URINE SPECIFIC GRAVITY 1.016
[2019-11-10 18:28] LABS: URINE AMPHETAMINES SCREEN NEGATIVE; URINE BARBITURATES SCREEN NEGATIVE; URINE BENZODIAZEPINES SCREEN NEGATIVE; URINE COCAINE SCREEN NEGATIVE; URINE MARIJUANA (THC) SCREEN NEGATIVE; URINE METHADONE SCREEN NEGATIVE; URINE PHENCYCLIDINE SCREEN NEGATIVE
[2019-11-10] MEDS ORDERED: AZITHROMYCIN INJ 500 MG VIAL IV ONE (18:29)
[2019-11-10] MEDS: CEFTRIAXONE 1 GM/D5W RTU 1 GM/50 ML RTUPB IV SCH (18:47)
[2019-11-10] MEDS ORDERED: ONDANSETRON HCL INJ/PF 4 MG/2 ML SDV IV PRN (19:09)
[2019-11-10] MEDS ORDERED: DEXTROSE 5%-LACTATED RINGERS 1,000 ML IV PRN (19:09)
[2019-11-10] MEDS ORDERED: RINGERS SOLUTION,LACTATED 1,000 ML IV ONE (19:45)
[2019-11-10] MEDS: HYDROMORPHONE HCL INJ/PF 2 MG/ML AMPULE IV PRN (19:46)
[2019-11-10] MEDS: POTASSI CL 20 MEQ/50 ML RIDER 20 MEQ/50 ML RTUPB IV SCH ×2 (20:00→22:53)
[2019-11-10] MEDS ORDERED: DEXTROSE 50%-WATER 25 GM/50 ML DISP.SYRIN IV PRN ×2 (20:07)
[2019-11-10] MEDS ORDERED: GLUCAGON,HUMAN RECOMB 1 MG INJ IM PRN (20:07)
[2019-11-10] MEDS ORDERED: DEXTROSE 40% GEL 15 GM TUBE PO PRN ×2 (20:07)
--- NOTE | 2019-11-10 20:12 | PDOC H&P ---
History of Present Illness Admission Date/PCP: ELMA FERNÁNDEZ MD Patient complains of: syncope, inability to eat, failure to thrive History of Present Illness: YI TAN is a 79 year old female, hx of mengingioma s/p craniotomy, HTN, HLD, morbid obesity, type 2 DM , morbid obesity, who came via EMS from home due to poor oral intake, failure to thrive, syncope, questionable seizure. Recently admitted at [facility] from October 08 10 October 2010 due to poor oral intake, failure to thrive. She was sent home on October 19 and according to her she continued to have nausea and poor appetite and has basically been unable to eat anything, because of this she has also been unable to take her oral medications. Today she apparently lost consciousness for about 20 minutes while she was seated at the toilet. stated that he thinks she might of had seizure because her eyes were rolled upward to her head but he denied any twitching of her arms and legs. According to her son she has not been herself the past few days often incoherent or moaning and groaning. No fever noted, no shortness of breath, no chest pain, no diarrhea, no urinary symptoms. In the emergency room blood pressure 141/92, heart rate 97. CBC showed a white count of 18 CMP showed potassium of 3.0, magnesium of 1.0, lactic acid 2.8. Urinalysis negative. CT head was negative. Patient was given potassium 20 mix IV, ceftriaxone and azithromycin. She was subsequently admitted for further evaluation and management. According to her she has been unable to eat anything at all since she was discharged. He expressed frustration about the care she has had in the past claiming that we threw her out into the street without treating her. He also claims that her primary care does not want to see her anymore. He also claims that none of the oral medications we discharge her with helps with her nausea. Past Medical History Cardiac Medical History: Reports: Hypertension Denies: Atrial Fibrillation, Congestive Heart Failure, Coronary Artery Disease, Myocardial Infarction, Hyperlipidema, Peripheral Vascular Disease, Heart Murmur Pulmonary Medical History: Denies: Asthma, Bronchitis, Chronic Obstructive Pulmonary Disease (COPD), Pneumonia Neurological Medical History: Denies: Seizures Endocrine Medical History: Denies: Hyperthyroidism, Hypothyroidism Renal/ Medical History: Denies: End Stage Renal Disease Malignancy Medical History: Denies: Breast Cancer, Cervical Cancer, Ovarian Cancer GI Medical History: Denies: Crohn's Disease, Gastroesophageal Reflux Disease, Hiatal Hernia Musculoskeltal Medical History: Reports: Arthritis Denies: Fibromyalgia Psychiatric Medical History: Denies: Dementia, Depression Hematology: Denies: Anemia Past Surgical History Past Surgical History: Reports: Appendectomy - incidental with [facility] BSO, Hysterectomy, Tonsillectomy - as child, Other - Meningioma removal Denies: Amputation, Section, Cholecystectomy, Colostomy, Coronary Artery Bypass Graft, Gastric Bypass Surgery, Herniorrhaphy, Mastectomy, Pacemaker, Tubal Ligation Social History Lives with: Family Smoking Status: Unknown if Ever Smoked Frequency of Alcohol Use: None Hx Recreational Drug Use: No Drugs: None Hx Prescription Drug Abuse: No Family History Family History: Reviewed & Not Pertinent, DM, Hypertension Parental Family History Reviewed: Yes Children Family History Reviewed: Yes Sibling(s) Family History Reviewed.: Yes Medication/Allergy Home Medications: Meclizine HCl [Antivert 25 mg Tablet] 25 mg PO TIDP PRN 10/09/19 Metformin HCl [Metformin HCl ER] 500 mg PO BID 10/09/19 Metoclopramide HCl [Reglan 10 mg Tablet] 10 mg PO QIDP PRN 10/09/19 Acetaminophen [Tylenol 650 mg Supp] 650 mg MN Q4HP PRN supp.rect 10/20/19 Aspirin [Ecotrin 81 mg EC Tablet] 81 mg PO QHS tabec 10/20/19 Atorvastatin Calcium [Lipitor] 80 mg PO DAILY #30 tablet 10/20/19 Clonidine [Catapres-Tts 3 (0.3 mg/24 Hr) Transderm Patch] 1 each TD Fr@10 #12 patch.tdwk 10/20/19 Magnesium Oxide [Mag-Ox 400 mg Tablet] 400 mg PO MEALS #90 tablet 10/20/19 Ondansetron [Zofran Odt 4 mg Tablet] 8 mg PO Q6HP PRN #120 tab.rapdis 10/20/19 Potassium Chloride [Potassium Chloride 20 Meq Packet] 20 meq PO BID #60 packet 10/20/19 Sucralfate [Carafate 1 gm Tablet] 1 gm PO ACHS #120 tablet 10/20/19 Magnesium Oxide [Mag-Ox 400 mg Tablet] 400 mg PO TID #90 tablet 11/02/19 Metoclopramide HCl [Reglan 10 mg Tablet] 10 mg PO ASDIR PRN #15 tablet 11/02/19 Omeprazole 20 mg PO DAILY 11/02/19 Allergies/Adverse Reactions: No Known Allergies Allergy (Verified 10/09/16 10:59) Review of Systems ROS unobtainable: Due to mental status Physical Exam Vital Signs: Temp Pulse Resp BP Pulse Ox 97.6 F 23 H 162/85 H 94 11/10/19 18:05 11/10/19 18:05 11/10/19 18:05 11/10/19 18:05 Intake & Output 11/09/19 11/10/19 11/11/19 06:59 06:59 06:59 Intake Total 100 Balance 100 Weight 109.6 kg General appearance: PRESENT: no acute distress, morbidly obese Head exam: PRESENT: atraumatic, normocephalic Eye exam: PRESENT: EOMI, PERRLA. ABSENT: nystagmus Ear exam: PRESENT: normal external ear exam Mouth exam: PRESENT: dry mucosa Neck exam: PRESENT: full ROM. ABSENT: meningismus Respiratory exam: PRESENT: clear to auscultation patria, symmetrical, unlabored. ABSENT: rales, tachypnea, wheezes Cardiovascular exam: PRESENT: RRR, +S1, +S2 Pulses: PRESENT: +2 pedal pulses bilateral GI/Abdominal exam: PRESENT: normal bowel sounds, soft, other - LUQ mild tenderness. ABSENT: guarding Extremities exam: PRESENT: +1 edema, other - venous stasis dermatitis Musculoskeletal exam: PRESENT: other - mostly assisted Neurological exam: PRESENT: awake, oriented to person, other - able to say her birthday but cannot recall her son's name. 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 Skin exam: PRESENT: normal color Results Laboratory Results: 11/10/19 15:50 11/10/19 15:50 11/10/19 11/10/19 11/10/19 15:50 15:50 15:50 WBC 18.2 H RBC 4.99 Hgb 13.4 Hct 40.6 MCV 81 MCH 26.9 L MCHC 33.1 RDW 18.0 H Plt Count 505 H Seg Neutrophils % Not Reportable Carbonic Acid HCO3/H2CO3 Ratio ABG pH ABG pCO2 ABG pO2 ABG HCO3 ABG O2 Saturation ABG Base Excess FiO2 Sodium 139.6 Potassium 3.0 L* Chloride 96 L Carbon Dioxide 25 Anion Gap 19 BUN 20 Creatinine 1.06 Est GFR ( Amer) > 60 Glucose 168 H Lactic Acid Calcium 9.4 Magnesium Total Bilirubin 1.2 AST 43 H Alkaline Phosphatase 127 H Ammonia < 8.7 L Total Protein 7.2 Albumin 3.4 L Lipase 214.3 Urine Color Urine Appearance Urine pH Ur Specific [place] Urine Protein Urine Glucose (UA) Urine Ketones Urine Blood Urine Nitrite Ur Leukocyte Esterase Urine WBC (Auto) Urine RBC (Auto) 11/10/19 11/10/19 11/10/19 15:50 15:50 16:15 WBC RBC Hgb Hct MCV MCH MCHC RDW Plt Count Seg Neutrophils % Carbonic Acid 1.10 HCO3/H2CO3 Ratio 22:1 ABG pH 7.44 ABG pCO2 36.6 ABG pO2 77.2 L ABG HCO3 24.5 H ABG O2 Saturation 95.9 ABG Base Excess 0.7 FiO2 ROOM AIR Sodium Potassium Chloride Carbon Dioxide Anion Gap BUN Creatinine Est GFR ( Amer) Glucose Lactic Acid 2.8 H Calcium Magnesium 1.0 L* Total Bilirubin AST Alkaline Phosphatase Ammonia Total Protein Albumin Lipase Urine Color Urine Appearance Urine pH Ur Specific [place] Urine Protein Urine Glucose (UA) Urine Ketones Urine Blood Urine Nitrite Ur Leukocyte Esterase Urine WBC (Auto) Urine RBC (Auto) 11/10/19 18:00 WBC RBC Hgb Hct MCV MCH MCHC RDW Plt Count Seg Neutrophils % Carbonic Acid HCO3/H2CO3 Ratio ABG pH ABG pCO2 ABG pO2 ABG HCO3 ABG O2 Saturation ABG Base Excess FiO2 Sodium Potassium Chloride Carbon Dioxide Anion Gap BUN Creatinine Est GFR ( Amer) Glucose Lactic Acid Calcium Magnesium Total Bilirubin AST Alkaline Phosphatase Ammonia Total Protein Albumin Lipase Urine Color DARK YELLOW Urine Appearance CLOUDY Urine pH 6.0 Ur Specific [place] 1.016 Urine Protein 100 H Urine Glucose (UA) 50 H Urine Ketones 20 H Urine Blood LARGE H Urine Nitrite NEGATIVE Ur Leukocyte Esterase TRACE H Urine WBC (Auto) 13 Urine RBC (Auto) >182 11/10/19 11/10/19 15:50 15:50 Creatine Kinase 30 CK-MB (CK-2) 1.14 Troponin I 0.050 NT-Pro-B Natriuret Pep 2380 H Impressions: Chest X-Ray 11/10/19 15:55 IMPRESSION: Questionable left basilar retrocardiac opacity possibly atelectasis or airspace disease. Two view radiograph could be considered for confirmation. Head CT 11/10/19 15:55 IMPRESSION: Limited exam secondary to motion artifact. Chronic age related changes and postsurgical sequelae from prior left occipital craniotomy. No evidence of acute intracranial process. EVIDENCE OF ACUTE STROKE: NO. Assessment and Plan - Diagnosis (1) FTT (failure to thrive) in adult Is this a current diagnosis for this admission?: Yes Plan: - poor oral intake, weakness at home for a weeks now. Previously admitted at [facility] 10/08-10/19 for the same thing. - hiatal hernia with gastritis and esophagitis was said to be the cause of her poor oral intake. Discharged on reglan, zofran but has been unable to tolerate oral medications - EGD done on 10/19/2019 showed esophagitis, gastritis. -CT chest showed no obvious esophageal dilatation or other etiologies - will give IV zofran and reglan for nausea - protonix q12 IV - IV fluids D5LR - thiamine/multivitamins - will have to discuss with and son her goals of care, feeding tube options (2) Syncope Qualifiers: Syncope type: unspecified Qualified Code(s): R55 - Syncope and collapse Is this a current diagnosis for this admission?: Yes Plan: - this is likely from poor oral intake. this was noted in prior admission as well, work up negative then - will monitor in tele (3) Esophagitis determined by endoscopy Is this a current diagnosis for this admission?: Yes Plan: - as noted on EGD 10/19/19 - on protonix (4) Hypokalemia Is this a current diagnosis for this admission?: Yes Plan: - K 3.0 - replced via IV - will monitor (5) Hypomagnesemia Is this a current diagnosis for this admission?: Yes Plan: - Mg 1.0 - replaced with Mg IV - will monitor (6) Acute metabolic encephalopathy Is this a current diagnosis for this admission?: Yes Plan: - likely multifactorial from poor oral intake, previous brain surgery - neuro exam at her baseline, no new focal deficit - CT head negative. Previous MRI 3 weeks ago negative - will consider MRI if she has not improved by tomorrow (7) Diabetes mellitus type 2 in obese Is this a current diagnosis for this admission?: Yes Plan: - hold oral meds - SSI - hypoglycemia protocol - accucheck (8) Leukocytosis Is this a current diagnosis for this admission?: Yes Plan: - WBC 18 - UA no UTI - CXR normal - likely reactive from dehydration - s/p rocephin and azithro - will monitor (9) Lactic acidosis Is this a current diagnosis for this admission?: Yes Plan: - lactate 2.8, likely from hypovolemia, poor oral intake or metformin - 1 bolus NS on D5 LR - will repeat, bolus as needed (10) Morbid obesity with BMI of 40.0-44.9, adult Is this a current diagnosis for this admission?: Yes (11) Hypertension Qualifiers: Hypertension type: essential hypertension Qualified Code(s): I10 - Essential (primary) hypertension Is this a current diagnosis for this admission?: Yes Plan: - on clonidine - Time Time Spent with patient: 35 or more minutes Medications reviewed and adjusted accordingly: Yes Anticipated Discharge Disposition: to be determined Anticipated Discharge Timeframe: to be determined - Inpatient Certification Based on my medical assessment, after consideration of the patient's comorbidities, presenting symptoms, or acuity I expect that the services needed warrant INPATIENT care.: Yes I certify that my determination is in accordance with my understanding of Medicare's requirements for reasonable and necessary INPATIENT services [42 CFR 412.3e].: Yes Medical Necessity: Failure to Improve With Outpatient Therapy
[2019-11-10] MEDS ORDERED: THIAMINE HCL 100 MG, FOLIC ACID 1 MG in NORMAL SALINE 250 ML IV ONE (20:30)
[2019-11-10] MEDS ORDERED: MAGNESIUM SULFATE 4 GM/100 ML RTUPB IV ONE (20:30)
[2019-11-10] MEDS: METOCLOPRAMIDE HCL INJ/PF 10 MG/2 ML SDV IV SCH (21:55)
[2019-11-10] MEDS ORDERED: CLONIDINE 0.2 MG/24 HR PATCH.TDWK TD ONE (22:00)
--- NOTE | 2019-11-10 22:49 | EKG REPORT ---
SEVERITY:- ABNORMAL ECG - SINUS RHYTHM INCOMPLETE RBBB AND LAFB LVH WITH SECONDARY REPOLARIZATION ABNORMALITY BORDERLINE PROLONGED QT INTERVAL : Confirmed by: Stephen Potts MD 10-Nov-2019 22:48:37
[2019-11-10] MEDS: HEPARIN SOD (PORCINE) 5,000 UNIT/ML 1 ML VIAL SUBCUT SCH (22:54)
[2019-11-10] MEDS: PANTOPRAZOLE SODIUM 40 MG VIAL IV SCH (23:33)
[2019-11-11] MEDS: HYDROMORPHONE HCL INJ/PF 2 MG/ML AMPULE IV PRN ×2 (00:18→04:24)
[2019-11-11] MEDS: INSULIN LISPRO 100 UNIT/ML 3 ML VIAL SUBCUT SCH ×4 (01:02→17:44)
[2019-11-11] MEDS: METOCLOPRAMIDE HCL INJ/PF 10 MG/2 ML SDV IV SCH ×3 (04:25→21:39)
[2019-11-11] MEDS: HEPARIN SOD (PORCINE) 5,000 UNIT/ML 1 ML VIAL SUBCUT SCH ×3 (05:46→21:38)
[2019-11-11 06:27] LABS: ABSOLUTE LYMPHOCYTES (AUTO) 1.6 10^3/uL (0.5-4.7); ABSOLUTE MONOCYTES (AUTO) 2.1 10^3/uL (0.1-1.4); ABSOLUTE NEUT (AUTO) 11.7 10^3/uL (1.7-8.2); BASOPHILS % (AUTO) 0.2 % (0-2); EOSINOPHILS % (AUTO) 0.2 % (0-6); HEMATOCRIT 33.9 % (36.0-47.0); HEMOGLOBIN 11.5 g/dL (12.0-15.5); LYMPHOCYTES % (AUTO) 10.5 % (13-45); MEAN CORPUSCULAR HEMOGLOBIN 27.1 pg (27.0-33.4); MEAN CORPUSCULAR VOLUME 80 fl (80-97); MONOCYTES % (AUTO) 13.4 % (3-13); PLATELET COUNT 329 10^3/uL (150-450); RED BLOOD COUNT 4.25 10^6/uL (3.72-5.28); RED CELL DISTRIBUTION WIDTH 17.8 % (11.5-14.0); SEGMENTED NEUTROPHILS % (AUTO) 75.7 % (42-78); TOTAL CELLS COUNTED % (AUTO) 100 %; WHITE BLOOD COUNT 15.4 10^3/uL (4.0-10.5)
[2019-11-11 06:50] LABS: ALBUMIN 2.7 g/dL (3.5-5.0); ALKALINE PHOSPHATASE 103 U/L (38-126); ANION GAP 10 (5-19); ASPARTATE AMINO TRANSFERASE 33 U/L (14-36); BILIRUBIN,DIRECT 0.6 mg/dL (0.0-0.4); BILIRUBIN,TOTAL 0.9 mg/dL (0.2-1.3); BLOOD UREA NITROGEN 19 mg/dL (7-20); CALCIUM 8.3 mg/dL (8.4-10.2); CARBON DIOXIDE 27 mmol/L (22-30); CHLORIDE 103 mmol/L (98-107); GLUCOSE 134 mg/dL (75-110); NEONATAL BILIRUBIN RESULT 0.2 mg/dL (0.1-1.1)
[2019-11-11 07:16] LABS: POTASSIUM 2.7 mmol/L (3.6-5.0)
[2019-11-11] MEDS: CEFTRIAXONE 1 GM/D5W RTU 1 GM/50 ML RTUPB IV SCH (10:57)
[2019-11-11] MEDS: PANTOPRAZOLE SODIUM 40 MG VIAL IV SCH (10:57)
[2019-11-11] MEDS: MULTIVITAMIN TABLET PO SCH (10:57)
[2019-11-11] MEDS: POTASSI CL 20 MEQ/50 ML RIDER 20 MEQ/50 ML RTUPB IV SCH ×4 (12:14→19:36)
[2019-11-11] MEDS ORDERED: ONDANSETRON 4 MG TAB.RAPDIS PO PRN (17:17)
--- NOTE | 2019-11-11 17:30 | PDOC PROGRESS REPORT ---
Subjective Progress Note for:: 11/11/19 Subjective:: YI TAN is a 79 year old female, hx of mengingioma s/p craniotomy, HTN, HLD, morbid obesity, type 2 DM , morbid obesity, who came via EMS from home due to poor oral intake, failure to thrive, syncope, questionable seizure. Recently admitted at [facility] from October 08 10 October 2010 due to poor oral intake, failure to thrive. She was sent home on October 19 and according to her she continued to have nausea and poor appetite and has basically been unable to eat anything, because of this she has also been unable to take her oral medications. Today she apparently lost consciousness for about 20 minutes while she was seated at the toilet. stated that he thinks she might of had seizure because her eyes were rolled upward to her head but he denied any twitching of her arms and legs. According to her son she has not been herself the past few days often incoherent or moaning and groaning. No fever noted, no shortness of breath, no chest pain, no diarrhea, no urinary symptoms. In the emergency room blood pressure 141/92, heart rate 97. CBC showed a white count of 18 CMP showed potassium of 3.0, magnesium of 1.0, lactic acid 2.8. Urinalysis negative. CT head was negative. Patient was given potassium 20 mix IV, ceftriaxone and azithromycin. She was subsequently admitted for further evaluation and management. According to her she has been unable to eat anything at all since she was discharged. He expressed frustration about the care she has had in the past claiming that we threw her out into the street without treating her. He also claims that her primary care does not want to see her anymore. He also claims that none of the oral medications we discharge her with helps with her nausea. D2 hospital stay 11/11/19. She was seen and examined at bedside. She is back to her baseline, she is alert, awake and talking. She reports that her nausea has improved and she was able to eat apple sauce, soup and jello. No vomiting. She denies any chest pain or SOB. No diarrhea. potassium was 2.7 which was replaced, magnesium normal. Blood culture is negative and I suspect her leukocytosis may be from dehydration. I spoke to her about options to make sure she gets the nutrition she needs since it seems that her nausea is so severe that she was unable to eat anything. I discussed with her that if things continue to be this way, a feeding tube might be an option and she told me that for now it is not something that she wants. I asked her what her wishes are in terms of CODE status and she wants to be FULL code. I encouraged her to discuss her wishes with her . Reason For Visit: SYNCOPE,HYPOKALEMIA,HYPOMAGNESEMIA Physical Exam Vital Signs: Temp Pulse Resp BP Pulse Ox 97.9 F 83 12 148/63 H 95 11/11/19 16:00 11/11/19 16:00 11/11/19 16:00 11/11/19 16:00 11/11/19 16:00 Intake & Output 11/10/19 11/11/19 11/12/19 06:59 06:59 06:59 Intake Total 551.2 220 Output Total 400 100 Balance 151.2 120 Weight 103.6 kg General appearance: PRESENT: no acute distress, cooperative, obese Head exam: PRESENT: atraumatic, normocephalic Eye exam: PRESENT: EOMI, PERRLA Mouth exam: PRESENT: moist Neck exam: PRESENT: full ROM Respiratory exam: PRESENT: clear to auscultation patria, symmetrical, unlabored Cardiovascular exam: PRESENT: RRR, +S1, +S2 Pulses: PRESENT: +2 pedal pulses bilateral GI/Abdominal exam: PRESENT: normal bowel sounds, soft. ABSENT: rebound, tenderness Extremities exam: PRESENT: other - venous stasis dermatitis Musculoskeletal exam: PRESENT: full ROM Neurological exam: PRESENT: alert, awake, oriented to person, oriented to place, oriented to time, oriented to situation Psychiatric exam: PRESENT: normal mood Skin exam: PRESENT: normal color Results Laboratory Results: 11/11/19 06:12 11/11/19 06:12 11/10/19 11/10/19 11/10/19 15:50 15:50 15:50 WBC 18.2 H RBC 4.99 Hgb 13.4 Hct 40.6 MCV 81 MCH 26.9 L MCHC 33.1 RDW 18.0 H Plt Count 505 H Seg Neutrophils % Sodium Potassium Chloride Carbon Dioxide Anion Gap BUN Creatinine Est GFR ( Amer) Glucose Lactic Acid 2.8 H Calcium Magnesium 1.0 L* Total Bilirubin AST Alkaline Phosphatase Ammonia Total Protein Albumin Urine Color Urine Appearance Urine pH Ur Specific [place] Urine Protein Urine Glucose (UA) Urine Ketones Urine Blood Urine Nitrite Ur Leukocyte Esterase Urine WBC (Auto) Urine RBC (Auto) 11/10/19 11/10/19 11/10/19 18:00 20:25 22:00 WBC RBC Hgb Hct MCV MCH MCHC RDW Plt Count Seg Neutrophils % Sodium Potassium Chloride Carbon Dioxide Anion Gap BUN Creatinine Est GFR ( Amer) Glucose Lactic Acid 1.0 Calcium Magnesium Total Bilirubin AST Alkaline Phosphatase Ammonia < 8.7 L Total Protein Albumin Urine Color DARK YELLOW Urine Appearance CLOUDY Urine pH 6.0 Ur Specific [place] 1.016 Urine Protein 100 H Urine Glucose (UA) 50 H Urine Ketones 20 H Urine Blood LARGE H Urine Nitrite NEGATIVE Ur Leukocyte Esterase TRACE H Urine WBC (Auto) 13 Urine RBC (Auto) >182 11/11/19 11/11/19 06:12 06:12 WBC 15.4 H RBC 4.25 Hgb 11.5 L Hct 33.9 L MCV 80 MCH 27.1 MCHC 34.0 RDW 17.8 H Plt Count 329 Seg Neutrophils % 75.7 Sodium 140.3 Potassium 2.7 L* Chloride 103 Carbon Dioxide 27 Anion Gap 10 BUN 19 Creatinine 1.03 Est GFR ( Amer) > 60 Glucose 134 H Lactic Acid Calcium 8.3 L Magnesium 2.1 D Total Bilirubin 0.9 AST 33 Alkaline Phosphatase 103 Ammonia Total Protein 6.0 L Albumin 2.7 L Urine Color Urine Appearance Urine pH Ur Specific [place] Urine Protein Urine Glucose (UA) Urine Ketones Urine Blood Urine Nitrite Ur Leukocyte Esterase Urine WBC (Auto) Urine RBC (Auto) 11/10/19 11/10/19 15:50 15:50 Creatine Kinase 30 CK-MB (CK-2) 1.14 Troponin I 0.050 NT-Pro-B Natriuret Pep 2380 H Impressions: Chest X-Ray 11/10/19 15:55 IMPRESSION: Questionable left basilar retrocardiac opacity possibly atelectasis or airspace disease. Two view radiograph could be considered for confirmation. Head CT 11/10/19 15:55 IMPRESSION: Limited exam secondary to motion artifact. Chronic age related changes and postsurgical sequelae from prior left occipital craniotomy. No evidence of acute intracranial process. EVIDENCE OF ACUTE STROKE: NO. Assessment and Plan - Diagnosis (1) FTT (failure to thrive) in adult Is this a current diagnosis for this admission?: Yes Plan: - poor oral intake, weakness at home for a weeks now. Previously admitted at [place] 10/08-10/19 for the same thing. - hiatal hernia with gastritis and esophagitis was said to be the cause of her poor oral intake. Discharged on reglan, zofran but has been unable to tolerate oral medications - EGD done on 10/19/2019 showed esophagitis, gastritis. -CT chest showed no obvious esophageal dilatation or other etiologies - nausea has improved with reglan and zofran - I have switched her protonix and zofran to oral and see if she can tolerate this - IV fluids D5LR continue for now - thiamine/multivitamins - she is decisional of her care today and I have discussed that if she is unable to take anything by mouth a feeding tube might be an option but she stated that that is not something that she would want. I am unsure if she is a candidate for any surgical procedure for her hiatal hernia. (2) Syncope Qualifiers: Syncope type: unspecified Qualified Code(s): R55 - Syncope and collapse Is this a current diagnosis for this admission?: Yes Plan: - this is likely from poor oral intake. this was noted in prior admission as well, work up negative then - tele sinus rhythm no significant arrythmia - will monitor in tele (3) Hiatal hernia Is this a current diagnosis for this admission?: Yes Plan: - moderate. As noted on EGD done 10/19/19 - her symptoms have not improved at home despite increasing protonix and c arafate - GI not available - consider re consulting surgery to discuss what options she has in terms of hiatal hernia management (4) Esophagitis determined by endoscopy Is this a current diagnosis for this admission?: Yes Plan: - as noted on EGD 10/19/19 - on protonix (5) Hypokalemia Is this a current diagnosis for this admission?: Yes Plan: - K 3.0>2.7 - replaced via IV - Mg corrected - will monitor (6) Hypomagnesemia Is this a current diagnosis for this admission?: Yes Plan: - Mg 1.0>2.1 resolved - replaced with Mg IV - will monitor (7) Acute metabolic encephalopathy Is this a current diagnosis for this admission?: Yes Plan: - Resolved - likely multifactorial from poor oral intake, previous brain surgery - neuro exam at her baseline, no new focal deficit - CT head negative. Previous MRI 3 weeks ago negative (8) Diabetes mellitus type 2 in obese Is this a current diagnosis for this admission?: Yes Plan: - hold oral meds - SSI - hypoglycemia protocol - accucheck (9) Leukocytosis Is this a current diagnosis for this admission?: Yes Plan: - WBC 18>15 - UA no UTI - CXR normal - blood culture negative x 1 - likely reactive from dehydration - s/p rocephin and azithro - on ceftri. Plan to stop tomorrow if cultures remain negative. - will monitor (10) Lactic acidosis Is this a current diagnosis for this admission?: Yes Plan: - lactate 2.8>1.0 resolved likely from hypovolemia, poor oral intake or metf ormin (11) Morbid obesity with BMI of 40.0-44.9, adult Is this a current diagnosis for this admission?: Yes (12) Hypertension Qualifiers: Hypertension type: essential hypertension Qualified Code(s): I10 - Essential (primary) hypertension Is this a current diagnosis for this admission?: Yes Plan: - on clonidine, patch resumed - Time Time Spent with patient: 25-34 minutes Anticipated Discharge Disposition: Home, Self Care Anticipated Discharge Timeframe: to be determined
[2019-11-11] MEDS: ATORVASTATIN CALCIUM 80 MG TABLET PO SCH (21:38)
[2019-11-11] MEDS: SUCRALFATE 1 GM TABLET PO SCH (21:39)
[2019-11-11] MEDS: RINGERS SOLUTION,LACTATED 1,000 ML IV PRN (23:45)
[2019-11-12] MEDS: METOCLOPRAMIDE HCL INJ/PF 10 MG/2 ML SDV IV SCH ×3 (05:05→21:29)
[2019-11-12] MEDS: HYDROMORPHONE HCL INJ/PF 2 MG/ML AMPULE IV PRN (05:09)
[2019-11-12] MEDS: PANTOPRAZOLE SODIUM 40 MG TABLET.DR PO SCH ×2 (05:30→17:41)
[2019-11-12] MEDS: HEPARIN SOD (PORCINE) 5,000 UNIT/ML 1 ML VIAL SUBCUT SCH ×3 (05:31→21:31)
[2019-11-12 06:50] LABS: ABSOLUTE EOSINOPHILS # (AUTO) 0.1 10^3/uL (0.0-0.6); ABSOLUTE LYMPHOCYTES (AUTO) 1.7 10^3/uL (0.5-4.7); ABSOLUTE MONOCYTES (AUTO) 2.2 10^3/uL (0.1-1.4); ABSOLUTE NEUT (AUTO) 14.1 10^3/uL (1.7-8.2); BASOPHILS % (AUTO) 0.3 % (0-2); EOSINOPHILS % (AUTO) 0.8 % (0-6); HEMATOCRIT 33.3 % (36.0-47.0); HEMOGLOBIN 11.1 g/dL (12.0-15.5); LYMPHOCYTES % (AUTO) 9.5 % (13-45); MEAN CORPUSCULAR HGB CONC 33.4 g/dL (32.0-36.0); MEAN CORPUSCULAR VOLUME 81 fl (80-97); MONOCYTES % (AUTO) 12.1 % (3-13); PLATELET COUNT 265 10^3/uL (150-450); RED BLOOD COUNT 4.13 10^6/uL (3.72-5.28); RED CELL DISTRIBUTION WIDTH 17.8 % (11.5-14.0); SEGMENTED NEUTROPHILS % (AUTO) 77.3 % (42-78); TOTAL CELLS COUNTED % (AUTO) 100 %; WHITE BLOOD COUNT 18.2 10^3/uL (4.0-10.5)
[2019-11-12] MEDS: INSULIN LISPRO 100 UNIT/ML 3 ML VIAL SUBCUT SCH ×4 (06:54→18:57)
[2019-11-12 07:09] LABS: ALBUMIN 2.4 g/dL (3.5-5.0); ALKALINE PHOSPHATASE 111 U/L (38-126); ANION GAP 9 (5-19); ASPARTATE AMINO TRANSFERASE 45 U/L (14-36); BILIRUBIN,DIRECT 0.5 mg/dL (0.0-0.4); BLOOD UREA NITROGEN 15 mg/dL (7-20); CALCIUM 8.1 mg/dL (8.4-10.2); CARBON DIOXIDE 25 mmol/L (22-30); CHLORIDE 106 mmol/L (98-107); GLUCOSE 145 mg/dL (75-110); POTASSIUM 3.1 mmol/L (3.6-5.0); TOTAL PROTEIN 5.6 g/dL (6.3-8.2)
[2019-11-12] MEDS ORDERED: POTASSIUM CHLORIDE 20 MEQ PACKET PO ONE ×2 (07:56→12:00)
[2019-11-12] MEDS ORDERED: INFLUENZA QUAD (6MOS+) 2020-21 VAC 0.5 ML SYR IM ONE (08:00)
[2019-11-12] MEDS: SUCRALFATE 1 GM TABLET PO SCH ×4 (08:00→21:29)
[2019-11-12] MEDS ORDERED: AZITHROMYCIN INJ 500 MG VIAL IV SCH (10:00)
[2019-11-12] MEDS: CEFTRIAXONE 1 GM/D5W RTU 1 GM/50 ML RTUPB IV SCH (11:00)
[2019-11-12] MEDS: RINGERS SOLUTION,LACTATED 1,000 ML IV PRN ×2 (11:00→20:10)
[2019-11-12] MEDS: MULTIVITAMIN TABLET PO SCH (11:26)
[2019-11-12] MEDS: MAGNESIUM OXIDE 400 MG TABLET PO SCH (11:27)
[2019-11-12] MEDS: DILTIAZEM HCL 60 MG TABLET PO SCH ×2 (11:38→17:41)
[2019-11-12] MEDS ORDERED: DILTIAZEM HCL 30 MG TABLET PO SCH (12:00)
--- NOTE | 2019-11-12 20:10 | ADVANCED CARE ---
- Diagnosis (1) FTT (failure to thrive) in adult Diagnosis Current: Yes (2) Syncope Diagnosis Current: Yes (3) Hiatal hernia Diagnosis Current: Yes (4) Esophagitis determined by endoscopy Diagnosis Current: Yes (5) Hypokalemia Diagnosis Current: Yes (6) Hypomagnesemia Diagnosis Current: Yes (7) Acute metabolic encephalopathy Diagnosis Current: Yes (8) Diabetes mellitus type 2 in obese Diagnosis Current: Yes (9) Leukocytosis Diagnosis Current: Yes (10) Lactic acidosis Diagnosis Current: Yes (11) Morbid obesity with BMI of 40.0-44.9, adult Diagnosis Current: Yes (12) Hypertension Diagnosis Current: Yes Attendance: Patient Resuscitation Status: Full Code Discussion: I spoke to the patient about her recent frequent admissions due to poor appetite, nausea, failure to thrive. During this discussion she was awake alert and oriented and can make her own medical decisions. I expressed with her my concern regarding her inability to eat for the past few weeks and if this continues without improvement from current medications she might need an alternative way to feed her which may include tube feedings whether in the form of an NG tube or a PEG tube. I discussed with her that in her case being obese with multiple medical comorbidities this is not the most ideal and advisable option and would resolve to a lot of complications. She expressed that as of now she does not want to have a feeding tube inserted. She said that she will try her best to eat. I also broach the topic her might be overwhelmed at home taking care of her. To which she replied "I do not want to go to a [facility]". She did confirm her full CODE STATUS but when I asked her what her thoughts are about prolonged life-sustaining measures she said she has not thought about it. I highly encouraged her to discuss these things with her . I tried to contact her over the phone but was unable to reach him. Document(s) Completed: none Time Spent: >16 min < 30 min
[2019-11-12] MEDS ORDERED: PIPERACILLIN/TAZOBACTAM 3.375 GM VIAL IV PRN (20:15)
[2019-11-12] MEDS ORDERED: ONDANSETRON HCL INJ/PF 4 MG/2 ML SDV IV PRN (20:23)
--- NOTE | 2019-11-12 20:38 | PDOC PROGRESS REPORT ---
Subjective Progress Note for:: 11/12/19 Subjective:: LIEN CHIU is a 79 year old female, hx of mengingioma s/p craniotomy, HTN, HLD, morbid obesity, type 2 DM , morbid obesity, who came via EMS from home due to poor oral intake, failure to thrive, syncope, questionable seizure. Recently admitted at [facility] from October 08 10 October 2010 due to poor oral intake, failure to thrive. She was sent home on October 19 and according to her she continued to have nausea and poor appetite and has basically been unable to eat anything, because of this she has also been unable to take her oral medications. Today she apparently lost consciousness for about 20 minutes while she was seated at the toilet. stated that he thinks she might of had seizure because her eyes were rolled upward to her head but he denied any twitching of her arms and legs. According to her son she has not been herself the past few days often incoherent or moaning and groaning. No fever noted, no shortness of breath, no chest pain, no diarrhea, no urinary symptoms. In the emergency room blood pressure 141/92, heart rate 97. CBC showed a white count of 18 CMP showed potassium of 3.0, magnesium of 1.0, lactic acid 2.8. Urinalysis negative. CT head was negative. Patient was given potassium 20 mix IV, ceftriaxone and azithromycin. She was subsequently admitted for further evaluation and management. According to her she has been unable to eat anything at all since she was discharged. He expressed frustration about the care she has had in the past claiming that we threw her out into the street without treating her. He also claims that her primary care does not want to see her anymore. He also claims that none of the oral medications we discharge her with helps with her nausea. D2 hospital stay 11/11/19. She was seen and examined at bedside. She is back to her baseline, she is alert, awake and talking. She reports that her nausea has improved and she was able to eat apple sauce, soup and jello. No vomiting. She denies any chest pain or SOB. No diarrhea. potassium was 2.7 which was replaced, magnesium normal. Blood culture is negative and I suspect her leukocytosis may be from dehydration. I spoke to her about options to make sure she gets the nutrition she needs since it seems that her nausea is so severe that she was unable to eat anything. I discussed with her that if things continue to be this way, a feeding tube might be an option and she told me that for now it is not something that she wants. I asked her what her wishes are in terms of CODE status and she wants to be FULL code. I encouraged her to discuss her wishes with her . D3 hospital stay 11/12/19. She was seen and examined at bedside. She is more alert and awake and I was able to have a normal conversation with her. She is able to eat jello but still struggles a lot with nausea, no abdominal pain. she denies nay chest pain, no SOB. WBC count 18, potassium and magnesium low. I talked to her again about her nausea and inability to eat and she stated that " I promised I would eat and try harder". Attempted to call her to update him but I was unable to reach him, I left my number and voicemail. Reason For Visit: SYNCOPE,HYPOKALEMIA,HYPOMAGNESEMIA Physical Exam Vital Signs: Temp Pulse Resp BP Pulse Ox 98.9 F 82 20 163/62 H 93 11/12/19 15:20 11/12/19 15:20 11/12/19 15:20 11/12/19 15:20 11/12/19 15:20 Intake & Output 11/11/19 11/12/19 11/13/19 06:59 06:59 06:59 Intake Total 551.2 790 1430 Output Total 763 069 2829 Balance 151.2 590 -170 Weight 103.6 kg 115.3 kg General appearance: PRESENT: no acute distress, cooperative, morbidly obese Head exam: PRESENT: atraumatic, normocephalic Eye exam: PRESENT: EOMI, PERRLA Mouth exam: PRESENT: moist Neck exam: PRESENT: full ROM Respiratory exam: PRESENT: clear to auscultation patria, unlabored. ABSENT: wheezes Cardiovascular exam: PRESENT: RRR, +S1, +S2 Pulses: PRESENT: +2 pedal pulses bilateral GI/Abdominal exam: PRESENT: normal bowel sounds, soft. ABSENT: rebound - non pitting edema, venous stasis dermatitis, tenderness Extremities exam: PRESENT: full ROM Musculoskeletal exam: ABSENT: tenderness Neurological exam: PRESENT: alert, awake, oriented to person, oriented to place, oriented to time, oriented to situation Psychiatric exam: PRESENT: normal mood Skin exam: PRESENT: normal color Results Laboratory Results: 11/12/19 06:34 11/12/19 06:34 11/12/19 11/12/19 06:34 06:34 WBC 18.2 H RBC 4.13 Hgb 11.1 L Hct 33.3 L MCV 81 MCH 27.0 MCHC 33.4 RDW 17.8 H Plt Count 265 Seg Neutrophils % 77.3 Sodium 139.6 Potassium 3.1 L Chloride 106 Carbon Dioxide 25 Anion Gap 9 BUN 15 Creatinine 0.85 Est GFR ( Amer) > 60 Glucose 145 H Calcium 8.1 L Magnesium 1.4 L Total Bilirubin 1.0 AST 45 H Alkaline Phosphatase 111 Total Protein 5.6 L Albumin 2.4 L 11/10/19 11/10/19 15:50 15:50 Creatine Kinase 30 CK-MB (CK-2) 1.14 Troponin I 0.050 NT-Pro-B Natriuret Pep 2380 H Impressions: Chest X-Ray 11/10/19 15:55 IMPRESSION: Questionable left basilar retrocardiac opacity possibly atelectasis or airspace disease. Two view radiograph could be considered for confirmation. Head CT 11/10/19 15:55 IMPRESSION: Limited exam secondary to motion artifact. Chronic age related changes and postsurgical sequelae from prior left occipital craniotomy. No evidence of acute intracranial process. EVIDENCE OF ACUTE STROKE: NO. Assessment and Plan - Diagnosis (1) FTT (failure to thrive) in adult Is this a current diagnosis for this admission?: Yes Plan: - poor oral intake, weakness at home for a weeks now. Previously admitted at [place] 10/08-10/19 for the same thing. - hiatal hernia with gastritis and esophagitis was said to be the cause of her poor oral intake. Discharged on reglan, zofran but has been unable to tolerate oral medications - EGD done on 10/19/2019 showed esophagitis, gastritis. -CT chest showed no obvious esophageal dilatation or other etiologies - nausea has improved with reglan and zofran IV - IV fluids D5LR continue for now - thiamine/multivitamins - she is decisional of her care today and I have discussed that if she is unable to take anything by mouth a feeding tube might be an option but she stated that that is not something that she would want. I am unsure if she is a candidate for any surgical procedure for her hiatal hernia. - The degree of nausea and inability to eat seem out of proportion with her hiatal hernia, esophageal dysmotility . Can and esophagitis. She failed to improve on optimal PPI dose, carafate, plasil at home. Per nifedipine did not help as well with her nausea. - trial Cardizem 60 q6 as per uptodate this might be better for esophageal dysmotility. Can trial peppermint oil as well. - consider surgery consult. Ideally GI - psych consulted as well as dysphagia failure to thrive might be 2/2 depression (2) Syncope Qualifiers: Syncope type: unspecified Qualified Code(s): R55 - Syncope and collapse Is this a current diagnosis for this admission?: Yes Plan: - this is likely from poor oral intake. this was noted in prior admission as well, work up negative then - tele sinus rhythm no significant arrythmia - will monitor in tele (3) Hiatal hernia Is this a current diagnosis for this admission?: Yes Plan: - moderate. As noted on EGD done 10/19/19 - her symptoms have not improved at home despite increasing protonix and carafate - GI not available - consider re consulting surgery to discuss what options she has in terms of hiatal hernia management (4) Esophagitis determined by endoscopy Is this a current diagnosis for this admission?: Yes Plan: - as noted on EGD 10/19/19 - on protonix (5) Hypokalemia Is this a current diagnosis for this admission?: Yes Plan: - K 3.0>2.7>3.1 replaced - replaced via IV - Mg replaced too - will monitor (6) Hypomagnesemia Is this a current diagnosis for this admission?: Yes Plan: - Mg 1.0>2.1>1.4 resolved - replaced with Mg IV - will monitor (7) Acute metabolic encephalopathy Is this a current diagnosis for this admission?: Yes Plan: - Resolved - likely multifactorial from poor oral intake, previous brain surgery - neuro exam at her baseline, no new focal deficit - CT head negative. Previous MRI 3 weeks ago negative (8) Diabetes mellitus type 2 in obese Is this a current diagnosis for this admission?: Yes Plan: - hold oral meds - SSI - hypoglycemia protocol - acconelia (9) Leukocytosis Is this a current diagnosis for this admission?: Yes Plan: - WBC 18>15>18 - UA no UTI - CXR normal - blood culture negative x 2 - no obvious source of infection for now - switched to zosyn due to persistent leukocytosis (10) Lactic acidosis Is this a current diagnosis for this admission?: Yes Plan: - lactate 2.8>1.0 resolved likely from hypovolemia, poor oral intake or metformin (11) Morbid obesity with BMI of 40.0-44.9, adult Is this a current diagnosis for this admission?: Yes (12) Hypertension Qualifiers: Hypertension type: essential hypertension Qualified Code(s): I10 - Essential (primary) hypertension Is this a current diagnosis for this admission?: Yes Plan: - on clonidine, patch resumed - Plan Summary Summary: lien Chiu 79/f who was just discharged 10/20/19 due to the same reason nausea, poor oral intake and failure to thrive which was thought to be from combination of esophagitis, gastritis and hiatal hernia. She failed to improve on twice daily PPI, carafate and nifedipine and was admitted again for the same thing. I have started her on Cardizem 60 mg every 8 as this was found to be more effective than nifedipine and see how she responds. Dysphagia and nausea may be related to depression and I have asked psych to see her. When I talked to her over the phone when I admitted her he expressed frustration and seemed overwhelmed with what is happening to his . I doubt if he is able to properly care for his given her increased medical needs. However the patient thinks that her can handle it and has expressed multiple times that she does not want to end up in a retirement. At this point I am not sure if medications will help with her symptoms. although a feeding tube will also not be a good idea for her and she has already expressed that she zavala snot want surgery for feeding. - Time Time Spent with patient: 25-34 minutes Anticipated Discharge Disposition: to be determined Anticipated Discharge Timeframe: to be determined
[2019-11-12] MEDS: ATORVASTATIN CALCIUM 80 MG TABLET PO SCH (21:28)
[2019-11-12] MEDS ORDERED: PIPERACILLIN/TAZOBACTAM 3.375 GM VIAL IV ONE (21:30)
[2019-11-12] MEDS: MAGNESIUM SULFATE/D5W 1 GM/100 ML RTUPB IV SCH (21:31)
[2019-11-12] MEDS: PIPERACILLIN SODIUM/TAZOBACTAM 3.375 GM in NORMAL SALINE 100 ML IV SCH (23:46)
[2019-11-13] MEDS: INSULIN LISPRO 100 UNIT/ML 3 ML VIAL SUBCUT SCH ×4 (00:25→20:09)
[2019-11-13] MEDS: DILTIAZEM HCL 60 MG TABLET PO SCH ×3 (00:33→12:27)
[2019-11-13] MEDS: MAGNESIUM SULFATE/D5W 1 GM/100 ML RTUPB IV SCH ×2 (00:41→04:25)
[2019-11-13] MEDS: METOCLOPRAMIDE HCL INJ/PF 10 MG/2 ML SDV IV SCH ×4 (00:43→17:51)
[2019-11-13] MEDS ORDERED: MAGNESIUM SULFATE/D5W 1 GM/100 ML RTUPB IV ONE (04:13)
[2019-11-13] MEDS: RINGERS SOLUTION,LACTATED 1,000 ML IV PRN (04:32)
[2019-11-13] MEDS: HEPARIN SOD (PORCINE) 5,000 UNIT/ML 1 ML VIAL SUBCUT SCH ×2 (06:09→15:04)
[2019-11-13] MEDS: PIPERACILLIN SODIUM/TAZOBACTAM 3.375 GM in NORMAL SALINE 100 ML IV SCH ×2 (06:13→15:04)
[2019-11-13 07:56] LABS: HEMATOCRIT 34.1 % (36.0-47.0); HEMOGLOBIN 11.2 g/dL (12.0-15.5); MEAN CORPUSCULAR HEMOGLOBIN 26.5 pg (27.0-33.4); MEAN CORPUSCULAR HGB CONC 32.9 g/dL (32.0-36.0); MEAN CORPUSCULAR VOLUME 81 fl (80-97); PLATELET COUNT 257 10^3/uL (150-450); RED BLOOD COUNT 4.23 10^6/uL (3.72-5.28); RED CELL DISTRIBUTION WIDTH 17.7 % (11.5-14.0); WHITE BLOOD COUNT 17.9 10^3/uL (4.0-10.5)
[2019-11-13 08:06] LABS: ALBUMIN 2.3 g/dL (3.5-5.0); ALKALINE PHOSPHATASE 130 U/L (38-126); ANION GAP 8 (5-19); ASPARTATE AMINO TRANSFERASE 32 U/L (14-36); BILIRUBIN,DIRECT 0.5 mg/dL (0.0-0.4); BILIRUBIN,TOTAL 1.2 mg/dL (0.2-1.3); BLOOD UREA NITROGEN 11 mg/dL (7-20); CALCIUM 7.7 mg/dL (8.4-10.2); CARBON DIOXIDE 26 mmol/L (22-30); CHLORIDE 102 mmol/L (98-107); GLUCOSE 186 mg/dL (75-110); TOTAL PROTEIN 5.6 g/dL (6.3-8.2)
[2019-11-13 08:47] LABS: ABSOLUTE LYMPHOCYTES# (MANUAL) 2.9 10^3/uL (0.5-4.7); ABSOLUTE MONOCYTES # (MANUAL) 1.4 10^3/uL (0.1-1.4); BASOPHILS % (MANUAL) 0 % (0-2); EOSINOPHILS % (MANUAL) 2 % (0-6); LYMPHOCYTES % (MANUAL) 15 % (13-45); MONOCYTES % (MANUAL) 8 % (3-13); SEGMENTED NEUTROPHILS % (MAN) 74 % (42-78); TOTAL CELLS COUNTED 100
[2019-11-13 08:48] LABS: ANISOCYTOSIS 1+
[2019-11-13 08:49] LABS: PLATELET COMMENT ADEQUATE; POLYCHROMASIA SLIGHT
[2019-11-13] MEDS: MAGNESIUM OXIDE 400 MG TABLET PO SCH (10:16)
[2019-11-13] MEDS: SUCRALFATE 1 GM TABLET PO SCH ×4 (10:16→21:49)
[2019-11-13] MEDS: MULTIVITAMIN TABLET PO SCH (10:16)
[2019-11-13] MEDS: POTASSI CL 20 MEQ/50 ML RIDER 20 MEQ/50 ML RTUPB IV SCH ×4 (10:18→17:51)
[2019-11-13] MEDS ORDERED: AZITHROMYCIN 500 MG in DEXTROSE 5%-WATER 250 ML IV SCH (12:00)
--- NOTE | 2019-11-13 18:18 | RADIOLOGY REPORT (SQ) ---
EXAM DESCRIPTION: VENOUS UNILATERAL UPPER IMAGES COMPLETED DATE/TIME: 11/13/2019 6:03 pm REASON FOR STUDY: right arm swelling COMPARISON: None. TECHNIQUE: Dynamic and static piña scale and color images acquired of the right arm venous system. S elected spectral images acquired with additional compression and augmentation maneuvers. The contrala teral subclavian vein and internal jugular vein were also imaged. Images stored on PACS. LIMITATIONS: None. FINDINGS: INTERNAL JUGULAR VEIN: Normal phasicity, compression, augmentation. No visualized echogeni c material on piña scale. No defects on color images. Comparison opposite side normal. SUBCLAVIAN VEIN: Normal compression, augmentation. No visualized echogenic material on piña scale. No defects on color images. AXILLARY VEIN: Normal compression, augmentation. No visualized echogenic material on piña scale. No d efects on color images. BRACHIAL VEIN: Normal compression, augmentation. No visualized echogenic material on piña scale. No d efects on color images. BASILIC VEIN: Normal compression, augmentation. No visualized echogenic material on piña scale. No de fects on color images. CEPHALIC VEIN: Normal compression, augmentation. No visualized echogenic material on piña scale. No d efects on color images. OTHER: No other significant finding. CONTRALATERAL SUBCLAVIAN VEIN AND INTERNAL JUGULAR VEIN: Normal phasicity, compression and augmentation. No visualized echogenic material on piña scale. No de fects on color images. IMPRESSION: NO EVIDENCE DVT OR SVT RIGHT ARM. TECHNICAL DOCUMENTATION: JOB ID: [id number] [employer]- All Rights Reserved Reading location - IP/workstation name: [facility]
--- NOTE | 2019-11-13 18:28 | PDOC PROGRESS REPORT ---
Subjective Progress Note for:: 11/13/19 Subjective:: She is feeling well. Denies fevers/chills, abd pain, suprapubic pain, back pain, chest pain, cough, SOB, vomiting. She describes her nausea as a feeling that makes not want to eat, but not necessarily throw up. She is constipated. Reason For Visit: SYNCOPE,HYPOKALEMIA,HYPOMAGNESEMIA Physical Exam Vital Signs: Temp Pulse Resp BP Pulse Ox 97.4 F 77 19 145/49 H 96 11/13/19 16:06 11/13/19 16:06 11/13/19 16:06 11/13/19 16:06 11/13/19 16:06 Intake & Output 11/12/19 11/13/19 11/14/19 06:59 06:59 06:59 Intake Total 790 4270 1250 Output Total 200 2625 Balance 590 1645 1250 Weight 115.3 kg 115.3 kg 115.3 kg General appearance: PRESENT: no acute distress, cooperative Eye exam: ABSENT: scleral icterus Mouth exam: PRESENT: moist Throat exam: ABSENT: post pharyngeal erythema Neck exam: ABSENT: JVD Respiratory exam: PRESENT: clear to auscultation patria Cardiovascular exam: PRESENT: RRR GI/Abdominal exam: PRESENT: normal bowel sounds, soft. ABSENT: distended, firm, guarding, Georges's sign, rebound, tenderness Rectal exam: PRESENT: deferred Extremities exam: PRESENT: other - RUE 2+ pitting edema. ABSENT: pedal edema Neurological exam: PRESENT: alert, awake, oriented to person, oriented to place, oriented to time, oriented to situation Psychiatric exam: PRESENT: flat affect Skin exam: ABSENT: rash Results Laboratory Results: 11/13/19 07:00 11/13/19 07:00 11/13/19 11/13/19 07:00 07:00 WBC 17.9 H RBC 4.23 Hgb 11.2 L Hct 34.1 L MCV 81 MCH 26.5 L MCHC 32.9 RDW 17.7 H Plt Count 257 Seg Neutrophils % Not Reportable Sodium 135.5 L Potassium 3.0 L* Chloride 102 Carbon Dioxide 26 Anion Gap 8 BUN 11 Creatinine 0.71 Est GFR ( Amer) > 60 Glucose 186 H Calcium 7.7 L Magnesium 1.9 Total Bilirubin 1.2 AST 32 Alkaline Phosphatase 130 H Total Protein 5.6 L Albumin 2.3 L 11/10/19 11/10/19 15:50 15:50 Creatine Kinase 30 CK-MB (CK-2) 1.14 Troponin I 0.050 NT-Pro-B Natriuret Pep 2380 H Impressions: Chest X-Ray 11/10/19 15:55 IMPRESSION: Questionable left basilar retrocardiac opacity possibly atelectasis or airspace disease. Two view radiograph could be considered for confirmation. Head CT 11/10/19 15:55 IMPRESSION: Limited exam secondary to motion artifact. Chronic age related changes and postsurgical sequelae from prior left occipital craniotomy. No evidence of acute intracranial process. EVIDENCE OF ACUTE STROKE: NO. Venous Doppler Study 11/13/19 00:00 IMPRESSION: NO EVIDENCE DVT OR SVT RIGHT ARM. Assessment and Plan - Diagnosis (1) Acute metabolic encephalopathy Is this a current diagnosis for this admission?: Yes (2) Diabetes mellitus type 2 in obese Is this a current diagnosis for this admission?: Yes (3) Esophagitis determined by endoscopy Is this a current diagnosis for this admission?: Yes (4) FTT (failure to thrive) in adult Is this a current diagnosis for this admission?: Yes (5) Hiatal hernia Is this a current diagnosis for this admission?: Yes (6) Lactic acidosis Is this a current diagnosis for this admission?: Yes (7) Leukocytosis Is this a current diagnosis for this admission?: Yes (8) Syncope Qualifiers: Syncope type: unspecified Qualified Code(s): R55 - Syncope and collapse Is this a current diagnosis for this admission?: Yes (9) LETICIA (acute kidney injury) Is this a current diagnosis for this admission?: Yes (10) Dehydration Is this a current diagnosis for this admission?: Yes (11) Hyperglycemia due to type 2 diabetes mellitus Qualifiers: 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: without [facility] use Qualified Code(s): E11.65 - Type 2 diabetes mellitus with hyperglycemia Is this a current diagnosis for this admission?: Yes (12) Hypertension Qualifiers: Hypertension type: essential hypertension Qualified Code(s): I10 - Essential (primary) hypertension Is this a current diagnosis for this admission?: Yes (13) Hypokalemia Is this a current diagnosis for this admission?: Yes (14) Hypomagnesemia Is this a current diagnosis for this admission?: Yes (15) Morbid obesity with BMI of 40.0-44.9, adult Is this a current diagnosis for this admission?: Yes (16) Physical deconditioning Is this a current diagnosis for this admission?: Yes - Plan Summary Summary: YI TAN is a 79 year old female with PMH of mengingioma s/p craniotomy, HTN, HLD, DM2, morbid obesity (BMI 46) who presented on 11/10/2019 via EMS from home due to poor oral intake, nausea, failure to thrive, dehydration and syncope. She was recently admitted here at [facility] from 10/08 to 10/19 due to similar concerns and had an extensive negative work up, including CT chest/abdomen/pelvis, brain MRI and EGD. She declined referral to SNF during that admission and refused to work with PT/OT throughout the admission. Her nausea and poor oral intake were thought to be due to combination of gastritis/esophagitis due to acid reflux from hiatal hernia (as seen on inpatient EGD on 10/19/2019). CT chest showed no obvious esophageal dilation or other etiologies. PPI therapy was increased to twice daily, she was continued on her home Reglan TID AC and she was started on Carafate with meals. With these medication cahnges, she was able to eat 50-75% of her meals without issue prior to discharge on 10/19. According to her , after discharge on 10/19, she continued to have nausea and poor appetite and has basically been unable to eat anything or to take her oral medications. Of note, she came to the ED on 11/01/2019 with these exact same concerns, but her weight was noted to be stable and she did not appear overtly dehydrated, so she was discharged home with Home Health and Rx for Reglan. According to her son, she has not been herself the past few days prior to admission, often incoherent or moaning and groaning. Patient and family denied any fever, chills, shortness of breath, chest pain, diarrhea, urinary symptoms or new pain/aches prior to admission. On the day of admission, she had orthostatic syncope. In the ED, labs were notable for WBC of 18, potassium of 3.0, magnesium of 1.0, lactic acid 2.8. T head was negative. Patient was given potassium 20 mix IV, ceftriaxone and azithromycin. She was subsequently admitted for further evaluation and management. According to her , she has been hospitalized multiple times and seen by multiple physicians over the last few years for these concerns and no one has been able to help. He also claims that her primary care does not want to see her anymore. He feels that he is unable to care for her at home, but also has repeatedly declined SNF referral. The patient herself is adamantly against the idea of PEG tube placement despite having had multiple admissions for nausea and inability to eat without a clear cause despite extensive work-up. FTT (failure to thrive) in adult: she has had poor oral intake and weakness at home for years now. Previously admitted at [facility] 10/08-10/19 for the same thing and an extensive work up was negative at that time. She has poor compliance with her medications at home, but when she takes them as prescribed here in the hospital, she is able to tolerate oral intake. She reports that she is unable to eat, but she has not lost weight over the last months. She has repeatedly declined PEG tube placement or SNF placement. A lot of her presentation seems to be psychiatric in nature, perhaps related to depression. - consider psych consult if work up below negative Neutrophilic Leukocytosis: unclear etiology and not improved despite the fact that she is now hydrated and mentating well. Could be related to constipation, RUE DVT vs occult infection. - UA no UTI - CXR normal - blood culture negative x 2 - order CT C/A/P - order RUE Duplex US - consider RUQ US or HIDA scan if above negative - DC antibiotics Lactic acidosis: due to dehydration, resolved with IVF - lactate 2.8>1.0 resolved likely from hypovolemia, poor oral intake or metformi n Orthostatic Syncope: due to dehydration. This occurred with her prior admission as well, and extensive work up was negative then as well. Constipation - miralax/senna Hiatal hernia: moderate. - noted on EGD done 10/19/19 - outpatient GI follow up Gastritis/Esophagitis: determined by EGD on 10/19/19 - on protonix 40 mg BID Hypokalemia: due to poor oral intake - start KCl 20 mEq TID AC Hypomagnesemia: due to poor oral intake - start Mg Ox 400 mg TID AC Acute metabolic encephalopathy: was due to dehydration, resolved with IVF - likely multifactorial from poor oral intake, previous brain surgery - neuro exam at her baseline, no new focal deficit - CT head negative LETICIA: due to dehydration, resolved with IVF Diabetes mellitus type 2 in obese, c/b hyperglycemia - hold oral meds - SSI - hypoglycemia protocol - accuchecks Morbid obesity with BMI 46 - she has not had any weight loss despite reports of nasuea and inability to eat Hypertension - clonidine patch resumed Physical Deconditioning - refusing to work with PT/OT, as she has on multiple prior hospitalizations DVT ppx: lovenox - Time Time Spent with patient: 35 or more minutes Anticipated Discharge Disposition: Home with Home Health Anticipated Discharge Timeframe: within 48 hours
--- NOTE | 2019-11-13 19:20 | NEURO WORKBENCH EEG REPORT ---
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 This EEG was requested for possible seizures. EEG Interpretation This EEG was recorded in the awake, drowsy, and sleep states. The awake EEG is characterized by a moderately-organized background without a well-developed posterior dominant rhythm. The remainder of the background was characterized by a combination of alpha and beta with some theta frequencies. There was significant artifact, most prominent in the left central regions, which precluded reliable interpretation. There was intermittent polymorphic delta slowing (IPDS) in the left>right temporal regions. There appeared to be a background asymmetry with lower amplitude over the right but the artifact impaired reliable interpretation. Drowsiness was characterized by slowing of the background rhythms. Vertex waves and sleep spindles were seen in the midline head regions with frontal propagation. Snoring was noted with arousals. Photic stimulation resulted in a moderate driving response. There were no epileptiform abnormalities. The EKG showed an irregular rhythm. This was a technically poor study that impaired interpretation. EEG Classification * IPDS, temporal, left>right * Generalized background slowing * Possible asymmetry (artifact impaired reliable interpretation) * EKG irregular rhythm * Technically poor study EEG Impression This EEG is moderately abnormal. It is consistent with diffuse as well as focal cerebral dysfunction. The EKG showed an irregular rhythm which may require further investigation. There were no seizures. INTERPRETING NEUROLOGIST: Yoly Cordova MD, FRCPC Board Certified in Neurology, with special qualification in Child Neurology, and in Clinical Neurophysiology [facility]
--- NOTE | 2019-11-13 19:39 | RADIOLOGY REPORT (SQ) ---
EXAM DESCRIPTION: CT CHEST WITH IMAGES COMPLETED DATE/TIME: 11/13/2019 7:19 pm REASON FOR STUDY: CP, LEUKOCYTOSIS COMPARISON: 10/15/2019 TECHNIQUE: CT scan of the chest performed using helical scanning technique with dynamic intravenous contrast injection. Images reviewed with lung, soft tissue and bone windows. Reconstructed coronal and sagittal MPR and MIP images reviewed. All images stored on PACS. All CT scanners at this facility use dose modulation, iterative reconstruction, and/or weight based d osing when appropriate to reduce radiation dose to as low as reasonably achievable (ALARA). [facility]: Dose Right [facility]: CareDose [facility]: Dose Right [facility]: Teradose 4D [facility]: [place] CONTRAST TYPE AND DOSE: contrast/concentration: Isovue 350.00 mmol/ml; Total Contrast Delivered: 104 .0 ml; Total Saline Delivered: 17.3 ml RENAL FUNCTION: BUN 11 creatinine 0.71 RADIATION DOSE: . LIMITATIONS: None. FINDINGS: LUNGS AND PLEURA: No opacities, nodules, masses. No pneumothorax. No effusions. HILAR AND MEDIASTINAL STRUCTURES: No identified masses or abnormal nodes. HEART AND VASCULAR STRUCTURES: No aneurysm or dissection. No central pulmonary emboli. No pericardi al effusion. HARDWARE: None in the chest. UPPER ABDOMEN: See separate report of the CT of the abdomen. THYROID AND OTHER SOFT TISSUES: No masses. No adenopathy. BONES: No significant finding. OTHER: No other significant finding. IMPRESSION: NORMAL CT OF THE CHEST WITH IV CONTRAST. TECHNICAL DOCUMENTATION: JOB ID: [id number] Quality ID # [id number]: Final reports with documentation of one or more dose reduction techniques (e.g., Au tomated exposure control, adjustment of the mA and/or kV according to patient size, use of iterative reconstruction technique) 2010 [employer]- All Rights Reserved Reading location - IP/workstation name: [email or web address]
--- NOTE | 2019-11-13 19:49 | RADIOLOGY REPORT (SQ) ---
EXAM DESCRIPTION: CT ABD/PELVIS WITH IV ONLY IMAGES COMPLETED DATE/TIME: 11/13/2019 7:19 pm REASON FOR STUDY: abdominal pain, nausea, leukocytosis COMPARISON: 10/13/2019 TECHNIQUE: CT scan of the abdomen and pelvis performed using helical scanning technique with dynamic intravenous contrast injection. No oral contrast. Images reviewed with lung, soft tissue, and bone windows. Reconstructed coronal and sagittal MPR images reviewed. Delayed images for evaluation of the urinary system also acquired. All images stored on PACS. All CT scanners at this facility use dose modulation, iterative reconstruction, and/or weight based d osing when appropriate to reduce radiation dose to as low as reasonably achievable (ALARA). [facility]: Dose Right [facility]: CareDose [facility]: Dose Right [facility]: Teradose 4D [facility]: [place] CONTRAST TYPE AND DOSE: 104 mL Omnipaque 350- low osmolar. RENAL FUNCTION: BUN 11 creatinine 0.71 RADIATION DOSE: CT Rad equipment meets quality standard of care and radiation dose reduction techniq ues were employed. CTDIvol: 27.0 - 28.8 mGy. DLP: 3998 mGy-cm.. LIMITATIONS: None. FINDINGS: LOWER CHEST: No significant findings. No nodules or infiltrates. LIVER: Normal size. No masses. No dilated ducts. SPLEEN: Normal size. No focal lesions. PANCREAS: No masses. No significant calcifications. No adjacent inflammation or peripancreatic fluid collections. Pancreatic duct not dilated. GALLBLADDER: No identified stones by CT criteria. No inflammatory changes to suggest cholecystitis. ADRENAL GLANDS: Stable left adrenal mass is once again seen. RIGHT KIDNEY AND URETER: No solid masses. There is cortical thinning. No significant calcification s. No hydronephrosis or hydroureter. LEFT KIDNEY AND URETER: No solid masses. There is mild cortical thinning. No significant calcifica tions. No hydronephrosis or hydroureter. AORTA AND VESSELS: No aneurysm. No dissection. Renal arteries, SMA, celiac without stenosis. RETROPERITONEUM: No retroperitoneal adenopathy, hemorrhage or masses. BOWEL AND PERITONEAL CAVITY: Sigmoid diverticulosis with no associated acute inflammatory changes. N o obvious bowel mass. APPENDIX: Not identified. PELVIS: There is a catheter in the urinary bladder. No pelvic mass or fluid collection is seen. ABDOMINAL WALL: No masses. No hernias. BONES: No significant or acute findings. OTHER: No other significant finding. IMPRESSION: Stable left adrenal nodule. Diverticulosis coli. No acute finding in the abdomen or pe lvis. TECHNICAL DOCUMENTATION: JOB ID: [id number] Quality ID # [id number]: Final reports with documentation of one or more dose reduction techniques (e.g., Au tomated exposure control, adjustment of the mA and/or kV according to patient size, use of iterative reconstruction technique) 2010 [employer]- All Rights Reserved Reading location - IP/workstation name: [email or web address]
[2019-11-13] MEDS: POTASSIUM CHLORIDE 10 MEQ TABLET.ER PO SCH (20:08)
[2019-11-13] MEDS: POLYETHYLENE GLYCOL 3350 POWDER 17 GM/1 PACKET PO SCH (20:13)
[2019-11-13] MEDS: SENNOSIDES/DOCUSATE 8.6-50 MG 1 EACH TABLET PO SCH (20:14)
[2019-11-13] MEDS: METOCLOPRAMIDE HCL 10 MG TABLET PO SCH (21:49)
[2019-11-13] MEDS: ATORVASTATIN CALCIUM 80 MG TABLET PO SCH (21:50)
[2019-11-13] MEDS ORDERED: INSULIN LISPRO 100 UNIT/ML 3 ML VIAL SUBCUT ONE (23:00)
[2019-11-14] MEDS: PANTOPRAZOLE SODIUM 40 MG TABLET.DR PO SCH ×2 (05:30→16:50)
[2019-11-14 06:03] LABS: HEMATOCRIT 29.1 % (36.0-47.0); HEMOGLOBIN 9.8 g/dL (12.0-15.5); MEAN CORPUSCULAR HEMOGLOBIN 27.3 pg (27.0-33.4); MEAN CORPUSCULAR HGB CONC 33.8 g/dL (32.0-36.0); MEAN CORPUSCULAR VOLUME 81 fl (80-97); PLATELET COUNT 188 10^3/uL (150-450); RED CELL DISTRIBUTION WIDTH 17.9 % (11.5-14.0); WHITE BLOOD COUNT 13.1 10^3/uL (4.0-10.5)
[2019-11-14 06:42] LABS: ALBUMIN 1.9 g/dL (3.5-5.0); ALKALINE PHOSPHATASE 111 U/L (38-126); ASPARTATE AMINO TRANSFERASE 20 U/L (14-36); BILIRUBIN,DIRECT 0.4 mg/dL (0.0-0.4); BILIRUBIN,TOTAL 0.8 mg/dL (0.2-1.3); BLOOD UREA NITROGEN 12 mg/dL (7-20); CALCIUM 7.6 mg/dL (8.4-10.2); CARBON DIOXIDE 28 mmol/L (22-30); GLUCOSE 140 mg/dL (75-110); POTASSIUM 3.9 mmol/L (3.6-5.0); TOTAL PROTEIN 4.7 g/dL (6.3-8.2)
[2019-11-14 06:47] LABS: CHLORIDE 104 mmol/L (98-107)
[2019-11-14 06:51] LABS: ANION GAP 4 (5-19)
--- NOTE | 2019-11-14 08:38 | PDOC CONSULTATION ---
Consultation-Blank Consultation: Reason for Consult:Possible Depression Patient has been admitted medically for concerns for failure to thrive. Patient is pleasant and openly engages with clinician. She denies any history/current depression or anxiety. Patient reports significant nausea that keeps her from eating when at home, resulting in hospital admissions. Clinician notes patient's last meal is sitting at bedside with about a fourth eaten. She reports that she did not like the taste of the food and denies current nausea or hunger. She reports she feels safe at home and has no other concerns. When asked about her surgery history, they patient started to list her previously listed surgeries located in her abdomen; however, did not list her craniotomy until asked directly about it. She confirms she has tumors removed about 4-5 years ago. Patient is alert and orientated to person, place, time and circumstance. Mood is euthymic with congruent affect as evidenced by the patient smiling and engaging with clinician. Patient denies suicidal and homicidal ideations. Delusions are absent and behaviour is congruent with an intact reality based presentation ie organized and linear thought processes. eye contact is well maintained. conversational speech is with in normal rate tone and prosody. intellectual abilities appear to be within normal range. attention and concentration and currently good. Insight and judgment is fair. impulse control is good. While patient currently denies depression, it was explained that at anytime the patient changed her mind and wanted to further speak with behavioral health she just needed to ask her attending nurse to notify team. If the patient requests an antidepressant, [facility]'s contract psychiatrist recommends the following: Celexa 20mg daily Impression/plan: Patient is cleared from acute psychiatric services. The patient denies a history of mental health and stated no current depression or anxiety. Patient denies any concerns at home and states she feels safe at home. The patient is recommended for neurology follow up as the patient has a history of craniotomy to remove noncancerous tumors. Depending on the location of the tumors that were removed and/or if there are new growths, the patient's reported nausea and failure to thrive could be connected. Thank you for this consult; please reconsult of new concerns arise or if the patient requests. raza Beatty was consulted on the care and management of this patient.
[2019-11-14] MEDS: INSULIN LISPRO 100 UNIT/ML 3 ML VIAL SUBCUT SCH ×4 (09:11→22:06)
[2019-11-14] MEDS: SUCRALFATE 1 GM TABLET PO SCH ×4 (09:14→22:06)
[2019-11-14] MEDS: METOCLOPRAMIDE HCL 10 MG TABLET PO SCH ×4 (09:15→22:05)
[2019-11-14] MEDS: MAGNESIUM OXIDE 400 MG TABLET PO SCH ×3 (09:17→17:58)
[2019-11-14] MEDS: POTASSIUM CHLORIDE 10 MEQ TABLET.ER PO SCH ×3 (09:17→17:59)
[2019-11-14] MEDS: ENOXAPARIN SODIUM INJ 40 MG/0.4 ML DISP.SYRIN SUBCUT SCH (09:17)
[2019-11-14] MEDS: POLYETHYLENE GLYCOL 3350 POWDER 17 GM/1 PACKET PO SCH (09:18)
[2019-11-14] MEDS: MULTIVITAMIN TABLET PO SCH (09:18)
[2019-11-14] MEDS: SENNOSIDES/DOCUSATE 8.6-50 MG 1 EACH TABLET PO SCH ×2 (09:18→18:45)
[2019-11-14] MEDS ORDERED: CLONIDINE 0.3 MG/24 HR PATCH.TDWK TD SCH (10:00)
--- NOTE | 2019-11-14 18:35 | PDOC PROGRESS REPORT ---
Subjective Progress Note for:: 11/14/19 Subjective:: She feels quite well. She denies nausea or abdominal pain. She has been able to eat 50-75% of all meals without N/V. Reason For Visit: SYNCOPE,HYPOKALEMIA,HYPOMAGNESEMIA Physical Exam Vital Signs: Temp Pulse Resp BP Pulse Ox 99.0 F 91 19 149/51 H 96 11/14/19 10:00 11/14/19 14:00 11/13/19 23:14 11/13/19 23:14 11/13/19 23:14 Intake & Output 11/13/19 11/14/19 11/15/19 06:59 06:59 06:59 Intake Total 4270 3070 Output Total 2625 1875 Balance 1645 1195 Weight 115.3 kg 114.3 kg 114.3 kg General appearance: PRESENT: no acute distress, cooperative Eye exam: ABSENT: scleral icterus Mouth exam: PRESENT: moist Throat exam: ABSENT: post pharyngeal erythema Neck exam: ABSENT: JVD Respiratory exam: PRESENT: clear to auscultation patria Cardiovascular exam: PRESENT: RRR GI/Abdominal exam: PRESENT: normal bowel sounds, soft. ABSENT: firm, guarding, mass, Georges's sign, rebound, rigid, tenderness Extremities exam: PRESENT: other - RUE swelling much improved today. ABSENT: pedal edema Neurological exam: PRESENT: alert, awake, oriented to person, oriented to place, oriented to time, oriented to situation Psychiatric exam: PRESENT: appropriate affect Skin exam: ABSENT: rash Results Laboratory Results: 11/14/19 05:39 11/14/19 05:39 11/14/19 11/14/19 05:39 05:39 WBC 13.1 H RBC 3.60 L Hgb 9.8 L Hct 29.1 L MCV 81 MCH 27.3 MCHC 33.8 RDW 17.9 H Plt Count 188 Sodium 135.5 L Potassium 3.9 Chloride 104 Carbon Dioxide 28 Anion Gap 4 L BUN 12 Creatinine 0.79 Est GFR ( Amer) > 60 Glucose 140 H Calcium 7.6 L Total Bilirubin 0.8 AST 20 Alkaline Phosphatase 111 Total Protein 4.7 L Albumin 1.9 L 11/10/19 11/10/19 15:50 15:50 Creatine Kinase 30 CK-MB (CK-2) 1.14 Troponin I 0.050 NT-Pro-B Natriuret Pep 2380 H Impressions: Chest X-Ray 11/10/19 15:55 IMPRESSION: Questionable left basilar retrocardiac opacity possibly atelectasis or airspace disease. Two view radiograph could be considered for confirmation. Head CT 11/10/19 15:55 IMPRESSION: Limited exam secondary to motion artifact. Chronic age related changes and postsurgical sequelae from prior left occipital craniotomy. No evidence of acute intracranial process. EVIDENCE OF ACUTE STROKE: NO. Abdomen/Pelvis CT 11/13/19 00:00 IMPRESSION: Stable left adrenal nodule. Diverticulosis coli. No acute finding in the abdomen or pelvis. Chest CT 11/13/19 00:00 IMPRESSION: NORMAL CT OF THE CHEST WITH IV CONTRAST. Venous Doppler Study 11/13/19 00:00 IMPRESSION: NO EVIDENCE DVT OR SVT RIGHT ARM. Assessment and Plan - Diagnosis (1) Acute metabolic encephalopathy Is this a current diagnosis for this admission?: Yes (2) Diabetes mellitus type 2 in obese Is this a current diagnosis for this admission?: Yes (3) Esophagitis determined by endoscopy Is this a current diagnosis for this admission?: Yes (4) FTT (failure to thrive) in adult Is this a current diagnosis for this admission?: Yes (5) Hiatal hernia Is this a current diagnosis for this admission?: Yes (6) Lactic acidosis Is this a current diagnosis for this admission?: Yes (7) Leukocytosis Is this a current diagnosis for this admission?: Yes (8) Syncope Qualifiers: Syncope type: unspecified Qualified Code(s): R55 - Syncope and collapse Is this a current diagnosis for this admission?: Yes (9) LETICIA (acute kidney injury) Is this a current diagnosis for this admission?: Yes (10) Dehydration Is this a current diagnosis for this admission?: Yes (11) Hyperglycemia due to type 2 diabetes mellitus Qualifiers: Diabetes mellitus fci insulin use: without chemical process equipment operator use Qualified Code(s): E11.65 - Type 2 diabetes mellitus with hyperglycemia Is this a current diagnosis for this admission?: Yes (12) Hypertension Qualifiers: Hypertension type: essential hypertension Qualified Code(s): I10 - Essential (primary) hypertension Is this a current diagnosis for this admission?: Yes (13) Hypokalemia Is this a current diagnosis for this admission?: Yes (14) Hypomagnesemia Is this a current diagnosis for this admission?: Yes (15) Morbid obesity with BMI of 40.0-44.9, adult Is this a current diagnosis for this admission?: Yes (16) Physical deconditioning Is this a current diagnosis for this admission?: Yes - Plan Summary Summary: YI TAN is a 79 year old female with PMH of mengingioma s/p craniotomy, HTN, HLD, DM2, morbid obesity (BMI 46) who presented on 11/10/2019 via EMS from home due to poor oral intake, nausea, dehydration and syncope. She was recently admitted here at [facility] from 10/08 to 10/19 due to similar concerns and had an extensive negative work up, including CT chest/abdomen/pelvis, brain MRI and EGD. She declined referral to SNF during that admission and refused to work with PT/OT throughout the admission. Her nausea and poor oral intake were thought to be due to combination of gastriti s/esophagitis due to acid reflux from hiatal hernia (as seen on inpatient EGD on 10/19/2019). CT chest showed no obvious esophageal dilation or other etiologies. PPI therapy was increased to twice daily, she was continued on her home Reglan TID AC and she was started on Carafate with meals. With these medication changes, she was able to eat 50-75% of her meals without issue prior to discharge on 10/19. According to her , after discharge on 10/19, she continued to have nausea and poor appetite and was reportedly unable to eat anything or to take her oral medications. Of note, she came to the ED on 11/01/2019 with these exact same concerns, but her weight was noted to be stable and she did not appear overtly dehydrated, so she was discharged home. According to her son, she has not been herself the past few days prior to admission, often incoherent or moaning and groaning. Patient and family denied any fever, chills, shortness of breath, chest pain, diarrhea, urinary symptoms or new p ain/aches prior to admission. On the day of admission, she had orthostatic syncope. In the ED, labs were notable for WBC of 18, potassium of 3.0, magnesium of 1.0, lactic acid 2.8. CT head was negative for acute changes. She was admitted for further evaluation and management. She has been hospitalized multiple times and seen by multiple physicians over the last few years for these concerns and no one has been able to deduce the cause of her nausea. Her claims that her primary care does not want to see her any more. He feels that he is unable to care for her at home due to her generalized weakness. The patient herself is adamantly against the idea of PEG tube placement despite having had multiple admissions for nausea and inability to eat without a clear cause despite extensive negative work-up. FTT (failure to thrive) in adult: she has had poor oral intake and weakness at home for years now. Previously admitted at [facility] 10/08-10/19 for the same thing a nd an extensive work up was negative at that time. She has poor compliance with her medications at home, but when she takes them as prescribed here in the hospital, she is able to tolerate oral intake. She reports that she is unable to eat, but she has not lost weight over the last few months. She has repeatedly declined PEG tube placement. Much of her presentation seems to be psychiatric in nature. - Psychiatry consulted, recommend starting Celexa 20 mg daily. Neutrophilic Leukocytosis: unclear etiology. Improving without antibiotics. May have been related to constipation or dehydration, both of which are now resolved. She has no respiratory symptoms or new symptoms of any kind to suggest COVID or other URI. - UA no UTI - CXR normal - blood culture negative x 2 - CT C/A/P unremarkable - RUE Duplex US negative for DVT Lactic acidosis: due to dehydration, resolved with IVF. Orthostatic Syncope: due to dehydration. This occurred with her prior admission as well, and extensive work up was negative then as well. EEG performed this hospitalization showed no epileptiform activity. Constipation: resolved with initiation of miralax/senna. Hiatal hernia: moderate, noted on EGD done 10/19/19. Gastritis/Esophagitis: determined by EGD on 10/19/19. Continue protonix 40 mg BID. Hypokalemia: due to poor oral intake and improved with oral repletion. Continue KCl 20 mEq TID AC. Hypomagnesemia: due to poor oral intake and improved with oral repletion. Continue Mg Ox 400 mg TID AC. Acute metabolic encephalopathy: was due to dehydration, resolved with IVF. LETICIA: due to dehydration, resolved with IVF. Diabetes mellitus type 2 in obese, c/b hyperglycemia - hold oral meds - SSI - hypoglycemia protocol - accuchecks Morbid obesity with BMI 46: she has not had any weight loss despite reports of nausea and inability to eat. Hypertension: controlled on clonidine patch. Physical Deconditioning - PT consult, would benefit from referral to SNF for PT/OT - fall precautions DVT ppx: lovenox - Time Time Spent with patient: 35 or more minutes Anticipated Discharge Disposition: [facility] Living Facility Anticipated Discharge Timeframe: within 24 hours
[2019-11-14] MEDS: ATORVASTATIN CALCIUM 80 MG TABLET PO SCH (22:05)
[2019-11-14] MEDS: CITALOPRAM HYDROBROMIDE 20 MG TABLET PO SCH (22:05)
[2019-11-15] MEDS: PANTOPRAZOLE SODIUM 40 MG TABLET.DR PO SCH ×2 (05:42→16:27)
[2019-11-15] MEDS: ENOXAPARIN SODIUM INJ 40 MG/0.4 ML DISP.SYRIN SUBCUT SCH (10:02)
[2019-11-15] MEDS: METOCLOPRAMIDE HCL 10 MG TABLET PO SCH ×4 (10:03→22:00)
[2019-11-15] MEDS: INSULIN LISPRO 100 UNIT/ML 3 ML VIAL SUBCUT SCH ×4 (10:03→22:00)
[2019-11-15] MEDS: MULTIVITAMIN TABLET PO SCH (10:03)
[2019-11-15] MEDS: SUCRALFATE 1 GM TABLET PO SCH ×4 (10:03→22:00)
[2019-11-15] MEDS: MAGNESIUM OXIDE 400 MG TABLET PO SCH ×3 (10:03→18:32)
[2019-11-15] MEDS: POTASSIUM CHLORIDE 10 MEQ TABLET.ER PO SCH ×3 (10:03→18:32)
[2019-11-15] MEDS: SENNOSIDES/DOCUSATE 8.6-50 MG 1 EACH TABLET PO SCH ×2 (10:04→18:19)
[2019-11-15] MEDS: POLYETHYLENE GLYCOL 3350 POWDER 17 GM/1 PACKET PO SCH (10:04)
--- NOTE | 2019-11-15 18:26 | PDOC PROGRESS REPORT ---
Subjective Progress Note for:: 11/15/19 Subjective:: She tells me that she is feeling "great!" She has been eating 75-100% of her meals without N/V. She was able to sit up at the side of her bed with PT today. Reason For Visit: SYNCOPE,HYPOKALEMIA,HYPOMAGNESEMIA Physical Exam Vital Signs: Temp Pulse Resp BP Pulse Ox 97.6 F 82 18 149/67 H 96 11/15/19 10:00 11/15/19 14:00 11/15/19 09:03 11/15/19 09:03 11/15/19 09:03 Intake & Output 11/14/19 11/15/19 11/16/19 06:59 06:59 06:59 Intake Total 3070 1150 Output Total 1875 600 Balance 1195 550 Weight 114.3 kg 115.3 kg General appearance: PRESENT: no acute distress, cooperative Eye exam: ABSENT: scleral icterus Mouth exam: PRESENT: moist Neck exam: ABSENT: JVD Respiratory exam: PRESENT: clear to auscultation patria, unlabored. ABSENT: accessory muscle use Cardiovascular exam: PRESENT: RRR GI/Abdominal exam: PRESENT: normal bowel sounds, soft. ABSENT: tenderness Extremities exam: ABSENT: pedal edema Neurological exam: PRESENT: alert, awake, oriented to person, oriented to place, oriented to time, oriented to situation Psychiatric exam: PRESENT: appropriate affect Skin exam: ABSENT: rash Results Laboratory Results: 11/14/19 05:39 11/14/19 05:39 11/10/19 16:15 Blood Blood Culture - Final NO GROWTH IN 5 DAYS 11/10/19 15:50 Blood Blood Culture - Final NO GROWTH IN 5 DAYS 11/10/19 11/10/19 15:50 15:50 Creatine Kinase 30 CK-MB (CK-2) 1.14 Troponin I 0.050 NT-Pro-B Natriuret Pep 2380 H Impressions: Chest X-Ray 11/10/19 15:55 IMPRESSION: Questionable left basilar retrocardiac opacity possibly atelectasis or airspace disease. Two view radiograph could be considered for confirmation. Head CT 11/10/19 15:55 IMPRESSION: Limited exam secondary to motion artifact. Chronic age related changes and postsurgical sequelae from prior left occipital craniotomy. No evidence of acute intracranial process. EVIDENCE OF ACUTE STROKE: NO. Abdomen/Pelvis CT 11/13/19 00:00 IMPRESSION: Stable left adrenal nodule. Diverticulosis coli. No acute finding in the abdomen or pelvis. Chest CT 11/13/19 00:00 IMPRESSION: NORMAL CT OF THE CHEST WITH IV CONTRAST. Venous Doppler Study 11/13/19 00:00 IMPRESSION: NO EVIDENCE DVT OR SVT RIGHT ARM. Assessment and Plan - Diagnosis (1) Acute metabolic encephalopathy Is this a current diagnosis for this admission?: Yes (2) Diabetes mellitus type 2 in obese Is this a current diagnosis for this admission?: Yes (3) Esophagitis determined by endoscopy Is this a current diagnosis for this admission?: Yes (4) FTT (failure to thrive) in adult Is this a current diagnosis for this admission?: Yes (5) Hiatal hernia Is this a current diagnosis for this admission?: Yes (6) Lactic acidosis Is this a current diagnosis for this admission?: Yes (7) Leukocytosis Is this a current diagnosis for this admission?: Yes (8) Syncope Qualifiers: Syncope type: unspecified Qualified Code(s): R55 - Syncope and collapse Is this a current diagnosis for this admission?: Yes (9) LETICIA (acute kidney injury) Is this a current diagnosis for this admission?: Yes (10) Dehydration Is this a current diagnosis for this admission?: Yes (11) Hyperglycemia due to type 2 diabetes mellitus Qualifiers: Diabetes mellitus mcfp insulin use: without mcfp use Qualified Code(s): E11.65 - Type 2 diabetes mellitus with hyperglycemia Is this a current diagnosis for this admission?: Yes (12) Hypertension Qualifiers: Hypertension type: essential hypertension Qualified Code(s): I10 - Essential (primary) hypertension Is this a current diagnosis for this admission?: Yes (13) Hypokalemia Is this a current diagnosis for this admission?: Yes (14) Hypomagnesemia Is this a current diagnosis for this admission?: Yes (15) Morbid obesity with BMI of 40.0-44.9, adult Is this a current diagnosis for this admission?: Yes (16) Physical deconditioning Is this a current diagnosis for this admission?: Yes - Plan Summary Summary: YI TAN is a 79 year old female with PMH of mengingioma s/p craniotomy, HTN, HLD, DM2, morbid obesity (BMI 46) who presented on 11/10/2019 via EMS from home due to poor oral intake, nausea, dehydration and syncope. She was recently admitted here at [facility] from 10/08 to 10/19 due to similar concerns and had an extensive negative work up, including CT chest/abdomen/pelvis, brain MRI and EGD. She declined referral to SNF during that admission and refused to work with PT/OT throughout the admission. Her nausea and poor oral intake were thought to be due to combination of gastritis/esophagitis due to acid reflux from hiatal hernia (as seen on inpatient EGD on 10/19/2019). CT chest showed no obvious esophageal dilation or other etiologies. PPI therapy was increased to twice daily, she was continued on her home Reglan TID AC and she was started on Carafate with meals. With these medication changes, she was able to eat 50-75% of her meals without issue prior to discharge on 10/19. According to her , after discharge on 10/19, she continued to have nausea and poor appetite and was reportedly unable to eat anything or to take her oral medications. Of note, she came to the ED on 11/01/2019 with these exact same concerns, but her weight was noted to be stable and she did not appear overtly dehydrated, so she was discharged home. According to her son, she has not been herself the past few days prior to admission, often incoherent or moaning and groaning. Patient and family denied any fever, chills, shortness of breath, chest pain, diarrhea, urinary symptoms or new pain/aches prior to admission. On the day of admission, she had orthostatic syncope. In the ED, labs were notable for WBC of 18, potassium of 3.0, magnesium of 1.0, lactic acid 2.8. CT head was negative for acute changes. She was admitted for further evaluation and management. She has been hospitalized mult iple times and seen by multiple physicians over the last few years for these concerns and no one has been able to deduce the cause of her nausea. Her claims that her primary care does not want to see her any more. He feels that he is unable to care for her at home due to her generalized weakness. The patient herself is adamantly against the idea of PEG tube placement despite having had multiple admissions for nausea and inability to eat without a clear cause despite extensive negative work-up. Nausea/Vomiting: she has reportedly had poor oral intake and weakness at home for years now. Previously admitted at [place] 10/08-10/19 for the same thing and an extensive work up was negative at that time. She has poor compliance with her medications at home, but when she takes them as prescribed here in the hospital, she is able to tolerate oral intake (in fact, she is eating 75-100% of all meals). She reports that she is unable to eat, but she has not lost weight over the last few months. She has repeatedly declined PEG tube placement. Much of her presentation seems to be psychiatric in nature. - Psychiatry consulted, recommend starting Celexa 20 mg daily. Neutrophilic Leukocytosis: unclear etiology. Improving without antibiotics. May have been related to constipation or dehydration, both of which are now resolved. She has no respiratory symptoms or new symptoms of any kind to suggest COVID or other URI. - COVID test pending (needed for SNF placement) - UA no UTI - CXR normal - blood culture negative x 2 - CT C/A/P unremarkable - RUE Duplex US negative for DVT Lactic acidosis: due to dehydration, resolved with IVF. Orthostatic Syncope: due to dehydration. This occurred with her prior admission as well, and extensive work up was negative then as well. EEG performed this hospitalization showed no epileptiform activity. Constipation: resolved with initiation of miralax/senna. Hiatal hernia: moderate, noted on EGD done 10/19/19. Gastritis/Esophagitis: determined by EGD on 10/19/19. Continue protonix 40 mg BID. Hypokalemia: due to poor oral intake and improved with oral repletion. Continue KCl 20 mEq TID AC. Hypomagnesemia: due to poor oral intake and improved with oral repletion. Continue Mg Ox 400 mg TID AC. Acute metabolic encephalopathy: was due to dehydration, resolved with IVF. LETICIA: due to dehydration, resolved with IVF. Diabetes mellitus type 2 in obese, c/b hyperglycemia - hold oral meds - SSI - hypoglycemia protocol - accuchecks Morbid obesity with BMI 46: she has not had any weight loss despite reports of nausea and inability to eat. Hypertension: controlled on clonidine patch. Physical Deconditioning - PT consult, would benefit from referral to SNF for PT/OT - fall precautions DVT ppx: lovenox - Time Time Spent with patient: 35 or more minutes Anticipated Discharge Disposition: [facility] Anticipated Discharge Timeframe: within 24 hours
[2019-11-15] MEDS: ATORVASTATIN CALCIUM 80 MG TABLET PO SCH (22:00)
[2019-11-15] MEDS: CITALOPRAM HYDROBROMIDE 20 MG TABLET PO SCH (22:00)
[2019-11-16 06:02] LABS: HEMATOCRIT 31.6 % (36.0-47.0); HEMOGLOBIN 10.7 g/dL (12.0-15.5); MEAN CORPUSCULAR HEMOGLOBIN 27.2 pg (27.0-33.4); MEAN CORPUSCULAR HGB CONC 33.7 g/dL (32.0-36.0); MEAN CORPUSCULAR VOLUME 81 fl (80-97); PLATELET COUNT 284 10^3/uL (150-450); RED BLOOD COUNT 3.92 10^6/uL (3.72-5.28); RED CELL DISTRIBUTION WIDTH 18.3 % (11.5-14.0); WHITE BLOOD COUNT 8.4 10^3/uL (4.0-10.5)
[2019-11-16] MEDS: PANTOPRAZOLE SODIUM 40 MG TABLET.DR PO SCH ×2 (06:32→17:17)
[2019-11-16] MEDS: INSULIN LISPRO 100 UNIT/ML 3 ML VIAL SUBCUT SCH ×4 (08:46→22:09)
--- NOTE | 2019-11-16 08:51 | PDOC TRANSFER SUMMARY ---
Impression - Admit/DC Date/PCP Admission Date/Primary Care Provider: 11/10/19 19:57 ELMA FERNÁNDEZ MD Discharge Date: 11/16/19 - Discharge Diagnosis (1) Acute metabolic encephalopathy Is this a current diagnosis for this admission?: Yes (2) Diabetes mellitus type 2 in obese Is this a current diagnosis for this admission?: Yes (3) Esophagitis determined by endoscopy Is this a current diagnosis for this admission?: Yes (4) FTT (failure to thrive) in adult Is this a current diagnosis for this admission?: Yes (5) Hiatal hernia Is this a current diagnosis for this admission?: Yes (6) Lactic acidosis Is this a current diagnosis for this admission?: Yes (7) Leukocytosis Is this a current diagnosis for this admission?: Yes (8) Syncope Is this a current diagnosis for this admission?: Yes (9) LETICIA (acute kidney injury) Is this a current diagnosis for this admission?: Yes (10) Dehydration Is this a current diagnosis for this admission?: Yes (11) Hyperglycemia due to type 2 diabetes mellitus Is this a current diagnosis for this admission?: Yes (12) Hypertension Is this a current diagnosis for this admission?: Yes (13) Hypokalemia Is this a current diagnosis for this admission?: Yes (14) Hypomagnesemia Is this a current diagnosis for this admission?: Yes (15) Morbid obesity with BMI of 40.0-44.9, adult Is this a current diagnosis for this admission?: Yes (16) Physical deconditioning Is this a current diagnosis for this admission?: Yes - Assessment Summary: YI TAN is a 79 year old female with PMH of mengingioma s/p craniotomy, HTN, HLD, DM2, morbid obesity (BMI 46) who presented on 11/10/2019 via EMS from home due to poor oral intake, nausea, dehydration and orthostatic syncope. She was recently admitted here at [facility] from 10/08 to 10/19 due to similar concerns and had an extensive negative work up, including CT chest/abdomen/pelvis, brain MRI and EGD. She declined referral to SNF during that admission and refused to work with PT/OT throughout the admission. Her nausea and poor oral intake were thought to be due to combination of gastritis/esophagitis due to acid reflux from hiatal hernia (as seen on inpatient EGD on 10/19/2019). CT chest showed no obvious esophageal dilation or other etiologies. PPI therapy was increased to twice daily, she was continued on her home Reglan QID and she was started on Carafate QID; with these medication changes, she was able to eat 75-100% of her meals without issue prior to discharge on 10/19. According to her , after discharge on 10/19, she con tinued to have nausea and poor appetite and was reportedly unable to eat anything or to take any her oral medications. Of note, she came to the ED on 11/01/2019 with these exact same concerns, but her weight was noted to be stable and she did not appear dehydrated, so she was discharged home. According to her son, she had not been acting like herself the past few days prior to admission, often incoherent or moaning and groaning. Patient and family denied any fever, chills, shortness of breath, chest pain, diarrhea, urinary symptoms or new pain/aches prior to admission. On the day of admission, she had orthostatic syncope at home. In the ED, labs were notable for WBC of 18, potassium of 3.0, magnesium of 1.0, lactic acid 2.8. CT head was negative for acute changes. She was admitted for further evaluation and management. Nausea/Vomiting: she has reportedly had poor oral intake for years now. She has been hospitalized multiple times and seen by multiple physicians over the last few years for these concerns and no one has been able to deduce the cause of her nausea. Her claims that her primary care does not want to see her any more. He feels that he is unable to care for her at home due to her inability to eat, which is causing her generalized weakness. The patient herself is adamantly against the idea of PEG tube placement despite having had multiple admissions for nausea and inability to eat without a clear cause despite extensive negative work-up. She has poor compliance with her medications at home, but when she takes them as prescribed here in the hospital, she is able to tolerate excellent oral intake (in fact, she is eating 75-100% of all meals here in the hospital!). She reports that she is unable to eat, but she has not lost weight over the last few months. She has repeatedly declined PEG tube placement. Much of her presentation seems to be psychiatric in nature. Psychiatry was consulted this admission and recommend starting Celexa 20 mg daily. She would benefit from the increased socialization and group atmosphere of a detention or assisted living facility. Neutrophilic Leukocytosis: unclear etiology. Resolved without antibiotics. May have been related to constipation or dehydration, both of which are now resolved. She has had no respiratory symptoms or new symptoms of any kind to suggest COVID or other URI. Regardless, she was tested for COVID on 11/14 and was NEGATIVE. Her UA showed no evidence of UTI. Blood cultures were negative x 2. Repeat CT C/A/P this admission was unremarkable. RUE Duplex US (done for right arm swelling) was negative for DVT. Lactic acidosis: due to dehydration, resolved with IVF. Orthostatic Syncope: due to dehydration. This occurred with her prior admission as well, and extensive work up was negative then as well. EEG performed this hospitalization showed no epileptiform activity. Constipation: resolved with initiation of miralax/senna. Hiatal hernia: moderate, noted on EGD done 10/19/19. Gastritis/Esophagitis: determined by EGD on 10/19/19. Continue Protonix 40 mg BID. Hypokalemia: due to poor oral intake and improved with oral repletion. Continue KCl 20 mEq BID. Hypomagnesemia: due to poor oral intake and improved with oral repletion. Continue Mg Ox 400 mg TID AC. Acute metabolic encephalopathy: was due to dehydration, resolved with IVF. LETICIA: due to dehydration, resolved with IVF. Diabetes mellitus type 2 in obese, c/b hyperglycemia: unclear if metformin could be causing her GI complaints, so metformin was discontinued. She should be continued on a carb-controlled diet. Would recommend continuing Accuchecks and, if she has hyperglycemia, starting SSI with meals. Morbid obesity with BMI 46: she has not had any weight loss despite reports of nausea and inability to eat at home. She would benefit from initiation of an exercise regimen and monitored weight loss. Essential Hypertension: controlled on clonidine patch. Physical Deconditioning: PT consult, would benefit from referral to SNF for ongoing PT/OT. Fall precautions recommended. - Additional Information Resuscitation Status: Full Code Discharge Diet: Diabetic Discharge Activity: Activity As Tolerated, Walk Frequently Referrals: ELMA FERNÁNDEZ MD [Primary Care Provider] - Follow up as needed Home Medications: Atorvastatin Calcium [Lipitor] 80 mg PO DAILY #30 tablet 10/20/19 Clonidine [Catapres-Tts 3 (0.3 mg/24 Hr) Transderm Patch] 1 each TD Fr@10 #12 patch.tdwk 10/20/19 Ondansetron [Zofran Odt 4 mg Tablet] 8 mg PO Q6HP PRN #120 tab.rapdis 10/20/19 Sucralfate [Carafate 1 gm Tablet] 1 gm PO ACHS #120 tablet 10/20/19 Citalopram Hydrobromide [Celexa 20 mg Tablet] 20 mg PO QHS tablet 11/16/19 Magnesium Oxide [Mag-Ox 400 mg Tablet] 400 mg PO TID tablet 11/16/19 Metoclopramide HCl [Reglan 10 mg Tablet] 10 mg PO ACHS tablet 11/16/19 Multivitamin [Tab-A-Lori (Multiple Vitamin) Tablet] 1 tab PO DAILY tablet 11/16/19 Pantoprazole Sodium [Protonix [address] Tablet] 40 mg PO BID@0600,1700 tablet.dr 11/16/19 Polyethylene Glycol 3350 [Miralax Powder 17 gm/Packet] 17 gm PO DAILY powd.pack 11/16/19 Potassium Chloride [Klor-Con 10 Meq Tablet ER] 20 meq PO BID tablet.er 11/16/19 Sennosides/Docusate 8.6-50 mg [Senna Plus Tablet] 2 each PO BID tablet 11/16/19 History of Present Illiness History of Present Illness: YI TAN is a 79 year old female Physical Exam Vital Signs: Temp Pulse Resp BP Pulse Ox 97.8 F 78 19 143/57 H 96 11/16/19 00:18 11/16/19 02:00 11/16/19 00:18 11/16/19 00:18 11/16/19 00:18 Intake & Output 11/15/19 11/16/19 11/17/19 06:59 06:59 06:59 Intake Total 1150 1300 Output Total 600 900 Balance 550 400 Weight 115.3 kg 115.3 kg Results Laboratory Results: WBC 8.4 10^3/uL (4.0-10.5) 11/16/19 05:44 RBC 3.92 10^6/uL (3.72-5.28) 11/16/19 05:44 Hgb 10.7 g/dL (12.0-15.5) L 11/16/19 05:44 Hct 31.6 % (36.0-47.0) L 11/16/19 05:44 MCV 81 fl (80-97) 10 05:44 MCH 27.2 pg (27.0-33.4) 11/16/19 05:44 MCHC 33.7 g/dL (32.0-36.0) 11/16/19 05:44 RDW 18.3 % (11.5-14.0) H 11/16/19 05:44 Plt Count 284 10^3/uL (150-450) 11/16/19 05:44 Lymph % (Auto) Not Reportable 11/13/19 07:00 Banks % (Auto) Not Reportable 11/13/19 07:00 Eos % (Auto) Not Reportable 11/13/19 07:00 Baso % (Auto) Not Reportable 11/13/19 07:00 Absolute Neuts (auto) Not Reportable 11/13/19 07:00 Absolute Lymphs (auto) Not Reportable 11/13/19 07:00 Absolute Monos (auto) Not Reportable 11/13/19 07:00 Absolute Eos (auto) Not Reportable 11/13/19 07:00 Absolute Basos (auto) Not Reportable 11/13/19 07:00 Total Counted 100 11/13/19 07:00 Seg Neutrophils % Not Reportable 11/13/19 07:00 Seg Neuts % (Manual) 74 % (42-78) 11/13/19 07:00 Lymphocytes % (Manual) 15 % (13-45) 11/13/19 07:00 Atypical Lymphs % 1 % (0) 11/13/19 07:00 Monocytes % (Manual) 8 % (3-13) 11/13/19 07:00 Eosinophils % (Manual) 2 % (0-6) 11/13/19 07:00 Basophils % (Manual) 0 % (0-2) 11/13/19 07:00 Abs Neuts (Manual) 13.2 10^3/uL (1.7-8.2) H 11/13/19 07:00 Abs Lymphs (Manual) 2.9 10^3/uL (0.5-4.7) 11/13/19 07:00 Abs Monocytes (Manual) 1.4 10^3/uL (0.1-1.4) 11/13/19 07:00 Absolute Eos (Manual) 0.4 10^3/uL (0.0-0.6) 11/13/19 07:00 Abs Basophils (Manual) 0.0 10^3/uL (0.0-0.2) 11/13/19 07:00 Platelet Comment ADEQUATE 11/13/19 07:00 Polychromasia SLIGHT 11/13/19 07:00 Poikilocytosis SLIGHT 11/10/19 15:50 Anisocytosis 1+ 11/13/19 07:00 Ovalocytes SLIGHT 11/10/19 15:50 APTT 25.2 SEC (23.5-35.8) 11/10/19 15:50 Carbonic Acid 1.10 mmol/L (1.05-1.35) 11/10/19 16:15 HCO3/H2CO3 Ratio 22:1 11/10/19 16:15 ABG pH 7.44 (7.35-7.45) 11/10/19 16:15 ABG pCO2 36.6 mmHg (35-45) 11/10/19 16:15 ABG pO2 77.2 mmHg (80-100) L 11/10/19 16:15 ABG HCO3 24.5 mmol/L (20-24) H 11/10/19 16:15 ABG Total CO2 25.6 mmol/L (21-25) H 11/10/19 16:15 ABG O2 Saturation 95.9 % (94-98) 11/10/19 16:15 ABG Base Excess 0.7 mmol/L 11/10/19 16:15 FiO2 ROOM AIR 11/10/19 16:15 Sodium 135.5 mmol/L (137-145) L 11/14/19 05:39 Potassium 3.9 mmol/L (3.6-5.0) 11/14/19 05:39 Chloride 104 mmol/L (98-107) 11/14/19 05:39 Carbon Dioxide 28 mmol/L (22-30) 11/14/19 05:39 Anion Gap 4 (5-19) L 11/14/19 05:39 BUN 12 mg/dL (7-20) 11/14/19 05:39 Creatinine 0.79 mg/dL (0.52-1.25) 11/14/19 05:39 Est GFR ( Amer) > 60 (>60) 11/14/19 05:39 Est GFR (MDRD) Non-Af > 60 (>60) 11/14/19 05:39 Glucose 140 mg/dL (75-110) H 11/14/19 05:39 POC Glucose 127 mg/dL (70-110) H 11/16/19 06:31 Hemoglobin A1c % 6.5 % (4.7-6.0) H 11/10/19 15:50 Lactic Acid 1.0 mmol/L (0.7-2.1) 11/10/19 22:00 Calcium 7.6 mg/dL (8.4-10.2) L 11/14/19 05:39 Magnesium 1.9 mg/dL (1.6-2.3) 11/13/19 07:00 Total Bilirubin 0.8 mg/dL (0.2-1.3) 11/14/19 05:39 Direct Bilirubin 0.4 mg/dL (0.0-0.4) 11/14/19 05:39 Neonat Total Bilirubin Not Reportable 11/14/19 05:39 Neonat Direct Bilirubin Not Reportable 11/14/19 05:39 Neonat Indirect Bili Not Reportable 11/14/19 05:39 AST 20 U/L (14-36) 11/14/19 05:39 ALT 20 U/L (<35) 11/14/19 05:39 Alkaline Phosphatase 111 U/L (38-126) 11/14/19 05:39 Ammonia < 8.7 umol/L (9-33) L 11/10/19 20:25 Creatine Kinase 30 U/L (30-135) 11/10/19 15:50 CK-MB (CK-2) 1.14 ng/mL (<4.55) 11/10/19 15:50 Troponin I 0.050 ng/mL 11/10/19 15:50 NT-Pro-B Natriuret Pep 2380 pg/mL (<450) H 11/10/19 15:50 Total Protein 4.7 g/dL (6.3-8.2) L 11/14/19 05:39 Albumin 1.9 g/dL (3.5-5.0) L 11/14/19 05:39 Lipase 214.3 U/L (23-300) 11/10/19 15:50 Urine Color DARK YELLOW 11/10/19 18:00 Urine Appearance CLOUDY 11/10/19 18:00 Urine pH 6.0 (5.0-9.0) 11/10/19 18:00 Ur Specific [place] 1.016 11/10/19 18:00 Urine Protein 100 mg/dL (NEGATIVE) H 11/10/19 18:00 Urine Glucose (UA) 50 mg/dL (NEGATIVE) H 11/10/19 18:00 Urine Ketones 20 mg/dL (NEGATIVE) H 11/10/19 18:00 Urine Blood LARGE (NEGATIVE) H 11/10/19 18:00 Urine Nitrite NEGATIVE (NEGATIVE) 11/10/19 18:00 Urine Bilirubin NEGATIVE (NEGATIVE) 11/10/19 18:00 Urine Urobilinogen 4.0 mg/dL (<2.0) H 11/10/19 18:00 Ur Leukocyte Esterase TRACE (NEGATIVE) H 11/10/19 18:00 Urine WBC (Auto) 13 /HPF 11/10/19 18:00 Urine RBC (Auto) >182 /HPF 11/10/19 18:00 U Hyaline Cast (Auto) 35 /LPF 11/10/19 18:00 Urine Bacteria (Auto) TRACE /HPF 11/10/19 18:00 Squamous Epi Cells Auto 2 /HPF 11/10/19 18:00 Urine Mucus (Auto) FEW /LPF 11/10/19 18:00 Urine Ascorbic Acid NEGATIVE (NEGATIVE) 11/10/19 18:00 Urine Opiates Screen NEGATIVE 11/10/19 18:00 Urine Methadone Screen NEGATIVE 11/10/19 18:00 Ur Barbiturates Screen NEGATIVE 11/10/19 18:00 Ur Phencyclidine Scrn NEGATIVE 11/10/19 18:00 Ur Amphetamines Screen NEGATIVE 11/10/19 18:00 U Benzodiazepines Scrn NEGATIVE 11/10/19 18:00 Urine Cocaine Screen NEGATIVE 11/10/19 18:00 U Marijuana (THC) Screen NEGATIVE 11/10/19 18:00 COVID-19 Source See comment 11/15/19 11:57 COVID-19 (KALIE) Not Detected (Not Detect) 11/15/19 11:57 11/10/19 15:50 CK-MB (CK-2) 1.14 Troponin I 0.050 NT-Pro-B Natriuret Pep 2380 H Impressions: Chest X-Ray 11/10/19 15:55 IMPRESSION: Questionable left basilar retrocardiac opacity possibly atelectasis or airspace disease. Two view radiograph could be considered for confirmation. Head CT 11/10/19 15:55 IMPRESSION: Limited exam secondary to motion artifact. Chronic age related changes and postsurgical sequelae from prior left occipital craniotomy. No evidence of acute intracranial process. EVIDENCE OF ACUTE STROKE: NO. Abdomen/Pelvis CT 11/13/19 00:00 IMPRESSION: Stable left adrenal nodule. Diverticulosis coli. No acute finding in the abdomen or pelvis. Chest CT 11/13/19 00:00 IMPRESSION: NORMAL CT OF THE CHEST WITH IV CONTRAST. Venous Doppler Study 11/13/19 00:00 IMPRESSION: NO EVIDENCE DVT OR SVT RIGHT ARM. Stroke Is this a Stroke Patient?: No Acute Heart Failure Is this a Heart Failure Patient?: No
[2019-11-16] MEDS: METOCLOPRAMIDE HCL 10 MG TABLET PO SCH ×4 (09:09→22:12)
[2019-11-16] MEDS: SUCRALFATE 1 GM TABLET PO SCH ×4 (09:09→22:10)
[2019-11-16] MEDS: MULTIVITAMIN TABLET PO SCH (09:09)
[2019-11-16] MEDS: MAGNESIUM OXIDE 400 MG TABLET PO SCH ×3 (09:09→17:17)
[2019-11-16] MEDS: ENOXAPARIN SODIUM INJ 40 MG/0.4 ML DISP.SYRIN SUBCUT SCH (09:10)
[2019-11-16] MEDS: POTASSIUM CHLORIDE 10 MEQ TABLET.ER PO SCH ×3 (09:10→17:16)
[2019-11-16] MEDS: POLYETHYLENE GLYCOL 3350 POWDER 17 GM/1 PACKET PO SCH (09:33)
[2019-11-16] MEDS: SENNOSIDES/DOCUSATE 8.6-50 MG 1 EACH TABLET PO SCH ×2 (09:33→17:15)
--- NOTE | 2019-11-16 19:10 | PDOC PROGRESS REPORT ---
Subjective Progress Note for:: 11/16/19 Subjective:: NAEO Reason For Visit: SYNCOPE,HYPOKALEMIA,HYPOMAGNESEMIA Physical Exam Vital Signs: Temp Pulse Resp BP Pulse Ox 97.6 F 91 18 152/78 H 96 11/16/19 15:54 11/16/19 15:54 11/16/19 15:54 11/16/19 15:54 11/16/19 15:54 Intake & Output 11/15/19 11/16/19 11/17/19 06:59 06:59 06:59 Intake Total 1150 1300 Output Total 600 900 Balance 550 400 Weight 115.3 kg 115.3 kg General appearance: PRESENT: no acute distress Eye exam: ABSENT: scleral icterus Mouth exam: PRESENT: moist Throat exam: ABSENT: post pharyngeal erythema Neck exam: ABSENT: JVD Respiratory exam: PRESENT: clear to auscultation patria, unlabored Cardiovascular exam: PRESENT: RRR GI/Abdominal exam: PRESENT: normal bowel sounds, soft. ABSENT: tenderness Extremities exam: ABSENT: pedal edema Neurological exam: PRESENT: alert, awake Psychiatric exam: PRESENT: appropriate affect Skin exam: ABSENT: rash Results Laboratory Results: 11/16/19 05:44 11/14/19 05:39 11/16/19 05:44 WBC 8.4 RBC 3.92 Hgb 10.7 L Hct 31.6 L MCV 81 MCH 27.2 MCHC 33.7 RDW 18.3 H Plt Count 284 11/10/19 16:15 Blood Blood Culture - Final NO GROWTH IN 5 DAYS 11/10/19 15:50 Blood Blood Culture - Final NO GROWTH IN 5 DAYS 11/10/19 11/10/19 15:50 15:50 Creatine Kinase 30 CK-MB (CK-2) 1.14 Troponin I 0.050 NT-Pro-B Natriuret Pep 2380 H Impressions: Chest X-Ray 11/10/19 15:55 IMPRESSION: Questionable left basilar retrocardiac opacity possibly atelectasis or airspace disease. Two view radiograph could be considered for confirmation. Head CT 11/10/19 15:55 IMPRESSION: Limited exam secondary to motion artifact. Chronic age related changes and postsurgical sequelae from prior left occipital craniotomy. No evidence of acute intracranial process. EVIDENCE OF ACUTE STROKE: NO. Abdomen/Pelvis CT 11/13/19 00:00 IMPRESSION: Stable left adrenal nodule. Diverticulosis coli. No acute finding in the abdomen or pelvis. Chest CT 11/13/19 00:00 IMPRESSION: NORMAL CT OF THE CHEST WITH IV CONTRAST. Venous Doppler Study 11/13/19 00:00 IMPRESSION: NO EVIDENCE DVT OR SVT RIGHT ARM. Assessment and Plan - Diagnosis (1) Acute metabolic encephalopathy Is this a current diagnosis for this admission?: Yes (2) Diabetes mellitus type 2 in obese Is this a current diagnosis for this admission?: Yes (3) Esophagitis determined by endoscopy Is this a current diagnosis for this admission?: Yes (4) FTT (failure to thrive) in adult Is this a current diagnosis for this admission?: Yes (5) Hiatal hernia Is this a current diagnosis for this admission?: Yes (6) Lactic acidosis Is this a current diagnosis for this admission?: Yes (7) Leukocytosis Is this a current diagnosis for this admission?: Yes (8) Syncope Qualifiers: Syncope type: unspecified Qualified Code(s): R55 - Syncope and collapse Is this a current diagnosis for this admission?: Yes (9) LETICIA (acute kidney injury) Is this a current diagnosis for this admission?: Yes (10) Dehydration Is this a current diagnosis for this admission?: Yes (11) Hyperglycemia due to type 2 diabetes mellitus Qualifiers: Diabetes mellitus oil heaterman insulin use: without oil heaterman use Qualified Code(s): E11.65 - Type 2 diabetes mellitus with hyperglycemia Is this a current diagnosis for this admission?: Yes (12) Hypertension Qualifiers: Hypertension type: essential hypertension Qualified Code(s): I10 - Essential (primary) hypertension Is this a current diagnosis for this admission?: Yes (13) Hypokalemia Is this a current diagnosis for this admission?: Yes (14) Hypomagnesemia Is this a current diagnosis for this admission?: Yes (15) Morbid obesity with BMI of 40.0-44.9, adult Is this a current diagnosis for this admission?: Yes (16) Physical deconditioning Is this a current diagnosis for this admission?: Yes - Plan Summary Summary: YI TAN is a 79 year old female with PMH of mengingioma s/p craniotomy, HTN, HLD, DM2, morbid obesity (BMI 46) who presented on 11/10/2019 via EMS from home due to poor oral intake, nausea, dehydration and orthostatic syncope. She was recently admitted here at [facility] from 10/08 to 10/19 due to similar concerns and had an extensive negative work up, including CT chest/abdomen/pelvis, brain MRI and EGD. She declined referral to SNF during that admission and refused to work with PT/OT throughout the admission. Her nausea and poor oral intake were thought to be due to combination of gastritis/esophagitis due to acid reflux from hiatal hernia (as seen on inpatient EGD on 10/19/2019). CT chest showed no obvious esophageal dilation or other etiologies. PPI therapy was increased to twice daily, she was continued on her home Reglan QID and she was started on Carafate QID; with these medication changes, she was able to eat 75-100% of her meals without issue prior to discharge on 10/19. According to her , after discharge on 10/19, she continued to have nausea and poor appetite and was reportedly unable to eat anything or to take any her oral medications. Of note, she came to the ED on 11/01/2019 with these exact same concerns, but her weight was noted to be stable and she did not appear dehydrated, so she was discharged home. According to her son, she had not been acting like herself the past few days prior to admission, often incoherent or moaning and groaning. Patient and family denied any fever, chills, shortness of breath, chest pain, diarrhea, urinary symptoms or new pain/aches prior to admission. On the day of admission, she had orthostatic syncope at home. In the ED, labs were notable for WBC of 18, potassium of 3.0, magnesium of 1.0, lactic acid 2.8. CT head was negative for acute changes. She w as admitted for further evaluation and management. Nausea/Vomiting: she has reportedly had poor oral intake for years now. She has been hospitalized multiple times and seen by multiple physicians over the last few years for these concerns and no one has been able to deduce the cause of her nausea. Her claims that her primary care does not want to see her any more. He feels that he is unable to care for her at home due to her inability to eat, which is causing her generalized weakness. The patient herself is adamantly against the idea of PEG tube placement despite having had multiple admissions for nausea and inability to eat without a clear cause despite extensive negative work-up. She has poor compliance with her medications at home, but when she takes them as prescribed here in the hospital, she is able to tolerate excellent oral intake (in fact, she is eating 75-100% of all meals here in the hospital!). She reports that she is unable to eat, but she has not lost weight over the last few months. She has repeatedly declined PEG tube placement. Much of her presentation seems to be psychiatric in nature. Psychiatry was consulted this admission and recommend starting Celexa 20 mg daily. She would benefit from the increased socialization and group atmosphere of a longterm or assisted living facility. Neutrophilic Leukocytosis: unclear etiology. Resolved without antibiotics. May have been related to constipation or dehydration, both of which are now resolved. She has had no respiratory symptoms or new symptoms of any kind to suggest COVID or other URI. Regardless, she was tested for COVID on 11/14 and was NEGATIVE. Her UA showed no evidence of UTI. Blood cultures were negative x 2. Repeat CT C/A/P this admission was unremarkable. RUE Duplex US (done for right arm swelling) was negative for DVT. Lactic acidosis: due to dehydration, resolved with IVF. Orthostatic Syncope: due to dehydration. This occurred with her prior admission as well, and extensive work up was negative then as well. EEG performed this hospitalization showed no epileptiform activity. Constipation: resolved with initiation of miralax/senna. Hiatal hernia: moderate, noted on EGD done 10/19/19. Gastritis/Esophagitis: determined by EGD on 10/19/19. Continue Protonix 40 mg BID. Hypokalemia: due to poor oral intake and improved with oral repletion. Continue KCl 20 mEq BID. Hypomagnesemia: due to poor oral intake and improved with oral repletion. Cont inue Mg Ox 400 mg TID AC. Acute metabolic encephalopathy: was due to dehydration, resolved with IVF. LETICIA: due to dehydration, resolved with IVF. Diabetes mellitus type 2 in obese, c/b hyperglycemia: unclear if metformin could be causing her GI complaints, so metformin was discontinued. She should be continued on a carb-controlled diet. Would recommend continuing Accuchecks and, if she has hyperglycemia, starting SSI with meals. Morbid obesity with BMI 46: she has not had any weight loss despite reports of nausea and inability to eat at home. She would benefit from initiation of an exercise regimen and monitored weight loss. Essential Hypertension: controlled on clonidine patch. Physical Deconditioning: PT consult, would benefit from referral to SNF for ongoing PT/OT. Fall precautions recommended. - Time Time Spent with patient: 35 or more minutes Anticipated Discharge Disposition: Prison Facility Anticipated Discharge Timeframe: within 24 hours
[2019-11-16] MEDS: ATORVASTATIN CALCIUM 80 MG TABLET PO SCH (22:09)
[2019-11-16] MEDS: CITALOPRAM HYDROBROMIDE 20 MG TABLET PO SCH (22:10)
[2019-11-17] MEDS: PANTOPRAZOLE SODIUM 40 MG TABLET.DR PO SCH (06:13)
[2019-11-17 07:23] LABS: HEMATOCRIT 32.4 % (36.0-47.0); HEMOGLOBIN 10.8 g/dL (12.0-15.5); MEAN CORPUSCULAR HGB CONC 33.4 g/dL (32.0-36.0); MEAN CORPUSCULAR VOLUME 81 fl (80-97); PLATELET COUNT 316 10^3/uL (150-450); RED BLOOD COUNT 3.99 10^6/uL (3.72-5.28); RED CELL DISTRIBUTION WIDTH 18.8 % (11.5-14.0)
--- NOTE | 2019-11-17 08:45 | PDOC TRANSFER SUMMARY ---
Impression - Admit/DC Date/PCP Admission Date/Primary Care Provider: 11/10/19 19:57 ELMA FERNÁNDEZ MD Discharge Date: 11/17/19 - Discharge Diagnosis (1) Acute metabolic encephalopathy Is this a current diagnosis for this admission?: Yes (2) Diabetes mellitus type 2 in obese Is this a current diagnosis for this admission?: Yes (3) Esophagitis determined by endoscopy Is this a current diagnosis for this admission?: Yes (4) FTT (failure to thrive) in adult Is this a current diagnosis for this admission?: Yes (5) Hiatal hernia Is this a current diagnosis for this admission?: Yes (6) Lactic acidosis Is this a current diagnosis for this admission?: Yes (7) Leukocytosis Is this a current diagnosis for this admission?: Yes (8) Syncope Is this a current diagnosis for this admission?: Yes (9) LETICIA (acute kidney injury) Is this a current diagnosis for this admission?: Yes (10) Dehydration Is this a current diagnosis for this admission?: Yes (11) Hyperglycemia due to type 2 diabetes mellitus Is this a current diagnosis for this admission?: Yes (12) Hypertension Is this a current diagnosis for this admission?: Yes (13) Hypokalemia Is this a current diagnosis for this admission?: Yes (14) Hypomagnesemia Is this a current diagnosis for this admission?: Yes (15) Morbid obesity with BMI of 40.0-44.9, adult Is this a current diagnosis for this admission?: Yes (16) Physical deconditioning Is this a current diagnosis for this admission?: Yes - Assessment Summary: IY TAN is a 79 year old female with PMH of mengingioma s/p craniotomy, HTN, HLD, DM2, morbid obesity (BMI 46) who presented on 11/10/2019 via EMS from home due to poor oral intake, nausea, dehydration and orthostatic syncope. She was recently admitted here at [facility] from 10/08 to 10/19 due to similar concerns and had an extensive negative work up, including CT chest/abdomen/pelvis, brain MRI and EGD. She declined referral to SNF during that admission and refused to work with PT/OT throughout the admission. Her nausea and poor oral intake were thought to be due to combination of gastritis/esophagitis due to acid reflux from hiatal hernia (as seen on inpatient EGD on 10/19/2019). CT chest showed no obvious esophageal dilation or other etiologies. PPI therapy was increased to twice daily, she was continued on her home Reglan QID and she was started on Carafate QID; with these medication changes, she was able to eat 75-100% of her meals without issue prior to discharge on 10/19. According to her , after discharge on 10/19, she con tinued to have nausea and poor appetite and was reportedly unable to eat anything or to take any her oral medications. Of note, she came to the ED on 11/01/2019 with these exact same concerns, but her weight was noted to be stable and she did not appear dehydrated, so she was discharged home. According to her son, she had not been acting like herself the past few days prior to admission, often incoherent or moaning and groaning. Patient and family denied any fever, chills, shortness of breath, chest pain, diarrhea, urinary symptoms or new pain/aches prior to admission. On the day of admission, she had orthostatic syncope at home. In the ED, labs were notable for WBC of 18, potassium of 3.0, magnesium of 1.0, lactic acid 2.8. CT head was negative for acute changes. She was admitted for further evaluation and management. Nausea/Vomiting: she has reportedly had poor oral intake for years now. She has been hospitalized multiple times and seen by multiple physicians over the last few years for these concerns and no one has been able to deduce the cause of her nausea. Her claims that her primary care does not want to see her any more. He feels that he is unable to care for her at home due to her inability to eat, which is causing her generalized weakness. The patient herself is adamantly against the idea of PEG tube placement despite having had multiple admissions for nausea and inability to eat without a clear cause despite extensive negative work-up. She has poor compliance with her medications at home, but when she takes them as prescribed here in the hospital, she is able to tolerate excellent oral intake (in fact, she is eating 75-100% of all meals here in the hospital!). She reports that she is unable to eat, but she has not lost weight over the last few months. She has repeatedly declined PEG tube placement. Much of her presentation seems to be psychiatric in nature. Psychiatry was consulted this admission and recommend starting Celexa 20 mg daily. She would benefit from the increased socialization and group atmosphere of a care home or assisted living facility. Neutrophilic Leukocytosis: unclear etiology. Resolved without antibiotics. May have been related to constipation or dehydration, both of which are now resolved. She has had no respiratory symptoms or new symptoms of any kind to suggest COVID or other URI. Regardless, she was tested for COVID on 11/14 and was NEGATIVE. Her UA showed no evidence of UTI. Blood cultures were negative x 2. Repeat CT C/A/P this admission was unremarkable. RUE Duplex US (done for right arm swelling) was negative for DVT. Lactic acidosis: due to dehydration, resolved with IVF. Orthostatic Syncope: due to dehydration. This occurred with her prior admission as well, and extensive work up was negative then as well. EEG performed this hospitalization showed no epileptiform activity. Constipation: resolved with initiation of miralax/senna. Hiatal hernia: moderate, noted on EGD done 10/19/19. Gastritis/Esophagitis: determined by EGD on 10/19/19. Continue Protonix 40 mg BID. Hypokalemia: due to poor oral intake and improved with oral repletion. Continue KCl 20 mEq BID. Hypomagnesemia: due to poor oral intake and improved with oral repletion. Continue Mg Ox 400 mg TID AC. Acute metabolic encephalopathy: was due to dehydration, resolved with IVF. LETICIA: due to dehydration, resolved with IVF. Diabetes mellitus type 2 in obese, c/b hyperglycemia: unclear if metformin could be causing her GI complaints, so metformin was discontinued. She should be continued on a carb-controlled diet. Would recommend continuing Accuchecks and, if she has hyperglycemia, starting SSI with meals. Morbid obesity with BMI 46: she has not had any weight loss despite reports of nausea and inability to eat at home. She would benefit from initiation of an exercise regimen and monitored weight loss. Essential Hypertension: restarted on her home dose clonidine patch and started on lisinopril this admission. Physical Deconditioning: PT consult, would benefit from referral to SNF for ongoing PT/OT. Fall precautions recommended. - Additional Information Resuscitation Status: Full Code Discharge Diet: Diabetic Discharge Activity: Activity As Tolerated, Walk Frequently Referrals: [facility] [Outside] Home Medications: Atorvastatin Calcium [Lipitor] 80 mg PO DAILY #30 tablet 10/20/19 Clonidine [Catapres-Tts 3 (0.3 mg/24 Hr) Transderm Patch] 1 each TD Fr@10 #12 patch.tdwk 10/20/19 Ondansetron [Zofran Odt 4 mg Tablet] 8 mg PO Q6HP PRN #120 tab.rapdis 10/20/19 Sucralfate [Carafate 1 gm Tablet] 1 gm PO ACHS #120 tablet 10/20/19 Citalopram Hydrobromide [Celexa 20 mg Tablet] 20 mg PO QHS tablet 11/16/19 Magnesium Oxide [Mag-Ox 400 mg Tablet] 400 mg PO TID tablet 11/16/19 Metoclopramide HCl [Reglan 10 mg Tablet] 10 mg PO ACHS tablet 11/16/19 Multivitamin [Tab-A-Lori (Multiple Vitamin) Tablet] 1 tab PO DAILY tablet 11/16/19 Pantoprazole Sodium [Protonix [address] Tablet] 40 mg PO BID@0600,1700 tablet.dr 11/16/19 Polyethylene Glycol 3350 [Miralax Powder 17 gm/Packet] 17 gm PO DAILY powd.pack 11/16/19 Potassium Chloride [Klor-Con 10 Meq Tablet ER] 20 meq PO BID tablet.er 11/16/19 Sennosides/Docusate 8.6-50 mg [Senna Plus Tablet] 2 each PO BID tablet 11/16/19 Lisinopril [Prinivil 10 mg Tablet] 20 mg PO DAILY tablet 11/17/19 History of Present Illiness History of Present Illness: YI TAN is a 79 year old female Physical Exam Vital Signs: Temp Pulse Resp BP Pulse Ox 98.6 F 92 20 173/72 H 97 11/17/19 07:49 11/17/19 07:49 11/17/19 07:49 11/17/19 07:49 11/17/19 07:49 Intake & Output 11/16/19 11/17/19 11/18/19 06:59 06:59 06:59 Intake Total 1300 100 Output Total 900 Balance 400 100 Weight 115.3 kg 115.3 kg Results Laboratory Results: WBC 9.0 10^3/uL (4.0-10.5) 11/17/19 06:48 RBC 3.99 10^6/uL (3.72-5.28) 11/17/19 06:48 Hgb 10.8 g/dL (12.0-15.5) L 11/17/19 06:48 Hct 32.4 % (36.0-47.0) L 11/17/19 06:48 MCV 81 fl (80-97) 11/17/19 06:48 MCH 27.0 pg (27.0-33.4) 11/17/19 06:48 MCHC 33.4 g/dL (32.0-36.0) 11/17/19 06:48 RDW 18.8 % (11.5-14.0) H 11/17/19 06:48 Plt Count 316 10^3/uL (150-450) 11/17/19 06:48 Lymph % (Auto) Not Reportable 11/13/19 07:00 [place] % (Auto) Not Reportable 11/13/19 07:00 Eos % (Auto) Not Reportable 11/13/19 07:00 Baso % (Auto) Not Reportable 11/13/19 07:00 Absolute Neuts (auto) Not Reportable 11/13/19 07:00 Absolute Lymphs (auto) Not Reportable 11/13/19 07:00 Absolute Monos (auto) Not Reportable 11/13/19 07:00 Absolute Eos (auto) Not Reportable 11/13/19 07:00 Absolute Basos (auto) Not Reportable 11/13/19 07:00 Total Counted 100 11/13/19 07:00 Seg Neutrophils % Not Reportable 11/13/19 07:00 Seg Neuts % (Manual) 74 % (42-78) 11/13/19 07:00 Lymphocytes % (Manual) 15 % (13-45) 11/13/19 07:00 Atypical Lymphs % 1 % (0) 11/13/19 07:00 Monocytes % (Manual) 8 % (3-13) 11/13/19 07:00 Eosinophils % (Manual) 2 % (0-6) 11/13/19 07:00 Basophils % (Manual) 0 % (0-2) 11/13/19 07:00 Abs Neuts (Manual) 13.2 10^3/uL (1.7-8.2) H 11/13/19 07:00 Abs Lymphs (Manual) 2.9 10^3/uL (0.5-4.7) 11/13/19 07:00 Abs Monocytes (Manual) 1.4 10^3/uL (0.1-1.4) 11/13/19 07:00 Absolute Eos (Manual) 0.4 10^3/uL (0.0-0.6) 11/13/19 07:00 Abs Basophils (Manual) 0.0 10^3/uL (0.0-0.2) 11/13/19 07:00 Platelet Comment ADEQUATE 11/13/19 07:00 Polychromasia SLIGHT 11/13/19 07:00 Poikilocytosis SLIGHT 11/10/19 15:50 Anisocytosis 1+ 11/13/19 07:00 Ovalocytes SLIGHT 11/10/19 15:50 APTT 25.2 SEC (23.5-35.8) 11/10/19 15:50 Carbonic Acid 1.10 mmol/L (1.05-1.35) 11/10/19 16:15 HCO3/H2CO3 Ratio 22:1 11/10/19 16:15 ABG pH 7.44 (7.35-7.45) 11/10/19 16:15 ABG pCO2 36.6 mmHg (35-45) 11/10/19 16:15 ABG pO2 77.2 mmHg (80-100) L 11/10/19 16:15 ABG HCO3 24.5 mmol/L (20-24) H 11/10/19 16:15 ABG Total CO2 25.6 mmol/L (21-25) H 11/10/19 16:15 ABG O2 Saturation 95.9 % (94-98) 11/10/19 16:15 ABG Base Excess 0.7 mmol/L 11/10/19 16:15 FiO2 ROOM AIR 11/10/19 16:15 Sodium 135.5 mmol/L (137-145) L 11/14/19 05:39 Potassium 3.9 mmol/L (3.6-5.0) 11/14/19 05:39 Chloride 104 mmol/L (98-107) 11/14/19 05:39 Carbon Dioxide 28 mmol/L (22-30) 11/14/19 05:39 Anion Gap 4 (5-19) L 11/14/19 05:39 BUN 12 mg/dL (7-20) 11/14/19 05:39 Creatinine 0.79 mg/dL (0.52-1.25) 11/14/19 05:39 Est GFR ( Amer) > 60 (>60) 11/14/19 05:39 Est GFR (MDRD) Non-Af > 60 (>60) 11/14/19 05:39 Glucose 140 mg/dL (75-110) H 11/14/19 05:39 POC Glucose 123 mg/dL (70-110) H 11/17/19 05:51 Hemoglobin A1c % 6.5 % (4.7-6.0) H 11/10/19 15:50 Lactic Acid 1.0 mmol/L (0.7-2.1) 11/10/19 22:00 Calcium 7.6 mg/dL (8.4-10.2) L 11/14/19 05:39 Magnesium 1.9 mg/dL (1.6-2.3) 11/13/19 07:00 Total Bilirubin 0.8 mg/dL (0.2-1.3) 11/14/19 05:39 Direct Bilirubin 0.4 mg/dL (0.0-0.4) 11/14/19 05:39 Neonat Total Bilirubin Not Reportable 11/14/19 05:39 Neonat Direct Bilirubin Not Reportable 11/14/19 05:39 Neonat Indirect Bili Not Reportable 11/14/19 05:39 AST 20 U/L (14-36) 11/14/19 05:39 ALT 20 U/L (<35) 11/14/19 05:39 Alkaline Phosphatase 111 U/L (38-126) 11/14/19 05:39 Ammonia < 8.7 umol/L (9-33) L 11/10/19 20:25 Creatine Kinase 30 U/L (30-135) 11/10/19 15:50 CK-MB (CK-2) 1.14 ng/mL (<4.55) 11/10/19 15:50 Troponin I 0.050 ng/mL 11/10/19 15:50 NT-Pro-B Natriuret Pep 2380 pg/mL (<450) H 11/10/19 15:50 Total Protein 4.7 g/dL (6.3-8.2) L 11/14/19 05:39 Albumin 1.9 g/dL (3.5-5.0) L 11/14/19 05:39 Lipase 214.3 U/L (23-300) 11/10/19 15:50 Urine Color DARK YELLOW 11/10/19 18:00 Urine Appearance CLOUDY 11/10/19 18:00 Urine pH 6.0 (5.0-9.0) 11/10/19 18:00 Ur Specific [place] 1.016 11/10/19 18:00 Urine Protein 100 mg/dL (NEGATIVE) H 11/10/19 18:00 Urine Glucose (UA) 50 mg/dL (NEGATIVE) H 11/10/19 18:00 Urine Ketones 20 mg/dL (NEGATIVE) H 11/10/19 18:00 Urine Blood LARGE (NEGATIVE) H 11/10/19 18:00 Urine Nitrite NEGATIVE (NEGATIVE) 11/10/19 18:00 Urine Bilirubin NEGATIVE (NEGATIVE) 11/10/19 18:00 Urine Urobilinogen 4.0 mg/dL (<2.0) H 11/10/19 18:00 Ur Leukocyte Esterase TRACE (NEGATIVE) H 11/10/19 18:00 Urine WBC (Auto) 13 /HPF 11/10/19 18:00 Urine RBC (Auto) >182 /HPF 11/10/19 18:00 U Hyaline Cast (Auto) 35 /LPF 11/10/19 18:00 Urine Bacteria (Auto) TRACE /HPF 11/10/19 18:00 Squamous Epi Cells Auto 2 /HPF 11/10/19 18:00 Urine Mucus (Auto) FEW /LPF 11/10/19 18:00 Urine Ascorbic Acid NEGATIVE (NEGATIVE) 11/10/19 18:00 Urine Opiates Screen NEGATIVE 11/10/19 18:00 Urine Methadone Screen NEGATIVE 11/10/19 18:00 Ur Barbiturates Screen NEGATIVE 11/10/19 18:00 Ur Phencyclidine Scrn NEGATIVE 11/10/19 18:00 Ur Amphetamines Screen NEGATIVE 11/10/19 18:00 U Benzodiazepines Scrn NEGATIVE 11/10/19 18:00 Urine Cocaine Screen NEGATIVE 11/10/19 18:00 U Marijuana (THC) Screen NEGATIVE 11/10/19 18:00 COVID-19 Source See comment 11/15/19 11:57 COVID-19 (KALIE) Not Detected (Not Detect) 11/15/19 11:57 11/10/19 15:50 CK-MB (CK-2) 1.14 Troponin I 0.050 NT-Pro-B Natriuret Pep 2380 H Impressions: Chest X-Ray 11/10/19 15:55 IMPRESSION: Questionable left basilar retrocardiac opacity possibly atelectasis or airspace disease. Two view radiograph could be considered for confirmation. Head CT 11/10/19 15:55 IMPRESSION: Limited exam secondary to motion artifact. Chronic age related changes and postsurgical sequelae from prior left occipital craniotomy. No evidence of acute intracranial process. EVIDENCE OF ACUTE STROKE: NO. Abdomen/Pelvis CT 11/13/19 00:00 IMPRESSION: Stable left adrenal nodule. Diverticulosis coli. No acute finding in the abdomen or pelvis. Chest CT 11/13/19 00:00 IMPRESSION: NORMAL CT OF THE CHEST WITH IV CONTRAST. Venous Doppler Study 11/13/19 00:00 IMPRESSION: NO EVIDENCE DVT OR SVT RIGHT ARM. Stroke Is this a Stroke Patient?: No Acute Heart Failure Is this a Heart Failure Patient?: No
[2019-11-17] MEDS: INSULIN LISPRO 100 UNIT/ML 3 ML VIAL SUBCUT SCH ×2 (09:15→10:52)
[2019-11-17] MEDS: SENNOSIDES/DOCUSATE 8.6-50 MG 1 EACH TABLET PO SCH (09:22)
[2019-11-17] MEDS: SUCRALFATE 1 GM TABLET PO SCH ×2 (09:23→10:52)
[2019-11-17] MEDS: MAGNESIUM OXIDE 400 MG TABLET PO SCH (09:23)
[2019-11-17] MEDS: ENOXAPARIN SODIUM INJ 40 MG/0.4 ML DISP.SYRIN SUBCUT SCH (09:23)
[2019-11-17] MEDS: MULTIVITAMIN TABLET PO SCH (09:23)
[2019-11-17] MEDS: POTASSIUM CHLORIDE 10 MEQ TABLET.ER PO SCH (09:23)
[2019-11-17] MEDS: METOCLOPRAMIDE HCL 10 MG TABLET PO SCH ×2 (09:23→11:06)
[2019-11-17] MEDS: POLYETHYLENE GLYCOL 3350 POWDER 17 GM/1 PACKET PO SCH (09:25)
[2019-11-17] MEDS ORDERED: LISINOPRIL 10 MG TABLET PO SCH (10:00)
[2019-11-17 12:09] VITALS: BP 156/70
== END 2019-11-17 13:06 | DRG 640 ==
LOC: ER 15:46 → OBSVTOIN 19:57 → EH 19:57 → 4S 23:06
PROVIDERS: ADMIT Internal Medicine; ATTEND Hospitalist
DX: E86.0 Dehydration (principal); G93.41 Metabolic encephalopathy; Z68.41 Body mass index [BMI] 40.0-44.9, adult; N17.9 Acute kidney failure, unspecified; R62.7 Adult failure to thrive; E87.2 Acidosis; E11.65 Type 2 diabetes mellitus with hyperglycemia; K20.90 Esophagitis, unspecified without bleeding; E87.6 Hypokalemia; E83.42 Hypomagnesemia; D72.829 Elevated white blood cell count, unspecified; E66.01 Morbid (severe) obesity due to excess calories; I10 Essential (primary) hypertension; E78.5 Hyperlipidemia, unspecified; K44.9 Diaphragmatic hernia without obstruction or gangrene; I95.1 Orthostatic hypotension; K29.70 Gastritis, unspecified, without bleeding; R13.10 Dysphagia, unspecified; Z79.84 Long term (current) use of oral hypoglycemic drugs; Z79.82 Long term (current) use of aspirin; K59.00 Constipation, unspecified; Z86.011 Personal history of benign neoplasm of the brain; Z91.14 Patient's other noncompliance with medication regimen; Z20.828 Contact with and (suspected) exposure to other viral communicable diseases; Z82.49 Family history of ischemic heart disease and other diseases of the circulatory system; Z83.3 Family history of diabetes mellitus; Z90.49 Acquired absence of other specified parts of digestive tract; Z90.710 Acquired absence of both cervix and uterus
CPT/HCPCS: 36415; 51702; 70450; 71045; 71260; 74177; 80053; 80307; 81001; 82140; 82550; 82553; 82803; 82962; 83036; 83605; 83690; 83735; 83880; 84484; 85025; 85027; 85730; 87040; 87635; 93005; 93010; 93971; 95819; 96365; 96366; 96368; 96372; 96375; 99285; C9113; C9803; J0456; J0696; J1170; J1644; J1650; J1815; J2060; J2543; J2765; J3010; J3411; J3475; J3480; J3490; J7050; J7120; J7121; S0028

== ENCOUNTER 2019-12-13 19:32 | Emergency (ER) | payer MEDICARE, OTHER ==
--- NOTE | 2019-12-13 20:09 | ER Document Report ---
ED Medical Screen (RME) - General Stated Complaint: CANNOT PEE Time Seen by Provider: 12/13/19 20:00 Primary Care Provider: ELMA FERNÁNDEZ MD [Primary Care Provider] - Follow up as needed Mode of Arrival: Wheelchair Information source: Patient, Relative Notes: Patient presents complaining of difficulty voiding for the past week that worsened over the past 2 days. Patient states that she only voided a very small amount about 3 hours ago. Patient complains of lower abdominal pain and low back pain. Patient also states that she has had epigastric pain for the past 2 days. Patient denies any fever at home. Patient has a history of hiatal hernia, hypertension and diabetes. Patient hypothermic and tachycardic in triage. I have greeted and performed a rapid initial assessment of this patient. A comprehensive ED assessment and evaluation of the patient, analysis of test results and completion of the medical decision making process will be conducted by additional ED providers. TRAVEL OUTSIDE OF THE [place] IN LAST 30 DAYS: No - Related Data Allergies/Adverse Reactions: No Known Allergies Allergy (Verified 10/09/16 10:59) Past Medical History - Past Medical History Cardiac Medical History: Reports: Hx Hypertension Denies: Hx Atrial Fibrillation, Hx Congestive Heart Failure, Hx Coronary Artery Disease, Hx Heart Attack, Hx Hypercholesterolemia, Hx Peripheral Vascular Disease, Hx Heart Murmur Pulmonary Medical History: Denies: Hx Asthma, Hx Bronchitis, Hx COPD, Hx Pneumonia Neurological Medical History: Denies: Hx Cerebrovascular Accident, Hx Seizures, Hx Parkinson's Disease Endocrine Medical History: Denies: Hx Graves' Disease, Hx Hyperthyroidism, Hx Hypothyroidism Renal/ Medical History: Reports: Hx Kidney Stones - ESWL x 7 [id number]), Hx Ovarian Cysts. Denies: Hx End Stage Renal Disease, Hx Peritoneal Dialysis, Hx Pelvic Inflammatory Disease Malignancy Medical History: Denies: Hx Breast Cancer, Hx Cervical Cancer, Hx Ovarian Cancer GI Medical History: Denies: Hx Crohn's Disease, Hx Gastroesophageal Reflux Disease, Hx Hiatal Hernia, Hx Irritable Bowel, Hx Liver Failure, Hx Pancreatitis, Hx Ulcer Musculoskeltal Medical History: Reports Hx Arthritis, Denies Hx Fibromyalgia, Denies Hx Multiple Sclerosis, Denies Hx Muscular Dystrophy, Denies Hx Systemic Lupus Erythematosus Psychiatric Medical History: Denies: Hx Dementia, Hx Depression Traumatic Medical History: Denies: Hx Fractures Past Surgical History: Reports: Hx Appendectomy - incidental with CARRIE BSO, Hx Hysterectomy, Hx Tonsillectomy - as child, Other - Meningioma removal. Denies: Hx Bowel Surgery, Hx Section, Hx Cholecystectomy, Hx Colostomy, Hx Coronary Artery Bypass Graft, Hx Gastric Bypass Surgery, Hx Herniorrhaphy, Hx Mastectomy, Hx Pacemaker, Hx Tubal Ligation - Immunizations Hx Diphtheria, Pertussis, Tetanus Vaccination: Yes Physical Exam - Cardiovascular Rhythm: Tachycardia Heart sounds: S1 appreciated, S2 appreciated - Abdominal Inspection: Morbidly Obese Tenderness: Tender - Lower pelvic tenderness, exam limited as patient is in wheelchair Doctor's Discharge - Discharge Referrals: ELMA FERNÁNDEZ MD [Primary Care Provider] - Follow up as needed
[2019-12-13] MEDS ORDERED: RINGERS SOLUTION,LACTATED 1,000 ML IV ONE (20:10)
--- NOTE | 2019-12-13 21:13 | RADIOLOGY REPORT (SQ) ---
EXAM DESCRIPTION: X-RAY CHEST- One View CLINICAL HISTORY: Chest pain and tachycardia. COMPARISON: None available. TECHNIQUE: Single view of the chest. FINDINGS: There is trace blunting of the left costophrenic angle with mild adjacent nonspecific opacities. The pulmonary vascularity is normal. The cardiomediastinal silhouette is mildly enlarged. There are atherosclerotic vascular calcifications. Osseous structures are grossly stable. IMPRESSION: Evidence of a small left pleural effusion with nonspecific adjacent patchy opacity. Persistent enlargement of cardiac silhouette with evidence of atherosclerotic vascular disease.
--- NOTE | 2019-12-13 21:18 | ER Document Report ---
ED General - General Mode of Arrival: Wheelchair TRAVEL OUTSIDE OF THE [place] IN LAST 30 DAYS: No <YAMILA THOMPSON - Last Filed: 12/14/19 07:56> <TRISTIN SYED - Last Filed: 12/14/19 10:39> - General Stated Complaint: CANNOT PEE Time Seen by Provider: 12/13/19 20:00 Primary Care Provider: ELMA FERNÁNDEZ MD [Primary Care Provider] - Follow up as needed - [facility] Notes: Patient is a 79 y/o female with a hx of DM, and HTN who presents with urinary retention for the past day. Patient states it hard to pee and that she is only been able to void small amount. Patient states she was told her "bladder will not expand" as she had a Lou catheter in place for about a year due to a brain operation for 2 benign meningiomas. She she endorses pelvic pain due to sensation of having to urinate but denies hematuria and dysuria. Patient is also complaining of substernal chest pain that is cramping in natures that she attributes to "gas" or "indigestion". Patient denies shortness of breath, abdominal pain, nausea, vomiting, and diarrhea. She reports constipation which she normally takes miralax and is able to pass small stools. Her last normal bowel movement was one week ago. Patient has had multiple ER visits and a custodial stay in the past few months. Patient denies any hx of malignancy, PE or DVT. (YAMILA THOMPSON) - Related Data Allergies/Adverse Reactions: No Known Allergies Allergy (Verified 10/09/16 10:59) Past Medical History - General Information source: Patient, Relative - Social History Smoking Status: Unknown if Ever Smoked Frequency of alcohol use: None Drug Abuse: None Family History: Reviewed & Not Pertinent, DM, Hypertension - Past Medical History Cardiac Medical History: Reports: Hx Hypertension Denies: Hx Atrial Fibrillation, Hx Congestive Heart Failure, Hx Coronary Artery Disease, Hx Heart Attack, Hx Hypercholesterolemia, Hx Peripheral Vascular Disease, Hx Heart Murmur Pulmonary Medical History: Denies: Hx Asthma, Hx Bronchitis, Hx COPD, Hx Pneumonia Neurological Medical History: Denies: Hx Cerebrovascular Accident, Hx Seizures, Hx Parkinson's Disease Endocrine Medical History: Denies: Hx Graves' Disease, Hx Hyperthyroidism, Hx Hypothyroidism Renal/ Medical History: Reports: Hx Kidney Stones - ESWL x 7 ([id number]), Hx Ovarian Cysts. Denies: Hx End Stage Renal Disease, Hx Peritoneal Dialysis, Hx Pelvic Inflammatory Disease Malignancy Medical History: Denies: Hx Breast Cancer, Hx Cervical Cancer, Hx Ovarian Cancer GI Medical History: Denies: Hx Crohn's Disease, Hx Gastroesophageal Reflux Disease, Hx Hiatal Hernia, Hx Irritable Bowel, Hx Liver Failure, Hx Pancreatitis, Hx Ulcer Musculoskeletal Medical History: Reports Hx Arthritis, Denies Hx Fibromyalgia, Denies Hx Multiple Sclerosis, Denies Hx Muscular Dystrophy, Denies Hx Systemic Lupus Erythematosus Psychiatric Medical History: Denies: Hx Dementia, Hx Depression Traumatic Medical History: Denies: Hx Fractures Past Surgical History: Reports: Hx Appendectomy - incidental with CARRIE BSO, Hx Hysterectomy, Hx Tonsillectomy - as child, Other - Meningioma removal. Denies: Hx Bowel Surgery, Hx Section, Hx Cholecystectomy, Hx Colostomy, Hx Coronary Artery Bypass Graft, Hx Gastric Bypass Surgery, Hx Herniorrhaphy, Hx Mastectomy, Hx Pacemaker, Hx Tubal Ligation - Immunizations Hx Diphtheria, Pertussis, Tetanus Vaccination: Yes Hx Pneumococcal Vaccination: 09/06/13 <YAMILA THOMPSON M - Last Filed: 12/14/19 07:56> Review of Systems - Review of Systems Constitutional: No symptoms reported EENT: No symptoms reported Cardiovascular: See HPI Respiratory: No symptoms reported Gastrointestinal: See HPI Genitourinary: See HPI Female Genitourinary: No symptoms reported Musculoskeletal: No symptoms reported Skin: No symptoms reported Hematologic/Lymphatic: No symptoms reported Neurological/Psychological: No symptoms reported <YAMILA THOMPSON M - Last Filed: 12/14/19 07:56> Physical Exam <YAMILA THOMPSON - Last Filed: 12/14/19 07:56> - Vital signs Vitals: Temp Pulse Resp BP Pulse Ox 94.3 F L 119 H 14 121/67 93 12/13/19 20:07 12/13/19 20:07 12/13/19 20:07 12/13/19 20:07 12/13/19 20:07 - Notes Notes: PHYSICAL EXAMINATION: VITALS: Vitals reviewed and within normal limits. GENERAL: Disheveled, obese, woman wearing stained clothing, laying in bed in no acute distress. HEAD: Atraumatic, normocephalic. EYES: Pupils equal, round, and reactive to light, extraocular movements intact, sclera anicteric, conjunctiva are normal. ENT: Nares patent. Moist mucous membranes. NECK: Normal range of motion, supple without lymphadenopathy. LUNGS: Breath sounds clear to auscultation bilaterally and equal. No wheezes, rales, or rhonchi. HEART: Regular, rate, and rhythm without murmurs. ABDOMEN: Soft, nontender, normoactive bowel sounds. No guarding, no rebound. No masses appreciated. EXTREMITIES: No pitting or edema. No cyanosis. Palpable radial pulses. NEUROLOGICAL: No focal neurological deficits. Moves all extremities spontaneously and on command. PSYCH: Normal mood, normal affect. SKIN: Warm, Dry, normal turgor, no rashes or lesions noted. (YAMILA THOMPSON) Course - Laboratory Result Diagrams: 12/13/19 22:17 12/13/19 22:17 - Diagnostic Test Radiology reviewed: Reports reviewed <YAMILA THOMPSON - Last Filed: 12/14/19 07:56> - Laboratory Result Diagrams: 12/13/19 22:17 12/13/19 22:17 <TRISTIN SYED - Last Filed: 12/14/19 10:39> - Re-evaluation Re-evalutation: 12/13/19 22:20 Chest XR shows Evidence of a small left pleural effusion with nonspecific adjacent patchy opacity. Persistent enlargement of cardiac silhouette with evidence of atherosclerotic vascular disease. 12/13/19 22:53 Per nursing, patient stated she was unable to pee. She went to XR and urinated a small amount on herself. Post-residual void scan was done and showed only 30cc of urine. 12/14/19 02:30 WBC is elevated at 15 and HGB is low at 11.4. CMP shows mild hyponatremia with a Na of 134.5. PT and INR normal at 13.8 and 1.04. VBG normal with a pH of 7.33, PCO2 of 42.4 and HCO3 of 21.8. Troponin is negative. Chest XR shows evidence of a small left pleural effusion with nonspecific adjacent patchy opacity. Persistent enlargement of cardiac silhouette with evidence of atherosclerotic vascular disease. KUB is negative. Will have the patient follow up with her primary care provider regarding the small pleural effusion. 12/14/19 05:00 UA shows elevated ketones of 20. Serial lactic acids normal with values of 1, 1, and 0.7. 12/14/19 05:[address] Grady, my supervising physician, and she recommends evaluating the patient for PE with the Well's Criteria and Perc Score. 12/14/19 06:59 D-dimer positive at 1.87, CTA Chest will be ordered. 12/14/19 07:56 Patient hand off given to Dr. Syed. Awaiting CTA Chest results. (YAMILA THOMPSON) 12/14/19 10:33 I assumed care of the patient approximately 8 AM. Patient was here for inability to urinate also she had some hypothermia and tachycardia when she presented according to triage notes. Currently she is resting comfortably in the bed says she feels fine states she was able to urinate now she feels better. Her current vital signs are all stable. She is no longer tachycardic. Her abdomen is not tender. I did examine the patient from head to toe and she has no wounds or sores. Patient has nonspecific laboratories. I am not exactly sure why she has an elevated white blood cell count but at this time I do not see any evidence of an occult infection although she is got some equivocal urin jesus findings and does have urinary retention. Due to the patient's hypothermia, equivocal urine and elevated white blood cell count I am going to start the patient on some antibiotics. Patient does have an appointment with her primary care doctor in approximately 30 minutes. I think it is most prudent at this time to discharge the patient on antibiotics and have her go see her primary care doctor today. (TRISTIN SYED) - Vital Signs Vital signs: Temp Pulse Resp BP Pulse Ox 98.0 F 104 H 15 157/71 H 95 12/14/19 07:01 12/13/19 20:55 12/14/19 09:01 12/14/19 09:01 12/14/19 09:01 - Laboratory Laboratory results interpreted by me: 12/13/19 12/13/19 12/13/19 22:17 22:17 22:17 WBC 15.0 H Hgb 11.4 L Hct 34.5 L RDW 18.4 H Plt Count 628 H Lymph % (Auto) 9.8 L Absolute Neuts (auto) 11.8 H Absolute Monos (auto) 1.6 H Seg Neutrophils % 79.0 H D-Dimer 1.87 H Sodium 134.5 L Carbon Dioxide 21 L Est GFR ( Amer) 58 L Est GFR (MDRD) Non-Af 48 L Glucose 129 H Albumin 3.0 L Urine Ketones 12/14/19 02:56 WBC Hgb Hct RDW Plt Count Lymph % (Auto) Absolute Neuts (auto) Absolute Monos (auto) Seg Neutrophils % D-Dimer Sodium Carbon Dioxide Est GFR ( Amer) Est GFR (MDRD) Non-Af Glucose Albumin Urine Ketones 20 H - Diagnostic Test Radiology results interpreted by me: Chest X-Ray 12/13/19 20:07 IMPRESSION: Evidence of a small left pleural effusion with nonspecific adjacent patchy opacity. Persistent enlargement of cardiac silhouette with evidence of atherosclerotic vascular disease. (YAMILA THOMPSON) Discharge <YAMILA THOMPSON - Last Filed: 12/14/19 07:56> <TRISTIN SYED - Last Filed: 12/14/19 10:39> - Discharge Clinical Impression: Urinary incontinence Qualifiers: Urinary Incontinence type: unspecified incontinence Qualified Code(s): R32 - Unspecified urinary incontinence Hypothermia Qualifiers: Encounter type: initial encounter Qualified Code(s): T68.XXXA - Hypothermia, initial encounter Condition: Stable Disposition: HOME, SELF-CARE Instructions: Urinary Incontinence ([facility]) Additional Instructions: Please go see your primary care doctor today as scheduled Your urine has some questionable findings therefore I am going to discharge you with some antibiotics. We have arranged transportation straight to the patient's primary care physician's office however patient states she does not want to go see her primary care physician as arranged. Patient states that she wants to be taken to her house. I have instructed patient that it is very important that she follow-up with her primary care physician and she understands that there could be an occult process is not being detected that can be further delineated by seeing the physician who is very familiar with her medical history. She is of sound mind and capable of making her own judgments. Patient at this time re fuses transportation to see her primary care physician. I will still send the patient home with antibiotics and recommend that she see her primary care physician as soon as she can. Prescriptions: Cephalexin Monohydrate [Keflex 500 mg Capsule] 500 mg PO Q6H 7 Days #28 capsule Referrals: ELMA FERNÁNDEZ MD [Primary Care Provider] - 12/14/19 11:00 am
[2019-12-13 22:34] LABS: ABSOLUTE BASOPHILS # (AUTO) 0.1 10^3/uL (0.0-0.2); ABSOLUTE LYMPHOCYTES (AUTO) 1.5 10^3/uL (0.5-4.7); ABSOLUTE MONOCYTES (AUTO) 1.6 10^3/uL (0.1-1.4); ABSOLUTE NEUT (AUTO) 11.8 10^3/uL (1.7-8.2); BASOPHILS % (AUTO) 0.4 % (0-2); EOSINOPHILS % (AUTO) 0.1 % (0-6); HEMATOCRIT 34.5 % (36.0-47.0); HEMOGLOBIN 11.4 g/dL (12.0-15.5); LYMPHOCYTES % (AUTO) 9.8 % (13-45); MEAN CORPUSCULAR HEMOGLOBIN 27.7 pg (27.0-33.4); MEAN CORPUSCULAR HGB CONC 33.1 g/dL (32.0-36.0); MEAN CORPUSCULAR VOLUME 84 fl (80-97); MONOCYTES % (AUTO) 10.7 % (3-13); PLATELET COUNT 628 10^3/uL (150-450); RED BLOOD COUNT 4.12 10^6/uL (3.72-5.28); RED CELL DISTRIBUTION WIDTH 18.4 % (11.5-14.0); TOTAL CELLS COUNTED % (AUTO) 100 %
[2019-12-13 22:38] LABS: VENOUS BLOOD HCO3 21.8 mmol/L (20-32); VENOUS BLOOD PCO2 42.4 mmHg (35-63); VENOUS BLOOD PH 7.33 (7.30-7.42)
[2019-12-13 22:44] LABS: INTERNATIONAL RATION (INR) 1.04; PROTHROMBIN TIME 13.8 SEC (11.4-15.4)
[2019-12-13 22:56] LABS: ALKALINE PHOSPHATASE 123 U/L (38-126); ANION GAP 12 (5-19); ASPARTATE AMINO TRANSFERASE 22 U/L (14-36); BILIRUBIN,DIRECT 0.2 mg/dL (0.0-0.4); BILIRUBIN,TOTAL 0.5 mg/dL (0.2-1.3); BLOOD UREA NITROGEN 17 mg/dL (7-20); CALCIUM 9.8 mg/dL (8.4-10.2); CARBON DIOXIDE 21 mmol/L (22-30); CHLORIDE 102 mmol/L (98-107); GLUCOSE 129 mg/dL (75-110); POTASSIUM 4.8 mmol/L (3.6-5.0); TOTAL PROTEIN 7.5 g/dL (6.3-8.2)
--- NOTE | 2019-12-13 23:00 | RADIOLOGY REPORT (SQ) ---
Abdomen x-ray single view on 12/13/2019 at 10:22 PM CLINICAL INDICATION: Constipation COMPARISON: CT from 11/13/2019 FINDINGS: Degenerative changes and mild levoscoliosis is noted in the lumbar spine. Vascular calcifications are noted. No significant increased stool to suggest constipation is noted. Bowel gas pattern is unremarkable. No other abnormal calcification or mass effect is noted. IMPRESSION: Nonspecific abdomen.
[2019-12-14 03:13] LABS: APPEARANCE,URINE SLIGHTLY-CLOUDY; BILIRUBIN,URINE NEGATIVE (NEGATIVE); COLOR,URINE YELLOW; GLUCOSE, URINE NEGATIVE (NEGATIVE); KETONES,URINE 20 mg/dL (NEGATIVE); LEUKOCYTE ESTERASE,URINE NEGATIVE (NEGATIVE); NITRITE,URINE NEGATIVE (NEGATIVE); PROTEIN,URINE NEGATIVE (NEGATIVE); URINE SPECIFIC GRAVITY 1.013; UROBILINOGEN,URINE NEGATIVE mg/dL (<2.0)
--- NOTE | 2019-12-14 08:42 | RADIOLOGY REPORT (SQ) ---
EXAM DESCRIPTION: CTA CHEST IMAGES COMPLETED DATE/TIME: 12/14/2019 8:09 am REASON FOR STUDY: chest pain and tachycardia, rule out PE COMPARISON: 11/13/2019 and 10/17/2019 TECHNIQUE: CT scan of the chest performed using helical scanning technique with dynamic intravenous contrast injection. Images reviewed with lung, soft tissue and bone windows. Reconstructed coronal and sagittal MPR images reviewed. Additional 3 dimensional post-processing performed to develop Maximal Intensity Projection images (IA P). All images stored on PACS. All CT scanners at this facility use dose modulation, iterative reconstruction, and/or weight based d osing when appropriate to reduce radiation dose to as low as reasonably achievable (ALARA). [facility]: Dose Right [facility]: CareDose [facility]: Dose Right [facility]: Teradose 4D [facility]: Projectioneering CONTRAST TYPE AND DOSE: contrast/concentration: Isovue 350.00 mmol/ml; Total Contrast Delivered: 59. 9 ml; Total Saline Delivered: 35.0 ml Contrast bolus adequate for pulmonary arteries and aorta. RENAL FUNCTION: BUN 17; creatinine 1.1 RADIATION DOSE: CT Rad equipment meets quality standard of care and radiation dose reduction techniq ues were employed. CTDIvol: 6.6 - 30.5 mGy. DLP: 1098 mGy-cm. . LIMITATIONS: None. FINDINGS: LUNGS AND PLEURA: No masses, infiltrates, or pneumothorax. No pleural effusions or pleura l calcifications. AORTA AND GREAT VESSELS: No aneurysm. Contrast bolus not optimized for the aorta. HEART: No pericardial effusion. Scattered coronary artery calcifications. Aortic annulus calcificati ons are noted. PULMONARY ARTERIES: No emboli visualized in the main pulmonary arteries or the segmental branches. HILAR AND MEDIASTINAL STRUCTURES: No identified masses or abnormal nodes. HARDWARE: None in the chest. UPPER ABDOMEN: No significant findings. Limited exam. THYROID AND OTHER SOFT TISSUES: No masses. No adenopathy. BONES: No acute or significant finding. 3D MIPS: Confirm above findings. OTHER: No other significant finding. IMPRESSION: No central or segmental pulmonary embolus. No evidence of acute cardiopulmonary abnorma lity. COMMENT: Quality ID # [id number]: Final reports with documentation of one or more dose reduction techniques (e.g., Automated exposure control, adjustment of the mA and/or kV according to patient size, use of iterative reconstruction technique) TECHNICAL DOCUMENTATION: JOB ID: [id number] [employer]- All Rights Reserved Reading location - IP/workstation name: [email or web address]
[2019-12-14 12:57] VITALS: BP 164/85
--- NOTE | 2019-12-14 18:10 | EKG REPORT ---
SEVERITY:- ABNORMAL ECG - SINUS TACHYCARDIA LEFT ANTERIOR FASCICULAR BLOCK LEFT VENTRICULAR HYPERTROPHY : Confirmed by: Hong Sargent MD 14-Dec-2019 18:08:54
== END 2019-12-14 12:15 | disposition home or self-care (01) ==
LOC: ER 19:32
DX: R32 Unspecified urinary incontinence (principal); T68.XXXA Hypothermia, initial encounter; K59.00 Constipation, unspecified; R10.2 Pelvic and perineal pain; E87.1 Hypo-osmolality and hyponatremia; I25.10 Atherosclerotic heart disease of native coronary artery without angina pectoris; R00.0 Tachycardia, unspecified; D72.829 Elevated white blood cell count, unspecified; J90 Pleural effusion, not elsewhere classified; E66.9 Obesity, unspecified; I10 Essential (primary) hypertension; Z87.442 Personal history of urinary calculi; Z79.899 Other long term (current) drug therapy
CPT/HCPCS: 93005; 99285; 96360; 36415; 87040; 87086; 83605; 85025; 85610; 80053; 81001; 84484; 85379; 82803; 71045; 74018; 71275; 93010; J7120

== ENCOUNTER 2019-12-16 10:16 | Emergency (ER) | payer MEDICARE, OTHER ==
[2019-12-16] MEDS ORDERED: PHENAZOPYRIDINE HCL 200 MG TABLET PO ONE (11:06)
[2019-12-16] MEDS ORDERED: MAGNESIUM CITRATE 296 ML BOTTLE PO ONE (11:42)
--- NOTE | 2019-12-16 11:42 | ER Document Report ---
Entered by VÍCTOR RODRIGUEZ SCRIBE 12/16/19 1106 Acting as scribe for:SOM[facility] CHILDERS MD ED GI/ - General Chief Complaint: Urinary Problem Stated Complaint: URINARY ISSUE Time Seen by Provider: 12/16/19 10:47 Primary Care Provider: [facility] [Provider Group] - Follow up in 3-5 days (Call tomorrow morning to schedule an appointment this week.) ELMA FERNÁNDEZ MD [Primary Care Provider] - Follow up in 3-5 days (Follow-up with your primary care provider this week if you are unable to get into see the urologist.) Mode of Arrival: Medic Information source: Patient, COUNTS INCLUDE 234 BEDS AT THE [facility] Records Notes: This 79 year old female patient presents to the emergency department today with complaints of urinary urgency. Patient states that she feels like she needs to go all the time but "nothing comes out". Patient was seen here in this depart ment on the night of 12/12 and was discharged on 12/13 with a prescription for 500 mg of cephalexin 4 times daily, but the culture results are now back and there was no growth. Patient mentions that she thinks she might be constipated. TRAVEL OUTSIDE OF THE [place] IN LAST 30 DAYS: No - Related Data Allergies/Adverse Reactions: No Known Allergies Allergy (Verified 10/09/16 10:59) Home Medications: atorvastatin, clonidine, zofran, sucralfate, citalopram, mag oxide, reglan, pantoprazole, miralax, klor-con, senna plus, lisinopril, keflex Past Medical History - General Information source: Patient, COUNTS INCLUDE 234 BEDS AT THE [facility] Records - Social History Smoking Status: Former Smoker Cigarette use (# per day): No Chew tobacco use (# tins/day): No Frequency of alcohol use: None Drug Abuse: None Lives with: Spouse/Significant other Family History: Reviewed & Not Pertinent, DM, Hypertension - Past Medical History Cardiac Medical History: Reports: Hx Hypertension Pulmonary Medical History: Renal/ Medical History: Reports: Hx Kidney Stones - ESWL x 7 ([id number]), Hx Ovarian Cysts Musculoskeletal Medical History: Reports Hx Arthritis Past Surgical History: Reports: Hx Appendectomy - incidental with CARRIE BSO, Hx Hysterectomy, Hx Tonsillectomy - as child, Other - Meningioma removal - Immunizations Hx Diphtheria, Pertussis, Tetanus Vaccination: Yes Hx Pneumococcal Vaccination: 09/06/13 Review of Systems - Review of Systems Constitutional: No symptoms reported EENT: No symptoms reported Cardiovascular: No symptoms reported Respiratory: No symptoms reported Gastrointestinal: See HPI, Constipation Genitourinary: See HPI, Urgency Female Genitourinary: No symptoms reported Musculoskeletal: No symptoms reported Skin: No symptoms reported Hematologic/Lymphatic: No symptoms reported Neurological/Psychological: No symptoms reported -: Yes All other systems reviewed and negative Physical Exam - Vital signs Vitals: Temp Pulse Resp BP Pulse Ox 97.5 F 87 18 146/70 H 94 12/16/19 10:22 12/16/19 10:22 12/16/19 10:22 12/16/19 10:22 12/16/19 10:22 - Notes Notes: Physical Exam: General: Alert, morbidly obese. HEENT: Normocephalic. Atraumatic. PERRL. Extraocular movements intact. Oropharynx clear. Neck: Supple. Non-tender. Respiratory: No respiratory distress. Clear and equal breath sounds bilaterally. Cardiovascular: Regular rate and rhythm. Abdominal: Morbidly obese, mild diffuse tenderness to palpation, worsened in the lower abdomen. No distension. Normal Bowel Sounds. Back: No gross abnormalities. Extremities: Moves all four extremities. Upper extremities: Normal inspection. Normal ROM. Lower extremities: Normal inspection. No edema. Normal ROM. Neurological: Normal cognition. AAOx4. Normal speech. Psychological: Normal affect. Normal Mood. Skin: Warm. Dry. Normal color. Course - Re-evaluation Re-evalutation: 12/16/19 20:11 Evaluation the patient does not show urinary retention. The patient does have b ladder discomfort and a feeling that she needs to urinate all the time. This is consistent with interstitial cystitis. She did have a urine culture done on 12/14/2019, that was no growth at 2 days, however infection cannot be completely ruled out because there are occasions that require be cultured to be looked at over a 3 to 5-day period. This is not likely case, but I will have the patient continue the cephalexin along with the Pyridium and instructions to increase her fluid intake. - Vital Signs Vital signs: Temp Pulse Resp BP Pulse Ox 97.6 F 77 18 152/74 H 96 12/16/19 15:04 12/16/19 15:04 12/16/19 15:04 12/16/19 15:04 12/16/19 15:04 - Laboratory Result Diagrams: 12/16/19 11:44 12/16/19 11:44 Laboratory results interpreted by me: 12/16/19 12/16/19 12/16/19 11:44 11:44 11:44 Hgb 11.7 L Hct 35.1 L RDW 17.8 H Plt Count 573 H Sodium 135.2 L Magnesium 1.5 L Creatine Kinase < 20 L Albumin 2.9 L Urine Protein 30 H Urine Ketones 80 H Urine Urobilinogen 2.0 H Discharge - Discharge Clinical Impression: Cystitis Abdominal pain Qualifiers: Abdominal location: lower abdomen, unspecified Qualified Code(s): R10.30 - Lower abdominal pain, unspecified Condition: Stable Disposition: HOME, SELF-CARE Additional Instructions: Your evaluation today suggests that you have a problem called cystitis. This is inflammation to the inside of the bladder making it feel like you need to urinate all the time. For now we will prescribe Pyridium which is a urinary anesthetic which may improve your symptoms. You should continue taking the cephalexin you were prescribed 2 days ago. Drink plenty of fluids throughout the day in the evening. Call [facility] tomorrow to schedule an appointment for further evaluation this week. Follow-up with your primary care provider this week if you are unable to see the urologist this week. RETURN TO THE EMERGENCY ROOM IF ANY NEW OR WORSENING SYMPTOMS. Prescriptions: Phenazopyridine HCl [Pyridium 200 mg Tablet] 200 mg PO TID #15 tablet Referrals: [facility] [Provider Group] - Follow up in 3-5 days (Call tomorrow morning to schedule an appointment this week.) ELMA FERNÁNDEZ MD [Primary Care Provider] - Follow up in 3-5 days (Follow-up with your primary care provider this week if you are unable to get into see the urologist.) I personally performed the services described in the documentation, reviewed and edited the documentation which was dictated to the scribe in my presence, and it accurately records my words and actions.
[2019-12-16] MEDS ORDERED: MINERAL OIL 30 ML UDCUP PR ONE (11:43)
--- NOTE | 2019-12-16 12:02 | RADIOLOGY REPORT (SQ) ---
EXAM DESCRIPTION: ABDOMEN 2 VIEWS IMAGES COMPLETED DATE/TIME: 12/16/2019 11:37 am REASON FOR STUDY: Abdominal pain, suspect constipation COMPARISON: None. NUMBER OF VIEWS: Two views. TECHNIQUE: Supine and erect/decubitus radiographic images of the abdomen acquired. LIMITATIONS: None. FINDINGS: FREE AIR: None. No abnormal gas collections. LUNG BASES: Clear. BOWEL GAS PATTERN: Nonobstructive pattern. No dilated loops or air fluid levels. CONSTIPATION: No CALCIFICATIONS: No suspicious calcifications. SOFT TISSUES: No gross mass or suggestion of organomegaly. HARDWARE: None in the abdomen. BONES: No acute fracture. No worrisome bone lesions. OTHER: No other significant finding. IMPRESSION: NO RADIOGRAPHIC EVIDENCE FOR ACUTE ABDOMINAL DISEASE. No CONSTIPATION. TECHNICAL DOCUMENTATION: JOB ID: [id number] 2010 [employer]- All Rights Reserved Reading location - IP/workstation name: [email or web address]
[2019-12-16 12:05] LABS: APPEARANCE,URINE SLIGHTLY-CLOUDY; BILIRUBIN,URINE NEGATIVE (NEGATIVE); CALCIUM OXALATE CRYSTALS,URINE FEW /HPF; COLOR,URINE YELLOW; GLUCOSE, URINE NEGATIVE (NEGATIVE); KETONES,URINE 80 mg/dL (NEGATIVE); LEUKOCYTE ESTERASE,URINE NEGATIVE (NEGATIVE); NITRITE,URINE NEGATIVE (NEGATIVE); PROTEIN,URINE 30 mg/dL (NEGATIVE); URINE SPECIFIC GRAVITY 1.025
[2019-12-16 12:07] LABS: ABSOLUTE BASOPHILS # (AUTO) 0.1 10^3/uL (0.0-0.2); ABSOLUTE LYMPHOCYTES (AUTO) 1.3 10^3/uL (0.5-4.7); ABSOLUTE MONOCYTES (AUTO) 1.1 10^3/uL (0.1-1.4); ABSOLUTE NEUT (AUTO) 7.1 10^3/uL (1.7-8.2); BASOPHILS % (AUTO) 0.7 % (0-2); EOSINOPHILS % (AUTO) 0.2 % (0-6); HEMATOCRIT 35.1 % (36.0-47.0); HEMOGLOBIN 11.7 g/dL (12.0-15.5); LYMPHOCYTES % (AUTO) 13.7 % (13-45); MEAN CORPUSCULAR HEMOGLOBIN 27.7 pg (27.0-33.4); MEAN CORPUSCULAR HGB CONC 33.3 g/dL (32.0-36.0); MEAN CORPUSCULAR VOLUME 83 fl (80-97); MONOCYTES % (AUTO) 11.8 % (3-13); PLATELET COUNT 573 10^3/uL (150-450); RED BLOOD COUNT 4.21 10^6/uL (3.72-5.28); RED CELL DISTRIBUTION WIDTH 17.8 % (11.5-14.0); SEGMENTED NEUTROPHILS % (AUTO) 73.6 % (42-78); TOTAL CELLS COUNTED % (AUTO) 100 %; WHITE BLOOD COUNT 9.7 10^3/uL (4.0-10.5)
[2019-12-16 12:18] LABS: ALBUMIN 2.9 g/dL (3.5-5.0); ALKALINE PHOSPHATASE 123 U/L (38-126); ANION GAP 11 (5-19); ASPARTATE AMINO TRANSFERASE 20 U/L (14-36); BILIRUBIN,DIRECT 0.2 mg/dL (0.0-0.4); BILIRUBIN,TOTAL 0.6 mg/dL (0.2-1.3); BLOOD UREA NITROGEN 13 mg/dL (7-20); CALCIUM 9.5 mg/dL (8.4-10.2); CARBON DIOXIDE 22 mmol/L (22-30); CHLORIDE 102 mmol/L (98-107); GLUCOSE 91 mg/dL (75-110); POTASSIUM 4.3 mmol/L (3.6-5.0); TOTAL PROTEIN 7.4 g/dL (6.3-8.2)
[2019-12-16 12:24] LABS: CREATINE KINASE < 20 U/L (30-135)
[2019-12-16 15:09] VITALS: BP 152/74
== END 2019-12-16 15:57 | disposition home or self-care (01) ==
LOC: ER 10:16
DX: N30.90 Cystitis, unspecified without hematuria (principal); K59.00 Constipation, unspecified; I10 Essential (primary) hypertension; E66.01 Morbid (severe) obesity due to excess calories; Z79.899 Other long term (current) drug therapy; Z87.891 Personal history of nicotine dependence
CPT/HCPCS: 99284; 36415; 82550; 83735; 85025; 80053; 81001; 74019; A9270 ×3; J3490

== ENCOUNTER 2019-12-20 09:19 | Observation (INO) | payer MEDICARE, OTHER ==
--- NOTE | 2019-12-20 10:10 | ER Document Report ---
ED Medical Screen (RME) - General Chief Complaint: Urinary Problem Stated Complaint: URINARY PROBLEM Time Seen by Provider: 12/20/19 10:07 Primary Care Provider: ELMA FERNÁNDEZ MD [Primary Care Provider] - Follow up as needed Mode of Arrival: Medic Information source: Patient Notes: 79-year-old female presented to ED for urinary retention. She states she has been able to do small amounts of urine for the last couple days but is really have a hard time emptying her bladder. She states she did have a little dribble this morning. She not sure of her medical history states she has a hard time remembering some of it she does know she is got diabetes and she has had knee surgery and hemorrhoid surgery. She is alert oriented respirations regular nonlabored speaking in full sentences. She states she is uncomfortable from not being able to void. I have greeted and performed a rapid initial assessment of this patient. A comprehensive ED assessment and evaluation of the patient, analysis of test results and completion of medical decision making process will be conducted by an additional ED providers. TRAVEL OUTSIDE OF THE [place] IN LAST 30 DAYS: No - HPI Onset: Other Onset/Duration: Gradual - Couple days Quality of pain: Pressure Severity: Severe Pain Level: 5 Associated Symptoms: Abdominal pain Exacerbated by: Sitting, Movement Relieved by: Denies Similar symptoms previously: Yes Recently seen / treated by doctor: Yes - Related Data Smoking: Non-smoker Frequency of alcohol use: None Drug Abuse: None Allergies/Adverse Reactions: No Known Allergies Allergy (Verified 12/20/19 10:03) Past Medical History - Past Medical History Cardiac Medical History: Reports: Hx Hypertension Denies: Hx Atrial Fibrillation, Hx Congestive Heart Failure, Hx Coronary Artery Disease, Hx Heart Attack, Hx Hypercholesterolemia, Hx Peripheral Vascular Disease, Hx Heart Murmur Pulmonary Medical History: Denies: Hx Asthma, Hx Bronchitis, Hx COPD, Hx Pneumonia Neurological Medical History: Denies: Hx Cerebrovascular Accident, Hx Seizures, Hx Parkinson's Disease Endocrine Medical History: Denies: Hx Graves' Disease, Hx Hyperthyroidism, Hx Hypothyroidism Renal/ Medical History: Reports: Hx Kidney Stones - ESWL x 7 ([id number]), Hx Ovarian Cysts. Denies: Hx End Stage Renal Disease, Hx Peritoneal Dialysis, Hx Pelvic Inflammatory Disease Malignancy Medical History: Denies: Hx Breast Cancer, Hx Cervical Cancer, Hx Ovarian Cancer GI Medical History: Denies: Hx Crohn's Disease, Hx Gastroesophageal Reflux Disease, Hx Hiatal Hernia, Hx Irritable Bowel, Hx Liver Failure, Hx Pancreatitis, Hx Ulcer Musculoskeltal Medical History: Reports Hx Arthritis, Denies Hx Fibromyalgia, Denies Hx Multiple Sclerosis, Denies Hx Muscular Dystrophy, Denies Hx Systemic Lupus Erythematosus Psychiatric Medical History: Denies: Hx Dementia, Hx Depression Traumatic Medical History: Denies: Hx Fractures Past Surgical History: Reports: Hx Appendectomy - incidental with CARRIE BSO, Hx Hysterectomy, Hx Tonsillectomy - as child, Other - Meningioma removal. Denies: Hx Bowel Surgery, Hx Section, Hx Cholecystectomy, Hx Colostomy, Hx Coronary Artery Bypass Graft, Hx Gastric Bypass Surgery, Hx Herniorrhaphy, Hx Mastectomy, Hx Pacemaker, Hx Tubal Ligation - Immunizations Hx Diphtheria, Pertussis, Tetanus Vaccination: Yes Physical Exam - Vital signs Vitals: Temp Pulse Resp BP Pulse Ox 97.6 F 104 H 22 H 107/63 93 12/20/19 09:56 12/20/19 09:56 12/20/19 09:56 12/20/19 09:56 12/20/19 09:56 Course - Vital Signs Vital signs: Temp Pulse Resp BP Pulse Ox 97.6 F 104 H 22 H 107/63 93 12/20/19 09:56 12/20/19 09:56 12/20/19 09:56 12/20/19 09:56 12/20/19 09:56 Doctor's Discharge - Discharge Referrals: ELMA FERNÁNDEZ MD [Primary Care Provider] - Follow up as needed
[2019-12-20 11:39] LABS: ABSOLUTE BASOPHILS # (AUTO) 0.1 10^3/uL (0.0-0.2); ABSOLUTE MONOCYTES (AUTO) 1.2 10^3/uL (0.1-1.4); ABSOLUTE NEUT (AUTO) 9.3 10^3/uL (1.7-8.2); BASOPHILS % (AUTO) 0.9 % (0-2); EOSINOPHILS % (AUTO) 0.2 % (0-6); HEMATOCRIT 40.9 % (36.0-47.0); HEMOGLOBIN 13.4 g/dL (12.0-15.5); LYMPHOCYTES % (AUTO) 16.1 % (13-45); MEAN CORPUSCULAR HEMOGLOBIN 27.6 pg (27.0-33.4); MEAN CORPUSCULAR HGB CONC 32.7 g/dL (32.0-36.0); MEAN CORPUSCULAR VOLUME 84 fl (80-97); MONOCYTES % (AUTO) 9.3 % (3-13); PLATELET COUNT 705 10^3/uL (150-450); RED BLOOD COUNT 4.85 10^6/uL (3.72-5.28); SEGMENTED NEUTROPHILS % (AUTO) 73.5 % (42-78); TOTAL CELLS COUNTED % (AUTO) 100 %; WHITE BLOOD COUNT 12.7 10^3/uL (4.0-10.5)
[2019-12-20 11:52] LABS: APPEARANCE,URINE CLEAR; BILIRUBIN,URINE NEGATIVE (NEGATIVE); COLOR,URINE AMBER; GLUCOSE, URINE NEGATIVE (NEGATIVE); KETONES,URINE 20 mg/dL (NEGATIVE); LEUKOCYTE ESTERASE,URINE NEGATIVE (NEGATIVE); NITRITE,URINE POSITIVE (NEGATIVE); PROTEIN,URINE 30 mg/dL (NEGATIVE); URINE SPECIFIC GRAVITY 1.014
[2019-12-20 11:57] LABS: ALBUMIN 3.6 g/dL (3.5-5.0); ALKALINE PHOSPHATASE 147 U/L (38-126); ANION GAP 16 (5-19); ASPARTATE AMINO TRANSFERASE 22 U/L (14-36); BILIRUBIN,TOTAL 0.7 mg/dL (0.2-1.3); BLOOD UREA NITROGEN 12 mg/dL (7-20); CALCIUM 10.2 mg/dL (8.4-10.2); CARBON DIOXIDE 22 mmol/L (22-30); CHLORIDE 98 mmol/L (98-107); GLUCOSE 142 mg/dL (75-110); POTASSIUM 4.8 mmol/L (3.6-5.0); TOTAL PROTEIN 8.6 g/dL (6.3-8.2)
[2019-12-20] MEDS ORDERED: NORMAL SALINE 1000 ML 1,000 ML IV ONE (12:13)
--- NOTE | 2019-12-20 12:25 | ER Document Report ---
ED GI/ - General Chief Complaint: Urinary Problem Stated Complaint: URINARY PROBLEM Time Seen by Provider: 12/20/19 10:07 Primary Care Provider: ELMA FERNÁNDEZ MD [Primary Care Provider] - Follow up as needed Mode of Arrival: Medic Notes: HPI: 79-year-old female with extensive past medical history as recorded who states she has had some difficulty with urinating over the last 2 days. No history of kidney stones. She states some suprapubic nonradiating abdominal "pain". No real aggravating relieving factors other than urination. She denies any fevers. Patient states she has had this previously and believes she has bladder prolapse. Patient had a Lou catheter placed in triage. Urine analysis is pending. Patient did subsequently have a bowel movement when transporting back to room 14, the patient had a vasovagal/syncopal-like episode. No seizure activity noted. Lou catheter in place who could not assess incontinence. Patient was sitting when this occurred. ROS: See HPI All other review of systems reviewed and otherwise negative Reviewed vital signs and nursing note as charted by RN. PHYSICAL EXAM: CONSTITUTIONAL: Alert and oriented; slightly diaphoretic HEAD: Normocephalic; atraumatic EYES: PERRL; no nystagmus, sclerae non-icteric ENT: Normal nose; no rhinorrhea; moist mucous membranes; pharynx without lesions noted NECK: Supple without meningismus; non-tender; no cervical lymphadenopathy, no masses CARD: Regular rate and rhythm; no murmurs; symmetric distal pulses RESP: Normal chest excursion without splinting or tachypnea; breath sounds clear and equal bilaterally; no wheezes, no rhonchi, no rales ABD/GI: Normal bowel sounds; elevated BMI; soft, minimally tender to the suprapubic region; no palpable organomegaly or masses BACK: The back appears normal and is non-tender to palpation EXT: Normal ROM in all joints; non-tender to palpation; no edema SKIN: No acute lesions noted NEURO: CN 2-12 intact; 5/5 bilateral upper and lower extremity strength with sensation intact to light touch PSYCH: The patient's mood and manner are appropriate. Grooming and personal hygiene are appropriate. TRAVEL OUTSIDE OF THE [place] IN LAST 30 DAYS: No - Related Data Allergies/Adverse Reactions: No Known Allergies Allergy (Verified 12/20/19 10:03) Home Medications: phenazopyrid. citalopram. lisinopril. pantoprazole. cephalexin. metoclopram Past Medical History - General Information source: Patient - Social History Smoking Status: Never Smoker Chew tobacco use (# tins/day): No Frequency of alcohol use: None Drug Abuse: None Family History: Reviewed & Not Pertinent, DM, Hypertension Patient has homicidal ideation: No - Past Medical History Cardiac Medical History: Reports: Hx Hypertension Denies: Hx Atrial Fibrillation, Hx Congestive Heart Failure, Hx Coronary A rtery Disease, Hx Heart Attack, Hx Hypercholesterolemia, Hx Peripheral Vascular Disease, Hx Heart Murmur Pulmonary Medical History: Denies: Hx Asthma, Hx Bronchitis, Hx COPD, Hx Pneumonia Neurological Medical History: Denies: Hx Cerebrovascular Accident, Hx Seizures, Hx Parkinson's Disease Endocrine Medical History: Denies: Hx Graves' Disease, Hx Hyperthyroidism, Hx Hypothyroidism Renal/ Medical History: Reports: Hx Kidney Stones - ESWL x 7 ([id number]), Hx Ovarian Cysts. Denies: Hx End Stage Renal Disease, Hx Peritoneal Dialysis, Hx Pelvic Inflammatory Disease Malignancy Medical History: Denies: Hx Breast Cancer, Hx Cervical Cancer, Hx Ovarian Cancer GI Medical History: Denies: Hx Crohn's Disease, Hx Gastroesophageal Reflux Disease, Hx Hiatal Hernia, Hx Irritable Bowel, Hx Liver Failure, Hx Pancreatitis, Hx Ulcer Musculoskeletal Medical History: Reports Hx Arthritis, Denies Hx Fibromyalgia, Denies Hx Multiple Sclerosis, Denies Hx Muscular Dystrophy, Denies Hx Systemic Lupus Erythematosus Psychiatric Medical History: Denies: Hx Dementia, Hx Depression Traumatic Medical History: Denies: Hx Fractures Past Surgical History: Reports: Hx Appendectomy - incidental with CARRIE BSO, Hx Hysterectomy, Hx Tonsillectomy - as child, Other - Meningioma removal. Denies: Hx Bowel Surgery, Hx Section, Hx Cholecystectomy, Hx Colostomy, Hx Coronary Artery Bypass Graft, Hx Gastric Bypass Surgery, Hx Herniorrhaphy, Hx Mastectomy, Hx Pacemaker, Hx Tubal Ligation - Immunizations Hx Diphtheria, Pertussis, Tetanus Vaccination: Yes Hx Pneumococcal Vaccination: 09/06/13 Physical Exam - Vital signs Vitals: Temp Pulse Resp BP Pulse Ox 97.6 F 104 H 22 H 107/63 93 12/20/19 09:56 12/20/19 09:56 12/20/19 09:56 12/20/19 09:56 12/20/19 09:56 Course - Re-evaluation Re-evalutation: 12/20/19 12:24 Given the history and physical with the patient's past medical history we will obtain a urine analysis, basic labs, check the patient's kidney function, and obtain an EKG. Patient denies any chest pain or shortness of breath no focal weakness or numbness. 12/20/19 13:21 EKG shows a heart rate of 77 incomplete right bundle branch block with left anterior fascicular block. No ST elevation or depression. I did compare this with the previous EKG 7 days ago showing no obvious appreciable change. Blood pressure was 80 systolic. Heart rate 71. Liter of fluid is being bolused. 12/20/19 13:46 Labs and urinalysis as recorded. Blood cultures have been sent. Antibiotics have been provided. Patient's blood pressure now 100/60. Heart rate 68. We will the patient for further evaluation and detect no obvious tenderness to the spine with sacral ulcers. Given the history and physical, labs, imaging, without any chest pain or shortness of breath, I do believe PE and dissection to be unlikely. EKG and troponin as recorded. Patient will be admitted for further evaluation and treatment. - Vital Signs Vital signs: Temp Pulse Resp BP Pulse Ox 97.6 F 104 H 20 95/46 L 97 12/20/19 09:56 12/20/19 09:56 12/20/19 13:16 12/20/19 13:16 12/20/19 13:16 - Laboratory Result Diagrams: 12/20/19 11:15 12/20/19 11:15 Laboratory results interpreted by me: 12/20/19 12/20/19 12/20/19 11:15 11:15 11:15 WBC 12.7 H RDW 18.0 H Plt Count 705 H Absolute Neuts (auto) 9.3 H Sodium 135.7 L Est GFR ( Amer) 57 L Est GFR (MDRD) Non-Af 47 L Glucose 142 H POC Glucose Alkaline Phosphatase 147 H Total Protein 8.6 H Urine Protein 30 H Urine Ketones 20 H Urine Nitrite POSITIVE H Urine Urobilinogen 4.0 H 12/20/19 12:13 WBC RDW Plt Count Absolute Neuts (auto) Sodium Est GFR ( Amer) Est GFR (MDRD) Non-Af Glucose POC Glucose 178 H Alkaline Phosphatase Total Protein Urine Protein Urine Ketones Urine Nitrite Urine Urobilinogen Discharge - Discharge Clinical Impression: Urinary retention, Low blood pressure reading Urinary tract infection Qualifiers: Urinary tract infection type: site unspecified Hematuria presence: without hematuria Qualified Code(s): N39.0 - Urinary tract infection, site not specified Episode of syncope Qualifiers: Syncope type: unspecified Qualified Code(s): R55 - Syncope and collapse Condition: Fair Disposition: ADMITTED OBSERVATION Admitting Provider: Jose (Hospitalist) Unit Admitted: Telemetry Referrals: ELMA FERNÁNDEZ MD [Primary Care Provider] - Follow up as needed
[2019-12-20] MEDS ORDERED: CEFTRIAXONE 1 GM/D5W RTU 1 GM/50 ML RTUPB IV ONE (13:01)
--- NOTE | 2019-12-20 13:03 | RADIOLOGY REPORT (SQ) ---
EXAM DESCRIPTION: CT ABD/PELVIS NO ORAL OR IV IMAGES COMPLETED DATE/TIME: 12/20/2019 12:34 pm REASON FOR STUDY: 14; urine retension COMPARISON: Multiple, most recent 10/13/2019 TECHNIQUE: CT scan of the abdomen and pelvis performed without intravenous or oral contrast. Images reviewed with lung, soft tissue, and bone windows. Reconstructed coronal and sagittal MPR images revi ewed. All images stored on PACS. All CT scanners at this facility use dose modulation, iterative reconstruction, and/or weight based d osing when appropriate to reduce radiation dose to as low as reasonably achievable (ALARA). [facility]: Dose Right [facility]: CareDose [facility]: Dose Right [facility]: Teradose 4D [facility]: Smart ideasoft RADIATION DOSE: CT Rad equipment meets quality standard of care and radiation dose reduction techniq ues were employed. CTDIvol: 18.0 mGy. DLP: 1008 mGy-cm.mGy. LIMITATIONS: None. FINDINGS: LOWER CHEST: No significant findings. No nodules or infiltrates. NON-CONTRASTED LIVER, SPLEEN, ADRENALS: Stable left adrenal adenoma. PANCREAS: No masses. No peripancreatic inflammatory changes. GALLBLADDER: No identified stones by CT criteria. No inflammatory changes to suggest cholecystitis. RIGHT KIDNEY AND URETER: No suspicious masses. Assessment limited by lack of IV contrast. No signif icant calcifications. No hydronephrosis or hydroureter. LEFT KIDNEY AND URETER: No suspicious masses. Assessment limited by lack of IV contrast. No signifi cant calcifications. No hydronephrosis or hydroureter. AORTA AND RETROPERITONEUM: No aneurysm. No retroperitoneal masses or adenopathy. BOWEL AND PERITONEAL CAVITY: Sigmoid diverticulosis. No obvious masses or inflammatory changes. No f ree fluid. APPENDIX: Not visualized. PELVIS, BLADDER, AND ABDOMINAL WALL:Lou catheter in urinary bladder. No pelvic mass or free fluid. BONES: No acute findings. OTHER: No other significant finding. IMPRESSION: No acute findings. No significant change. COMMENT: Quality ID # [id number]: Final reports with documentation of one or more dose reduction techniques (e.g., Automated exposure control, adjustment of the mA and/or kV according to patient size, use of iterative reconstruction technique) TECHNICAL DOCUMENTATION: JOB ID: [id number] 2010 [email or web address]- All Rights Reserved Reading location - IP/workstation name: [email or web address]
--- NOTE | 2019-12-20 13:44 | RADIOLOGY REPORT (SQ) ---
EXAM DESCRIPTION: CHEST 2 VIEWS IMAGES COMPLETED DATE/TIME: 12/20/2019 1:34 pm REASON FOR STUDY: 14 COMPARISON: 12/13/2019 EXAM PARAMETERS: NUMBER OF VIEWS: two views TECHNIQUE: Digital Frontal and Lateral radiographic views of the chest acquired. RADIATION DOSE: NA LIMITATIONS: none FINDINGS: LUNGS AND PLEURA: Persistent opacity in left costophrenic angle small effusion cannot be e xcluded although this may represent scar or pleural thickening. MEDIASTINUM AND HILAR STRUCTURES: No masses or contour abnormalities. HEART AND VASCULAR STRUCTURES: Heart normal size. No evidence for failure. BONES: No acute findings. HARDWARE: None in the chest. OTHER: No other significant finding. IMPRESSION: No interval change in the chest. TECHNICAL DOCUMENTATION: JOB ID: [id number] 2010 [employer]- All Rights Reserved Reading location - IP/workstation name: [email or web address]
[2019-12-20] MEDS ORDERED: ACETAMINOPHEN 325 MG TABLET PO PRN (16:14)
[2019-12-20] MEDS ORDERED: ONDANSETRON 4 MG TAB.RAPDIS PO PRN (16:14)
[2019-12-20] MEDS ORDERED: IPRATROPIUM/ALBUTEROL 0.5-2.5 MG/3 ML AMPUL NEB PRN (16:14)
[2019-12-20] MEDS ORDERED: DEXTROSE 5%-LACTATED RINGERS 1,000 ML IV PRN (16:14)
[2019-12-20] MEDS: CITALOPRAM HYDROBROMIDE 20 MG TABLET PO SCH (17:43)
--- NOTE | 2019-12-20 18:02 | EKG REPORT ---
SEVERITY:- ABNORMAL ECG - SINUS RHYTHM INCOMPLETE RBBB AND LAFB LEFT VENTRICULAR HYPERTROPHY : Confirmed by: Rob Mistry 20-Dec-2019 18:01:30
[2019-12-20] MEDS ORDERED: GLUCAGON,HUMAN RECOMB 1 MG INJ IM PRN (19:49)
[2019-12-20] MEDS ORDERED: DEXTROSE 40% GEL 15 GM TUBE PO PRN ×2 (19:49)
[2019-12-20] MEDS ORDERED: DEXTROSE 50%-WATER 25 GM/50 ML DISP.SYRIN IV PRN ×2 (19:49)
--- NOTE | 2019-12-20 19:51 | PDOC H&P ---
History of Present Illness Admission Date/PCP: 12/20/19 14:42 ELMA FERNÁNDEZ MD Patient complains of: syncope and urinary retention History of Present Illness: YI TAN is a 79 year old female, past medical history of hypertension, hyperlipidemia, type 2 diabetes, morbid obesity, history of meningioma status post craniotomy, has been admitted multiple times at [facility] most recent 1 in October now admitted due to syncope. Patient has been in the ED twice in the past week for urinary retention and UTI. She was given antibiotics for UTI and was eventually sent home. She came back to the ED today due to the same problem unable to fully void. A Hardy was placed and triage and drained about undocumented amount of urine. About an hour after patient had one episode of syncope that lasted for approximately 1 to 2 minutes, no seizure-like activity. Blood pressure during that time noted to be borderline low. WBC count 12.7, CMP unremarkable. Urinalysis positive for nitrite negative for leukocyte esterase. Hospitalist service was called to admit the patient for further evaluation and management. Past Medical History Cardiac Medical History: Reports: Hypertension Denies: Atrial Fibrillation, Congestive Heart Failure, Coronary Artery Disease, Myocardial Infarction, Hyperlipidema, Peripheral Vascular Disease, Heart Murmur Pulmonary Medical History: Denies: Asthma, Bronchitis, Chronic Obstructive Pulmonary Disease (COPD), Pneumonia Neurological Medical History: Denies: Seizures Endocrine Medical History: Denies: Hyperthyroidism, Hypothyroidism Renal/ Medical History: Denies: End Stage Renal Disease Malignancy Medical History: Denies: Breast Cancer, Cervical Cancer, Ovarian Cancer GI Medical History: Denies: Crohn's Disease, Gastroesophageal Reflux Disease, Hiatal Hernia Musculoskeltal Medical History: Reports: Arthritis Denies: Fibromyalgia Psychiatric Medical History: Denies: Dementia, Depression Hematology: Denies: Anemia Past Surgical History Past Surgical History: Reports: Appendectomy - incidental with CARRIE BSO, Hysterectomy, Tonsillectomy - as child, Other - Meningioma removal Denies: Amputation, Section, Cholecystectomy, Colostomy, Coronary Artery Bypass Graft, Gastric Bypass Surgery, Herniorrhaphy, Mastectomy, Pacemaker, Tubal Ligation Social History Smoking Status: Never Smoker Electronic Cigarette use?: No Frequency of Alcohol Use: None Hx Recreational Drug Use: No Drugs: None Hx Prescription Drug Abuse: No Family History Family History: Reviewed & Not Pertinent, DM, Hypertension Parental Family History Reviewed: Yes Children Family History Reviewed: Yes Sibling(s) Family History Reviewed.: Yes Medication/Allergy Home Medications: Atorvastatin Calcium [Lipitor] 80 mg PO DAILY #30 tablet 10/20/19 Clonidine [Catapres-Tts 3 (0.3 mg/24 Hr) Transderm Patch] 1 each TD Fr@10 #12 patch.tdwk 10/20/19 Sucralfate [Carafate 1 gm Tablet] 1 gm PO ACHS #120 tablet 10/20/19 Lisinopril [Prinivil 10 mg Tablet] 20 mg PO DAILY tablet 11/17/19 Citalopram Hydrobromide [Celexa 20 mg Tablet] 20 mg PO QPM 12/20/19 Magnesium Oxide [Mag-Ox 400 mg Tablet] 400 mg PO DAILY 12/20/19 Metformin HCl [Metformin HCl ER] 500 mg PO BID 12/20/19 Metoclopramide HCl [Reglan 10 mg Tablet] 5 mg PO ACHS 12/20/19 Ondansetron [Zofran Odt 4 mg Tablet] 4 mg PO Q6HP PRN 12/20/19 Pantoprazole Sodium [Protonix [address] Tablet] 40 mg PO BID 12/20/19 Allergies/Adverse Reactions: No Known Allergies Allergy (Verified 12/20/19 10:03) Review of Systems Constitutional: ABSENT: fatigue, fever(s), headache(s) Eyes: ABSENT: visual disturbances Ears: ABSENT: hearing changes Cardiovascular: ABSENT: chest pain, edema, orthropnea Gastrointestinal: PRESENT: nausea. ABSENT: diarrhea, melena, vomiting Psychiatric: ABSENT: hallucinations Physical Exam Vital Signs: Temp Pulse Resp BP Pulse Ox 97.6 F 104 H 22 H 142/77 H 94 12/20/19 09:56 12/20/19 09:56 12/20/19 18:16 12/20/19 18:16 12/20/19 18:16 Intake & Output 12/19/19 12/20/19 12/21/19 06:59 06:59 06:59 Intake Total 1050 Balance 1050 Weight 104 kg General appearance: PRESENT: no acute distress, cooperative, obese Head exam: PRESENT: atraumatic, normocephalic Eye exam: PRESENT: EOMI, PERRLA Mouth exam: PRESENT: moist Neck exam: PRESENT: full ROM Respiratory exam: PRESENT: clear to auscultation patria, symmetrical, unlabored Cardiovascular exam: PRESENT: RRR, +S1, +S2 Pulses: PRESENT: +2 pedal pulses bilateral GI/Abdominal exam: PRESENT: normal bowel sounds, soft. ABSENT: rebound, tenderness Extremities exam: PRESENT: full ROM Musculoskeletal exam: PRESENT: full ROM Neurological exam: PRESENT: alert, awake, oriented to person, oriented to place, oriented to time, oriented to situation Psychiatric exam: PRESENT: normal mood Skin exam: PRESENT: normal color Results Laboratory Results: 12/20/19 11:15 12/20/19 11:15 12/20/19 12/20/19 12/20/19 11:15 11:15 11:15 WBC 12.7 H RBC 4.85 Hgb 13.4 Hct 40.9 MCV 84 MCH 27.6 MCHC 32.7 RDW 18.0 H Plt Count 705 H Seg Neutrophils % 73.5 Sodium 135.7 L Potassium 4.8 Chloride 98 Carbon Dioxide 22 Anion Gap 16 BUN 12 Creatinine 1.11 Est GFR ( Amer) 57 L Glucose 142 H Calcium 10.2 Total Bilirubin 0.7 AST 22 Alkaline Phosphatase 147 H Total Protein 8.6 H Albumin 3.6 Lipase 207.9 Urine Color ANDRE Urine Appearance CLEAR Urine pH 6.0 Ur Specific [place] 1.014 Urine Protein 30 H Urine Glucose (UA) NEGATIVE Urine Ketones 20 H Urine Blood NEGATIVE Urine Nitrite POSITIVE H Ur Leukocyte Esterase NEGATIVE Urine WBC (Auto) 2 Urine RBC (Auto) 0 Impressions: Abdomen/Pelvis CT 12/20/19 12:13 IMPRESSION: No acute findings. No significant change. Chest X-Ray 12/20/19 12:28 IMPRESSION: No interval change in the chest. Assessment and Plan - Diagnosis (1) Syncope Qualifiers: Syncope type: unspecified Qualified Code(s): R55 - Syncope and collapse Is this a current diagnosis for this admission?: Yes Plan: - 1 episode after hardy catheter placement for urinary retention - noted to be hypotensive during the episode - she has a history of syncope that has been extensively work up in the past - this is likely secondary to volume depletion - CT head negative - continue IV fluids (2) Urinary retention Is this a current diagnosis for this admission?: Yes Plan: - has been having urinary retention the past several days - treated for UTI - currently has a hardy - will try to take out her hardy tomorrow - on rocephin (3) Urinary tract infection Qualifiers: Urinary tract infection type: site unspecified Hematuria presence: without hematuria Qualified Code(s): N39.0 - Urinary tract infection, site not specified Is this a current diagnosis for this admission?: Yes Plan: - UA positive for nitrite but no leukocyte - has been on antibiotics the past week, cultures have been negative - will continue abx to complete 7 days of treatment (4) Diabetes mellitus type 2 in obese Is this a current diagnosis for this admission?: Yes Plan: - on metformin - switched to sliding scale - accucheck - hypoglycemia protocol (5) Hypertension Qualifiers: Hypertension type: essential hypertension Qualified Code(s): I10 - Essential (primary) hypertension Is this a current diagnosis for this admission?: Yes Plan: - on clonidine, lisinopril for HTN - will hold for now due to hypotension (6) Morbid obesity with BMI of 40.0-44.9, adult Is this a current diagnosis for this admission?: Yes Plan: - this is aggravating her urinary retention - Time Time Spent with patient: 25-34 minutes Medications reviewed and adjusted accordingly: Yes Anticipated Discharge Disposition: Home, Self Care Anticipated Discharge Timeframe: within 48 hours
[2019-12-20] MEDS: INSULIN LISPRO 100 UNIT/ML 3 ML VIAL SUBCUT SCH (21:59)
[2019-12-20] MEDS: HEPARIN SOD (PORCINE) 5,000 UNIT/ML 1 ML VIAL SUBCUT SCH (22:03)
[2019-12-20] MEDS: ATORVASTATIN CALCIUM 80 MG TABLET PO SCH (22:03)
[2019-12-20] MEDS: SUCRALFATE 1 GM TABLET PO SCH (22:03)
[2019-12-20] MEDS: METOCLOPRAMIDE HCL 10 MG TABLET PO SCH (22:03)
[2019-12-20] MEDS: FAMOTIDINE 20 MG TABLET PO SCH (22:04)
[2019-12-21] MEDS: HEPARIN SOD (PORCINE) 5,000 UNIT/ML 1 ML VIAL SUBCUT SCH ×3 (05:26→22:33)
[2019-12-21 06:54] LABS: ABSOLUTE BASOPHILS # (AUTO) 0.1 10^3/uL (0.0-0.2); ABSOLUTE LYMPHOCYTES (AUTO) 1.9 10^3/uL (0.5-4.7); ABSOLUTE NEUT (AUTO) 6.1 10^3/uL (1.7-8.2); BASOPHILS % (AUTO) 0.8 % (0-2); EOSINOPHILS % (AUTO) 0.5 % (0-6); HEMATOCRIT 32.9 % (36.0-47.0); LYMPHOCYTES % (AUTO) 20.5 % (13-45); MEAN CORPUSCULAR HEMOGLOBIN 27.8 pg (27.0-33.4); MEAN CORPUSCULAR HGB CONC 33.5 g/dL (32.0-36.0); MEAN CORPUSCULAR VOLUME 83 fl (80-97); MONOCYTES % (AUTO) 10.7 % (3-13); PLATELET COUNT 463 10^3/uL (150-450); RED BLOOD COUNT 3.97 10^6/uL (3.72-5.28); SEGMENTED NEUTROPHILS % (AUTO) 67.5 % (42-78); TOTAL CELLS COUNTED % (AUTO) 100 %; WHITE BLOOD COUNT 9.1 10^3/uL (4.0-10.5)
[2019-12-21 07:20] LABS: BLOOD UREA NITROGEN 15 mg/dL (7-20); CALCIUM 9.5 mg/dL (8.4-10.2); GLUCOSE 83 mg/dL (75-110)
[2019-12-21 07:21] LABS: ALBUMIN 2.6 g/dL (3.5-5.0); ALKALINE PHOSPHATASE 96 U/L (38-126); ANION GAP 11 (5-19); ASPARTATE AMINO TRANSFERASE 18 U/L (14-36); BILIRUBIN,TOTAL 0.5 mg/dL (0.2-1.3); CARBON DIOXIDE 23 mmol/L (22-30); CHLORIDE 102 mmol/L (98-107); PHOSPHORUS 3.5 mg/dL (2.5-4.5); POTASSIUM 4.6 mmol/L (3.6-5.0); TOTAL PROTEIN 6.7 g/dL (6.3-8.2)
[2019-12-21] MEDS ORDERED: INFLUENZA QUAD (6MOS+) 2020-21 VAC 0.5 ML SYR IM ONE (08:00)
[2019-12-21] MEDS: INSULIN LISPRO 100 UNIT/ML 3 ML VIAL SUBCUT SCH ×4 (08:26→22:17)
[2019-12-21] MEDS: SUCRALFATE 1 GM TABLET PO SCH ×4 (10:00→22:32)
[2019-12-21] MEDS: FAMOTIDINE 20 MG TABLET PO SCH ×2 (10:00→22:32)
[2019-12-21] MEDS: MAGNESIUM OXIDE 400 MG TABLET PO SCH (10:00)
[2019-12-21] MEDS: METOCLOPRAMIDE HCL 10 MG TABLET PO SCH ×4 (10:00→22:32)
[2019-12-21] MEDS: CEFTRIAXONE 2 GM/D5W RTU 2 GM/50 ML RTUPB IV SCH (17:02)
[2019-12-21] MEDS: CITALOPRAM HYDROBROMIDE 20 MG TABLET PO SCH (17:25)
--- NOTE | 2019-12-21 20:17 | PDOC PROGRESS REPORT ---
Subjective Date:: 12/21/19 Subjective:: YI TAN is a 79 year old female, past medical history of hypertension, hyp erlipidemia, type 2 diabetes, morbid obesity, history of meningioma status post craniotomy, has been admitted multiple times at [facility] most recent 1 in October now admitted due to syncope. Patient has been in the ED twice in the past week for urinary retention and UTI. She was given antibiotics for UTI and was eventually sent home. She came back to the ED today due to the same problem unable to fully void. A Hardy was placed and triage and drained about undocumented amount of urine. About an hour after patient had one episode of syncope that lasted for approximately 1 to 2 minutes, no seizure-like activity. Blood pressure during that time noted to be borderline low. WBC count 12.7, CMP unremarkable. Urinalysis positive for nitrite negative for leukocyte esterase. Hospitalist service was called to admit the patient for further evaluation and management. D2 hospital stay. She was seen and examined at bedside. complaining of back pain. No nausea/vomiting. Noted bloody urine output in hardy bag. Urine culture growing gram negative rods, on rocephin Reason For Visit: SYNCOPE Physical Exam Vital Signs: Temp Pulse Resp BP Pulse Ox 98.1 F 74 17 170/66 H 95 12/21/19 19:42 12/21/19 19:42 12/21/19 19:42 12/21/19 19:42 12/21/19 19:42 Intake & Output 12/20/19 12/21/19 12/22/19 06:59 06:59 06:59 Intake Total 1050 400 Output Total 300 300 Balance 750 100 Weight 105.2 kg General appearance: PRESENT: mild distress, morbidly obese Head exam: PRESENT: atraumatic, normocephalic Eye exam: PRESENT: EOMI, PERRLA Mouth exam: PRESENT: moist Neck exam: PRESENT: full ROM Respiratory exam: PRESENT: clear to auscultation patria, symmetrical, unlabored Cardiovascular exam: PRESENT: RRR, +S1, +S2 Extremities exam: PRESENT: full ROM Musculoskeletal exam: PRESENT: full ROM Neurological exam: PRESENT: alert, awake, oriented to person, oriented to place, oriented to time, oriented to situation Skin exam: PRESENT: normal color Results Laboratory Results: 12/21/19 05:03 12/21/19 05:03 12/21/19 12/21/19 12/21/19 05:03 05:03 05:03 WBC 9.1 RBC 3.97 Hgb 11.0 L D Hct 32.9 L MCV 83 MCH 27.8 MCHC 33.5 RDW 18.0 H Plt Count 463 H Seg Neutrophils % 67.5 Sodium 135.6 L Potassium 4.6 Chloride 102 Carbon Dioxide 23 Anion Gap 11 BUN 15 Creatinine 1.15 Est GFR ( Amer) 55 L Glucose 83 Calcium 9.5 Phosphorus 3.5 Magnesium 1.8 Total Bilirubin 0.5 AST 18 Alkaline Phosphatase 96 Total Protein 6.7 Albumin 2.6 L TSH 3.87 Impressions: Abdomen/Pelvis CT 12/20/19 12:13 IMPRESSION: No acute findings. No significant change. Chest X-Ray 12/20/19 12:28 IMPRESSION: No interval change in the chest. Assessment and Plan - Diagnosis (1) Syncope Qualifiers: Syncope type: unspecified Qualified Code(s): R55 - Syncope and collapse Is this a current diagnosis for this admission?: Yes Plan: - 1 episode after hardy catheter placement for urinary retention - noted to be hypotensive during the episode - she has a history of syncope that has been extensively worked up in the past - this is likely secondary to volume depletion - CT head negative - continue IV fluids (2) Urinary retention Is this a current diagnosis for this admission?: Yes Plan: - has been having urinary retention the past several days - treated for UTI - currently has a hardy - she will likely need hardy on discharge - on rocephin (3) Urinary tract infection Qualifiers: Urinary tract infection type: site unspecified Hematuria presence: without hematuria Qualified Code(s): N39.0 - Urinary tract infection, site not specified Is this a current diagnosis for this admission?: Yes Plan: - UA positive for nitrite but no leukocyte - has been on antibiotics the past week, cultures have been negative - will continue abx to complete 7 days of treatment (4) Diabetes mellitus type 2 in obese Is this a current diagnosis for this admission?: Yes Plan: - on metformin - switched to sliding scale - accucheck - hypoglycemia protocol (5) Hypertension Qualifiers: Hypertension type: essential hypertension Qualified Code(s): I10 - Essential (primary) hypertension Is this a current diagnosis for this admission?: Yes Plan: - on clonidine, lisinopril for HTN - meds resumed (6) Morbid obesity with BMI of 40.0-44.9, adult Is this a current diagnosis for this admission?: Yes Plan: - this is aggravating her urinary retention - Time Time Spent with patient: 25-34 minutes Medications reviewed and adjusted accordingly: Yes Anticipated Discharge Disposition: Home with Home Health Anticipated Discharge Timeframe: to be determined
[2019-12-21] MEDS: ATORVASTATIN CALCIUM 80 MG TABLET PO SCH (22:32)
[2019-12-21] MEDS: LOSARTAN POTASSIUM 50 MG TABLET PO SCH (22:34)
[2019-12-22] MEDS: HEPARIN SOD (PORCINE) 5,000 UNIT/ML 1 ML VIAL SUBCUT SCH ×2 (05:25→16:39)
[2019-12-22 05:50] LABS: ABSOLUTE BASOPHILS # (AUTO) 0.1 10^3/uL (0.0-0.2); ABSOLUTE EOSINOPHILS # (AUTO) 0.1 10^3/uL (0.0-0.6); ABSOLUTE LYMPHOCYTES (AUTO) 1.7 10^3/uL (0.5-4.7); ABSOLUTE MONOCYTES (AUTO) 1.1 10^3/uL (0.1-1.4); ABSOLUTE NEUT (AUTO) 5.8 10^3/uL (1.7-8.2); BASOPHILS % (AUTO) 1.2 % (0-2); HEMATOCRIT 32.3 % (36.0-47.0); HEMOGLOBIN 10.5 g/dL (12.0-15.5); LYMPHOCYTES % (AUTO) 19.4 % (13-45); MEAN CORPUSCULAR HEMOGLOBIN 26.9 pg (27.0-33.4); MEAN CORPUSCULAR HGB CONC 32.4 g/dL (32.0-36.0); MEAN CORPUSCULAR VOLUME 83 fl (80-97); MONOCYTES % (AUTO) 12.3 % (3-13); PLATELET COUNT 434 10^3/uL (150-450); RED BLOOD COUNT 3.89 10^6/uL (3.72-5.28); RED CELL DISTRIBUTION WIDTH 17.4 % (11.5-14.0); SEGMENTED NEUTROPHILS % (AUTO) 66.1 % (42-78); TOTAL CELLS COUNTED % (AUTO) 100 %; WHITE BLOOD COUNT 8.8 10^3/uL (4.0-10.5)
[2019-12-22 06:25] LABS: ALBUMIN 2.6 g/dL (3.5-5.0); ALKALINE PHOSPHATASE 93 U/L (38-126); ANION GAP 12 (5-19); ASPARTATE AMINO TRANSFERASE 19 U/L (14-36); BILIRUBIN,DIRECT 0.1 mg/dL (0.0-0.4); BILIRUBIN,TOTAL 0.4 mg/dL (0.2-1.3); BLOOD UREA NITROGEN 14 mg/dL (7-20); CALCIUM 9.3 mg/dL (8.4-10.2); CARBON DIOXIDE 22 mmol/L (22-30); CHLORIDE 101 mmol/L (98-107); GLUCOSE 99 mg/dL (75-110); POTASSIUM 4.2 mmol/L (3.6-5.0); TOTAL PROTEIN 6.5 g/dL (6.3-8.2)
[2019-12-22] MEDS: INSULIN LISPRO 100 UNIT/ML 3 ML VIAL SUBCUT SCH ×3 (07:51→16:26)
[2019-12-22] MEDS: METOCLOPRAMIDE HCL 10 MG TABLET PO SCH ×3 (08:55→16:40)
[2019-12-22] MEDS: SUCRALFATE 1 GM TABLET PO SCH ×3 (08:55→16:40)
[2019-12-22] MEDS ORDERED: CLONIDINE 0.3 MG/24 HR PATCH.TDWK TD SCH (10:00)
[2019-12-22] MEDS: CEFTRIAXONE 2 GM/D5W RTU 2 GM/50 ML RTUPB IV SCH (12:43)
[2019-12-22] MEDS: MAGNESIUM OXIDE 400 MG TABLET PO SCH (12:43)
[2019-12-22] MEDS: FAMOTIDINE 20 MG TABLET PO SCH (12:44)
[2019-12-22] MEDS: LOSARTAN POTASSIUM 50 MG TABLET PO SCH (12:44)
[2019-12-22] MEDS: PHENAZOPYRIDINE HCL 200 MG TABLET PO SCH ×2 (12:45→16:38)
--- OUTSIDE RECORDS SUMMARY | 2019-12-22 14:37 | XMS REPORT ---
:1940 Author Organization [facility] Address [facility] [place] [address] [place] [id number] Care Team Providers Name Role Phone Esme SPENCE Attending Clinician Unavailable Homer CANALES Attending Clinician Unavailable Rafa Valdez Attending Clinician Unavailable Allergies, Adverse Reactions, Alerts Allergy Name Allergy Status Severity Reaction(s) Onset Inactive Treat ing Comments Type Date Date Clinician GLIMEPIRIDE Drug Active 2013-07 00:00:0 0 Medications This patient has no known medications. Problems This patient has no known problems. Procedures Procedure Date / Time Performed Performing Clinician Xavi orr GLYCOSYLATED HEMOGLOBIN TEST 2015-06-24 14:30:00 OFFICE/OUTPATIENT VISIT, EST 2015-06-24 14:30:00 X-RAY EXAM OF NECK SPINE 2015-06-24 14:30:00 COMPREHEN METABOLIC PANEL 2015-06-24 14:30:00 ROUTINE VENIPUNCTURE 2015-06-24 14:30:00 LIPID PANEL 2015-06-24 14:30:00 ROUTINE VENIPUNCTURE 2015-03-05 11:15:00 OFFICE/OUTPATIENT VISIT, EST 2015-03-05 11:15:00 GLYCOSYLATED HEMOGLOBIN TEST 2015-03-05 11:15:00 OFFICE/OUTPATIENT VISIT, EST 2015-02-11 16:00:00 GLYCOSYLATED HEMOGLOBIN TEST 2014-10-10 09:45:00 LIPID PANEL 2014-10-10 09:45:00 ROUTINE VENIPUNCTURE 2014-10-10 09:45:00 OFFICE/OUTPATIENT VISIT, EST 2014-10-10 09:45:00 LIPID PANEL 2014-04-19 10:30:00 GLYCOSYLATED HEMOGLOBIN TEST 2014-04-19 10:30:00 COMPLETE CBC, AUTOMATED 2014-04-19 10:30:00 ROUTINE VENIPUNCTURE 2014-04-19 10:30:00 COMPREHEN METABOLIC PANEL 2014-04-19 10:30:00 OFFICE/OUTPATIENT VISIT, EST 2014-04-13 15:45:00 OFFICE/OUTPATIENT VISIT, EST 2013-12-07 15:30:00 IMMUNIZATION ADMIN 2013-12-07 15:30:00 FLU VACCINE AGE 3 \T\ OVER, IM 2013-12-07 15:30:00 OFFICE/OUTPATIENT VISIT, EST 2013-10-05 16:30:00 OFFICE/OUTPATIENT VISIT, EST 2013-07-06 10:45:00 OFFICE/OUTPATIENT VISIT, EST 2013-06-15 11:30:00 OFFICE/OUTPATIENT VISIT, EST 2013-05-18 12:00:00 Results Test Description Test Time Test Comments Text Results Atomic Results Result Comments URIC ACID 2015-08-14 14:55:00 Test Item Value Reference Range Comments URIC (test code = URIC) 6.6 MG/DL 2.6-7.2 LIPID [id number] 14:38:00 Test Item Value Reference Range Comments DLDL (test code = DLDL) 104 MG/DL 100-130 CHD (test code = CHD) 33.89 HDL (test code = HDL) 61 MG/DL 32-96 CHOL (test code = CHOL) 180 MG/DL 140-200 TGL (test code = TGL) 96 MG/DL 30-200 [id number] [id number] 14:38:00 Test Item Value Reference Range Comments CA (test code = CA) 10.1 MG/DL 8.5-10.1 NA (test code = NA) 139 MMOL/L 136-145 ALT (test code = ALT) 33 U/L 9-61 EGFRAA (test code = EGFRAA) 62.39 >60.00 CR (test code = CR) 1.1 MG/DL 0.4-1.3 EGFR (test code = EGFR) 51.47 >60.00 ALB (test code = ALB) 3.5 G/DL 3.2-4.7 BILT (test code = BILT) 0.3 MG/DL 0.1-1.0 CL (test code = CL) 103 MMOL/L 98-110 K (test code = K) 3.9 MMOL/L 3.5-5.1 BUN (test code = BUN) 34 MG/DL 7-18 AST (test code = AST) 20 U/L 9-37 GLOB (test code = GLOB) 4.7 1.9-4.5 GLU (test code = GLU) 103 MG/DL 70-110 ION GAP (test code = ION GAP) 13 4-16 BUN/CREAT RATIO (test code = BUN/CREAT RATIO) 31 10 -14 TP (test code = TP) 8.2 G/DL 6.9-8.5 ALK PHOS (test code = ALK PHOS) 105 U/L 50-136 CO2 (test code = CO2) 27.2 MMOL/L 21.0-32.0 [id number] 14:38:00 Test Item Value Reference Range Comments HA1C (test code = HA1C) 6.9 % 4.8-6.0 [id number] 11:53:00 Test Item Value Reference Range Comments HA1C (test code = HA1C) 7.1 % 4.8-6.0 [id number] 10:05:00 Test Item Value Reference Range Comments HA1C (test code = HA1C) 8.4 % 4.8-6.0 [place] [id number] 10:05:00 Test Item Value Reference Range Comments ION GAP (test code = ION GAP) 15 4-16 BUN (test code = BUN) 27 MG/DL 7-18 ALT (test code = ALT) 32 U/L 9-61 K (test code = K) 4.2 MMOL/L 3.5-5.1 GLU (test code = GLU) 182 MG/DL 70-110 EGFR (test code = EGFR) 51.57 >60.00 ALK PHOS (test code = ALK PHOS) 111 U/L 50-136 CA (test code = CA) 9.6 MG/DL 8.5-10.1 NA (test code = NA) 138 MMOL/L 136-145 BILT (test code = BILT) 0.3 MG/DL 0.1-1.0 CO2 (test code = CO2) 25.6 MMOL/L 21.0-32.0 EGFRAA (test code = EGFRAA) 62.51 >60.00 CR (test code = CR) 1.1 MG/DL 0.4-1.3 ALB (test code = ALB) 3.5 G/DL 3.2-4.7 BUN/CREAT RATIO (test code = BUN/CREAT RATIO) 25 10 -14 CL (test code = CL) 102 MMOL/L 98-110 AST (test code = AST) 20 U/L 9-37 TP (test code = TP) 8.5 G/DL 6.9-8.5 GLOB (test code = GLOB) 5.0 1.9-4.5 LIPID [id number] 10:05:00 Test Item Value Reference Range Comments TGL (test code = TGL) 82 MG/DL 30-200 CHD (test code = CHD) 38.01 DLDL (test code = DLDL) 93 MG/DL 100-130 HDL (test code = HDL) 65 MG/DL 32-96 CHOL (test code = CHOL) 171 MG/DL 140-200 [id number] [id number] 10:10:00 Test Item Value Reference Range Comments BUN/CREAT RATIO (test code = BUN/CREAT RATIO) 28 10 -14 CA (test code = CA) 9.7 MG/DL 8.5-10.1 CL (test code = CL) 102 MMOL/L 98-110 GLU (test code = GLU) 168 MG/DL 70-110 ION GAP (test code = ION GAP) 12 4-16 CO2 (test code = CO2) 27.8 MMOL/L 21.0-32.0 TP (test code = TP) 8.1 G/DL 6.9-8.5 BILT (test code = BILT) 0.5 MG/DL 0.1-1.0 AST (test code = AST) 19 U/L 9-37 EGFRAA (test code = EGFRAA) 43.76 >60.00 ALB (test code = ALB) 3.6 G/DL 3.2-4.7 NA (test code = NA) 138 MMOL/L 136-145 ALK PHOS (test code = ALK PHOS) 115 U/L 50-136 CR (test code = CR) 1.5 MG/DL 0.4-1.3 EGFR (test code = EGFR) 36.10 >60.00 GLOB (test code = GLOB) 4.5 1.9-4.5 K (test code = K) 4.0 MMOL/L 3.5-5.1 ALT (test code = ALT) 23 U/L 9-61 BUN (test code = BUN) 42 MG/DL 7-18 [id number] 10:10:00 Test Item Value Reference Range Comments HA1C (test code = HA1C) 7.3 % 4.8-6.0 LIPID [id number] 10:10:00 Test Item Value Reference Range Comments TGL (test code = TGL) 113 MG/DL 30-200 HDL (test code = HDL) 62 MG/DL 32-96 DLDL (test code = DLDL) 92 MG/DL 100-130 CHD (test code = CHD) 35.84 CHOL (test code = CHOL) 173 MG/DL 140-200 [id number] 10:10:00 Test Item Value Reference Range Comments HCT (test code = HCT) 43.3 H % 33.3-41.4 MCV (test code = MCV) 86 FL 79-95 PLT (test code = PLT) 371 H K/UL 165-353 MCH (test code = MCH) 27.6 PQ 26.8-33.2 WBC (test code = WBC) 11.9 H K/UL 3.6-11.1 MCHC (test code = MCHC) 32.3 G/DL 33.5-35.5 RBC (test code = RBC) 5.06 H CU/MM 3.69-4.88 RDW (test code = RDW) 15.3 H % 12.0-15.1 HGB (test code = HGB) 14.0 G/DL 11.4-14.4 Assessments Condition Name Status Diagnosis Date Treating Clinici an Type 2 diabetes mellitus without Active complications Hyperlipidemia, unspecified Active Cervicalgia Active Essential (primary) hypertension Active Type 2 diabetes mellitus without Active complications Unspecified Eustachian tube disorder, Active unspecified ear Unspecified Eustachian tube disorder, Active unspecified ear Diabetes Mellitus - Type II (Controlled) Active Hypertension - Benign (Essential) Active Insufficiency - Renal Active Loss - Sense Of Taste Active Hyperlipidemia (Unspecified) Active Diabetes Mellitus - Type II (Controlled) Active Diabetes Mellitus - Type II (Controlled) Active Hyperlipidemia (Unspecified) Active Hypertension - Benign (Essential) Active Arthritis - Knee/Lower Leg Active Diabetes Mellitus - Type II (Controlled) Active Vaccination - Influenza Active Hyperlipidemia (Unspecified) Active Hypertension - Benign (Essential) Active Constipation - Unspecified Active Hyperlipidemia (Unspecified) Active Hypertension - Benign (Essential) Active Diabetes Mellitus - Type II (Controlled) Active Osteoporosis - Unspecified Active Pain - Knee/Lower Leg Active Hypertension - Benign (Essential) Active Hyperlipidemia (Unspecified) Active Diabetes Mellitus - Type II (Controlled) Active Edema - Localized (NOS) Active Pain - Knee/Lower Leg Active Pain - Limb Active Diabetes mellitus Active Hypertensive disorder Active Allergic rhinitis Active Tobacco user Active Hyperlipidemia Active Osteoporosis Active Diabetes mellitus Active Hypertensive disorder Active Hyperlipidemia Active Diabetes mellitus Active Hypertensive disorder Active Allergic rhinitis Active Tobacco user Active Hyperlipidemia Active Osteoporosis Active Diabetes mellitus Active Hypertensive disorder Active Allergic rhinitis Active Tobacco user Active Hyperlipidemia Active Osteoporosis Active Diabetes mellitus Active Hypertensive disorder Active Allergic rhinitis Active Tobacco user Active Hyperlipidemia Active Osteoporosis Active Diabetes mellitus Active Hypertensive disorder Active Allergic rhinitis Active Tobacco user Active Hyperlipidemia Active Osteoporosis Active Diabetes mellitus Active Hypertensive disorder Active Allergic rhinitis Active Tobacco user Active Hyperlipidemia Active Osteoporosis Active Diabetes mellitus Active Hypertensive disorder Active Allergic rhinitis Active Tobacco user Active Hyperlipidemia Active Osteoporosis Active Diabetes mellitus Active Hypertensive disorder Active Allergic rhinitis Active Tobacco user Active Hyperlipidemia Active Osteoporosis Active Diabetes mellitus Active Hypertensive disorder Active Allergic rhinitis Active Tobacco user Active Hyperlipidemia Active Osteoporosis Active Diabetes mellitus Active Hypertensive disorder Active Allergic rhinitis Active Tobacco user Active Hyperlipidemia Active Osteoporosis Active Encounters Start End Encounter Admission Attending Care Care Encounter Date/Time Date/Time Type Type Clinicians Facility Department ID 2015-06-24 2015-06-24 Outpatient Esme SPENCE LEISA Mcginnis [id number] 14:30:00 14:30:00 [facility] [id number] [facility] [id number] Center, [id number] Inc. 2015-03-05 2015-03-05 Outpatient Esme SPENCE LEISA Mcginnis [id number] 11:15:00 11:15:00 [facility] [id number] [facility] [id number] Center, [id number] Inc. 2015-02-11 2015-02-11 Outpatient Esme SPENCE LEISA Rahel [id number] 16:00:00 16:00:00 [facility] [id number] [facility] [id number] Center, [id number] Inc. 2014-10-10 2014-10-10 Outpatient Esme SPENCE LEISA Mcginnis [id number] 09:45:00 09:45:00 [facility] [id number] [facility] [id number] [place], [id number] Inc. 2014-04-19 2014-04-19 Outpatient Homer CANALES LEISA Mcginnis [id number] 10:30:00 10:30:00 [facility] [id number] Health [id number] Center, [id number] Inc. 2014-04-13 2014-04-13 Outpatient Homer AGNP, LEISA Mcginnis [id number] 15:45:00 15:45:00 [facility] [id number] Health [id number] Center, [id number] Inc. 2013-12-07 2013-12-07 Outpatient Bundle DARCY Mcginnis [id number] 15:30:00 15:30:00 C, [facility] [id number] Health [id number] Center, [id number] Inc. 2013-10-05 2013-10-05 Outpatient Bundle DARCY Mcginnis [id number] 16:30:00 16:30:00 C, [facility] [id number] Health [id number] Center, [id number] Inc. 2013-07-06 2013-07-06 Outpatient Bundle DARCY Mcginnis [id number] 10:45:00 10:45:00 C, [facility] [id number] Health [id number] Center, [id number] Inc. 2013-06-15 2013-06-15 Outpatient Bundle DARCY Mcginnis [id number] 11:30:00 11:30:00 C, [facility] [id number] Health [id number] Center, [id number] Inc. 2013-05-18 2013-05-18 Outpatient Bundle DARCY Mcginnis [id number] 12:00:00 12:00:00 C, [facility] [id number] Health [id number] Center, [id number] Inc. Social History This patient has no known social history. Vital Signs This patient has no known vital signs.
[2019-12-22] MEDS ORDERED: KETOROLAC TROMETHAMINE INJ/PF 30 MG/1 ML SDV IV ONE (16:45)
[2019-12-22 19:40] VITALS: BP 149/48
--- NOTE | 2019-12-23 06:50 | PDOC DISCHARGE SUMMARY ---
Impression - Admit/DC Date/PCP Admission Date/Primary Care Provider: 12/20/19 14:42 ELMA FERNÁNDEZ MD Discharge Date: 12/23/19 - Discharge Diagnosis (1) Syncope Is this a current diagnosis for this admission?: Yes (2) Urinary retention Is this a current diagnosis for this admission?: Yes (3) Urinary tract infection Is this a current diagnosis for this admission?: Yes (4) Diabetes mellitus type 2 in obese Is this a current diagnosis for this admission?: Yes (5) Hypertension Is this a current diagnosis for this admission?: Yes (6) Morbid obesity with BMI of 40.0-44.9, adult Is this a current diagnosis for this admission?: Yes - Assessment Summary: (1) Syncope Qualifiers: Syncope type: unspecified Qualified Code(s): R55 - Syncope and collapse Is this a current diagnosis for this admission?: Yes Plan: - 1 episode after hardy catheter placement for urinary retention - noted to be hypotensive during the episode - she has a history of syncope that has been extensively worked up in the past - this is likely secondary to volume depletion - CT head negative - continue IV fluids (2) Urinary retention Is this a current diagnosis for this admission?: Yes Plan: - has been having urinary retention the past several days - treated for UTI - currently has a hardy - she will likely need hardy on discharge - on rocephin (3) Urinary tract infection Qualifiers: Urinary tract infection type: site unspecified Hematuria presence: without hematuria Qualified Code(s): N39.0 - Urinary tract infection, site not specified Is this a current diagnosis for this admission?: Yes Plan: - UA positive for nitrite but no leukocyte - has been on antibiotics the past week, cultures have been negative - will continue abx to complete 7 days of treatment (4) Diabetes mellitus type 2 in obese Is this a current diagnosis for this admission?: Yes Plan: - on metformin - switched to sliding scale - accucheck - hypoglycemia protocol (5) Hypertension Qualifiers: Hypertension type: essential hypertension Qualified Code(s): I10 - Essential (primary) hypertension Is this a current diagnosis for this admission?: Yes Plan: - on clonidine, lisinopril for HTN - meds resumed (6) Morbid obesity with BMI of 40.0-44.9, adult Is this a current diagnosis for this admission?: Yes Plan: - this is aggravating her urinary retention - Additional Information Discharge Diet: As Tolerated Discharge Activity: Activity As Tolerated Referrals: [facility] [Provider Group] - 01/24/20 (Spoke with patient's spouse who states they scheduled her appointment.) ELMA FERNÁNDEZ MD [Primary Care Provider] - Follow up as needed (7-10 days) Prescriptions: Cefuroxime Axetil [Ceftin 500 mg Tablet] 1 tab PO BID 5 Days #10 tablet Home Medications: Atorvastatin Calcium [Lipitor] 80 mg PO DAILY #30 tablet 10/20/19 Clonidine [Catapres-Tts 3 (0.3 mg/24 Hr) Transderm Patch] 1 each TD Fr@10 #12 patch.tdwk 10/20/19 Sucralfate [Carafate 1 gm Tablet] 1 gm PO ACHS #120 tablet 10/20/19 Citalopram Hydrobromide [Celexa 20 mg Tablet] 20 mg PO QPM 12/20/19 Insulin Glargine,Hum.rec.anlog [Lantus Insulin 100 Unit/1 ml 10 ml] 20 units SUBCUT QPM 12/20/19 Losartan Potassium 100 mg PO DAILY 12/20/19 Losartan Potassium 100 mg PO DAILY 12/20/19 Magnesium Oxide [Mag-Ox 400 mg Tablet] 400 mg PO DAILY 12/20/19 Metoclopramide HCl [Reglan 10 mg Tablet] 10 mg PO ACHS 12/20/19 Ondansetron [Zofran Odt 4 mg Tablet] 8 mg PO Q6HP PRN 12/20/19 Pantoprazole Sodium [Protonix [address] Tablet] 40 mg PO BID 12/20/19 Phenazopyridine HCl [Pyridium 200 mg Tablet] 200 mg PO TID 12/20/19 Polyethylene Glycol 3350 [Miralax Powder 17 gm/Packet] 1 packet PO DAILYP PRN 12/20/19 Potassium Chloride [Klor-Con M20] 20 meq PO BID 12/20/19 Cefuroxime Axetil [Ceftin 500 mg Tablet] 1 tab PO BID 5 Days #10 tablet 12/22/19 Ondansetron [Zofran Odt 4 mg Tablet] 4 mg PO Q6HP PRN tab.rapdis 12/22/19 History of Present Illiness History of Present Illness: YI TAN is a 79 year old female, past medical history of hypertension, hyperlipidemia, type 2 diabetes, morbid obesity, history of meningioma status post craniotomy, has been admitted multiple times at [facility] most recent 1 in October now admitted due to syncope. Patient has been in the ED twice in the past week for urinary retention and UTI. She was given antibiotics for UTI and was eventually sent home. She came back to the ED today due to the same problem unable to fully void. A Hardy was placed and triage and drained about undocumented amount of urine. About an hour after patient had one episode of syncope that lasted for approximately 1 to 2 minutes, no seizure-like activity. Blood pressure during that time noted to be borderline low. WBC count 12.7, CMP unremarkable. Urinalysis positive for nitrite negative for leukocyte esterase. Hospitalist service was called to admit the patient for further evaluation and management. Hospital Course Hospital Course: D2 hospital stay. She was seen and examined at bedside. complaining of back pain. No nausea/vomiting. Noted bloody urine output in hardy bag. Urine culture growing gram negative rods, on rocephin D3 hospital stay. Patient remained stable, no fever, no SOB, WBC count normal. Patient was sent home with a hardy catheter and a course of Abx and was advised to follow up with a urologist and PCP. Physical Exam Vital Signs: Temp Pulse Resp BP Pulse Ox 97.8 F 83 18 151/75 H 95 12/22/19 17:05 12/22/19 17:05 12/22/19 17:05 12/22/19 17:05 12/22/19 17:05 Intake & Output 12/21/19 12/22/19 12/23/19 06:59 06:59 06:59 Intake Total 1050 770 387 Output Total 300 700 250 Balance 750 70 137 Weight 105.2 kg 105.2 kg 105.2 kg General appearance: PRESENT: no acute distress, cooperative, obese Head exam: PRESENT: atraumatic, normocephalic Eye exam: PRESENT: EOMI, PERRLA Mouth exam: PRESENT: moist Neck exam: PRESENT: full ROM Respiratory exam: PRESENT: clear to auscultation patria, symmetrical, unlabored Cardiovascular exam: PRESENT: RRR, +S1, +S2 GI/Abdominal exam: PRESENT: normal bowel sounds, soft. ABSENT: rebound, tenderness Extremities exam: PRESENT: full ROM Musculoskeletal exam: PRESENT: full ROM Neurological exam: PRESENT: alert, awake, oriented to person, oriented to place, oriented to time, oriented to situation Psychiatric exam: PRESENT: normal mood Skin exam: PRESENT: normal color Results Laboratory Results: WBC 8.8 10^3/uL (4.0-10.5) 12/22/19 04:33 RBC 3.89 10^6/uL (3.72-5.28) 12/22/19 04:33 Hgb 10.5 g/dL (12.0-15.5) L 12/22/19 04:33 Hct 32.3 % (36.0-47.0) L 12/22/19 04:33 MCV 83 fl (80-97) 12/22/19 04:33 MCH 26.9 pg (27.0-33.4) L 12/22/19 04:33 MCHC 32.4 g/dL (32.0-36.0) 12/22/19 04:33 RDW 17.4 % (11.5-14.0) H 12/22/19 04:33 Plt Count 434 10^3/uL (150-450) 12/22/19 04:33 Lymph % (Auto) 19.4 % (13-45) 12/22/19 04:33 [place] % (Auto) 12.3 % (3-13) 12/22/19 04:33 Eos % (Auto) 1.0 % (0-6) 12/22/19 04:33 Baso % (Auto) 1.2 % (0-2) 12/22/19 04:33 Absolute Neuts (auto) 5.8 10^3/uL (1.7-8.2) 12/22/19 04:33 Absolute Lymphs (auto) 1.7 10^3/uL (0.5-4.7) 12/22/19 04:33 Absolute Monos (auto) 1.1 10^3/uL (0.1-1.4) 12/22/19 04:33 Absolute Eos (auto) 0.1 10^3/uL (0.0-0.6) 12/22/19 04:33 Absolute Basos (auto) 0.1 10^3/uL (0.0-0.2) 12/22/19 04:33 Seg Neutrophils % 66.1 % (42-78) 12/22/19 04:33 Sodium 134.9 mmol/L (137-145) L 12/22/19 04:33 Potassium 4.2 mmol/L (3.6-5.0) 12/22/19 04:33 Chloride 101 mmol/L (98-107) 12/22/19 04:33 Carbon Dioxide 22 mmol/L (22-30) 12/22/19 04:33 Anion Gap 12 (5-19) 12/22/19 04:33 BUN 14 mg/dL (7-20) 12/22/19 04:33 Creatinine 1.16 mg/dL (0.52-1.25) 12/22/19 04:33 Est GFR ( Amer) 55 (>60) L 12/22/19 04:33 Est GFR (MDRD) Non-Af 45 (>60) L 12/22/19 04:33 Glucose 99 mg/dL (75-110) 12/22/19 04:33 POC Glucose 120 mg/dL (70-110) H 12/22/19 15:54 Calcium 9.3 mg/dL (8.4-10.2) 12/22/19 04:33 Phosphorus 3.5 mg/dL (2.5-4.5) 12/21/19 05:03 Magnesium 1.8 mg/dL (1.6-2.3) 12/21/19 05:03 Total Bilirubin 0.4 mg/dL (0.2-1.3) 12/22/19 04:33 Direct Bilirubin 0.1 mg/dL (0.0-0.4) 12/22/19 04:33 Neonat Total Bilirubin Not Reportable 12/22/19 04:33 Neonat Direct Bilirubin Not Reportable 12/22/19 04:33 Neonat Indirect Bili Not Reportable 12/22/19 04:33 AST 19 U/L (14-36) 12/22/19 04:33 ALT 8 U/L (<35) 12/22/19 04:33 Alkaline Phosphatase 93 U/L (38-126) 12/22/19 04:33 Total Protein 6.5 g/dL (6.3-8.2) 12/22/19 04:33 Albumin 2.6 g/dL (3.5-5.0) L 12/22/19 04:33 Lipase 207.9 U/L (23-300) 12/20/19 11:15 TSH 3.87 uIU/mL (0.47-4.68) 12/21/19 05:03 Urine Color ANDRE 12/20/19 11:15 Urine Appearance CLEAR 12/20/19 11:15 Urine pH 6.0 (5.0-9.0) 12/20/19 11:15 Ur Specific Wann 1.014 12/20/19 11:15 Urine Protein 30 mg/dL (NEGATIVE) H 12/20/19 11:15 Urine Glucose (UA) NEGATIVE mg/dL (NEGATIVE) 12/20/19 11:15 Urine Ketones 20 mg/dL (NEGATIVE) H 12/20/19 11:15 Urine Blood NEGATIVE (NEGATIVE) 12/20/19 11:15 Urine Nitrite POSITIVE (NEGATIVE) H 12/20/19 11:15 Urine Bilirubin NEGATIVE (NEGATIVE) 12/20/19 11:15 Urine Urobilinogen 4.0 mg/dL (<2.0) H 12/20/19 11:15 Ur Leukocyte Esterase NEGATIVE (NEGATIVE) 12/20/19 11:15 Urine WBC (Auto) 2 /HPF 12/20/19 11:15 Urine RBC (Auto) 0 /HPF 12/20/19 11:15 Squamous Epi Cells Auto 5 /HPF 12/20/19 11:15 Urine Mucus (Auto) RARE /LPF 12/20/19 11:15 Urine Ascorbic Acid NEGATIVE (NEGATIVE) 12/20/19 11:15 Impressions: Abdomen/Pelvis CT 12/20/19 12:13 IMPRESSION: No acute findings. No significant change. Chest X-Ray 12/20/19 12:28 IMPRESSION: No interval change in the chest. Plan Plan of Treatment: Patient was sent home and was told to follow-up with a urologist for assessment of her Hardy. Patient was discharged with a Hardy since she has been retaining urine constantly has visited the ED twice before this current admission. She was also discharged on an oral antibiotics. Time Spent: Less than 30 Minutes Stroke Is this a Stroke Patient?: No Acute Heart Failure Is this a Heart Failure Patient?: No
== END 2019-12-22 18:30 | disposition home health service (06) ==
LOC: ER 09:19 → EH 14:42 → 4W 18:45
PROVIDERS: ADMIT Internal Medicine; ATTEND Internal Medicine
DX: R55 Syncope and collapse (principal); R33.9 Retention of urine, unspecified; N39.0 Urinary tract infection, site not specified; E11.9 Type 2 diabetes mellitus without complications; I10 Essential (primary) hypertension; E66.01 Morbid (severe) obesity due to excess calories; Z68.41 Body mass index [BMI] 40.0-44.9, adult; I95.9 Hypotension, unspecified; E78.5 Hyperlipidemia, unspecified; I45.2 Bifascicular block; R29.6 Repeated falls; M62.81 Muscle weakness (generalized); Z79.84 Long term (current) use of oral hypoglycemic drugs; Z79.899 Other long term (current) drug therapy; Z82.49 Family history of ischemic heart disease and other diseases of the circulatory system; Z90.49 Acquired absence of other specified parts of digestive tract; Z90.710 Acquired absence of both cervix and uterus; Z86.03 Personal history of neoplasm of uncertain behavior; Z98.890 Other specified postprocedural states; Z87.442 Personal history of urinary calculi
CPT/HCPCS: 93005; 99285; 96361; 51702; 96365; 36415 ×3; 87040; 87086; 82962 ×3; 83690; 83735; 84100; 84443; 85025 ×3; 87088; 80053 ×3; 81001; 87186; 71046; 74176; 93010; 97166; G0378 ×4; J1644 ×3; A9270 ×19; J1885; J7030; J0696 ×3; J3490